=== PATIENT | male | born 1945 | race African-American/Black ===

== ENCOUNTER 2018-02-28 16:36 | Inpatient (IN) | payer MEDICARE ==
--- NOTE | 2018-03-01 16:21 | R.PREADM ---
SCREENING DATE AND TIME 03/01/2018 11:11 (CDT) ANTICIPATED REHAB ADMISSION DATE 03/03/2018 REFERRING FACILITY [facility] REFERRAL DATE AND TIME 03/01/2018 11:12 (CDT) ACUTE ADMIT DATE 02/15/2018 Previous Rehabilitation(s): No. REFERRING PHYSICIAN Kadie Bacon REHAB FACILITY [facility] CLINICAL LIAISON Laurence Bryant PHYSICIAN REVIEWER Dr. Zachary Ferguson M.D. [id number] [id number] NAME BRIANNA CRAWFORD ADDRESS PO [facility] [address] [facility] [address] [facility] [address] DATE OF 1945 AGE 72 SSN# [id number] GENDER male MARITAL STATUS RACE black ADMIT FROM 02 - [facility] PRE-HOSPITAL LIVING SETTING 01 - Home (private home/apt. board/care, assisted living, fpc, transitional living) HOME TYPE AND DETAILS Type of home: single family house # of steps to enter the residence: 0 # of steps within the residence: 0 # of levels in the residence: 1 PRE-HOSPITAL LIVING WITH Family/Relatives FAMILY SUPPORT Yes PHONE PRIMARY FAMILY CONTACT ON ADM.? no IS PRIMARY FAMILY CONTACT AUTH. REP.? no PHONE 1ST CONTACT ON ADM. no IS 1ST CONTACT AUTH. REP.? no PHONE 2ND CONTACT ON ADM.? no PATIENT EMPLOYMENT STATUS Retired (for age) PATIENT EMPLOYER No Employer PAYOR INFORMATION: 1ST PAYOR NAME [facility] 1ST PAYOR PHONE 1ST PAYOR INJURY/ILLNESS DUE TO ACCIDENT? No ANOTHER [employer] RESPONSIBLE? 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 is a 72 yo Right-handed black male. On 02/15/2018 he was admitted to [facility] with diagnosis coronary artery disease involving william meghann coronary artery of [place] heart with gain pectoris with documented spasm. His impairment category is Cardiac 09 - Cardiac Disorders (09). Pre-morbidly, Pt. was independent/mod-I in Self-Care, Sphincter Control, Transfers Control, Communica tion, Social Cognition, and Locomotion; and he had good Sphincter Control. Currently, he has deficits of Transfers Control, Communication, Social Cognition, Endurance, Balance, Safety Awareness, Locomotion, and Self-Care. Pt. is now referred to [facility] for acute in-patient rehabilitation in order to maximize patient's functional independence in activities of daily living, strength, ROM, and mobi lity. Patient has realistic goal of being discharged at assistance level 6-Adelia to reside at Home with Fam trinidad/Relatives. PAST MEDICAL HISTORY colorectal cancer MEDICATION ALLERGIES: No Known Drug Allergies (NKDA) ENVIRONMENTAL ALLERGIES: - Substance Allergies None Known - Other Allergies None Known CODE STATUS: Full code WEIGHT/HEIGHT/BMI: WEIGHT 250 lbs HEIGHT 5' 6" BMI 40.3 DIET: - Diet Type Regular - Diet - Solid Texture Regular - Diet - Liquid Texture Regular - Tube Feed N/A SKIN DIAGRAM: Incision on Chest; extent - small; stage - NS(Not Stageable). Treatment - Per Physician's Orders. REVIEW OF SYSTEMS: - Gen Alert and awake Lying in bed No apparent distress Oriented to: person, time, and place - Vital Signs Vital signs stable, afebrile - CVS RRR VITAL SIGNS Temperature: 98.6 F SBP/DBP: 101/66 Pulse: 98 Resp: 19 Vital signs stable, afebrile CURRENT SPHINCTER CONTROL: Pre-hospital bladder status: unspecified # of bladder accidents in the last 7 days prior to screenin Pre-hospital bowel status: unspecified # of bowel accidents in the last 7 days prior to screenin Last Bowel Movement Date: 03/01/2018 DETAILED CURRENT FUNCTIONAL STATUS: - Bladder accident frequency: Ind - No accidents in the past 7 days - Bowel accident frequency: Ind - No accidents in the past 7 days - Walking score based on distance walked: 3(>=150ft) FUNCTIONAL STATUS: - Self-Care A. Eating Ind Ind B. Grooming Ind Ind C. Bathing Ind Ind D. Dressing - Upper Ind sup E. Dressing - Lower Ind modA F. Toileting Ind modA - Sphincter Control G: Bladder control Ind Ind H: Bowel control Ind Ind - Transfers Control I. Bed/Chair/Wheelchair Ind modA J. Toilet Ind modA K. Tub/Shower Ind modA - Locomotion L. Walk/Wheelchair (B) Ind maxA M. Stairs Ind ADNO - Communication N. Comprehension (B) Ind sup O. Expression (B) Ind sup - Social Cognition P. Social Interaction Ind sup Q. Problem Solving Ind sup R. Memory Ind sup - Endurance Fair - Balance Fair - Safety Awareness Fair CURRENT FUNC. DEFICITS: Transfers Control, Communication, Social Cognition, Endurance, Balance, Safety Awareness, Locomotion, and Self-Care THERAPY NOTES FROM ACUTE CARE: Attached. SPECIAL NEEDS: - Safety Concerns Skin breakdown precautions needed due to skin breakdown risk PATIENT NEEDS ACTIVE AND ONGOING THERAPEUTIC INTERVENTION OF MULTIPLE THERAPY DISCIPLINES, INCLUDING: - Occupational Therapy Evaluate and Treat. - Physical Therapy Evaluate and Treat. PATIENT NEEDS CLOSE MEDICAL SUPERVISION BY A REHABILITATION PHYSICIAN FOR: Bowel and Bladder Management Coordination of Treatment Team Medical and Co-Morbidity Management Wound Care PATIENT REQUIRES 24X7 REHAB NURSING FOR MEDICAL AND FUNCTIONAL MGT. 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/Training Industrial Gas Fitter/Case Management PATIENT REHAB POTENTIAL: Expected level of measurable improvement will be of a practical value to patient's functional capacit y or adaptations to impairments Has a viable Discharge Plan Medically appropriate; condition is sufficiently stable to participate in intensive rehab program Patient is able and expected to receive 3 hours of individualized therapy daily on at least 5 of ever y 7 days Patient's prognosis for significant practical improvement within a reasonable period of time appears Good DISCHARGE PLAN: - Estimated Length of Stay (days) 10. - Consensus on plan Discharge plan has been discussed with primary caregiver. Patient/Family is in agreement with the mickey n. Primary caregiver is in agreement with the plan. - Patient/Family Goals Return home with assistance. - Planned Living Setting Upon Discharge Home, to live with Family/Relatives. RECOMMENDED CARE LEVEL: IRF RECOMMENDATION DETAILS: Recommended Admission to Comprehensive Rehabilitation Program to Increase Functional [place] SCREENER'S COMPLETENESS CONFIRMATION: - Screening Confirmation The patient data collection on this preadmission screening form is finished PHYSICIANS REVIEW AND ADMISSION DETERMINATION Admit - Based on my review of the Pre-Admission Screening results, in my medical judgment and experie nce, I concur with the findings and recommend admission to [facility], as this patient requires an IRF level of care. SIGNATURE PANEL: Clinical Liaison - [electronically] signed by Sita Calzada on 03/01/2018 at 14:44 (CDT) Clinical Liaison - [electronically] signed by Laurence Bryant on 03/01/2018 at 14:54 (CDT) Physician Reviewer - [electronically] signed by Dr. Zachary Ferguson M.D. on 03/01/2018 at 16:21 (CDT )
[2018-03-01] MEDS ORDERED: MELATONIN 3 MG TABLET PO PRN (21:31)
[2018-03-01] MEDS: HEPARIN 5000 UNIT/ML 1 ML VIAL SQ SCH (22:30)
--- NOTE | 2018-03-02 01:18 | FAST ---
SHIFT START DATE/TIME: 03/01/2018 19:00 (CDT) SHIFT END DATE/TIME: 03/02/2018 07:00 (CDT) NAME BRIANNA CRAWFORD DATE OF : 1945 DATE OF ADMISSION: 03/01/2018 20:00 (CDT) PHONE: AGE: 72 N# [id number] GENDER: Male ENCOUNTER PHYSICIAN: Dr. Zachary Ferguson M.D. ADMISSION DIAGNOSIS: - Cardiac 09 - Cardiac Disorders (09) coronary artery disease involving [place] coronary artery of [place] heart with gain pectoris with docu mented spasm. EATING: Activity did not occur on this shift EATING - SCORE: 0-UNK GROOMING: Activity did not occur on this shift GROOMING - SCORE: 0-UNK BATHING: Activity did not occur on this shift BATHING - SCORE: 0-UNK DRESSING - UPPER BODY: Patient is not dressing in public clothing ARTICLES SCORE Total number of steps: 0 DRESSING - UPPER BODY - SCORE: 0-UNK DRESSING - LOWER BODY: Patient is not dressing in public clothing ARTICLES SCORE Total number of steps: 0 DRESSING - LOWER BODY - SCORE: 0-UNK TOILETING: TOILETING - STEP 1: Does the patient require assistance with toileting? Yes. TOILETING - STEP 2: Does the patient require the assistance of a helper? Yes. TOILETING - STEP 3: How much assistance does the patient require from the helper? Only supervision TOILETING - SCORE: 5-SUP BLADDER MANAGEMENT: BLADDER MANAGEMENT - STEP 1: Does the patient control the bladder completely and intentionally without equipment or devices or med ications, and is always continent? No. BLADDER MANAGEMENT - STEP 2: Does the patient require the assistance of a helper? Yes. BLADDER MANAGEMENT - STEP 3: How much assistance does the patient require from the helper? Only set-up of equipment - such as plac ing it within reach of the patient or emptying a device - to maintain either satisfactory voiding pat tern or managing an external device, such as an absorbent pad, ileal device, or catheter BLADDER MANAGEMENT - SCORE: 5-SUP BOWEL MANAGEMENT: Activity did not occur on this shift BOWEL MANAGEMENT - SCORE: 7-IND TRANSFERS: BED, CHAIR, WHEELCHAIR: TRANSFERS: BED, CHAIR, WHEELCHAIR - STEP 1: Does the patient require assistance with bed, chair, or wheelchair transfers? Yes. TRANSFERS: BED, CHAIR, WHEELCHAIR - STEP 2: Does the patient require the assistance of a helper? Yes. TRANSFERS: BED, CHAIR, WHEELCHAIR - STEP 3: How much assistance does the patient require from the helper? Steadying/guiding assistance TRANSFERS: BED, CHAIR, WHEELCHAIR - SCORE: 4-MIN TRANSFERS: TOILET: Activity did not occur on this shift TRANSFERS: TOILET - SCORE: 0-UNK TRANSFERS: SHOWER: Activity did not occur on this shift TRANSFERS: SHOWER - SCORE: 0-UNK TRANSFERS: TUB: Activity did not occur on this shift TRANSFERS: TUB - SCORE: 0-UNK LOCOMOTION: WALK: Activity did not occur on this shift LOCOMOTION: WALK - SCORE: 0-UNK LOCOMOTION: WHEELCHAIR: Activity did not occur on this shift LOCOMOTION: WHEELCHAIR - SCORE: 0-UNK COMPREHENSION: COMPREHENSION - STEP 1: Does the patient require help to understand complex and abstract ideas (such as current events, finan elkin, discharge planning, medical issues, relationships, etc)? No. COMPREHENSION - STEP 2: Does the patient need extra time, require an assistive device (such as glasses, hearing aids, or an a ugmentative communication system), OR does s/he have mild difficulty expressing complex and abstract ideas (including mild dysarthria or mild word-finding problems)? Yes. COMPREHENSION - SCORE: 6-XIOMARA EXPRESSION EXPRESSION - STEP 1: Does the patient require help expressing complex and abstract ideas (such as current events, finances , discharge planning, medical issues, relationships, etc)? No. EXPRESSION - STEP 2: Does the patient need extra time, require an assistive device (such as augmentive communication syste m or a communication board), OR does s/he have mild difficulty expressing complex and abstract ideas (including mild dysarthria or mild word-find problems)? No. EXPRESSION - SCORE: 7-IND SOCIAL INTERACTION: SOCIAL INTERACTION - STEP 1: Does the patient require a helper to interact with others in social and therapeutic situations? No. SOCIAL INTERACTION - STEP 2: Does the patient need extra time in social situations, OR does s/he interact with staff, other patien ts, and family members ONLY in structured environments, OR does s/he require medication for social in teraction? Yes, patient needs extra time SOCIAL INTERACTION - SCORE: 6-XIOMARA PROBLEM SOLVING: PROBLEM SOLVING - STEP 1: Does the patient need help to solve complex problems such as managing a checking account or confronti ng interpersonal problems? No. PROBLEM SOLVING - STEP 2: Does the patient require extra time to make decisions or solve problems, OR does s/he have slight dif ficulty reading, initiating, or self-correcting in unfamiliar situations? Yes, patient needs extra ti me. PROBLEM SOLVING - SCORE: 6-XIOMARA MEMORY: MEMORY - STEP 1: Does the patient need help to remember frequently encountered people, daily routines, and executing r equests? No. MEMORY - STEP 2: Does the patient have slight difficulty recognizing frequently encountered people, daily routines, or executing requests without the need for repetition or using self-initiated or environmental cues to remember? Yes. MEMORY - SCORE: 6-XIOMARA SIGNATURE PANEL: The following modified sections: Eating - Score, Grooming - Score, Dressing - Upper Body - Score, Vince ssing - Lower Body - Score, Toileting - Score, Bladder Management - Score, Bowel Management - Score, Transfers: Bed, Chair, Wheelchair - Score, Transfers: Toilet - Score, Transfers: Shower - Score, Kor[place] sfers: Tub - Score, Locomotion: Walk - Score, Locomotion: Wheelchair - Score, Comprehension - Score, Expression - Score, Social Interaction - Score, Problem Solving - Score, Memory - Score were [electro nically] signed by Ariella Reveles CNA on ThuMar 02 2018 01:17:52 GMT-0500 (Central Daylight Time)
[2018-03-02] MEDS: METOPROLOL TAR 25 MG TAB PO SCH ×2 (05:27→17:03)
[2018-03-02 05:45] LABS: Urine Appearance CLEAR; Urine Bilirubin NEGATIVE (NEG); Urine Blood NEGATIVE (NEG); Urine Color DK YELLOW; Urine Glucose NEGATIVE (NEG); Urine Protein TRACE (NEG); Urine Specific Gravity 1.015 (1.005-1.030)
[2018-03-02 06:21] LABS: Absolute Lymphocytes (CBC) 1.5 K/uL (0.7-4.9); Absolute Monocytes 1.6 K/uL (0.1-1.3); Absolute Neutrophil 8.6 K/uL (1.8-8.0); Basophils % 0.5 % (0-1.3); Eosinophils % 3.5 % (0-4.4); Hematocrit 25.1 % (39.6-49.0); Lymphocytes % 12.5 % (15.3-44.8); MCH 32.1 pg (27.0-35.0); MCV 97.7 fL (80-100); MPV 8.6 fL (7.6-11.3); Monocytes % 13.3 % (3.3-12.3); RBC Red Blood Cell Count 2.57 M/uL (4.33-5.43)
[2018-03-02 06:43] LABS: Albumin 2.5 g/dL (3.4-5.0); BUN Blood Urea Nitrogen 6 mg/dL (7-18); Bicarbonate 39 mmol/L (21-32); Glucose Level 107 mg/dL (74-106); Magnesium 2.2 mg/dL (1.8-2.4); Prealbumin 8.4 mg/dL (20-40); Sodium Level 142 mmol/L (136-145)
[2018-03-02 06:46] LABS: Potassium 2.8 mmol/L (3.5-5.1)
[2018-03-02 07:23] LABS: Urine Bacteria <20 /HPF (NONE SEEN); Urine Culture Reflex Order NOT NEEDED; Urine RBC NONE SEEN /HPF (NONE SEEN)
[2018-03-02] MEDS ORDERED: POTASSIUM CL SA 10 MEQ TAB PO ONE (07:31)
[2018-03-02] MEDS: PANTOPRAZOLE 40MG TABLET PO SCH (07:40)
[2018-03-02] MEDS ORDERED: FUROSEMIDE 40 MG TABLET PO SCH ×2 (08:00→17:00)
[2018-03-02] MEDS: HEPARIN 5000 UNIT/ML 1 ML VIAL SQ SCH (08:30)
[2018-03-02] MEDS: POTASSIUM CL SA 10 MEQ TAB PO SCH ×2 (08:50→20:29)
[2018-03-02] MEDS: HYDROCODONE/APAP 5/325 MG TAB PO PRN (08:52)
--- NOTE | 2018-03-02 08:52 | RAD REPORT ---
EXAM DESCRIPTION: RAD - Chest Single View - 03/02/2018 8:32 am CLINICAL HISTORY: Pneumonia COMPARISON: April 2017 TECHNIQUE: AP portable chest image was obtained 0816 hours . FINDINGS: Inspiratory effort is shallow. Large body habitus accentuates chest findings. Cardiomegaly is present with vascular engorgement. Interstitial markings are prominent. No pneumothorax or large pleural effusion. No gross bony abnormality seen. No acute aortic findings suspected. Right-sided Por t-A-Cath is in place. IMPRESSION: CHF/volume overload pattern.
[2018-03-02] MEDS: GABAPENTIN 300 MG CAP PO SCH ×2 (08:53→20:28)
[2018-03-02] MEDS: FE SULF/FA/VIT B COMP & C TAB PO SCH (08:53)
[2018-03-02] MEDS: FERROUS SULFATE 325 MG TAB PO SCH (08:53)
[2018-03-02] MEDS: ALLOPURINOL 100 MG TAB PO SCH (08:54)
[2018-03-02] MEDS: ASPIRIN 81 MG CHEWABLE TABLET PO SCH (08:54)
[2018-03-02] MEDS: CLOPIDOGREL 75 MG TABLET PO SCH (08:54)
[2018-03-02] MEDS: SPIRONOLACTONE 25 MG TABLET PO SCH (08:54)
--- NOTE | 2018-03-02 14:16 | FAST ---
ENCOUNTER DATE AND TIME: 03/02/2018 08:00 (CDT) NAME BRIANNA CRAWFORD DATE OF : 1945 DATE OF ADMISSION: 03/01/2018 20:00 (CDT) PHONE: AGE: 72 N# [id number] GENDER: Male ENCOUNTER PHYSICIAN: Dr. Zachary Ferguson M.D. ADMISSION DIAGNOSIS: - Cardiac 09 - Cardiac Disorders (09) coronary artery disease involving [place] coronary artery of [place] heart with gain pectoris with docu mented spasm. EATING: Activity did not occur on this shift EATING - SCORE: 0-UNK GROOMING: Activity did not occur on this shift GROOMING - SCORE: 0-UNK BATHING: Activity did not occur on this shift BATHING - SCORE: 0-UNK DRESSING - UPPER BODY: Activity did not occur on this shift Patient is not dressing in public clothing ARTICLES SCORE Total number of steps: 0 DRESSING - UPPER BODY - SCORE: 0-UNK DRESSING - LOWER BODY: Activity did not occur on this shift Patient is not dressing in public clothing ARTICLES SCORE Total number of steps: 0 DRESSING - LOWER BODY - SCORE: 0-UNK TOILETING: Activity did not occur on this shift TOILETING - SCORE: 0-UNK BLADDER MANAGEMENT: Activity did not occur on this shift BLADDER MANAGEMENT - SCORE: 7-IND BOWEL MANAGEMENT: Activity did not occur on this shift BOWEL MANAGEMENT - SCORE: 7-IND TRANSFERS: BED, CHAIR, WHEELCHAIR: TRANSFERS: BED, CHAIR, WHEELCHAIR - STEP 1: Does the patient require assistance with bed, chair, or wheelchair transfers? Yes. TRANSFERS: BED, CHAIR, WHEELCHAIR - STEP 2: Does the patient require the assistance of a helper? Yes. TRANSFERS: BED, CHAIR, WHEELCHAIR - STEP 3: How much assistance does the patient require from the helper? Only supervision TRANSFERS: BED, CHAIR, WHEELCHAIR - SCORE: 5-SUP TRANSFERS: TOILET: Activity did not occur on this shift TRANSFERS: TOILET - SCORE: 0-UNK TRANSFERS: SHOWER: Activity did not occur on this shift TRANSFERS: SHOWER - SCORE: 0-UNK TRANSFERS: TUB: Activity did not occur on this shift TRANSFERS: TUB - SCORE: 0-UNK LOCOMOTION: WALK: LOCOMOTION: WALK - STEP 1: Does the patient need help to walk 150 feet? Yes. LOCOMOTION: WALK - STEP 2: How much assistance does the patient require to walk a minimum of 150 feet? Only incidental help such as contact guarding or steadying LOCOMOTION: WALK - SCORE: 4-MIN LOCOMOTION: WHEELCHAIR: Activity did not occur on this shift LOCOMOTION: WHEELCHAIR - SCORE: 0-UNK LOCOMOTION: STAIRS: Activity did not occur on this shift LOCOMOTION: STAIRS - SCORE: 0-UNK COMPREHENSION: COMPREHENSION - SCORE: 0-UNK EXPRESSION EXPRESSION - SCORE: 0-UNK SOCIAL INTERACTION: SOCIAL INTERACTION - SCORE: 0-UNK PROBLEM SOLVING: PROBLEM SOLVING - SCORE: 0-UNK MEMORY: MEMORY - SCORE: 0-UNK SIGNATURE PANEL: The following modified sections: Transfers: Bed, Chair, Wheelchair - Score, Transfers: Toilet - Score , Locomotion: Walk - Score, Locomotion: Wheelchair - Score, Locomotion: Stairs - Score were [electron baldev] signed by Raghu Mathew PT on ThuMar 02 2018 14:15:55 T-0500 (Central Daylight Time)
--- NOTE | 2018-03-02 15:18 | FAST ---
SHIFT START DATE/TIME: 03/02/2018 07:00 (CDT) SHIFT END DATE/TIME: 03/02/2018 19:00 (CDT) NAME BRIANNA CRAWFORD DATE OF : 1945 DATE OF ADMISSION: 03/01/2018 20:00 (CDT) PHONE: AGE: 72 N# [id number] GENDER: Male ENCOUNTER PHYSICIAN: Dr. Zachary Ferguson M.D. ADMISSION DIAGNOSIS: - Cardiac 09 - Cardiac Disorders (09) coronary artery disease involving [place] coronary artery of [place] heart with gain pectoris with docu mented spasm. EATING: EATING - STEP 1: Does the patient require assistance when eating? Yes. EATING - STEP 2: Does the patient require the assistance of a helper? No, patient only requires an assistive device, O R s/he takes more than reasonable time to eat, OR there is a safety concern, OR s/he requires modifie d food consistency EATING - SCORE: 6-XIOMARA GROOMING: Activity did not occur on this shift GROOMING - SCORE: 0-UNK BATHING: Activity did not occur on this shift BATHING - SCORE: 0-UNK DRESSING - UPPER BODY: Activity did not occur on this shift ARTICLES SCORE Total number of steps: 0 DRESSING - UPPER BODY - SCORE: 0-UNK DRESSING - LOWER BODY: Activity did not occur on this shift ARTICLES SCORE Total number of steps: 0 DRESSING - LOWER BODY - SCORE: 0-UNK TOILETING: TOILETING - STEP 1: Does the patient require assistance with toileting? Yes. TOILETING - STEP 2: Does the patient require the assistance of a helper? Yes. TOILETING - STEP 3: How much assistance does the patient require from the helper? Only supervision TOILETING - SCORE: 5-SUP BLADDER MANAGEMENT: BLADDER MANAGEMENT - STEP 1: Does the patient control the bladder completely and intentionally without equipment or devices or med ications, and is always continent? No. BLADDER MANAGEMENT - STEP 2: Does the patient require the assistance of a helper? No, patient requires and independently uses an a ssistive device, such as a urinal, bedpan, bedside commode, catheter, absorbent pad, or collecting de vice BLADDER MANAGEMENT - SCORE: 6-XIOMARA BLADDER MANAGEMENT - FREQUENCY OF ACCIDENTS: BLADDER MANAGEMENT(FA) - STEP 1: How many accidents has the patient had during the current shift? 0 BOWEL MANAGEMENT: Activity did not occur on this shift BOWEL MANAGEMENT - SCORE: 7-IND BOWEL MANAGEMENT - FREQUENCY OF ACCIDENTS: BOWEL MANAGEMENT(FA) - STEP 1: How many accidents has the patient had during the current shift? 0 TRANSFERS: BED, CHAIR, WHEELCHAIR: TRANSFERS: BED, CHAIR, WHEELCHAIR - STEP 1: Does the patient require assistance with bed, chair, or wheelchair transfers? Yes. TRANSFERS: BED, CHAIR, WHEELCHAIR - STEP 2: Does the patient require the assistance of a helper? Yes. TRANSFERS: BED, CHAIR, WHEELCHAIR - STEP 3: How much assistance does the patient require from the helper? Steadying/guiding assistance TRANSFERS: BED, CHAIR, WHEELCHAIR - SCORE: 4-MIN TRANSFERS: BED, CHAIR, WHEELCHAIR - COMMENTS: Sternal precautions TRANSFERS: TOILET: TRANSFERS: TOILET - STEP 1: Does the patient require assistance with toilet transfers? Yes. TRANSFERS: TOILET - STEP 2: Does the patient require the assistance of a helper? No. Patient only requires an assistive device sal ch as a grab bar or special seat, OR s/he takes more than reasonable time to perform toilet transfers , OR there is a safety concern when s/he performs toilet transfers. TRANSFERS: TOILET - SCORE: 6-XIOMARA TRANSFERS: SHOWER: Activity did not occur on this shift TRANSFERS: SHOWER - SCORE: 0-UNK TRANSFERS: TUB: Activity did not occur on this shift TRANSFERS: TUB - SCORE: 0-UNK LOCOMOTION: WALK: Activity did not occur on this shift LOCOMOTION: WALK - SCORE: 0-UNK LOCOMOTION: WHEELCHAIR: Activity did not occur on this shift LOCOMOTION: WHEELCHAIR - SCORE: 0-UNK COMPREHENSION: COMPREHENSION: TYPE: Both COMPREHENSION - STEP 1: Does the patient require help to understand complex and abstract ideas (such as current events, finan elkin, discharge planning, medical issues, relationships, etc)? No. COMPREHENSION - STEP 2: Does the patient need extra time, require an assistive device (such as glasses, hearing aids, or an a ugmentative communication system), OR does s/he have mild difficulty expressing complex and abstract ideas (including mild dysarthria or mild word-finding problems)? No. COMPREHENSION - SCORE: 7-IND EXPRESSION EXPRESSION: TYPE: Both EXPRESSION - STEP 1: Does the patient require help expressing complex and abstract ideas (such as current events, finances , discharge planning, medical issues, relationships, etc)? No. EXPRESSION - STEP 2: Does the patient need extra time, require an assistive device (such as augmentive communication syste m or a communication board), OR does s/he have mild difficulty expressing complex and abstract ideas (including mild dysarthria or mild word-find problems)? No. EXPRESSION - SCORE: 7-IND SOCIAL INTERACTION: SOCIAL INTERACTION - STEP 1: Does the patient require a helper to interact with others in social and therapeutic situations? No. SOCIAL INTERACTION - STEP 2: Does the patient need extra time in social situations, OR does s/he interact with staff, other patien ts, and family members ONLY in structured environments, OR does s/he require medication for social in teraction? No. SOCIAL INTERACTION - SCORE: 7-IND PROBLEM SOLVING: PROBLEM SOLVING - STEP 1: Does the patient need help to solve complex problems such as managing a checking account or confronti ng interpersonal problems? No. PROBLEM SOLVING - STEP 2: Does the patient require extra time to make decisions or solve problems, OR does s/he have slight dif ficulty reading, initiating, or self-correcting in unfamiliar situations? Yes, patient needs extra ti me. PROBLEM SOLVING - SCORE: 6-XIOMARA MEMORY: MEMORY - STEP 1: Does the patient need help to remember frequently encountered people, daily routines, and executing r equests? No. MEMORY - STEP 2: Does the patient have slight difficulty recognizing frequently encountered people, daily routines, or executing requests without the need for repetition or using self-initiated or environmental cues to remember? Yes. MEMORY - SCORE: 6-XIOMARA SIGNATURE PANEL: The following modified sections: Eating - Score, Grooming - Score, Bathing - Score, Dressing - Upper Body - Score, Dressing - Lower Body - Score, Toileting - Score, Bladder Management - Score, Bowel Man agement - Score, Transfers: Bed, Chair, Wheelchair - Score, Transfers: Bed, Chair, Wheelchair - Comme nts:, Transfers: Toilet - Score, Transfers: Shower - Score, Transfers: Tub - Score, Locomotion: Walk - Score, Locomotion: Wheelchair - Score, Comprehension - Score, Expression - Score, Social Interactio n - Score, Problem Solving - Score, Memory - Score were [electronically] signed by Bin Gibbons on ThuMar 02 2018 15:16:57 T-0500 (Central Daylight Time)
[2018-03-02] MEDS: FUROSEMIDE 40 MG TABLET PO SCH (16:11)
--- NOTE | 2018-03-02 18:07 | R.HP ---
FACILITY: [facility] ENCOUNTER DATE AND TIME: 03/02/2018 18:01 (CDT) MR#: [id number] NAME BRIANNA CRAWFORD ADDRESS: [place] [id number] CITY: [place]IP [address] PHONE: DATE OF : 1945 AGE: 72 SSN# [id number] GENDER: Male DEXTERITY Right-handed MARITAL STATUS RACE Black PRE-HOSPITAL LIVING SETTING 01 - Home (private home/apt. board/care, assisted living, halfway, transitional living) PRE-HOSPITAL LIVING WITH Family/Relatives ENCOUNTER PHYSICIAN: Dr. Zachary Ferguson M.D. REFERRING DOCTOR: Kadie Bacon DATE OF ADMISSION: 03/01/2018 20:00 (CDT) REFERRING FACILITY [facility] HOME TYPE AND DETAILS: Type of home: single family house # of steps to enter the residence: 0 # of steps within the residence: 0 # of levels in the residence: 1 ADMISSION DIAGNOSIS: coronary artery disease involving [place] coronary artery of hoh heart with gain pectoris with docu mented spasm ONSET DATE: 02/15/2018 PRIMARY DIAGNOSIS-RELATED SURGERIES: 2 vessel coronary artery bypass SECONDARY/COMORBID DIAGNOSES (TIERED): - N/A colorectal cancer HISTORY OF PRESENT ILLNESS (HPI): Pt. is a 72 yo Right-handed black male. On 02/15/2018 he was admitted to [facility] with diagnosis coronary artery disease involving [place] coronary artery of hoh heart with gain pectoris with documented spasm. His impairment category is Cardiac 09 - Cardiac Disorders (09). Pre-morbidly, Pt. was independent/mod-I in Self-Care, Sphincter Control, Transfers Control, Communica tion, Social Cognition, and Locomotion; and he had good Sphincter Control. Currently, he has deficits of Transfers Control, Communication, Social Cognition, Endurance, Balance, Safety Awareness, Locomotion, and Self-Care. Pt. is now referred to [facility] for acute in-patient rehabilitation in order to maximize patient's functional independence in activities of daily living, strength, ROM, and mobi lity. Patient has realistic goal of being discharged at assistance level 6-Adelia to reside at Home with Fam trinidad/Relatives. MEDICATION ALLERGIES: No Known Drug Allergies (NKDA) ENVIRONMENTAL ALLERGIES: - Substance Allergies None Known - Other Allergies None Known PAST MEDICAL HISTORY: colorectal cancer FAMILY HISTORY: Family history is not contributory. SOCIAL HISTORY: - Home Living Family/Relatives REVIEW OF SYSTEMS: - Gen No Chills Fatigue No Fever - Eyes No Double Vision No itchiness - ENMT No Difficulty Swallowing - CVS No Chest Discomfort No Chest Pain Fatigue No Weight Gain - Resp No Cough No Shortness of Breath - GI Continent No Abdominal Pain No Constipation No Diarrhea - Continent No Kidney Pain No Painful Urination No Urinary Urgency - MSK No Joint Pain Muscle Cramps Stiffness - Skin No Itching No Rash No Suspicious Lesions - Neuro Coordination Difficulty No Difficulty with Concentration No Memory Loss No Seizures Weakness - Psych No Anxiety No Depression No HIV Exposure No Persistent Infections No Seasonal Allergies - Endo No Cold/Heat Intolerance No Excessive Hunger No Excessive Thirst No Excessive Urination PHYSICAL EXAM - Gen Alert and awake Lying in bed No apparent distress Oriented to: person, time, and place - Skin LLE incisions intact Normacephalic - Eyes No abnormalities - ENMT No abnormalities - Neck No abnormalities - CVS RRR - Chest No abnormalities - Abd Soft - GI Non distended Deferred - No abnormalities - Ext Moderate 3+ edema in the lower extremities. - MSK 4+/5 weakness in both lower extremities. - Neuro 4/5 strength bilaterally lower extremities. - Psych No abnormalities VITAL SIGNS Temperature: 98.6 F SBP/DBP: 126/64 Pulse: 90 Resp: 16 NURSING: - Shower allowing shower ACTIVITIES OOB only with supervision FUNCTIONAL STATUS: - Self-Care A. Eating Ind Ind B. Grooming Ind Ind C. Bathing Ind Ind D. Dressing - Upper Ind sup E. Dressing - Lower Ind modA F. Toileting Ind modA - Sphincter Control G: Bladder control Ind Ind H: Bowel control Ind Ind - Transfers Control I. Bed/Chair/Wheelchair Ind modA J. Toilet Ind modA K. Tub/Shower Ind modA - Locomotion L. Walk/Wheelchair (B) Ind maxA M. Stairs Ind ADNO - Communication N. Comprehension (B) Ind sup O. Expression (B) Ind sup - Social Cognition P. Social Interaction Ind sup Q. Problem Solving Ind sup R. Memory Ind sup - Endurance Fair - Balance Fair - Safety Awareness Fair CURRENT FUNC. DEFICITS: Transfers Control, Communication, Social Cognition, Endurance, Balance, Safety Awareness, Locomotion, and Self-Care ASSESSMENT: Pt. is a 72 yo Right-handed black male.On 02/15/2018 he was admitted to [facility] with diagnosi s coronary artery disease involving hoh coronary artery of hoh heart with gain pectoris with do cumented spasm.His impairment category is Cardiac 09 - Cardiac Disorders (09).Pre-morbidly, Pt. was independent/mod-I in Self-Care, Sphincter Control, Transfers Control, Communication, Social Cognition , and Locomotion; and he had good Sphincter Control.Currently, he has deficits of Transfers Control, Communication, Social Cognition, Endurance, Balance, Safety Awareness, Locomotion, and Self-Care.Pt. is now referred to [facility] for acute in-patient rehabilitation in order to maximize patient's functional independence in activities of daily living, strength, ROM, and mobility .- Rehab Goal Patient has realistic goal of being discharged at assistance level 6-Adelia to reside at Home with Fam trinidad/Relatives. REHAB PLAN: - Physical Therapy Gait dysfunction - to improve, our physical therapists will perform initial evaluation of pt's status upon admission and devise an individualized program for Gait Training, and Wheel Chair mobility Inability to transfer - to improve, our physical therapists will perform initial evaluation of pt's s tatus upon admission and devise an individualized program for Bed mobility Need for home safety evaluation - to improve, our physical therapists will perform initial evaluation of pt's status upon admission and devise an individualized program for Home Evaluation Need in caregiver upon discharge - to improve, our physical therapists will perform initial evaluatio n of pt's status upon admission and devise an individualized program for Caregiver Training New precaution - to improve, our physical therapists will perform initial evaluation of pt's status u clau admission and devise an individualized program for Patient precaution education Edema - to improve, our physical therapists will perform initial evaluation of pt's status upon admi ssion and devise an individualized program for Elevation Training, and Lymphedema Therapy Poor balance - to improve, our physical therapists will perform initial evaluation of pt's status upo n admission and devise an individualized program for Balance Training Poor endurance - to improve, our physical therapists will perform initial evaluation of pt's status u clau admission and devise an individualized program for Endurance Training Weakness - to improve, our physical therapists will perform initial evaluation of pt's status upon ad mission and devise an individualized program for Aquatic Therapy, Neuromuscular Reeducation, and Stre ngthening Achieving independence - to improve, our physical therapists will perform initial evaluation of pt's status upon admission and devise an individualized program for Community Reintegration Activities - Occupational Therapy ADL deficits - to improve, our occupation therapists will perform initial evaluation of pt's status u clau admission and devise an individualized program for Bathing, Bed mobility, Community Reintegration , Cooking, Dressing, Eating, Fine Motor Skills, Grooming, Homemaking, Kitchen Mobility, Laundry, Leslee ent Education, Safety Awareness, Splinting - Positioning, Transfers(Toilet, Tub, Shower), and Wheel C hair Management Cognitive deficits - to improve, our occupation therapists will perform initial evaluation of pt's st atus upon admission and devise an individualized program for Cognition - orientation Need for hearing healthcare practitioner - to improve, our occupation therapists will perform initial evaluation of pt's s tatus upon admission and devise an individualized program for Caregiver Training Weakness - to improve, our occupation therapists will perform initial evaluation of pt's status upon admission and devise an individualized program for Aquatic Therapy, Balance, Endurance, UE ROM, and U E strengthening MEDICAL PLAN: - Diet Type Start Regular - Diet - Liquid Texture Start Regular - Tube Feed Start N/A - Diet - Solid Texture Regular - Shower shower DISCHARGE PLAN: - Estimated Length of Stay (days) 10. - Consensus on plan Discharge plan has been discussed with primary caregiver. Patient/Family is in agreement with the mickey n. Primary caregiver is in agreement with the plan. - Patient/Family Goals Return home with assistance. - Planned Living Setting Upon Discharge Home, to live with Family/Relatives. SIGNATURE PANEL: (CDT)
--- NOTE | 2018-03-02 18:08 | PAPE ---
PATIENT: [facility] MR# [id number] REFERRING DOCTOR Kadie Bacon EVALUATION DATE AND TIME 03/02/2018 18:06 (CDT) NAME BRIANNA CRAWFORD DATE OF 1945 AGE 72 PHONE N# [id number] GENDER male EVALUATING PHYSICIAN Dr. Zachary Ferguson M.D. ADMISSION DIAGNOSIS: coronary artery disease involving [place] coronary artery of [place] heart with gain pectoris with docu mented spasm ONSET DATE 02/15/2018 SECONDARY/COMORBID DIAGNOSES TIERED: - N/A colorectal cancer POST-ADMISSION FUNCTIONAL/MEDICAL STATUS: - Bladder Same accident frequency: Ind - No accidents in the past 7 days - Bowel Same accident frequency: Ind - No accidents in the past 7 days - Walking Same score based on distance walked: 3(>=150ft) STATUS CHANGE EVALUATION: No change in Functional or Medical Status is identified compared with Pre-Admission screening. PATIENT NEEDS CLOSE MEDICAL SUPERVISION BY A REHABILITATION PHYSICIAN FOR: Bowel and Bladder Management Coordination of Treatment Team Medical and Co-Morbidity Management Wound Care PATIENT REQUIRES 24X7 REHAB NURSING FOR MEDICAL AND FUNCTIONAL MGT. 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/Training Behavioral Health Care Manager/Case Management LIST OF IDENTIFIED AND POTENTIAL PROBLEMS: Alteration in leisure activities Bladder, Incontinence Bowel, Incontinence Infection, Actual or Potential Mobility Impaired Pain, Alteration in Comfort Self Care Deficit Skin Integrity, Actual or Potential Urinary Tract Infection (UTI), Actual or Potential PATIENT COULD BE AT RISK FOR COMPLICATIONS FROM ADVERSE MEDICAL CONDITIONS DUE TO HIS/HER COMORBIDITI ES AND THE RIGORS OF THE INTENSIVE REHABILLITATION PROGRAM. METHODS OR INTERVENTIONS TO AVOID COMPLIC ATIONS INCLUDE: - Bleeding Assess lab values and manage abnormalities. Nursing to teach precautions for anti-coagulation therapy . Wound to be assessed every shift. - Infection Clinical staff to assess and manage the signs and symptoms of infection including fever, redness, war mth, etc. - Urinary Tract Infection - Falls Patient will be evaluated for Fall Precautions and will be placed on Fall Precautions as indicated pe r protocol. - Skin Breakdown Nursing will assess skin daily using assessment tool and will place on Skin Breakdown Precautions as indicated per protocol. - Pain Clinical staff may employ non-medication methods such as massage, distraction, decrease stimulus, etc . as needed. Clinical staff will assess patient's pain level every shift per protocol to assess and e nsure pain management effectiveness. Medications will be given and the pain level re-assessed. PRELIMINARY PLAN OF CARE: - Physical Therapy Patient needs Physical Therapy for a daily minimum of 1.5 hours at least 5 out of 7 days, to improve: Mobility, Strengthening, Transfers, Stretching, ROM, Endurance, Ability to manage stairs, Gait, and Balance. - Rehabilitation Nursing Patient requires 24x7 Rehabilitation Nursing for: Pain Issues, Identifying and preventing risk factor s, Monitoring and reporting current medical conditions, Assisting with ambulation and transfer, Cecy ting with all ADL-s, Teaching patients about disease process and medications, Family teaching, Provid ing safe environment, Bowel and Bladder Issues, Skin Integrity, and Medication Management. Patient needs Behavioral Health Care Manager and/or Case Management for: Discharge Planning, Arranging Home Equipmen t or Services, and Family Interventions. - Dietary and Nutrition Services Patient needs Dietary and Nutrition Services for: Adequate Nutrition, Nutritional Supplements, and Nu tritional Education. - Occupational Therapy Patient needs Occupational Therapy for a daily minimum of 1.5 hours at least 5 out of 7 days, to impr ove Activities of Daily Living, including: Eating, Grooming, Bathing, Dressing, Toileting, Toilet Tra nsfers, Community Reintegration, Higher functional activities, Adaptive Equipment, Splinting, Househo ld Tasks, and Other activities as determined. POTENTIAL FUNCTIONAL GOALS FOR PATIENT TO ACHIEVE BY DISCHARGE: - Safety Precaution Patient will remain free from falls or injury at time of discharge. - Bed Mobility Patient will perform bed mobility at 4-Ulysses level of assistance. - Transfers Patient will complete transfers from bed to chair at 4-[place]lysses level of assistance. - Mobility Patient will ambulate 150 ft with 4-Ulysses level of assistance with RW. PATIENT REHAB POTENTIAL Expected level of measurable improvement will be of a practical value to patient's functional capacit y or adaptations to impairments Has a viable Discharge Plan Medically appropriate; condition is sufficiently stable to participate in intensive rehab program Patient is able and expected to receive 3 hours of individualized therapy daily on at least 5 of ever y 7 days Patient's prognosis for significant practical improvement within a reasonable period of time appears Good DISCHARGE PLAN: - Estimated Length of Stay (days) 10. - Consensus on plan Discharge plan has been discussed with primary caregiver. Patient/Family is in agreement with the mickey n. Primary caregiver is in agreement with the plan. - Patient/Family Goals Return home with assistance. - Planned Living Setting Upon Discharge Home, to live with Family/Relatives. CONCLUSION ON REHABILITATION NECESSITY: I have evaluated patient's pre-admission functional status and, comparing it to the patient's post-ad mission functional status now, I conclude that the pre-admission assessment was accurate. Patient's c ondition on admission supports the medical necessity of admission to IR[facility]. It is safe to proceed with patient's therapy program. SIGNATURE PANEL: (CDT)
[2018-03-02] MEDS: APIXABAN 2.5 MG TABLET PO SCH (20:28)
[2018-03-02] MEDS: ATORVASTATIN 80 MG TAB PO SCH (20:28)
[2018-03-02] MEDS: PROMOD 30 ML DOSE PO SCH (20:29)
[2018-03-02] MEDS: DOCUSATE NA/SENNA CONC 1 TAB PO SCH (20:29)
--- NOTE | 2018-03-03 01:47 | FAST ---
SHIFT START DATE/TIME: 03/02/2018 19:00 (CDT) SHIFT END DATE/TIME: 03/03/2018 07:00 (CDT) NAME BRIANNA CRAWFORD DATE OF : 1945 DATE OF ADMISSION: 03/01/2018 20:00 (CDT) PHONE: AGE: 72 N# [id number] GENDER: Male ENCOUNTER PHYSICIAN: Dr. Zachary Ferguson M.D. ADMISSION DIAGNOSIS: - Cardiac 09 - Cardiac Disorders (09) coronary artery disease involving [place] coronary artery of [place] heart with gain pectoris with docu mented spasm. EATING: Activity did not occur on this shift EATING - SCORE: 0-UNK GROOMING: Activity did not occur on this shift GROOMING - SCORE: 0-UNK BATHING: Activity did not occur on this shift BATHING - SCORE: 0-UNK DRESSING - UPPER BODY: Patient is not dressing in public clothing ARTICLES SCORE Total number of steps: 0 DRESSING - UPPER BODY - SCORE: 0-UNK DRESSING - LOWER BODY: Patient is not dressing in public clothing ARTICLES SCORE Total number of steps: 0 DRESSING - LOWER BODY - SCORE: 0-UNK TOILETING: TOILETING - STEP 1: Does the patient require assistance with toileting? Yes. TOILETING - STEP 2: Does the patient require the assistance of a helper? Yes. TOILETING - STEP 3: How much assistance does the patient require from the helper? Only supervision TOILETING - SCORE: 5-SUP BLADDER MANAGEMENT: BLADDER MANAGEMENT - STEP 1: Does the patient control the bladder completely and intentionally without equipment or devices or med ications, and is always continent? Yes. BLADDER MANAGEMENT - SCORE: 7-IND BOWEL MANAGEMENT: Activity did not occur on this shift BOWEL MANAGEMENT - SCORE: 7-IND TRANSFERS: BED, CHAIR, WHEELCHAIR: TRANSFERS: BED, CHAIR, WHEELCHAIR - STEP 1: Does the patient require assistance with bed, chair, or wheelchair transfers? Yes. TRANSFERS: BED, CHAIR, WHEELCHAIR - STEP 2: Does the patient require the assistance of a helper? Yes. TRANSFERS: BED, CHAIR, WHEELCHAIR - STEP 3: How much assistance does the patient require from the helper? Lifting of the legs TRANSFERS: BED, CHAIR, WHEELCHAIR - STEP 4: How many legs does the patient require the helper to lift? both legs TRANSFERS: BED, CHAIR, WHEELCHAIR - SCORE: 3-MOD TRANSFERS: TOILET: Activity did not occur on this shift TRANSFERS: TOILET - SCORE: 0-UNK TRANSFERS: SHOWER: Activity did not occur on this shift TRANSFERS: SHOWER - SCORE: 0-UNK TRANSFERS: TUB: Activity did not occur on this shift TRANSFERS: TUB - SCORE: 0-UNK LOCOMOTION: WALK: Activity did not occur on this shift LOCOMOTION: WALK - SCORE: 0-UNK LOCOMOTION: WHEELCHAIR: Activity did not occur on this shift LOCOMOTION: WHEELCHAIR - SCORE: 0-UNK COMPREHENSION: COMPREHENSION - STEP 1: Does the patient require help to understand complex and abstract ideas (such as current events, finan elkin, discharge planning, medical issues, relationships, etc)? No. COMPREHENSION - STEP 2: Does the patient need extra time, require an assistive device (such as glasses, hearing aids, or an a ugmentative communication system), OR does s/he have mild difficulty expressing complex and abstract ideas (including mild dysarthria or mild word-finding problems)? Yes. COMPREHENSION - SCORE: 6-[place] EXPRESSION EXPRESSION - STEP 1: Does the patient require help expressing complex and abstract ideas (such as current events, finances , discharge planning, medical issues, relationships, etc)? No. EXPRESSION - STEP 2: Does the patient need extra time, require an assistive device (such as augmentive communication syste m or a communication board), OR does s/he have mild difficulty expressing complex and abstract ideas (including mild dysarthria or mild word-find problems)? Yes. EXPRESSION - SCORE: 6-[place] SOCIAL INTERACTION: SOCIAL INTERACTION - STEP 1: Does the patient require a helper to interact with others in social and therapeutic situations? No. SOCIAL INTERACTION - STEP 2: Does the patient need extra time in social situations, OR does s/he interact with staff, other patien ts, and family members ONLY in structured environments, OR does s/he require medication for social in teraction? Yes, patient needs extra time SOCIAL INTERACTION - SCORE: 6-[place] PROBLEM SOLVING: PROBLEM SOLVING - STEP 1: Does the patient need help to solve complex problems such as managing a checking account or confronti ng interpersonal problems? No. PROBLEM SOLVING - STEP 2: Does the patient require extra time to make decisions or solve problems, OR does s/he have slight dif ficulty reading, initiating, or self-correcting in unfamiliar situations? Yes, patient needs extra ti me. PROBLEM SOLVING - SCORE: 6-[place] MEMORY: MEMORY - STEP 1: Does the patient need help to remember frequently encountered people, daily routines, and executing r equests? No. MEMORY - STEP 2: Does the patient have slight difficulty recognizing frequently encountered people, daily routines, or executing requests without the need for repetition or using self-initiated or environmental cues to remember? Yes. MEMORY - SCORE: 6-[place] SIGNATURE PANEL: The following modified sections: Eating - Score, Grooming - Score, Dressing - Upper Body - Score, Vince ssing - Lower Body - Score, Toileting - Score, Bladder Management - Score, Bowel Management - Score, Transfers: Bed, Chair, Wheelchair - Score, Transfers: Toilet - Score, Transfers: Shower - Score, [place] sfers: Tub - Score, Locomotion: Walk - Score, Locomotion: Wheelchair - Score, Comprehension - Score, Expression - Score, Social Interaction - Score, Problem Solving - Score, Memory - Score were [electro nically] signed by Ariella Reveles CNA on ThuMar 03 2018 01:46:34 GMT-0500 (Central Daylight Time)
[2018-03-03] MEDS: METOPROLOL TAR 25 MG TAB PO SCH ×2 (05:01→17:04)
[2018-03-03] MEDS: PANTOPRAZOLE 40MG TABLET PO SCH (06:40)
[2018-03-03] MEDS: HYDROCODONE/APAP 5/325 MG TAB PO PRN (07:59)
[2018-03-03] MEDS: GABAPENTIN 300 MG CAP PO SCH ×2 (07:59→20:02)
[2018-03-03] MEDS ORDERED: FUROSEMIDE 40 MG TABLET PO SCH (08:00)
[2018-03-03] MEDS: POTASSIUM CL SA 10 MEQ TAB PO SCH ×2 (08:00→20:02)
[2018-03-03] MEDS: FERROUS SULFATE 325 MG TAB PO SCH (08:00)
[2018-03-03] MEDS: ASPIRIN 81 MG CHEWABLE TABLET PO SCH (08:01)
[2018-03-03] MEDS: FUROSEMIDE 40 MG TABLET PO SCH ×2 (08:01→17:00)
[2018-03-03] MEDS: ALLOPURINOL 100 MG TAB PO SCH (08:02)
[2018-03-03] MEDS: SPIRONOLACTONE 25 MG TABLET PO SCH (08:03)
[2018-03-03] MEDS: CLOPIDOGREL 75 MG TABLET PO SCH (08:03)
[2018-03-03] MEDS: FE SULF/FA/VIT B COMP & C TAB PO SCH (08:04)
[2018-03-03] MEDS: APIXABAN 2.5 MG TABLET PO SCH ×2 (08:04→20:02)
[2018-03-03] MEDS: PROMOD 30 ML DOSE PO SCH ×2 (08:04→20:01)
[2018-03-03 09:59] LABS: Absolute Lymphocytes (CBC) 1.7 K/uL (0.7-4.9); Absolute Neutrophil 7.3 K/uL (1.8-8.0); Basophils % 0.8 % (0-1.3); Eosinophils % 4.3 % (0-4.4); Hematocrit 27.1 % (39.6-49.0); Lymphocytes % 16.3 % (15.3-44.8); MCH 32.2 pg (27.0-35.0); MCV 98.1 fL (80-100); MPV 8.7 fL (7.6-11.3); Monocytes % 9.7 % (3.3-12.3); RBC Red Blood Cell Count 2.76 M/uL (4.33-5.43)
[2018-03-03 10:33] LABS: ALT/SGPT 26 U/L (12-78); AST/SGOT 41 U/L (15-37); Albumin 2.5 g/dL (3.4-5.0); Alkaline Phosphatase 71 U/L (45-117); BUN Blood Urea Nitrogen 7 mg/dL (7-18); Bilirubin Total 0.6 mg/dL (0.2-1.0); Glucose Level 134 mg/dL (74-106); Protein, Total 7.3 g/dL (6.4-8.2); Sodium Level 139 mmol/L (136-145)
[2018-03-03 10:38] LABS: Bicarbonate 42 mmol/L (21-32)
[2018-03-03 13:40] LABS: Blood Morphology Comment NOTED (NOT SEEN); Platelet Estimate ADEQ; Urine White Blood Cell Casts OK
[2018-03-03 13:41] LABS: Anisocytosis 2+; Poikilocytosis 1+; Polychromasia 1+
--- NOTE | 2018-03-03 13:58 | FAST ---
SHIFT START DATE/TIME: 03/03/2018 07:00 (CDT) SHIFT END DATE/TIME: 03/03/2018 19:00 (CDT) NAME BRIANNA CRAWFORD DATE OF : 1945 DATE OF ADMISSION: 03/01/2018 20:00 (CDT) PHONE: AGE: 72 N# [id number] GENDER: Male ENCOUNTER PHYSICIAN: Dr. Zachary Ferguson M.D. ADMISSION DIAGNOSIS: - Cardiac 09 - Cardiac Disorders (09) coronary artery disease involving [place] coronary artery of [place] heart with gain pectoris with docu mented spasm. EATING: EATING - STEP 1: Does the patient require assistance when eating? Yes. EATING - STEP 2: Does the patient require the assistance of a helper? No, patient only requires an assistive device, O R s/he takes more than reasonable time to eat, OR there is a safety concern, OR s/he requires modifie d food consistency EATING - SCORE: 6-XIOMARA GROOMING: Wash, rinse, and dry face Wash, rinse, and dry hands GROOMING - STEP 1: Does the patient require assistance when grooming? Yes. GROOMING - STEP 2: Does the patient require the assistance of a helper? Yes. GROOMING - STEP 3: How much assistance does the patient require from the helper? Only prior equipment preparation/set up from the helper GROOMING - SCORE: 5-SUP BATHING: Activity did not occur on this shift BATHING - SCORE: 0-UNK DRESSING - UPPER BODY: Patient is not dressing in public clothing ARTICLES SCORE Total number of steps: 0 DRESSING - UPPER BODY - SCORE: 0-UNK DRESSING - LOWER BODY: Patient is not dressing in public clothing ARTICLES SCORE Total number of steps: 0 DRESSING - LOWER BODY - SCORE: 0-UNK TOILETING: TOILETING - STEP 1: Does the patient require assistance with toileting? Yes. TOILETING - STEP 2: Does the patient require the assistance of a helper? Yes. TOILETING - STEP 3: How much assistance does the patient require from the helper? Hands-on assistance from the helper TOILETING - STEP 4: Of the 3 tasks: 1) Adjusting clothing prior to use, 2) Cleansing of perineal area, 3) Adjusting clot jj after use; How many tasks does the patient perform WITHOUT assistance of the helper? Three tasks with steadying assistance from the helper TOILETING - SCORE: 4-MIN BLADDER MANAGEMENT: BLADDER MANAGEMENT - STEP 1: Does the patient control the bladder completely and intentionally without equipment or devices or med ications, and is always continent? No. BLADDER MANAGEMENT - STEP 2: Does the patient require the assistance of a helper? No, patient requires and independently uses an a ssistive device, such as a urinal, bedpan, bedside commode, catheter, absorbent pad, or collecting de vice BLADDER MANAGEMENT - SCORE: 6-XIOMARA BOWEL MANAGEMENT: BOWEL MANAGEMENT - STEP 1: Does the patient control bowels completely and intentionally without equipment devices or medications AND is always continent? No. BOWEL MANAGEMENT - STEP 2: Does the patient require the assistance of a helper? No, patient requires and manages independently a n assistive device such as a bedpan, bedside commode, absorbent pad, incontinent device, or collectin g device BOWEL MANAGEMENT - SCORE: 6-XIOMARA TRANSFERS: BED, CHAIR, WHEELCHAIR: TRANSFERS: BED, CHAIR, WHEELCHAIR - STEP 1: Does the patient require assistance with bed, chair, or wheelchair transfers? Yes. TRANSFERS: BED, CHAIR, WHEELCHAIR - STEP 2: Does the patient require the assistance of a helper? Yes. TRANSFERS: BED, CHAIR, WHEELCHAIR - STEP 3: How much assistance does the patient require from the helper? Steadying/guiding assistance TRANSFERS: BED, CHAIR, WHEELCHAIR - SCORE: 4-MIN TRANSFERS: TOILET: TRANSFERS: TOILET - STEP 1: Does the patient require assistance with toilet transfers? Yes. TRANSFERS: TOILET - STEP 2: Does the patient require the assistance of a helper? Yes. TRANSFERS: TOILET - STEP 3: How much assistance does the patient require from the helper? Patient performs half or more of the tr ansferring tasks TRANSFERS: TOILET - STEP 4: Does the patient need only incidental help such as contact guard or steadying during toilet transfer? Yes. TRANSFERS: TOILET - SCORE: 4-MIN TRANSFERS: SHOWER: Activity did not occur on this shift TRANSFERS: SHOWER - SCORE: 0-UNK TRANSFERS: TUB: Activity did not occur on this shift TRANSFERS: TUB - SCORE: 0-UNK LOCOMOTION: WALK: Activity did not occur on this shift LOCOMOTION: WALK - SCORE: 0-UNK LOCOMOTION: WHEELCHAIR: Activity did not occur on this shift LOCOMOTION: WHEELCHAIR - SCORE: 0-UNK COMPREHENSION: COMPREHENSION - STEP 1: Does the patient require help to understand complex and abstract ideas (such as current events, finan elkin, discharge planning, medical issues, relationships, etc)? No. COMPREHENSION - STEP 2: Does the patient need extra time, require an assistive device (such as glasses, hearing aids, or an a ugmentative communication system), OR does s/he have mild difficulty expressing complex and abstract ideas (including mild dysarthria or mild word-finding problems)? No. COMPREHENSION - SCORE: 7-IND EXPRESSION EXPRESSION - STEP 1: Does the patient require help expressing complex and abstract ideas (such as current events, finances , discharge planning, medical issues, relationships, etc)? No. EXPRESSION - STEP 2: Does the patient need extra time, require an assistive device (such as augmentive communication syste m or a communication board), OR does s/he have mild difficulty expressing complex and abstract ideas (including mild dysarthria or mild word-find problems)? No. EXPRESSION - SCORE: 7-IND SOCIAL INTERACTION: SOCIAL INTERACTION - STEP 1: Does the patient require a helper to interact with others in social and therapeutic situations? No. SOCIAL INTERACTION - STEP 2: Does the patient need extra time in social situations, OR does s/he interact with staff, other patien ts, and family members ONLY in structured environments, OR does s/he require medication for social in teraction? No. SOCIAL INTERACTION - SCORE: 7-IND PROBLEM SOLVING: PROBLEM SOLVING - STEP 1: Does the patient need help to solve complex problems such as managing a checking account or confronti ng interpersonal problems? No. PROBLEM SOLVING - STEP 2: Does the patient require extra time to make decisions or solve problems, OR does s/he have slight dif ficulty reading, initiating, or self-correcting in unfamiliar situations? No. PROBLEM SOLVING - SCORE: 7-IND MEMORY: MEMORY - STEP 1: Does the patient need help to remember frequently encountered people, daily routines, and executing r equests? No. MEMORY - STEP 2: Does the patient have slight difficulty recognizing frequently encountered people, daily routines, or executing requests without the need for repetition or using self-initiated or environmental cues to remember? No. MEMORY - SCORE: 7-IND SIGNATURE PANEL: The following modified sections: Eating - Score, Grooming - Score, Bathing - Score, Dressing - Upper Body - Score, Dressing - Lower Body - Score, Toileting - Score, Bladder Management - Score, Bowel Man agement - Score, Transfers: Bed, Chair, Wheelchair - Score, Transfers: Toilet - Score, Transfers: Cristina wer - Score, Transfers: Tub - Score, Locomotion: Walk - Score, Locomotion: Wheelchair - Score, Expres ld - Score, Social Interaction - Score, Problem Solving - Score, Memory - Score, Comprehension - Sc ore were [electronically] signed by Reece Rodriguez on ThuMar 03 2018 13:57:58 GMT-0500 (Central Daylight Time)
--- NOTE | 2018-03-03 16:34 | FAST ---
ENCOUNTER DATE AND TIME: 03/03/2018 08:00 (CDT) NAME BRIANNA CRAWFORD DATE OF : 1945 DATE OF ADMISSION: 03/01/2018 20:00 (CDT) PHONE: AGE: 72 N# [id number] GENDER: Male ENCOUNTER PHYSICIAN: Dr. Zachary Ferguson M.D. ADMISSION DIAGNOSIS: - Cardiac 09 - Cardiac Disorders (09) coronary artery disease involving [place] coronary artery of [place] heart with gain pectoris with docu mented spasm. EATING: Activity did not occur on this shift EATING - SCORE: 0-UNK GROOMING: Activity did not occur on this shift GROOMING - SCORE: 0-UNK BATHING: Activity did not occur on this shift BATHING - SCORE: 0-UNK DRESSING - UPPER BODY: Activity did not occur on this shift Patient is not dressing in public clothing ARTICLES SCORE Total number of steps: 0 DRESSING - UPPER BODY - SCORE: 0-UNK DRESSING - LOWER BODY: Activity did not occur on this shift Patient is not dressing in public clothing ARTICLES SCORE Total number of steps: 0 DRESSING - LOWER BODY - SCORE: 0-UNK TOILETING: Activity did not occur on this shift TOILETING - SCORE: 0-UNK BLADDER MANAGEMENT: Activity did not occur on this shift BLADDER MANAGEMENT - SCORE: 7-IND BOWEL MANAGEMENT: Activity did not occur on this shift BOWEL MANAGEMENT - SCORE: 7-IND TRANSFERS: BED, CHAIR, WHEELCHAIR: TRANSFERS: BED, CHAIR, WHEELCHAIR - STEP 1: Does the patient require assistance with bed, chair, or wheelchair transfers? Yes. TRANSFERS: BED, CHAIR, WHEELCHAIR - STEP 2: Does the patient require the assistance of a helper? Yes. TRANSFERS: BED, CHAIR, WHEELCHAIR - STEP 3: How much assistance does the patient require from the helper? Only supervision TRANSFERS: BED, CHAIR, WHEELCHAIR - SCORE: 5-SUP TRANSFERS: TOILET: Activity did not occur on this shift TRANSFERS: TOILET - SCORE: 0-UNK TRANSFERS: SHOWER: Activity did not occur on this shift TRANSFERS: SHOWER - SCORE: 0-UNK TRANSFERS: TUB: Activity did not occur on this shift TRANSFERS: TUB - SCORE: 0-UNK LOCOMOTION: WALK: LOCOMOTION: WALK - STEP 1: Does the patient need help to walk 150 feet? Yes. LOCOMOTION: WALK - STEP 2: How much assistance does the patient require to walk a minimum of 150 feet? Patient walks less than 1 50 feet - but more than 50 feet - with the assistance of only one helper LOCOMOTION: WALK - SCORE: 2-MAX LOCOMOTION: WHEELCHAIR: Activity did not occur on this shift LOCOMOTION: WHEELCHAIR - SCORE: 0-UNK LOCOMOTION: STAIRS: Activity did not occur on this shift LOCOMOTION: STAIRS - SCORE: 0-UNK COMPREHENSION: COMPREHENSION - SCORE: 0-UNK EXPRESSION EXPRESSION - SCORE: 0-UNK SOCIAL INTERACTION: SOCIAL INTERACTION - SCORE: 0-UNK PROBLEM SOLVING: PROBLEM SOLVING - SCORE: 0-UNK MEMORY: MEMORY - SCORE: 0-UNK SIGNATURE PANEL: The following modified sections: Transfers: Bed, Chair, Wheelchair - Score, Transfers: Toilet - Score , Locomotion: Walk - Score, Locomotion: Wheelchair - Score, Locomotion: Stairs - Score were [electron baldev] signed by Raghu Mathew PT on ThuMar 03 2018 16:32:46 [facility]-0500 (Central Daylight Time)
--- NOTE | 2018-03-03 18:02 | R.PN ---
ENCOUNTER DATE AND TIME: 03/03/2018 17:56 (CDT) NAME BRIANNA CRAWFORD DATE OF : 1945 DATE OF ADMISSION: 03/01/2018 20:00 (CDT) coronary artery disease involving [place] coronary artery of [place] heart with gain pectoris with docu mented spasmCHIEF COMPLAINT: Cardiac debility, status post CABG. SUBJECTIVE: Pt denied any Shortness of Breath. Pt denied any depression. VITAL SIGNS Temperature: 98.6 F SBP/DBP: 111/76 Pulse: 91 Resp: 16 Ambulated 760' with contact guard assistance using a rolling walker. Used 2L of O2 by nasal cannulae and O2 saturation 92-95% MEDICATION ALLERGIES: No Known Drug Allergies (NKDA) ENVIRONMENTAL ALLERGIES: - Substance Allergies None Known - Other Allergies None Known NURSING: - Shower allowing shower ACTIVITIES OOB only with supervision THERAPIES: - Occupational Therapy Evaluate and Treat. - Physical Therapy Evaluate and Treat. PHYSICAL EXAM - Gen Alert and awake Lying in bed No apparent distress Oriented to: person, time, and place - Skin LLE incisions intact Normacephalic - Eyes No abnormalities - ENMT No abnormalities - Neck No abnormalities - CVS RRR - Chest No abnormalities - Abd Soft - GI Non distended Deferred - No abnormalities - Ext Moderate 3+ edema in the lower extremities. - MSK 4+/5 weakness in both lower extremities. - Neuro 4/5 strength bilaterally lower extremities. - Psych No abnormalities ASSESSMENT: Pt. is a 72 yo Right-handed black male.On 02/15/2018 he was admitted to [facility] with diagnosi s coronary artery disease involving [place] coronary artery of [place] heart with gain pectoris with do cumented spasm.His impairment category is Cardiac 09 - Cardiac Disorders (09).Pre-morbidly, Pt. was independent/mod-I in Self-Care, Sphincter Control, Transfers Control, Communication, Social Cognition , and Locomotion; and he had good Sphincter Control.Currently, he has deficits of Transfers Control, Communication, Social Cognition, Endurance, Balance, Safety Awareness, Locomotion, and Self-Care.Pt. is now referred to [facility] for acute in-patient rehabilitation in order to maximize patient's functional independence in activities of daily living, strength, ROM, and mobility .- Rehab Goal Patient has realistic goal of being discharged at assistance level 6-[place] to reside at Home with Fam trinidad/Relatives. MDM/PLAN: - Physical Therapy Gait dysfunction - to improve, our physical therapists will perform initial evaluation of pt's statu s upon admission and devise an individualized program for Gait Training, and Wheel Chair mobility Inability to transfer - to improve, our physical therapists will perform initial evaluation of pt's status upon admission and devise an individualized program for Bed mobility Need for home safety evaluation - to improve, our physical therapists will perform initial evaluatio n of pt's status upon admission and devise an individualized program for Home Evaluation Need in caregiver upon discharge - to improve, our physical therapists will perform initial evaluati on of pt's status upon admission and devise an individualized program for Caregiver Training New precaution - to improve, our physical therapists will perform initial evaluation of pt's status upon admission and devise an individualized program for Patient precaution education Edema - to improve, our physical therapists will perform initial evaluation of pt's status upon admis ld and devise an individualized program for Elevation Training, and Lymphedema Therapy Poor balance - to improve, our physical therapists will perform initial evaluation of pt's status up on admission and devise an individualized program for Balance Training Poor endurance - to improve, our physical therapists will perform initial evaluation of pt's status upon admission and devise an individualized program for Endurance Training Weakness - to improve, our physical therapists will perform initial evaluation of pt's status upon a dmission and devise an individualized program for Aquatic Therapy, Neuromuscular Reeducation, and Str engthening Achieving independence - to improve, our physical therapists will perform initial evaluation of pt's status upon admission and devise an individualized program for Community Reintegration Activities - Occupational Therapy ADL deficits - to improve, our occupation therapists will perform initial evaluation of pt's status upon admission and devise an individualized program for Bathing, Bed mobility, Community Reintegratio n, Cooking, Dressing, Eating, Fine Motor Skills, Grooming, Homemaking, Kitchen Mobility, Laundry, Pat ient Education, Safety Awareness, Splinting - Positioning, Transfers(Toilet, Tub, Shower), and Wheel Chair Management Cognitive deficits - to improve, our occupation therapists will perform initial evaluation of pt's s tatus upon admission and devise an individualized program for Cognition - orientation Need for manager progressive care - to improve, our occupation therapists will perform initial evaluation of pt's status upon admission and devise an individualized program for Caregiver Training Weakness - to improve, our occupation therapists will perform initial evaluation of pt's status upon admission and devise an individualized program for Aquatic Therapy, Balance, Endurance, UE ROM, and UE strengthening - Diet Type Continue Regular - Diet - Liquid Texture Continue Regular - Tube Feed Continue N/A - Diet - Solid Texture Continue Regular - Shower allowing shower FUNCTIONAL STATUS: UPDATED AT WEEKLY TEAM CONFERENCE - Bladder Same accident frequency: 7-Ind - No accidents in the past 7 days - Bowel Same accident frequency: 7-Ind - No accidents in the past 7 days - Walking Same score based on distance walked: 3(>=150ft) FUNCTIONAL STATUS: - Self-Care A. Eating Ind B. Grooming Ind C. Bathing Ind D. Dressing - Upper sup E. Dressing - Lower modA F. Toileting modA - Sphincter Control G: Bladder control Ind H: Bowel control Ind - Transfers Control I. Bed/Chair/Wheelchair modA J. Toilet modA K. Tub/Shower modA - Locomotion L. Walk/Wheelchair (B) maxA M. Stairs ADNO - Communication N. Comprehension (B) sup O. Expression (B) sup - Social Cognition P. Social Interaction sup Q. Problem Solving sup R. Memory sup - Endurance Fair - Balance Fair - Safety Awareness Fair CURRENT FUNC. DEFICITS: Transfers Control, Communication, Social Cognition, Endurance, Balance, Safety Awareness, Locomotion, and Self-Care SIGNATURE PANEL: (CDT)
[2018-03-03] MEDS: DOCUSATE NA/SENNA CONC 1 TAB PO SCH (20:01)
[2018-03-03] MEDS: ATORVASTATIN 80 MG TAB PO SCH (20:02)
--- NOTE | 2018-03-04 02:31 | FAST ---
SHIFT START DATE/TIME: 03/03/2018 19:00 (CDT) SHIFT END DATE/TIME: 03/04/2018 07:00 (CDT) NAME BRIANNA CRAWFORD DATE OF : 1945 DATE OF ADMISSION: 03/01/2018 20:00 (CDT) PHONE: AGE: 72 N# [id number] GENDER: Male ENCOUNTER PHYSICIAN: Dr. Zachary Ferguson M.D. ADMISSION DIAGNOSIS: - Cardiac 09 - Cardiac Disorders (09) coronary artery disease involving [place] coronary artery of [place] heart with gain pectoris with docu mented spasm. EATING: EATING - STEP 1: Does the patient require assistance when eating? Yes. EATING - STEP 2: Does the patient require the assistance of a helper? No, patient only requires an assistive device, O R s/he takes more than reasonable time to eat, OR there is a safety concern, OR s/he requires modifie d food consistency EATING - SCORE: 6-XI[place] GROOMING: Activity did not occur on this shift GROOMING - SCORE: 0-UNK BATHING: Activity did not occur on this shift BATHING - SCORE: 0-UNK DRESSING - UPPER BODY: Patient is not dressing in public clothing ARTICLES SCORE Total number of steps: 0 DRESSING - UPPER BODY - SCORE: 0-UNK DRESSING - LOWER BODY: Patient is not dressing in public clothing ARTICLES SCORE Total number of steps: 0 DRESSING - LOWER BODY - SCORE: 0-UNK TOILETING: TOILETING - STEP 1: Does the patient require assistance with toileting? Yes. TOILETING - STEP 2: Does the patient require the assistance of a helper? Yes. TOILETING - STEP 3: How much assistance does the patient require from the helper? Only supervision TOILETING - SCORE: 5-SUP BLADDER MANAGEMENT: BLADDER MANAGEMENT - STEP 1: Does the patient control the bladder completely and intentionally without equipment or devices or med ications, and is always continent? No. BLADDER MANAGEMENT - STEP 2: Does the patient require the assistance of a helper? Yes. BLADDER MANAGEMENT - STEP 3: How much assistance does the patient require from the helper? Only set-up of equipment - such as plac ing it within reach of the patient or emptying a device - to maintain either satisfactory voiding pat tern or managing an external device, such as an absorbent pad, ileal device, or catheter BLADDER MANAGEMENT - SCORE: 5-SUP BLADDER MANAGEMENT - FREQUENCY OF ACCIDENTS: BLADDER MANAGEMENT(FA) - STEP 1: How many accidents has the patient had during the current shift? 0 BOWEL MANAGEMENT: Activity did not occur on this shift BOWEL MANAGEMENT - SCORE: 7-IND BOWEL MANAGEMENT - FREQUENCY OF ACCIDENTS: BOWEL MANAGEMENT(FA) - STEP 1: How many accidents has the patient had during the current shift? 0 TRANSFERS: BED, CHAIR, WHEELCHAIR: Activity did not occur on this shift TRANSFERS: BED, CHAIR, WHEELCHAIR - SCORE: 0-UNK TRANSFERS: TOILET: Activity did not occur on this shift TRANSFERS: TOILET - SCORE: 0-UNK TRANSFERS: SHOWER: Activity did not occur on this shift TRANSFERS: SHOWER - SCORE: 0-UNK TRANSFERS: TUB: Activity did not occur on this shift TRANSFERS: TUB - SCORE: 0-UNK LOCOMOTION: WALK: Activity did not occur on this shift LOCOMOTION: WALK - SCORE: 0-UNK LOCOMOTION: WHEELCHAIR: Activity did not occur on this shift LOCOMOTION: WHEELCHAIR - SCORE: 0-UNK COMPREHENSION: COMPREHENSION: TYPE: Both COMPREHENSION - STEP 1: Does the patient require help to understand complex and abstract ideas (such as current events, finan elkin, discharge planning, medical issues, relationships, etc)? No. COMPREHENSION - STEP 2: Does the patient need extra time, require an assistive device (such as glasses, hearing aids, or an a ugmentative communication system), OR does s/he have mild difficulty expressing complex and abstract ideas (including mild dysarthria or mild word-finding problems)? Yes. COMPREHENSION - SCORE: 6-[place] EXPRESSION EXPRESSION: TYPE: Both EXPRESSION - STEP 1: Does the patient require help expressing complex and abstract ideas (such as current events, finances , discharge planning, medical issues, relationships, etc)? No. EXPRESSION - STEP 2: Does the patient need extra time, require an assistive device (such as augmentive communication syste m or a communication board), OR does s/he have mild difficulty expressing complex and abstract ideas (including mild dysarthria or mild word-find problems)? Yes. EXPRESSION - SCORE: 6-[place] SOCIAL INTERACTION: SOCIAL INTERACTION - STEP 1: Does the patient require a helper to interact with others in social and therapeutic situations? No. SOCIAL INTERACTION - STEP 2: Does the patient need extra time in social situations, OR does s/he interact with staff, other patien ts, and family members ONLY in structured environments, OR does s/he require medication for social in teraction? Yes, patient needs extra time SOCIAL INTERACTION - SCORE: 6-XI[place] PROBLEM SOLVING: PROBLEM SOLVING - STEP 1: Does the patient need help to solve complex problems such as managing a checking account or confronti ng interpersonal problems? No. PROBLEM SOLVING - STEP 2: Does the patient require extra time to make decisions or solve problems, OR does s/he have slight dif ficulty reading, initiating, or self-correcting in unfamiliar situations? Yes, patient needs extra ti me. PROBLEM SOLVING - SCORE: 6-[place] MEMORY: MEMORY - STEP 1: Does the patient need help to remember frequently encountered people, daily routines, and executing r equests? No. MEMORY - STEP 2: Does the patient have slight difficulty recognizing frequently encountered people, daily routines, or executing requests without the need for repetition or using self-initiated or environmental cues to remember? Yes. MEMORY - SCORE: 6-[place] SIGNATURE PANEL: The following modified sections: Eating - Score, Grooming - Score, Bathing - Score, Dressing - Upper Body - Score, Dressing - Lower Body - Score, Toileting - Score, Bladder Management - Score, Bowel Man agement - Score, Transfers: Bed, Chair, Wheelchair - Score, Transfers: Toilet - Score, Transfers: Cristina wer - Score, Transfers: Tub - Score, Locomotion: Walk - Score, Locomotion: Wheelchair - Score, Compre hension - Score, Expression - Score, Social Interaction - Score, Problem Solving - Score, Memory - Sc ore were [electronically] signed by Margarita Valiente CBalNMaxine on ThuMar 04 2018 02:30:52 GMT-0500 ( Central Daylight Time)
[2018-03-04] MEDS: METOPROLOL TAR 25 MG TAB PO SCH (05:26)
[2018-03-04] MEDS: PANTOPRAZOLE 40MG TABLET PO SCH (06:09)
[2018-03-04 06:42] LABS: Absolute Lymphocytes (CBC) 1.8 K/uL (0.7-4.9); Absolute Monocytes 1.3 K/uL (0.1-1.3); Basophils % 0.7 % (0-1.3); Hematocrit 26.8 % (39.6-49.0); Lymphocytes % 16.8 % (15.3-44.8); MCH 31.3 pg (27.0-35.0); MCV 97.9 fL (80-100); MPV 8.9 fL (7.6-11.3); Monocytes % 12.3 % (3.3-12.3); RBC Red Blood Cell Count 2.74 M/uL (4.33-5.43)
[2018-03-04 07:12] LABS: Albumin 2.4 g/dL (3.4-5.0); BUN Blood Urea Nitrogen 8 mg/dL (7-18); Glucose Level 109 mg/dL (74-106); Potassium 3.2 mmol/L (3.5-5.1); Prealbumin 9.1 mg/dL (20-40); Sodium Level 142 mmol/L (136-145)
[2018-03-04 07:19] LABS: Bicarbonate 43 mmol/L (21-32)
[2018-03-04] MEDS: SPIRONOLACTONE 25 MG TABLET PO SCH (08:00)
[2018-03-04] MEDS: FUROSEMIDE 40 MG TABLET PO SCH (08:00)
[2018-03-04] MEDS: ASPIRIN 81 MG CHEWABLE TABLET PO SCH (08:07)
[2018-03-04] MEDS: CLOPIDOGREL 75 MG TABLET PO SCH (08:07)
[2018-03-04] MEDS: FERROUS SULFATE 325 MG TAB PO SCH (08:07)
[2018-03-04] MEDS: APIXABAN 2.5 MG TABLET PO SCH ×2 (08:07→19:39)
[2018-03-04] MEDS: HYDROCODONE/APAP 5/325 MG TAB PO PRN (08:07)
[2018-03-04] MEDS: POTASSIUM CL SA 10 MEQ TAB PO SCH ×2 (08:07→19:39)
[2018-03-04] MEDS: GABAPENTIN 300 MG CAP PO SCH ×2 (08:08→19:39)
[2018-03-04] MEDS: FE SULF/FA/VIT B COMP & C TAB PO SCH (08:08)
[2018-03-04] MEDS: PROMOD 30 ML DOSE PO SCH ×2 (08:09→19:39)
[2018-03-04] MEDS: ALLOPURINOL 100 MG TAB PO SCH (08:10)
[2018-03-04 08:26] LABS: Platelet Estimate ADEQ; Urine White Blood Cell Casts OK
[2018-03-04 08:27] LABS: Anisocytosis 2+; Blood Morphology Comment NOTED (NOT SEEN); Polychromasia 2+
--- NOTE | 2018-03-04 14:44 | FAST ---
SHIFT START DATE/TIME: 03/04/2018 07:00 (CDT) SHIFT END DATE/TIME: 03/04/2018 19:00 (CDT) NAME BRIANNA CRAWFORD DATE OF : 1945 DATE OF ADMISSION: 03/01/2018 20:00 (CDT) PHONE: AGE: 72 N# [id number] GENDER: Male ENCOUNTER PHYSICIAN: Dr. Zachary Ferguson M.D. ADMISSION DIAGNOSIS: - Cardiac 09 - Cardiac Disorders (09) coronary artery disease involving [place] coronary artery of [place] heart with gain pectoris with docu mented spasm. EATING: EATING - STEP 1: Does the patient require assistance when eating? Yes. EATING - STEP 2: Does the patient require the assistance of a helper? No, patient only requires an assistive device, O R s/he takes more than reasonable time to eat, OR there is a safety concern, OR s/he requires modifie d food consistency EATING - SCORE: 6-XIOMARA GROOMING: Activity did not occur on this shift GROOMING - SCORE: 0-UNK BATHING: Activity did not occur on this shift BATHING - SCORE: 0-UNK DRESSING - UPPER BODY: Activity did not occur on this shift ARTICLES SCORE Total number of steps: 0 DRESSING - UPPER BODY - SCORE: 0-UNK DRESSING - LOWER BODY: Activity did not occur on this shift ARTICLES SCORE Total number of steps: 0 DRESSING - LOWER BODY - SCORE: 0-UNK TOILETING: TOILETING - STEP 1: Does the patient require assistance with toileting? Yes. TOILETING - STEP 2: Does the patient require the assistance of a helper? Yes. TOILETING - STEP 3: How much assistance does the patient require from the helper? Hands-on assistance from the helper TOILETING - STEP 4: Of the 3 tasks: 1) Adjusting clothing prior to use, 2) Cleansing of perineal area, 3) Adjusting clot jj after use; How many tasks does the patient perform WITHOUT assistance of the helper? Three tasks with steadying assistance from the helper TOILETING - SCORE: 4-MIN BLADDER MANAGEMENT: BLADDER MANAGEMENT - STEP 1: Does the patient control the bladder completely and intentionally without equipment or devices or med ications, and is always continent? No. BLADDER MANAGEMENT - STEP 2: Does the patient require the assistance of a helper? No, patient requires and independently uses an a ssistive device, such as a urinal, bedpan, bedside commode, catheter, absorbent pad, or collecting de vice BLADDER MANAGEMENT - SCORE: 6-XIOMARA BOWEL MANAGEMENT: Activity did not occur on this shift BOWEL MANAGEMENT - SCORE: 7-IND TRANSFERS: BED, CHAIR, WHEELCHAIR: TRANSFERS: BED, CHAIR, WHEELCHAIR - STEP 1: Does the patient require assistance with bed, chair, or wheelchair transfers? Yes. TRANSFERS: BED, CHAIR, WHEELCHAIR - STEP 2: Does the patient require the assistance of a helper? Yes. TRANSFERS: BED, CHAIR, WHEELCHAIR - STEP 3: How much assistance does the patient require from the helper? Steadying/guiding assistance TRANSFERS: BED, CHAIR, WHEELCHAIR - SCORE: 4-MIN TRANSFERS: TOILET: TRANSFERS: TOILET - STEP 1: Does the patient require assistance with toilet transfers? Yes. TRANSFERS: TOILET - STEP 2: Does the patient require the assistance of a helper? Yes. TRANSFERS: TOILET - STEP 3: How much assistance does the patient require from the helper? Patient performs half or more of the tr ansferring tasks TRANSFERS: TOILET - STEP 4: Does the patient need only incidental help such as contact guard or steadying during toilet transfer? Yes. TRANSFERS: TOILET - SCORE: 4-MIN TRANSFERS: SHOWER: Activity did not occur on this shift TRANSFERS: SHOWER - SCORE: 0-UNK TRANSFERS: TUB: Activity did not occur on this shift TRANSFERS: TUB - SCORE: 0-UNK LOCOMOTION: WALK: Activity did not occur on this shift LOCOMOTION: WALK - SCORE: 0-UNK LOCOMOTION: WHEELCHAIR: Activity did not occur on this shift LOCOMOTION: WHEELCHAIR - SCORE: 0-UNK COMPREHENSION: COMPREHENSION - SCORE: 0-UNK EXPRESSION EXPRESSION - SCORE: 0-UNK SOCIAL INTERACTION: SOCIAL INTERACTION - SCORE: 0-UNK PROBLEM SOLVING: PROBLEM SOLVING - SCORE: 0-UNK MEMORY: MEMORY - SCORE: 0-UNK SIGNATURE PANEL: The following modified sections: Eating - Score, Grooming - Score, Bathing - Score, Dressing - Upper Body - Score, Dressing - Lower Body - Score, Toileting - Score, Bladder Management - Score, Bowel Man agement - Score, Transfers: Bed, Chair, Wheelchair - Score, Transfers: Toilet - Score, Transfers: Cristina wer - Score, Transfers: Tub - Score, Locomotion: Walk - Score, Locomotion: Wheelchair - Score, Compre hension - Score, Expression - Score, Social Interaction - Score, Problem Solving - Score, Memory - Sc ore were [electronically] signed by Reece Rodriguez on ThuMar 04 2018 14:42:44 GMT-0500 (Central Daylight Time)
--- NOTE | 2018-03-04 15:18 | FAST ---
ENCOUNTER DATE AND TIME: 03/04/2018 08:00 (CDT) NAME BRIANNA CRAWFORD DATE OF : 1945 DATE OF ADMISSION: 03/01/2018 20:00 (CDT) PHONE: AGE: 72 N# [id number] GENDER: Male ENCOUNTER PHYSICIAN: Dr. Zachary Ferguson M.D. ADMISSION DIAGNOSIS: - Cardiac 09 - Cardiac Disorders (09) coronary artery disease involving [place] coronary artery of [place] heart with gain pectoris with docu mented spasm. EATING: Activity did not occur on this shift EATING - SCORE: 0-UNK GROOMING: Activity did not occur on this shift GROOMING - SCORE: 0-UNK BATHING: Activity did not occur on this shift BATHING - SCORE: 0-UNK DRESSING - UPPER BODY: Activity did not occur on this shift Patient is not dressing in public clothing ARTICLES SCORE Total number of steps: 0 DRESSING - UPPER BODY - SCORE: 0-UNK DRESSING - LOWER BODY: Activity did not occur on this shift Patient is not dressing in public clothing ARTICLES SCORE Total number of steps: 0 DRESSING - LOWER BODY - SCORE: 0-UNK TOILETING: Activity did not occur on this shift TOILETING - SCORE: 0-UNK BLADDER MANAGEMENT: Activity did not occur on this shift BLADDER MANAGEMENT - SCORE: 7-IND BOWEL MANAGEMENT: Activity did not occur on this shift BOWEL MANAGEMENT - SCORE: 7-IND TRANSFERS: BED, CHAIR, WHEELCHAIR: TRANSFERS: BED, CHAIR, WHEELCHAIR - STEP 1: Does the patient require assistance with bed, chair, or wheelchair transfers? Yes. TRANSFERS: BED, CHAIR, WHEELCHAIR - STEP 2: Does the patient require the assistance of a helper? Yes. TRANSFERS: BED, CHAIR, WHEELCHAIR - STEP 3: How much assistance does the patient require from the helper? Only supervision TRANSFERS: BED, CHAIR, WHEELCHAIR - SCORE: 5-SUP TRANSFERS: TOILET: Activity did not occur on this shift TRANSFERS: TOILET - SCORE: 0-UNK TRANSFERS: SHOWER: Activity did not occur on this shift TRANSFERS: SHOWER - SCORE: 0-UNK TRANSFERS: TUB: Activity did not occur on this shift TRANSFERS: TUB - SCORE: 0-UNK LOCOMOTION: WALK: LOCOMOTION: WALK - STEP 1: Does the patient need help to walk 150 feet? Yes. LOCOMOTION: WALK - STEP 2: How much assistance does the patient require to walk a minimum of 150 feet? Only supervision, cuing, or coaxing LOCOMOTION: WALK - SCORE: 5-SUP LOCOMOTION: WHEELCHAIR: Activity did not occur on this shift LOCOMOTION: WHEELCHAIR - SCORE: 0-UNK LOCOMOTION: STAIRS: LOCOMOTION: STAIRS - STEP 1: Does the patient need help to go up and down 12 to 14 stairs? Yes. LOCOMOTION: STAIRS - STEP 2: How much assistance does the patient need from the helper to go a minimum of 12 to 14 stairs? Only in cidental help such as contact guarding or steadying LOCOMOTION: STAIRS - SCORE: 4-MIN COMPREHENSION: COMPREHENSION - SCORE: 0-UNK EXPRESSION EXPRESSION - SCORE: 0-UNK SOCIAL INTERACTION: SOCIAL INTERACTION - SCORE: 0-UNK PROBLEM SOLVING: PROBLEM SOLVING - SCORE: 0-UNK MEMORY: MEMORY - SCORE: 0-UNK SIGNATURE PANEL: The following modified sections: Transfers: Bed, Chair, Wheelchair - Score, Transfers: Toilet - Score , Locomotion: Walk - Score, Locomotion: Wheelchair - Score, Locomotion: Stairs - Score were [katalina de paz] signed by Gene Cisneros PTA on ThuMar 04 2018 15:18:03 GMT-0500 (Central Daylight Time)
--- NOTE | 2018-03-04 19:07 | R.PN ---
ENCOUNTER DATE AND TIME: 03/04/2018 19:03 (CDT) NAME BRIANNA CRAWFORD DATE OF : 1945 DATE OF ADMISSION: 03/01/2018 20:00 (CDT) coronary artery disease involving [place] coronary artery of [place] heart with gain pectoris with docu mented spasmCHIEF COMPLAINT: Cardiac debility, status post CABG. SUBJECTIVE: Pt denied any Shortness of Breath. Pt denied any depression. VITAL SIGNS Temperature: 98.4 F SBP/DBP: 136/87 Pulse: 94 Resp: 16 Ambulated 750' with standby assistance using a rolling walker. Used 2L of O2 by nasal cannulae and O 2 saturation 82-96%. Up and down 12 steps with contact guard assistance. MEDICATION ALLERGIES: No Known Drug Allergies (NKDA) ENVIRONMENTAL ALLERGIES: - Substance Allergies None Known - Other Allergies None Known NURSING: - Shower allowing shower ACTIVITIES OOB only with supervision THERAPIES: - Occupational Therapy Evaluate and Treat. - Physical Therapy Evaluate and Treat. PHYSICAL EXAM - Gen Alert and awake Lying in bed No apparent distress Oriented to: person, time, and place - Skin LLE incisions intact Normacephalic - Eyes No abnormalities - ENMT No abnormalities - Neck No abnormalities - CVS RRR - Chest No abnormalities - Abd Soft - GI Non distended Deferred - No abnormalities - Ext Moderate 3+ edema in the lower extremities. - MSK 4+/5 weakness in both lower extremities. - Neuro 4/5 strength bilaterally lower extremities. - Psych No abnormalities ASSESSMENT: Pt. is a 72 yo Right-handed black male.On 02/15/2018 he was admitted to [facility] with diagnosi s coronary artery disease involving [place] coronary artery of [place] heart with gain pectoris with do cumented spasm.His impairment category is Cardiac 09 - Cardiac Disorders (09).Pre-morbidly, Pt. was independent/mod-I in Self-Care, Sphincter Control, Transfers Control, Communication, Social Cognition , and Locomotion; and he had good Sphincter Control.Currently, he has deficits of Transfers Control, Communication, Social Cognition, Endurance, Balance, Safety Awareness, Locomotion, and Self-Care.Pt. is now referred to [facility] for acute in-patient rehabilitation in order to maximize patient's functional independence in activities of daily living, strength, ROM, and mobility .- Rehab Goal Patient has realistic goal of being discharged at assistance level 6-Adelia to reside at Home with Fam trinidad/Relatives. MDM/PLAN: - Physical Therapy Gait dysfunction - to improve, our physical therapists will perform initial evaluation of pt's statu s upon admission and devise an individualized program for Gait Training, and Wheel Chair mobility Inability to transfer - to improve, our physical therapists will perform initial evaluation of pt's status upon admission and devise an individualized program for Bed mobility Need for home safety evaluation - to improve, our physical therapists will perform initial evaluatio n of pt's status upon admission and devise an individualized program for Home Evaluation Need in caregiver upon discharge - to improve, our physical therapists will perform initial evaluati on of pt's status upon admission and devise an individualized program for Caregiver Training New precaution - to improve, our physical therapists will perform initial evaluation of pt's status upon admission and devise an individualized program for Patient precaution education Edema - to improve, our physical therapists will perform initial evaluation of pt's status upon admi ssion and devise an individualized program for Elevation Training, and Lymphedema Therapy Poor balance - to improve, our physical therapists will perform initial evaluation of pt's status up on admission and devise an individualized program for Balance Training Poor endurance - to improve, our physical therapists will perform initial evaluation of pt's status upon admission and devise an individualized program for Endurance Training Weakness - to improve, our physical therapists will perform initial evaluation of pt's status upon a dmission and devise an individualized program for Aquatic Therapy, Neuromuscular Reeducation, and Str engthening Achieving independence - to improve, our physical therapists will perform initial evaluation of pt's status upon admission and devise an individualized program for Community Reintegration Activities - Occupational Therapy ADL deficits - to improve, our occupation therapists will perform initial evaluation of pt's status upon admission and devise an individualized program for Bathing, Bed mobility, Community Reintegratio n, Cooking, Dressing, Eating, Fine Motor Skills, Grooming, Homemaking, Kitchen Mobility, Laundry, Pat ient Education, Safety Awareness, Splinting - Positioning, Transfers(Toilet, Tub, Shower), and Wheel Chair Management Cognitive deficits - to improve, our occupation therapists will perform initial evaluation of pt's s tatus upon admission and devise an individualized program for Cognition - orientation Need for care assistant - to improve, our occupation therapists will perform initial evaluation of pt's status upon admission and devise an individualized program for Caregiver Training Weakness - to improve, our occupation therapists will perform initial evaluation of pt's status upon admission and devise an individualized program for Aquatic Therapy, Balance, Endurance, UE ROM, and UE strengthening - Diet Type Continue Regular - Diet - Liquid Texture Continue Regular - Tube Feed Continue N/A - Diet - Solid Texture Continue Regular - Shower allowing shower FUNCTIONAL STATUS: UPDATED AT WEEKLY TEAM CONFERENCE - Bladder Same accident frequency: 7-Ind - No accidents in the past 7 days - Bowel Same accident frequency: 7-Ind - No accidents in the past 7 days - Walking Same score based on distance walked: 3(>=150ft) FUNCTIONAL STATUS: - Self-Care A. Eating Ind B. Grooming Ind C. Bathing Ind D. Dressing - Upper sup E. Dressing - Lower modA F. Toileting modA - Sphincter Control G: Bladder control Ind H: Bowel control Ind - Transfers Control I. Bed/Chair/Wheelchair modA J. Toilet modA K. Tub/Shower modA - Locomotion L. Walk/Wheelchair (B) maxA M. Stairs ADNO - Communication N. Comprehension (B) sup O. Expression (B) sup - Social Cognition P. Social Interaction sup Q. Problem Solving sup R. Memory sup - Endurance Fair - Balance Fair - Safety Awareness Fair [facility] DEFICITS: Transfers Control, Communication, Social Cognition, Endurance, Balance, Safety Awareness, Locomotion, and Self-Care SIGNATURE PANEL: (CDT)
[2018-03-04] MEDS: CRANBERRY FRUIT EXTRACT 200 MG CAP PO SCH (19:39)
[2018-03-04] MEDS: DOCUSATE NA/SENNA CONC 1 TAB PO SCH (20:03)
[2018-03-04] MEDS: ATORVASTATIN 80 MG TAB PO SCH (20:14)
--- NOTE | 2018-03-05 02:39 | FAST ---
SHIFT START DATE/TIME: 03/04/2018 19:00 (CDT) SHIFT END DATE/TIME: 03/05/2018 07:00 (CDT) NAME BRIANNA CRAWFORD DATE OF : 1945 DATE OF ADMISSION: 03/01/2018 20:00 (CDT) PHONE: AGE: 72 N# [id number] GENDER: Male ENCOUNTER PHYSICIAN: Dr. Zachary Ferguson M.D. ADMISSION DIAGNOSIS: - Cardiac 09 - Cardiac Disorders (09) coronary artery disease involving [place] coronary artery of [place] heart with gain pectoris with docu mented spasm. EATING: EATING - STEP 1: Does the patient require assistance when eating? Yes. EATING - STEP 2: Does the patient require the assistance of a helper? Yes. EATING - STEP 3: Does the patient perform half or more of the eating tasks? Yes. EATING - STEP 4: Does the patient need only supervision, cuing, coaxing OR help to apply an orthosis OR help to cut fo od, open containers, pour liquids, or butter bread? Yes. EATING - SCORE: 5-SUP GROOMING: Activity did not occur on this shift GROOMING - SCORE: 0-UNK BATHING: Activity did not occur on this shift BATHING - SCORE: 0-UNK DRESSING - UPPER BODY: Patient is not dressing in public clothing ARTICLES SCORE Total number of steps: 0 DRESSING - UPPER BODY - SCORE: 0-UNK DRESSING - LOWER BODY: Patient is not dressing in public clothing ARTICLES SCORE Total number of steps: 0 DRESSING - LOWER BODY - SCORE: 0-UNK TOILETING: TOILETING - STEP 1: Does the patient require assistance with toileting? Yes. TOILETING - STEP 2: Does the patient require the assistance of a helper? Yes. TOILETING - STEP 3: How much assistance does the patient require from the helper? Only supervision TOILETING - SCORE: 5-SUP BLADDER MANAGEMENT: BLADDER MANAGEMENT - STEP 1: Does the patient control the bladder completely and intentionally without equipment or devices or med ications, and is always continent? No. BLADDER MANAGEMENT - STEP 2: Does the patient require the assistance of a helper? Yes. BLADDER MANAGEMENT - STEP 3: How much assistance does the patient require from the helper? Only set-up of equipment - such as plac ing it within reach of the patient or emptying a device - to maintain either satisfactory voiding pat tern or managing an external device, such as an absorbent pad, ileal device, or catheter BLADDER MANAGEMENT - SCORE: 5-SUP BLADDER MANAGEMENT - FREQUENCY OF ACCIDENTS: BLADDER MANAGEMENT(FA) - STEP 1: How many accidents has the patient had during the current shift? 0 BOWEL MANAGEMENT: Activity did not occur on this shift BOWEL MANAGEMENT - SCORE: 7-IND TRANSFERS: BED, CHAIR, WHEELCHAIR: TRANSFERS: BED, CHAIR, WHEELCHAIR - STEP 1: Does the patient require assistance with bed, chair, or wheelchair transfers? Yes. TRANSFERS: BED, CHAIR, WHEELCHAIR - STEP 2: Does the patient require the assistance of a helper? Yes. TRANSFERS: BED, CHAIR, WHEELCHAIR - STEP 3: How much assistance does the patient require from the helper? Steadying/guiding assistance TRANSFERS: BED, CHAIR, WHEELCHAIR - SCORE: 4-MIN TRANSFERS: TOILET: Activity did not occur on this shift TRANSFERS: TOILET - SCORE: 0-UNK TRANSFERS: SHOWER: Activity did not occur on this shift TRANSFERS: SHOWER - SCORE: 0-UNK TRANSFERS: TUB: Activity did not occur on this shift TRANSFERS: TUB - SCORE: 0-UNK LOCOMOTION: WALK: Activity did not occur on this shift LOCOMOTION: WALK - SCORE: 0-UNK LOCOMOTION: WHEELCHAIR: Activity did not occur on this shift LOCOMOTION: WHEELCHAIR - SCORE: 0-UNK COMPREHENSION: COMPREHENSION: TYPE: Both COMPREHENSION - STEP 1: Does the patient require help to understand complex and abstract ideas (such as current events, finan elkin, discharge planning, medical issues, relationships, etc)? No. COMPREHENSION - STEP 2: Does the patient need extra time, require an assistive device (such as glasses, hearing aids, or an a ugmentative communication system), OR does s/he have mild difficulty expressing complex and abstract ideas (including mild dysarthria or mild word-finding problems)? Yes. COMPREHENSION - SCORE: 6-XIOMARA EXPRESSION EXPRESSION: TYPE: Both EXPRESSION - STEP 1: Does the patient require help expressing complex and abstract ideas (such as current events, finances , discharge planning, medical issues, relationships, etc)? No. EXPRESSION - STEP 2: Does the patient need extra time, require an assistive device (such as augmentive communication syste m or a communication board), OR does s/he have mild difficulty expressing complex and abstract ideas (including mild dysarthria or mild word-find problems)? Yes. EXPRESSION - SCORE: 6-XIOMARA SOCIAL INTERACTION: SOCIAL INTERACTION - STEP 1: Does the patient require a helper to interact with others in social and therapeutic situations? No. SOCIAL INTERACTION - STEP 2: Does the patient need extra time in social situations, OR does s/he interact with staff, other patien ts, and family members ONLY in structured environments, OR does s/he require medication for social in teraction? Yes, patient needs extra time SOCIAL INTERACTION - SCORE: 6-XIOMARA PROBLEM SOLVING: PROBLEM SOLVING - STEP 1: Does the patient need help to solve complex problems such as managing a checking account or confronti ng interpersonal problems? Yes. PROBLEM SOLVING - STEP 2: Does the patient solve basic routine problems half or more of the time? Yes. PROBLEM SOLVING - STEP 3: How often does the patient need help to solve basic routine problems? Less than 10% of the time PROBLEM SOLVING - SCORE: 5-SUP MEMORY: MEMORY - STEP 1: Does the patient need help to remember frequently encountered people, daily routines, and executing r equests? Yes. MEMORY - STEP 2: How often does the patient need help to remember frequently encountered people, daily routines, and e xecuting requests? Less than 10% of the time MEMORY - SCORE: 5-SUP SIGNATURE PANEL: The following modified sections: Eating - Score, Grooming - Score, Bathing - Score, Dressing - Upper Body - Score, Dressing - Lower Body - Score, Toileting - Score, Bladder Management - Score, Bowel Man agement - Score, Transfers: Bed, Chair, Wheelchair - Score, Transfers: Toilet - Score, Transfers: Cristina wer - Score, Transfers: Tub - Score, Locomotion: Walk - Score, Locomotion: Wheelchair - Score, Compre hension - Score, Expression - Score, Social Interaction - Score, Problem Solving - Score, Memory - Sc ore were [electronically] signed by Herbert SmallsNMaxine on ThuMar 05 2018 02:38:54 T-0500 ( Central Daylight Time)
[2018-03-05] MEDS: PROMOD 30 ML DOSE PO SCH ×2 (08:00→20:05)
[2018-03-05] MEDS: FERROUS SULFATE 325 MG TAB PO SCH (09:06)
[2018-03-05] MEDS: HYDROCODONE/APAP 5/325 MG TAB PO PRN (09:06)
[2018-03-05] MEDS: CRANBERRY FRUIT EXTRACT 200 MG CAP PO SCH ×2 (09:06→20:04)
[2018-03-05] MEDS: FE SULF/FA/VIT B COMP & C TAB PO SCH (09:06)
[2018-03-05] MEDS: APIXABAN 2.5 MG TABLET PO SCH ×2 (09:06→20:04)
[2018-03-05] MEDS: ASPIRIN 81 MG CHEWABLE TABLET PO SCH (09:06)
[2018-03-05] MEDS: SPIRONOLACTONE 25 MG TABLET PO SCH (09:07)
[2018-03-05] MEDS: ALLOPURINOL 100 MG TAB PO SCH (09:07)
[2018-03-05] MEDS: POTASSIUM CL SA 10 MEQ TAB PO SCH (09:07)
[2018-03-05] MEDS: CLOPIDOGREL 75 MG TABLET PO SCH (09:07)
[2018-03-05] MEDS: GABAPENTIN 300 MG CAP PO SCH ×2 (09:08→20:04)
[2018-03-05] MEDS: PANTOPRAZOLE 40MG TABLET PO SCH (09:10)
--- NOTE | 2018-03-05 09:34 | RAD REPORT ---
EXAM DESCRIPTION: RAD - Barium Swallow Modified - 03/05/2018 8:40 am CLINICAL HISTORY: Cough and choking FINDINGS: LARYNGEAL PENETRATION WITH SERIAL SIPS WHEN TAKING PILL AND STRAW SIP, CLEARED BOTH ASPIRATION WITH COUGH WITH THIN WHEN ADMINISTERED BY BAR ASSISTANT PHARYNGEAL: RESIDUE VALLECULA 17 fluoroscopic spot series were obtained
--- NOTE | 2018-03-05 09:53 | P.RH.PN ---
Estimated Length of Stay: 10 Expected Discharge Date: 03/11/18 Discharge Disposition Plan: Home Family Support: Yes [facility] Goal: Mobility, Transfers, Self Care Vital Signs: Last Vital Signs Temp 97.0 F 03/05/18 06:48 Pulse 99 H 03/05/18 09:07 Resp 18 03/05/18 06:48 BP 116/72 03/05/18 09:07 Pulse Ox 98 03/05/18 06:48 Laboratory: Laboratory Last Values WBC 10.8 K/uL (4.3-10.9) 03/04/18 06:00 RBC 2.74 M/uL (4.33-5.43) L 03/04/18 06:00 Hgb 8.6 g/dL (13.6-17.9) L 03/04/18 06:00 Hct 26.8 % (39.6-49.0) L 03/04/18 06:00 MCV 97.9 fL (80-100) 03/04/18 06:00 MCH 31.3 pg (27.0-35.0) 03/04/18 06:00 MCHC 32.0 g/dL (32.0-36.0) 03/04/18 06:00 RDW 17.4 % (12.1-15.2) H 03/04/18 06:00 Plt Count 312 K/uL (152-406) 03/04/18 06:00 MPV 8.9 fL (7.6-11.3) 03/04/18 06:00 Neutrophils % 65.2 % (41.7-73.7) 03/04/18 06:00 Lymphocytes % 16.8 % (15.3-44.8) 03/04/18 06:00 Monocytes % 12.3 % (3.3-12.3) 03/04/18 06:00 Eosinophils % 5.0 % (0-4.4) H 03/04/18 06:00 Basophils % 0.7 % (0-1.3) 03/04/18 06:00 Absolute Neutrophils 7.0 K/uL (1.8-8.0) 03/04/18 06:00 Segmented Neutrophils 66 % (40-80) 03/04/18 06:00 Band Neutrophils 1 % (0-1) 03/04/18 06:00 Absolute Lymphocytes 1.8 K/uL (0.7-4.9) 03/04/18 06:00 Lymphocytes 19 % (15-42) 03/04/18 06:00 Monocytes 13 % (0-10) H 03/04/18 06:00 Absolute Monocytes 1.3 K/uL (0.1-1.3) 03/04/18 06:00 Eosinophils 1 % (0-3) 03/04/18 06:00 Absolute Eosinophils 0.5 K/uL (0-0.5) 03/04/18 06:00 Absolute Basophils 0.1 K/uL (0-0.5) 03/04/18 06:00 Nucleated RBCs 1 /100WBC 03/04/18 06:00 Polychromasia 2+ 03/04/18 06:00 Poikilocytosis 1+ 03/03/18 09:25 Anisocytosis 2+ 03/04/18 06:00 Morphology Comment Noted (NOT SEEN) 03/04/18 06:00 Sodium 142 mmol/L (136-145) 03/04/18 06:00 Potassium 3.2 mmol/L (3.5-5.1) L 03/04/18 06:00 Chloride 97 mmol/L (98-107) L 03/04/18 06:00 Carbon Dioxide 43 mmol/L (21-32) H* 03/04/18 06:00 BUN 8 mg/dL (7-18) 03/04/18 06:00 Creatinine 0.70 mg/dL (0.55-1.3) 03/04/18 06:00 Estimated GFR > 90 mL/min (=/>90) 03/04/18 06:00 Glucose 109 mg/dL (74-106) H 03/04/18 06:00 Lactic Acid 2.1 mmol/L (0.4-2.0) H 03/03/18 12:20 Calcium 8.3 mg/dL (8.5-10.1) L 03/04/18 06:00 Magnesium 2.2 mg/dL (1.8-2.4) 03/02/18 05:56 Total Bilirubin 0.6 mg/dL (0.2-1.0) 03/03/18 09:25 AST 41 U/L (15-37) H 03/03/18 09:25 ALT 26 U/L (12-78) 03/03/18 09:25 Alkaline Phosphatase 71 U/L (45-117) 03/03/18 09:25 Serum Total Protein 7.3 g/dL (6.4-8.2) 03/03/18 09:25 Albumin 2.4 g/dL (3.4-5.0) L 03/04/18 06:00 Globulin 4.8 g/dL (2.3-3.5) H 03/03/18 09:25 Albumin/Globulin Ratio 0.5 (1.1-1.8) L 03/03/18 09:25 Prealbumin 9.1 mg/dL (20-40) L 03/04/18 06:00 Procalcitonin < 0.05 ng/mL (<0.50) 03/03/18 12:20 Urine Color Dk yellow 03/01/18 21:00 Urine Appearance Clear 03/01/18 21:00 Urine pH 7.0 (5.0-7.0) 03/01/18 21:00 Ur Specific [place] 1.015 (1.005-1.030) 03/01/18 21:00 Urine Ketones Negative (NEG) 03/01/18 21:00 Urine Blood Negative (NEG) 03/01/18 21:00 Urine Nitrite Negative (NEG) 03/01/18 21:00 Urine Bilirubin Negative (NEG) 03/01/18 21:00 Urine Urobilinogen 2.0 mg/dL (0.2-1.0) H 03/01/18 21:00 Ur Leukocyte Esterase Negative (NEG) 03/01/18 21:00 Urine RBC None seen /HPF (NONE SEEN) 03/01/18 21:00 Urine WBC <5 /HPF (<5) 03/01/18 21:00 Ur Squamous Epith Cells <5 /HPF (NONE SEEN) 03/01/18 21:00 Urine Bacteria <20 /HPF (NONE SEEN) 03/01/18 21:00 Urine Culture Reflexed Not needed 03/01/18 21:00 Urine Glucose Negative (NEG) 03/01/18 21:00 Urine Total Protein Trace (NEG) 03/01/18 21:00 Weight: 274 lb 3.2 oz Wound Present: No Closed Surgical Incision Present: Yes Negative Pressure Wound Therapy Present: No Physician Update: His blood work is stable, Hct is 26.8. His CO2 is mildly elevated to 43. His O2 mildly low but increases well with ventilation. He is on promod with heart healthy diet. He did the swallow study. Results are pending. He is using SCDs and JACKIE hose. Medical Issues: Swelling of Left Knee - SCD at night & jackie hose in the morning Pain Issues: Tylenol 650mg Q6H PRN. [place] 5/325mg Q4H PRN Functional Improvement: Patient is progressing as expected and shows good attitude and work ethic toward therapy. Patient is improving w/ gait tx. and endurance, along w/ breathing techniques to improve SaO2 consistency. Functional Improvement Occupational Therapy: GOOD PERFORMANCE DURING OT SESSION ; VERY MOTIVATED AND PARTICIPATORY WITH ALL ACTIVITIES THAT ADDRESS THE LTG SET IN POC. Summary: Patient's care plan and detention goals have been reviewed and revised as necessary. Please see the Rehabilitation Signature page for all necessary signatures.
--- NOTE | 2018-03-05 13:51 | FAST ---
SHIFT START DATE/TIME: 03/05/2018 07:00 (CDT) SHIFT END DATE/TIME: 03/05/2018 19:00 (CDT) NAME BRIANNA CRAWFORD DATE OF : 1945 DATE OF ADMISSION: 03/01/2018 20:00 (CDT) PHONE: AGE: 72 N# [id number] GENDER: Male ENCOUNTER PHYSICIAN: Dr. Zachary Ferguson M.D. 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 EATING: EATING - STEP 1: Does the patient require assistance when eating? No. EATING - SCORE: 7-IND GROOMING: Wash, rinse, and dry face GROOMING - STEP 1: Does the patient require assistance when grooming? Yes. GROOMING - STEP 2: Does the patient require the assistance of a helper? Yes. GROOMING - STEP 3: How much assistance does the patient require from the helper? Only prior equipment preparation/set up from the helper GROOMING - SCORE: 5-SUP BATHING: Activity did not occur on this shift BATHING - SCORE: 0-UNK DRESSING - UPPER BODY: Activity did not occur on this shift ARTICLES SCORE Total number of steps: 0 DRESSING - UPPER BODY - SCORE: 0-UNK DRESSING - LOWER BODY: Elastic waist pants (three steps) Underwear (three steps) ARTICLES SCORE Total number of steps: 6 DRESSING - LOWER BODY - STEP 1: Does the patient require help when dressing below the waist? Yes. DRESSING - LOWER BODY - STEP 2: Does the patient require the assistance of a helper? Yes. DRESSING - LOWER BODY - STEP 3: Does the helper touch the patient while dressing? Yes. DRESSING - LOWER BODY - STEP 4: How many of the total steps does the patient complete on his/her own? 3 DRESSING - LOWER BODY - SCORE: 3-MOD TOILETING: Activity did not occur on this shift TOILETING - SCORE: 0-UNK BLADDER MANAGEMENT: BLADDER MANAGEMENT - STEP 1: Does the patient control the bladder completely and intentionally without equipment or devices or med ications, and is always continent? Yes. BLADDER MANAGEMENT - SCORE: 7-IND BLADDER MANAGEMENT - FREQUENCY OF ACCIDENTS: BLADDER MANAGEMENT(FA) - STEP 1: How many accidents has the patient had during the current shift? 0 BOWEL MANAGEMENT: BOWEL MANAGEMENT - STEP 1: Does the patient control bowels completely and intentionally without equipment devices or medications AND is always continent? Yes. BOWEL MANAGEMENT - SCORE: 7-IND BOWEL MANAGEMENT - FREQUENCY OF ACCIDENTS: BOWEL MANAGEMENT(FA) - STEP 1: How many accidents has the patient had during the current shift? 0 TRANSFERS: BED, CHAIR, WHEELCHAIR: TRANSFERS: BED, CHAIR, WHEELCHAIR - STEP 1: Does the patient require assistance with bed, chair, or wheelchair transfers? Yes. TRANSFERS: BED, CHAIR, WHEELCHAIR - STEP 2: Does the patient require the assistance of a helper? Yes. TRANSFERS: BED, CHAIR, WHEELCHAIR - STEP 3: How much assistance does the patient require from the helper? Steadying/guiding assistance TRANSFERS: BED, CHAIR, WHEELCHAIR - SCORE: 4-MIN TRANSFERS: TOILET: TRANSFERS: TOILET - STEP 1: Does the patient require assistance with toilet transfers? Yes. TRANSFERS: TOILET - STEP 2: Does the patient require the assistance of a helper? Yes. TRANSFERS: TOILET - STEP 3: How much assistance does the patient require from the helper? Patient performs half or more of the tr ansferring tasks TRANSFERS: TOILET - STEP 4: Does the patient need only incidental help such as contact guard or steadying during toilet transfer? Yes. TRANSFERS: TOILET - SCORE: 4-MIN TRANSFERS: SHOWER: Activity did not occur on this shift TRANSFERS: SHOWER - SCORE: 0-UNK TRANSFERS: TUB: Activity did not occur on this shift TRANSFERS: TUB - SCORE: 0-UNK LOCOMOTION: WALK: Activity did not occur on this shift LOCOMOTION: WALK - SCORE: 0-UNK LOCOMOTION: WHEELCHAIR: Activity did not occur on this shift LOCOMOTION: WHEELCHAIR - SCORE: 0-UNK COMPREHENSION: COMPREHENSION - SCORE: 0-UNK EXPRESSION EXPRESSION - SCORE: 0-UNK SOCIAL INTERACTION: SOCIAL INTERACTION - SCORE: 0-UNK PROBLEM SOLVING: PROBLEM SOLVING - SCORE: 0-UNK MEMORY: MEMORY - SCORE: 0-UNK SIGNATURE PANEL: The following modified sections: Eating - Score, Grooming - Score, Bathing - Score, Dressing - Upper Body - Score, Dressing - Lower Body - Score, Toileting - Score, Bladder Management - Score, Bowel Man agement - Score, Transfers: Bed, Chair, Wheelchair - Score, Transfers: Toilet - Score, Transfers: Cristina wer - Score, Transfers: Tub - Score, Locomotion: Walk - Score, Locomotion: Wheelchair - Score, Compre hension - Score, Expression - Score, Social Interaction - Score, Problem Solving - Score, Memory - Sc ore were [electronically] signed by Joya Martin CNA on ThuMar 05 2018 13:50:20 GMT-0500 (Cent[place] Daylight Time)
--- NOTE | 2018-03-05 14:26 | FAST ---
ENCOUNTER DATE AND TIME: 03/05/2018 08:00 (CDT) NAME BRIANNA CRAWFORD DATE OF : 1945 DATE OF ADMISSION: 03/01/2018 20:00 (CDT) PHONE: AGE: 72 N# [id number] GENDER: Male ENCOUNTER PHYSICIAN: Dr. Zachary Ferguson M.D. ADMISSION DIAGNOSIS: - Cardiac 09 - Cardiac Disorders (09) coronary artery disease involving [place] coronary artery of [place] heart with gain pectoris with docu mented spasm. EATING: Activity did not occur on this shift EATING - SCORE: 0-UNK GROOMING: Activity did not occur on this shift GROOMING - SCORE: 0-UNK BATHING: Activity did not occur on this shift BATHING - SCORE: 0-UNK DRESSING - UPPER BODY: Activity did not occur on this shift Patient is not dressing in public clothing ARTICLES SCORE Total number of steps: 0 DRESSING - UPPER BODY - SCORE: 0-UNK DRESSING - LOWER BODY: Activity did not occur on this shift Patient is not dressing in public clothing ARTICLES SCORE Total number of steps: 0 DRESSING - LOWER BODY - SCORE: 0-UNK TOILETING: Activity did not occur on this shift TOILETING - SCORE: 0-UNK BLADDER MANAGEMENT: Activity did not occur on this shift BLADDER MANAGEMENT - SCORE: 7-IND BOWEL MANAGEMENT: Activity did not occur on this shift BOWEL MANAGEMENT - SCORE: 7-IND TRANSFERS: BED, CHAIR, WHEELCHAIR: TRANSFERS: BED, CHAIR, WHEELCHAIR - STEP 1: Does the patient require assistance with bed, chair, or wheelchair transfers? Yes. TRANSFERS: BED, CHAIR, WHEELCHAIR - STEP 2: Does the patient require the assistance of a helper? No. Patient only requires an assistive device fo r bed, chair, wheelchair transfers such as a sliding board, grab bar, or brace, OR s/he takes more th an reasonable time, OR there is a safety concern when s/he performs the transfers TRANSFERS: BED, CHAIR, WHEELCHAIR - SCORE: 6-XIOMARA TRANSFERS: TOILET: Activity did not occur on this shift TRANSFERS: TOILET - SCORE: 0-UNK TRANSFERS: SHOWER: Activity did not occur on this shift TRANSFERS: SHOWER - SCORE: 0-UNK TRANSFERS: TUB: Activity did not occur on this shift TRANSFERS: TUB - SCORE: 0-UNK LOCOMOTION: WALK: LOCOMOTION: WALK - STEP 1: Does the patient need help to walk 150 feet? Yes. LOCOMOTION: WALK - STEP 2: How much assistance does the patient require to walk a minimum of 150 feet? Only supervision, cuing, or coaxing LOCOMOTION: WALK - SCORE: 5-SUP LOCOMOTION: WHEELCHAIR: Activity did not occur on this shift LOCOMOTION: WHEELCHAIR - SCORE: 0-UNK LOCOMOTION: STAIRS: LOCOMOTION: STAIRS - STEP 1: Does the patient need help to go up and down 12 to 14 stairs? Yes. LOCOMOTION: STAIRS - STEP 2: How much assistance does the patient need from the helper to go a minimum of 12 to 14 stairs? Only in cidental help such as contact guarding or steadying LOCOMOTION: STAIRS - SCORE: 4-MIN COMPREHENSION: COMPREHENSION - SCORE: 0-UNK EXPRESSION EXPRESSION - SCORE: 0-UNK SOCIAL INTERACTION: SOCIAL INTERACTION - SCORE: 0-UNK PROBLEM SOLVING: PROBLEM SOLVING - SCORE: 0-UNK MEMORY: MEMORY - SCORE: 0-UNK SIGNATURE PANEL: The following modified sections: Transfers: Bed, Chair, Wheelchair - Score, Transfers: Toilet - Score , Locomotion: Walk - Score, Locomotion: Wheelchair - Score, Locomotion: Stairs - Score were [electron ically] signed by Gene Cisneros PTA on ThuMar 05 2018 14:25:33 GMT-0500 (Central Daylight Time)
--- NOTE | 2018-03-05 14:30 | FAST ---
ENCOUNTER DATE AND TIME: 03/05/2018 08:00 (CDT) NAME BRIANNA CRAWFORD DATE OF : 1945 DATE OF ADMISSION: 03/01/2018 20:00 (CDT) PHONE: AGE: 72 N# [id number] GENDER: Male ENCOUNTER PHYSICIAN: Dr. Zachary Ferguson M.D. ADMISSION DIAGNOSIS: - Cardiac 09 - Cardiac Disorders (09) coronary artery disease involving [place] coronary artery of [place] heart with gain pectoris with docu mented spasm. EATING: Activity did not occur on this shift EATING - SCORE: 0-UNK GROOMING: Activity did not occur on this shift GROOMING - SCORE: 0-UNK BATHING: Activity did not occur on this shift BATHING - SCORE: 0-UNK DRESSING - UPPER BODY: Activity did not occur on this shift ARTICLES SCORE Total number of steps: 0 DRESSING - UPPER BODY - SCORE: 0-UNK DRESSING - LOWER BODY: Sock - Left foot (one step) Sock - Right foot (one step) ARTICLES SCORE Total number of steps: 2 DRESSING - LOWER BODY - STEP 1: Does the patient require help when dressing below the waist? Yes. DRESSING - LOWER BODY - STEP 2: Does the patient require the assistance of a helper? Yes. DRESSING - LOWER BODY - STEP 3: Does the helper touch the patient while dressing? No. DRESSING - LOWER BODY - SCORE: 5-SUP TOILETING: Activity did not occur on this shift TOILETING - SCORE: 0-UNK BLADDER MANAGEMENT: Activity did not occur on this shift BLADDER MANAGEMENT - SCORE: 7-IND BOWEL MANAGEMENT: Activity did not occur on this shift BOWEL MANAGEMENT - SCORE: 7-IND TRANSFERS: BED, CHAIR, WHEELCHAIR: Activity did not occur on this shift TRANSFERS: BED, CHAIR, WHEELCHAIR - SCORE: 0-UNK TRANSFERS: TOILET: Activity did not occur on this shift TRANSFERS: TOILET - SCORE: 0-UNK TRANSFERS: SHOWER: Activity did not occur on this shift TRANSFERS: SHOWER - SCORE: 0-UNK TRANSFERS: TUB: Activity did not occur on this shift TRANSFERS: TUB - SCORE: 0-UNK LOCOMOTION: WALK: Activity did not occur on this shift LOCOMOTION: WALK - SCORE: 0-UNK LOCOMOTION: WHEELCHAIR: Activity did not occur on this shift LOCOMOTION: WHEELCHAIR - SCORE: 0-UNK LOCOMOTION: STAIRS: Activity did not occur on this shift LOCOMOTION: STAIRS - SCORE: 0-UNK COMPREHENSION: COMPREHENSION - SCORE: 0-UNK EXPRESSION EXPRESSION - SCORE: 0-UNK SOCIAL INTERACTION: SOCIAL INTERACTION - SCORE: 0-UNK PROBLEM SOLVING: PROBLEM SOLVING - SCORE: 0-UNK MEMORY: MEMORY - SCORE: 0-UNK SIGNATURE PANEL: The following modified sections: Eating - Score, Grooming - Score, Bathing - Score, Dressing - Upper Body - Score, Dressing - Lower Body - Score, Toileting - Score, Transfers: Bed, Chair, Wheelchair - S core, Transfers: Toilet - Score, Transfers: Shower - Score, Transfers: Tub - Score, Comprehension - S core, Expression - Score, Social Interaction - Score, Problem Solving - Score, Memory - Score were [e lectronically] signed by CHRISTOFER Potter on ThuMar 05 2018 14:28:59 T-0500 (Formerly [facility], later [facility])
[2018-03-05] MEDS: METOPROLOL TAR 25 MG TAB PO SCH (17:20)
[2018-03-05] MEDS: ATORVASTATIN 80 MG TAB PO SCH (20:04)
[2018-03-05] MEDS: DOCUSATE NA/SENNA CONC 1 TAB PO SCH (20:05)
--- NOTE | 2018-03-06 01:41 | FAST ---
SHIFT START DATE/TIME: 03/05/2018 19:00 (CDT) SHIFT END DATE/TIME: 03/06/2018 07:00 (CDT) NAME BRIANNA CRAWFORD DATE OF : 1945 DATE OF ADMISSION: 03/01/2018 20:00 (CDT) PHONE: AGE: 72 N# [id number] GENDER: Male ENCOUNTER PHYSICIAN: Dr. Zachary Ferguson M.D. ADMISSION DIAGNOSIS: - Cardiac 09 - Cardiac Disorders (09) coronary artery disease involving [place] coronary artery of [place] heart with gain pectoris with docu mented spasm. EATING: Activity did not occur on this shift EATING - SCORE: 0-UNK GROOMING: Activity did not occur on this shift GROOMING - SCORE: 0-UNK BATHING: Activity did not occur on this shift BATHING - SCORE: 0-UNK DRESSING - UPPER BODY: Patient is not dressing in public clothing ARTICLES SCORE Total number of steps: 0 DRESSING - UPPER BODY - SCORE: 0-UNK DRESSING - LOWER BODY: Patient is not dressing in public clothing ARTICLES SCORE Total number of steps: 0 DRESSING - LOWER BODY - SCORE: 0-UNK TOILETING: TOILETING - STEP 1: Does the patient require assistance with toileting? Yes. TOILETING - STEP 2: Does the patient require the assistance of a helper? Yes. TOILETING - STEP 3: How much assistance does the patient require from the helper? Only supervision TOILETING - SCORE: 5-SUP BLADDER MANAGEMENT: BLADDER MANAGEMENT - STEP 1: Does the patient control the bladder completely and intentionally without equipment or devices or med ications, and is always continent? No. BLADDER MANAGEMENT - STEP 2: Does the patient require the assistance of a helper? Yes. BLADDER MANAGEMENT - STEP 3: How much assistance does the patient require from the helper? Only supervision, stand-by, cuing, or c oaxing BLADDER MANAGEMENT - SCORE: 5-SUP BOWEL MANAGEMENT: Activity did not occur on this shift BOWEL MANAGEMENT - SCORE: 7-IND TRANSFERS: BED, CHAIR, WHEELCHAIR: TRANSFERS: BED, CHAIR, WHEELCHAIR - STEP 1: Does the patient require assistance with bed, chair, or wheelchair transfers? Yes. TRANSFERS: BED, CHAIR, WHEELCHAIR - STEP 2: Does the patient require the assistance of a helper? Yes. TRANSFERS: BED, CHAIR, WHEELCHAIR - STEP 3: How much assistance does the patient require from the helper? Lifting of the legs TRANSFERS: BED, CHAIR, WHEELCHAIR - STEP 4: How many legs does the patient require the helper to lift? both legs TRANSFERS: BED, CHAIR, WHEELCHAIR - SCORE: 3-MOD TRANSFERS: TOILET: TRANSFERS: TOILET - STEP 1: Does the patient require assistance with toilet transfers? Yes. TRANSFERS: TOILET - STEP 2: Does the patient require the assistance of a helper? Yes. TRANSFERS: TOILET - STEP 3: How much assistance does the patient require from the helper? Only supervision, cuing, coaxing, OR he lp to set out transfer equipment or to lock brakes and/or lift foot rests TRANSFERS: TOILET - SCORE: 5-SUP TRANSFERS: SHOWER: Activity did not occur on this shift TRANSFERS: SHOWER - SCORE: 0-UNK TRANSFERS: TUB: Activity did not occur on this shift TRANSFERS: TUB - SCORE: 0-UNK LOCOMOTION: WALK: Activity did not occur on this shift LOCOMOTION: WALK - SCORE: 0-UNK LOCOMOTION: WHEELCHAIR: Activity did not occur on this shift LOCOMOTION: WHEELCHAIR - SCORE: 0-UNK COMPREHENSION: COMPREHENSION - STEP 1: Does the patient require help to understand complex and abstract ideas (such as current events, finan elkin, discharge planning, medical issues, relationships, etc)? No. COMPREHENSION - STEP 2: Does the patient need extra time, require an assistive device (such as glasses, hearing aids, or an a ugmentative communication system), OR does s/he have mild difficulty expressing complex and abstract ideas (including mild dysarthria or mild word-finding problems)? Yes. COMPREHENSION - SCORE: 6-[place] EXPRESSION EXPRESSION - STEP 1: Does the patient require help expressing complex and abstract ideas (such as current events, finances , discharge planning, medical issues, relationships, etc)? No. EXPRESSION - STEP 2: Does the patient need extra time, require an assistive device (such as augmentive communication syste m or a communication board), OR does s/he have mild difficulty expressing complex and abstract ideas (including mild dysarthria or mild word-find problems)? No. EXPRESSION - SCORE: 7-IND SOCIAL INTERACTION: SOCIAL INTERACTION - STEP 1: Does the patient require a helper to interact with others in social and therapeutic situations? No. SOCIAL INTERACTION - STEP 2: Does the patient need extra time in social situations, OR does s/he interact with staff, other patien ts, and family members ONLY in structured environments, OR does s/he require medication for social in teraction? Yes, patient needs extra time SOCIAL INTERACTION - SCORE: 6-XIOMARA PROBLEM SOLVING: PROBLEM SOLVING - STEP 1: Does the patient need help to solve complex problems such as managing a checking account or confronti ng interpersonal problems? No. PROBLEM SOLVING - STEP 2: Does the patient require extra time to make decisions or solve problems, OR does s/he have slight dif ficulty reading, initiating, or self-correcting in unfamiliar situations? Yes, patient needs extra ti me. PROBLEM SOLVING - SCORE: 6-XIOMARA MEMORY: MEMORY - STEP 1: Does the patient need help to remember frequently encountered people, daily routines, and executing r equests? No. MEMORY - STEP 2: Does the patient have slight difficulty recognizing frequently encountered people, daily routines, or executing requests without the need for repetition or using self-initiated or environmental cues to remember? Yes. MEMORY - SCORE: 6-XIOMARA SIGNATURE PANEL: The following modified sections: Eating - Score, Grooming - Score, Dressing - Upper Body - Score, Vince ssing - Lower Body - Score, Toileting - Score, Bladder Management - Score, Bowel Management - Score, Transfers: Bed, Chair, Wheelchair - Score, Transfers: Toilet - Score, Transfers: Shower - Score, [place] sfers: Tub - Score, Locomotion: Walk - Score, Locomotion: Wheelchair - Score, Comprehension - Score, Expression - Score, Social Interaction - Score, Problem Solving - Score, Memory - Score were [electro nically] signed by Arilela Reveles CNA on ThuMar 06 2018 01:40:21 GMT-0500 (Central Daylight Time)
[2018-03-06] MEDS: METOPROLOL TAR 25 MG TAB PO SCH ×2 (05:10→17:21)
[2018-03-06] MEDS: CRANBERRY FRUIT EXTRACT 200 MG CAP PO SCH ×2 (08:17→20:47)
[2018-03-06] MEDS: POTASSIUM 25 MEQ EFFERV TAB PO SCH (08:18)
[2018-03-06] MEDS: PANTOPRAZOLE 40MG TABLET PO SCH (08:19)
[2018-03-06] MEDS: FE SULF/FA/VIT B COMP & C TAB PO SCH (08:20)
[2018-03-06] MEDS: CLOPIDOGREL 75 MG TABLET PO SCH (08:20)
[2018-03-06] MEDS: FERROUS SULFATE 325 MG TAB PO SCH (08:20)
[2018-03-06] MEDS: ASPIRIN 81 MG CHEWABLE TABLET PO SCH (08:21)
[2018-03-06] MEDS: SPIRONOLACTONE 25 MG TABLET PO SCH (08:21)
[2018-03-06] MEDS: APIXABAN 2.5 MG TABLET PO SCH ×2 (08:22→20:47)
[2018-03-06] MEDS: PROMOD 30 ML DOSE PO SCH ×2 (08:22→20:47)
[2018-03-06] MEDS: ALLOPURINOL 100 MG TAB PO SCH (08:22)
[2018-03-06] MEDS: GABAPENTIN 300 MG CAP PO SCH ×2 (08:22→20:47)
--- NOTE | 2018-03-06 11:42 | FAST ---
ENCOUNTER DATE AND TIME: 03/06/2018 08:00 (CDT) NAME BRIANNA CRAWFORD DATE OF : 1945 DATE OF ADMISSION: 03/01/2018 20:00 (CDT) PHONE: AGE: 72 N# [id number] GENDER: Male ENCOUNTER PHYSICIAN: Dr. Zachary Ferguson M.D. ADMISSION DIAGNOSIS: - Cardiac 09 - Cardiac Disorders (09) coronary artery disease involving [place] coronary artery of [place] heart with gain pectoris with docu mented spasm. EATING: Activity did not occur on this shift EATING - SCORE: 0-UNK GROOMING: Activity did not occur on this shift GROOMING - SCORE: 0-UNK BATHING: Activity did not occur on this shift BATHING - SCORE: 0-UNK DRESSING - UPPER BODY: Activity did not occur on this shift Patient is not dressing in public clothing ARTICLES SCORE Total number of steps: 0 DRESSING - UPPER BODY - SCORE: 0-UNK DRESSING - LOWER BODY: Activity did not occur on this shift Patient is not dressing in public clothing ARTICLES SCORE Total number of steps: 0 DRESSING - LOWER BODY - SCORE: 0-UNK TOILETING: Activity did not occur on this shift TOILETING - SCORE: 0-UNK BLADDER MANAGEMENT: Activity did not occur on this shift BLADDER MANAGEMENT - SCORE: 7-IND BOWEL MANAGEMENT: Activity did not occur on this shift BOWEL MANAGEMENT - SCORE: 7-IND TRANSFERS: BED, CHAIR, WHEELCHAIR: TRANSFERS: BED, CHAIR, WHEELCHAIR - STEP 1: Does the patient require assistance with bed, chair, or wheelchair transfers? Yes. TRANSFERS: BED, CHAIR, WHEELCHAIR - STEP 2: Does the patient require the assistance of a helper? Yes. TRANSFERS: BED, CHAIR, WHEELCHAIR - STEP 3: How much assistance does the patient require from the helper? Steadying/guiding assistance TRANSFERS: BED, CHAIR, WHEELCHAIR - SCORE: 4-MIN TRANSFERS: TOILET: Activity did not occur on this shift TRANSFERS: TOILET - SCORE: 0-UNK TRANSFERS: SHOWER: Activity did not occur on this shift TRANSFERS: SHOWER - SCORE: 0-UNK TRANSFERS: TUB: Activity did not occur on this shift TRANSFERS: TUB - SCORE: 0-UNK LOCOMOTION: WALK: LOCOMOTION: WALK - STEP 1: Does the patient need help to walk 150 feet? Yes. LOCOMOTION: WALK - STEP 2: How much assistance does the patient require to walk a minimum of 150 feet? Only supervision, cuing, or coaxing LOCOMOTION: WALK - SCORE: 5-SUP LOCOMOTION: WHEELCHAIR: LOCOMOTION: WHEELCHAIR - STEP 1: Does the patient need help to go 150 feet in a wheelchair? Yes. LOCOMOTION: WHEELCHAIR - STEP 2: How much assistance does the patient need from the helper? Only supervision, cuing, or coaxing LOCOMOTION: WHEELCHAIR - SCORE: 5-SUP LOCOMOTION: STAIRS: Activity did not occur on this shift LOCOMOTION: STAIRS - SCORE: 0-UNK COMPREHENSION: COMPREHENSION - SCORE: 0-UNK EXPRESSION EXPRESSION - SCORE: 0-UNK SOCIAL INTERACTION: SOCIAL INTERACTION - SCORE: 0-UNK PROBLEM SOLVING: PROBLEM SOLVING - SCORE: 0-UNK MEMORY: MEMORY - SCORE: 0-UNK SIGNATURE PANEL: The following modified sections: Transfers: Bed, Chair, Wheelchair - Score, Transfers: Toilet - Score , Locomotion: Walk - Score, Locomotion: Wheelchair - Score, Locomotion: Stairs - Score were [electron baldev] signed by Selina Cisneros PTA on Sat Mar 06 2018 11:41:42 GMT-0500 (Central Daylight Time)
[2018-03-06] MEDS: FUROSEMIDE 20 MG TABLET PO SCH ×2 (12:15→17:21)
--- NOTE | 2018-03-06 12:23 | FAST ---
ENCOUNTER DATE AND TIME: 03/06/2018 08:00 (CDT) NAME BRIANNA CRAWFORD DATE OF : 1945 DATE OF ADMISSION: 03/01/2018 20:00 (CDT) PHONE: AGE: 72 N# [id number] GENDER: Male ENCOUNTER PHYSICIAN: Dr. Zachary Ferguson M.D. ADMISSION DIAGNOSIS: - Cardiac 09 - Cardiac Disorders (09) coronary artery disease involving [place] coronary artery of [place] heart with gain pectoris with docu mented spasm. EATING: Activity did not occur on this shift EATING - SCORE: 0-UNK GROOMING: Activity did not occur on this shift GROOMING - SCORE: 0-UNK BATHING: Abdomen Buttocks Chest Left arm Left lower leg and foot Left upper leg Perineal area Right arm Right lower leg and foot Right upper leg BATHING - STEP 1: Does the patient require assistance when bathing? Yes. BATHING - STEP 2: Does the patient require the assistance of a helper? Yes. BATHING - STEP 3: How much assistance does the patient require from the helper? Only prior preparation such as putting bathing equipment within reach, turning on water, checking water temperature BATHING - SCORE: 5-SUP DRESSING - UPPER BODY: T-shirt/pullover shirt (four steps) ARTICLES SCORE Total number of steps: 4 DRESSING - UPPER BODY - STEP 1: Does the patient require help when dressing above the waist? Yes. DRESSING - UPPER BODY - STEP 2: Does the patient require the assistance of a helper? Yes. DRESSING - UPPER BODY - STEP 3: Does the helper touch the patient while dressing? No. DRESSING - UPPER BODY - SCORE: 5-SUP DRESSING - LOWER BODY: Elastic waist pants (three steps) Sock - Left foot (one step) Sock - Right foot (one step) Underwear (three steps) ARTICLES SCORE Total number of steps: 8 DRESSING - LOWER BODY - STEP 1: Does the patient require help when dressing below the waist? Yes. DRESSING - LOWER BODY - STEP 2: Does the patient require the assistance of a helper? Yes. DRESSING - LOWER BODY - STEP 3: Does the helper touch the patient while dressing? Yes. DRESSING - LOWER BODY - STEP 4: How many of the total steps does the patient complete on his/her own? 2 DRESSING - LOWER BODY - STEP 5: Does patient require total assistance for dressing below the waist such as the helper holding clothin g and performing basically all the activities? Yes. DRESSING - LOWER BODY - SCORE: 1-DEP TOILETING: Activity did not occur on this shift TOILETING - SCORE: 0-UNK BLADDER MANAGEMENT: Activity did not occur on this shift BLADDER MANAGEMENT - SCORE: 7-IND BOWEL MANAGEMENT: Activity did not occur on this shift BOWEL MANAGEMENT - SCORE: 7-IND TRANSFERS: BED, CHAIR, WHEELCHAIR: TRANSFERS: BED, CHAIR, WHEELCHAIR - STEP 1: Does the patient require assistance with bed, chair, or wheelchair transfers? Yes. TRANSFERS: BED, CHAIR, WHEELCHAIR - STEP 2: Does the patient require the assistance of a helper? Yes. TRANSFERS: BED, CHAIR, WHEELCHAIR - STEP 3: How much assistance does the patient require from the helper? Only supervision TRANSFERS: BED, CHAIR, WHEELCHAIR - SCORE: 5-SUP TRANSFERS: TOILET: Activity did not occur on this shift TRANSFERS: TOILET - SCORE: 0-UNK TRANSFERS: SHOWER: TRANSFERS: SHOWER - STEP 1: Does the patient require assistance with shower transfers? Yes. TRANSFERS: SHOWER - STEP 2: Does the patient require the assistance of a helper? Yes. TRANSFERS: SHOWER - STEP 3: How much assistance does the patient require from the helper? Only supervision, cuing, coaxing, or he lp to set out transfer equipment or to lock brakes and/or lift foot rests TRANSFERS: SHOWER - SCORE: 5-SUP TRANSFERS: TUB: Activity did not occur on this shift TRANSFERS: TUB - SCORE: 0-UNK LOCOMOTION: WALK: Activity did not occur on this shift LOCOMOTION: WALK - SCORE: 0-UNK LOCOMOTION: WHEELCHAIR: Activity did not occur on this shift LOCOMOTION: WHEELCHAIR - SCORE: 0-UNK LOCOMOTION: STAIRS: Activity did not occur on this shift LOCOMOTION: STAIRS - SCORE: 0-UNK COMPREHENSION: COMPREHENSION: TYPE: Both COMPREHENSION - STEP 1: Does the patient require help to understand complex and abstract ideas (such as current events, finan elkin, discharge planning, medical issues, relationships, etc)? No. COMPREHENSION - STEP 2: Does the patient need extra time, require an assistive device (such as glasses, hearing aids, or an a ugmentative communication system), OR does s/he have mild difficulty expressing complex and abstract ideas (including mild dysarthria or mild word-finding problems)? No. COMPREHENSION - SCORE: 7-IND EXPRESSION EXPRESSION: TYPE: Both EXPRESSION - STEP 1: Does the patient require help expressing complex and abstract ideas (such as current events, finances , discharge planning, medical issues, relationships, etc)? No. EXPRESSION - STEP 2: Does the patient need extra time, require an assistive device (such as augmentive communication syste m or a communication board), OR does s/he have mild difficulty expressing complex and abstract ideas (including mild dysarthria or mild word-find problems)? No. EXPRESSION - SCORE: 7-IND SOCIAL INTERACTION: SOCIAL INTERACTION - STEP 1: Does the patient require a helper to interact with others in social and therapeutic situations? No. SOCIAL INTERACTION - STEP 2: Does the patient need extra time in social situations, OR does s/he interact with staff, other patien ts, and family members ONLY in structured environments, OR does s/he require medication for social in teraction? No. SOCIAL INTERACTION - SCORE: 7-IND PROBLEM SOLVING: PROBLEM SOLVING - STEP 1: Does the patient need help to solve complex problems such as managing a checking account or confronti ng interpersonal problems? No. PROBLEM SOLVING - STEP 2: Does the patient require extra time to make decisions or solve problems, OR does s/he have slight dif ficulty reading, initiating, or self-correcting in unfamiliar situations? No. PROBLEM SOLVING - SCORE: 7-IND MEMORY: MEMORY - STEP 1: Does the patient need help to remember frequently encountered people, daily routines, and executing r equests? No. MEMORY - STEP 2: Does the patient have slight difficulty recognizing frequently encountered people, daily routines, or executing requests without the need for repetition or using self-initiated or environmental cues to remember? No. MEMORY - SCORE: 7-IND SIGNATURE PANEL: The following modified sections: Eating - Score, Grooming - Score, Bathing - Score, Dressing - Upper Body - Score, Dressing - Lower Body - Score, Toileting - Score, Transfers: Bed, Chair, Wheelchair - S core, Transfers: Toilet - Score, Transfers: Shower - Score, Transfers: Tub - Score, Comprehension - S core, Expression - Score, Social Interaction - Score, Problem Solving - Score, Memory - Score were [e lectronically] signed by CHRISTOFER Crawley on ThuMar 06 2018 12:22:33 T-0500 (Central Daylight T nas[place])
--- NOTE | 2018-03-06 14:17 | FAST ---
SHIFT START DATE/TIME: 03/06/2018 07:00 (CDT) SHIFT END DATE/TIME: 03/06/2018 19:00 (CDT) NAME BRIANNA CRAWFORD DATE OF : 1945 DATE OF ADMISSION: 03/01/2018 20:00 (CDT) PHONE: AGE: 72 N# [id number] GENDER: Male ENCOUNTER PHYSICIAN: Dr. Zachary Ferguson M.D. ADMISSION DIAGNOSIS: - Cardiac 09 - Cardiac Disorders (09) coronary artery disease involving [place] coronary artery of [place] heart with gain pectoris with docu mented spasm. EATING: EATING - STEP 1: Does the patient require assistance when eating? Yes. EATING - STEP 2: Does the patient require the assistance of a helper? No, patient only requires an assistive device, O R s/he takes more than reasonable time to eat, OR there is a safety concern, OR s/he requires modifie d food consistency EATING - SCORE: 6-[place] GROOMING: Wash, rinse, and dry face Wash, rinse, and dry hands GROOMING - STEP 1: Does the patient require assistance when grooming? Yes. GROOMING - STEP 2: Does the patient require the assistance of a helper? Yes. GROOMING - STEP 3: How much assistance does the patient require from the helper? Only prior equipment preparation/set up from the helper GROOMING - SCORE: 5-SUP BATHING: Activity did not occur on this shift BATHING - SCORE: 0-UNK DRESSING - UPPER BODY: Activity did not occur on this shift ARTICLES SCORE Total number of steps: 0 DRESSING - UPPER BODY - SCORE: 0-UNK DRESSING - LOWER BODY: Activity did not occur on this shift ARTICLES SCORE Total number of steps: 0 DRESSING - LOWER BODY - SCORE: 0-UNK TOILETING: TOILETING - STEP 1: Does the patient require assistance with toileting? Yes. TOILETING - STEP 2: Does the patient require the assistance of a helper? Yes. TOILETING - STEP 3: How much assistance does the patient require from the helper? Hands-on assistance from the helper TOILETING - STEP 4: Of the 3 tasks: 1) Adjusting clothing prior to use, 2) Cleansing of perineal area, 3) Adjusting clot jj after use; How many tasks does the patient perform WITHOUT assistance of the helper? Three tasks with steadying assistance from the helper TOILETING - SCORE: 4-MIN BLADDER MANAGEMENT: BLADDER MANAGEMENT - STEP 1: Does the patient control the bladder completely and intentionally without equipment or devices or med ications, and is always continent? No. BLADDER MANAGEMENT - STEP 2: Does the patient require the assistance of a helper? Yes. BLADDER MANAGEMENT - STEP 3: How much assistance does the patient require from the helper? Only supervision, stand-by, cuing, or c oaxing BLADDER MANAGEMENT - SCORE: 5-SUP BLADDER MANAGEMENT - FREQUENCY OF ACCIDENTS: BLADDER MANAGEMENT(FA) - STEP 1: How many accidents has the patient had during the current shift? 0 BOWEL MANAGEMENT: Activity did not occur on this shift BOWEL MANAGEMENT - SCORE: 7-IND BOWEL MANAGEMENT - FREQUENCY OF ACCIDENTS: BOWEL MANAGEMENT(FA) - STEP 1: How many accidents has the patient had during the current shift? 0 TRANSFERS: BED, CHAIR, WHEELCHAIR: TRANSFERS: BED, CHAIR, WHEELCHAIR - STEP 1: Does the patient require assistance with bed, chair, or wheelchair transfers? Yes. TRANSFERS: BED, CHAIR, WHEELCHAIR - STEP 2: Does the patient require the assistance of a helper? Yes. TRANSFERS: BED, CHAIR, WHEELCHAIR - STEP 3: How much assistance does the patient require from the helper? Only supervision TRANSFERS: BED, CHAIR, WHEELCHAIR - SCORE: 5-SUP TRANSFERS: TOILET: TRANSFERS: TOILET - STEP 1: Does the patient require assistance with toilet transfers? Yes. TRANSFERS: TOILET - STEP 2: Does the patient require the assistance of a helper? Yes. TRANSFERS: TOILET - STEP 3: How much assistance does the patient require from the helper? Patient performs half or more of the tr ansferring tasks TRANSFERS: TOILET - STEP 4: Does the patient need only incidental help such as contact guard or steadying during toilet transfer? Yes. TRANSFERS: TOILET - SCORE: 4-MIN TRANSFERS: SHOWER: Activity did not occur on this shift TRANSFERS: SHOWER - SCORE: 0-UNK TRANSFERS: TUB: Activity did not occur on this shift TRANSFERS: TUB - SCORE: 0-UNK LOCOMOTION: WALK: Activity did not occur on this shift LOCOMOTION: WALK - SCORE: 0-UNK LOCOMOTION: WHEELCHAIR: Activity did not occur on this shift LOCOMOTION: WHEELCHAIR - SCORE: 0-UNK COMPREHENSION: COMPREHENSION: TYPE: Both COMPREHENSION - STEP 1: Does the patient require help to understand complex and abstract ideas (such as current events, finan elkin, discharge planning, medical issues, relationships, etc)? No. COMPREHENSION - STEP 2: Does the patient need extra time, require an assistive device (such as glasses, hearing aids, or an a ugmentative communication system), OR does s/he have mild difficulty expressing complex and abstract ideas (including mild dysarthria or mild word-finding problems)? Yes. COMPREHENSION - SCORE: 6-[place] EXPRESSION EXPRESSION: TYPE: Both EXPRESSION - STEP 1: Does the patient require help expressing complex and abstract ideas (such as current events, finances , discharge planning, medical issues, relationships, etc)? No. EXPRESSION - STEP 2: Does the patient need extra time, require an assistive device (such as augmentive communication syste m or a communication board), OR does s/he have mild difficulty expressing complex and abstract ideas (including mild dysarthria or mild word-find problems)? Yes. EXPRESSION - SCORE: 6-[place] SOCIAL INTERACTION: SOCIAL INTERACTION - STEP 1: Does the patient require a helper to interact with others in social and therapeutic situations? No. SOCIAL INTERACTION - STEP 2: Does the patient need extra time in social situations, OR does s/he interact with staff, other patien ts, and family members ONLY in structured environments, OR does s/he require medication for social in teraction? Yes, patient needs extra time SOCIAL INTERACTION - SCORE: 6-[place] PROBLEM SOLVING: PROBLEM SOLVING - STEP 1: Does the patient need help to solve complex problems such as managing a checking account or confronti ng interpersonal problems? No. PROBLEM SOLVING - STEP 2: Does the patient require extra time to make decisions or solve problems, OR does s/he have slight dif ficulty reading, initiating, or self-correcting in unfamiliar situations? Yes, patient needs extra ti me. PROBLEM SOLVING - SCORE: 6-XI[place] MEMORY: MEMORY - STEP 1: Does the patient need help to remember frequently encountered people, daily routines, and executing r equests? No. MEMORY - STEP 2: Does the patient have slight difficulty recognizing frequently encountered people, daily routines, or executing requests without the need for repetition or using self-initiated or environmental cues to remember? Yes. MEMORY - SCORE: 6-[place] SIGNATURE PANEL: The following modified sections: Eating - Score, Grooming - Score, Bathing - Score, Dressing - Upper Body - Score, Dressing - Lower Body - Score, Toileting - Score, Bladder Management - Score, Bowel Man agement - Score, Transfers: Bed, Chair, Wheelchair - Score, Transfers: Toilet - Score, Transfers: Cristina wer - Score, Transfers: Tub - Score, Locomotion: Walk - Score, Locomotion: Wheelchair - Score, Compre hension - Score, Expression - Score, Social Interaction - Score, Problem Solving - Score, Memory - Sc ore were [electronically] signed by Dari Alvarez C.N.Jamar on Sat Mar 06 2018 14:16:36 GMT-0500 (Centra [place] Daylight Time)
[2018-03-06] MEDS ORDERED: FUROSEMIDE 40 MG TABLET PO SCH (17:00)
[2018-03-06] MEDS: ATORVASTATIN 80 MG TAB PO SCH (20:47)
[2018-03-06] MEDS: DOCUSATE NA/SENNA CONC 1 TAB PO SCH (20:47)
--- NOTE | 2018-03-07 01:28 | FAST ---
SHIFT START DATE/TIME: 03/06/2018 19:00 (CDT) SHIFT END DATE/TIME: 03/07/2018 07:00 (CDT) NAME BRIANNA CRAWFORD DATE OF : 1945 DATE OF ADMISSION: 03/01/2018 20:00 (CDT) PHONE: AGE: 72 N# [id number] GENDER: Male ENCOUNTER PHYSICIAN: Dr. Zachary Ferguson M.D. ADMISSION DIAGNOSIS: - Cardiac 09 - Cardiac Disorders (09) coronary artery disease involving [place] coronary artery of [place] heart with gain pectoris with docu mented spasm. EATING: Activity did not occur on this shift EATING - SCORE: 0-UNK GROOMING: Activity did not occur on this shift GROOMING - SCORE: 0-UNK BATHING: Activity did not occur on this shift BATHING - SCORE: 0-UNK DRESSING - UPPER BODY: Patient is not dressing in public clothing ARTICLES SCORE Total number of steps: 0 DRESSING - UPPER BODY - SCORE: 0-UNK DRESSING - LOWER BODY: Patient is not dressing in public clothing ARTICLES SCORE Total number of steps: 0 DRESSING - LOWER BODY - SCORE: 0-UNK TOILETING: TOILETING - STEP 1: Does the patient require assistance with toileting? Yes. TOILETING - STEP 2: Does the patient require the assistance of a helper? Yes. TOILETING - STEP 3: How much assistance does the patient require from the helper? Only supervision TOILETING - SCORE: 5-SUP BLADDER MANAGEMENT: BLADDER MANAGEMENT - STEP 1: Does the patient control the bladder completely and intentionally without equipment or devices or med ications, and is always continent? No. BLADDER MANAGEMENT - STEP 2: Does the patient require the assistance of a helper? Yes. BLADDER MANAGEMENT - STEP 3: How much assistance does the patient require from the helper? Only set-up of equipment - such as plac ing it within reach of the patient or emptying a device - to maintain either satisfactory voiding pat tern or managing an external device, such as an absorbent pad, ileal device, or catheter BLADDER MANAGEMENT - SCORE: 5-SUP BOWEL MANAGEMENT: Activity did not occur on this shift BOWEL MANAGEMENT - SCORE: 7-IND TRANSFERS: BED, CHAIR, WHEELCHAIR: TRANSFERS: BED, CHAIR, WHEELCHAIR - STEP 1: Does the patient require assistance with bed, chair, or wheelchair transfers? Yes. TRANSFERS: BED, CHAIR, WHEELCHAIR - STEP 2: Does the patient require the assistance of a helper? Yes. TRANSFERS: BED, CHAIR, WHEELCHAIR - STEP 3: How much assistance does the patient require from the helper? Lifting of the legs TRANSFERS: BED, CHAIR, WHEELCHAIR - STEP 4: How many legs does the patient require the helper to lift? both legs TRANSFERS: BED, CHAIR, WHEELCHAIR - SCORE: 3-MOD TRANSFERS: TOILET: Activity did not occur on this shift TRANSFERS: TOILET - SCORE: 0-UNK TRANSFERS: SHOWER: Activity did not occur on this shift TRANSFERS: SHOWER - SCORE: 0-UNK TRANSFERS: TUB: Activity did not occur on this shift TRANSFERS: TUB - SCORE: 0-UNK LOCOMOTION: WALK: Activity did not occur on this shift LOCOMOTION: WALK - SCORE: 0-UNK LOCOMOTION: WHEELCHAIR: Activity did not occur on this shift LOCOMOTION: WHEELCHAIR - SCORE: 0-UNK COMPREHENSION: COMPREHENSION - STEP 1: Does the patient require help to understand complex and abstract ideas (such as current events, finan elkin, discharge planning, medical issues, relationships, etc)? No. COMPREHENSION - STEP 2: Does the patient need extra time, require an assistive device (such as glasses, hearing aids, or an a ugmentative communication system), OR does s/he have mild difficulty expressing complex and abstract ideas (including mild dysarthria or mild word-finding problems)? Yes. COMPREHENSION - SCORE: 6-[place] EXPRESSION EXPRESSION - STEP 1: Does the patient require help expressing complex and abstract ideas (such as current events, finances , discharge planning, medical issues, relationships, etc)? No. EXPRESSION - STEP 2: Does the patient need extra time, require an assistive device (such as augmentive communication syste m or a communication board), OR does s/he have mild difficulty expressing complex and abstract ideas (including mild dysarthria or mild word-find problems)? Yes. EXPRESSION - SCORE: 6-[place] SOCIAL INTERACTION: SOCIAL INTERACTION - STEP 1: Does the patient require a helper to interact with others in social and therapeutic situations? No. SOCIAL INTERACTION - STEP 2: Does the patient need extra time in social situations, OR does s/he interact with staff, other patien ts, and family members ONLY in structured environments, OR does s/he require medication for social in teraction? Yes, patient needs extra time SOCIAL INTERACTION - SCORE: 6-XIOM[place] PROBLEM SOLVING: PROBLEM SOLVING - STEP 1: Does the patient need help to solve complex problems such as managing a checking account or confronti ng interpersonal problems? No. PROBLEM SOLVING - STEP 2: Does the patient require extra time to make decisions or solve problems, OR does s/he have slight dif ficulty reading, initiating, or self-correcting in unfamiliar situations? Yes, patient needs extra ti me. PROBLEM SOLVING - SCORE: 6-XIOM[place] MEMORY: MEMORY - STEP 1: Does the patient need help to remember frequently encountered people, daily routines, and executing r equests? No. MEMORY - STEP 2: Does the patient have slight difficulty recognizing frequently encountered people, daily routines, or executing requests without the need for repetition or using self-initiated or environmental cues to remember? Yes. MEMORY - SCORE: 6-XIOM[place] SIGNATURE PANEL: The following modified sections: Eating - Score, Grooming - Score, Dressing - Upper Body - Score, Vince ssing - Lower Body - Score, Toileting - Score, Bladder Management - Score, Bowel Management - Score, Transfers: Bed, Chair, Wheelchair - Score, Transfers: Toilet - Score, Transfers: Shower - Score, [place] sfers: Tub - Score, Locomotion: Walk - Score, Locomotion: Wheelchair - Score, Comprehension - Score, Expression - Score, Social Interaction - Score, Problem Solving - Score, Memory - Score were [electro nically] signed by Ariella Reveles CNA on ThuMar 07 2018 01:27:28 GMT-0500 (Central Daylight Time)
[2018-03-07] MEDS: METOPROLOL TAR 25 MG TAB PO SCH ×2 (05:26→16:52)
[2018-03-07 06:03] LABS: Absolute Lymphocytes (CBC) 1.7 K/uL (0.7-4.9); Absolute Monocytes 1.1 K/uL (0.1-1.3); Absolute Neutrophil 7.4 K/uL (1.8-8.0); Basophils % 0.6 % (0-1.3); Eosinophils % 5.7 % (0-4.4); Hematocrit 27.5 % (39.6-49.0); Lymphocytes % 15.8 % (15.3-44.8); MCH 31.9 pg (27.0-35.0); MPV 8.8 fL (7.6-11.3); Monocytes % 10.1 % (3.3-12.3); RBC Red Blood Cell Count 2.84 M/uL (4.33-5.43)
[2018-03-07 06:19] LABS: BUN Blood Urea Nitrogen 9 mg/dL (7-18); Glucose Level 102 mg/dL (74-106); Potassium 3.5 mmol/L (3.5-5.1); Sodium Level 143 mmol/L (136-145)
[2018-03-07 06:20] LABS: Bicarbonate 41 mmol/L (21-32)
[2018-03-07] MEDS: PANTOPRAZOLE 40MG TABLET PO SCH (07:30)
[2018-03-07] MEDS: FUROSEMIDE 20 MG TABLET PO SCH ×2 (08:18→16:52)
[2018-03-07] MEDS: ASPIRIN 81 MG CHEWABLE TABLET PO SCH (08:18)
[2018-03-07] MEDS: POTASSIUM 25 MEQ EFFERV TAB PO SCH (08:18)
[2018-03-07] MEDS: APIXABAN 2.5 MG TABLET PO SCH ×2 (08:19→20:34)
[2018-03-07] MEDS: GABAPENTIN 300 MG CAP PO SCH ×2 (08:19→20:34)
[2018-03-07] MEDS: CLOPIDOGREL 75 MG TABLET PO SCH (08:19)
[2018-03-07] MEDS: SPIRONOLACTONE 25 MG TABLET PO SCH (08:19)
[2018-03-07] MEDS: PROMOD 30 ML DOSE PO SCH ×2 (08:20→20:34)
[2018-03-07] MEDS: ALLOPURINOL 100 MG TAB PO SCH (08:20)
[2018-03-07] MEDS: FE SULF/FA/VIT B COMP & C TAB PO SCH (08:20)
[2018-03-07] MEDS: CRANBERRY FRUIT EXTRACT 200 MG CAP PO SCH ×2 (08:20→20:34)
[2018-03-07] MEDS: FERROUS SULFATE 325 MG TAB PO SCH (08:20)
--- NOTE | 2018-03-07 10:45 | FAST ---
SHIFT START DATE/TIME: 03/07/2018 07:00 (CDT) SHIFT END DATE/TIME: 03/07/2018 19:00 (CDT) NAME BRIANNA CRAWFORD DATE OF : 1945 DATE OF ADMISSION: 03/01/2018 20:00 (CDT) PHONE: AGE: 72 N# [id number] GENDER: Male ENCOUNTER PHYSICIAN: Dr. Zachary Ferguson M.D. ADMISSION DIAGNOSIS: - Cardiac 09 - Cardiac Disorders (09) coronary artery disease involving [place] coronary artery of [place] heart with gain pectoris with docu mented spasm. EATING: EATING - STEP 1: Does the patient require assistance when eating? Yes. EATING - STEP 2: Does the patient require the assistance of a helper? No, patient only requires an assistive device, O R s/he takes more than reasonable time to eat, OR there is a safety concern, OR s/he requires modifie d food consistency EATING - SCORE: 6-XIOMARA GROOMING: Wash, rinse, and dry face Wash, rinse, and dry hands GROOMING - STEP 1: Does the patient require assistance when grooming? Yes. GROOMING - STEP 2: Does the patient require the assistance of a helper? Yes. GROOMING - STEP 3: How much assistance does the patient require from the helper? Only prior equipment preparation/set up from the helper GROOMING - SCORE: 5-SUP BATHING: Activity did not occur on this shift BATHING - SCORE: 0-UNK DRESSING - UPPER BODY: ARTICLES SCORE Total number of steps: 0 DRESSING - UPPER BODY - STEP 1: Does the patient require help when dressing above the waist? Yes. DRESSING - UPPER BODY - STEP 2: Does the patient require the assistance of a helper? No. Patient only requires an assistive device, s uch as a button hook, velcro, or farm equipment engine mechanic. OR s/he takes more than reasonable time as s/he dresses the upper body. OR there is a concern for safety when s/he dresses the upper body DRESSING - UPPER BODY - SCORE: 6-XIOMARA DRESSING - LOWER BODY: Elastic waist pants (three steps) Underwear (three steps) ARTICLES SCORE Total number of steps: 6 DRESSING - LOWER BODY - STEP 1: Does the patient require help when dressing below the waist? Yes. DRESSING - LOWER BODY - STEP 2: Does the patient require the assistance of a helper? Yes. DRESSING - LOWER BODY - STEP 3: Does the helper touch the patient while dressing? Yes. DRESSING - LOWER BODY - STEP 4: How many of the total steps does the patient complete on his/her own? 5 DRESSING - LOWER BODY - SCORE: 4-MIN TOILETING: TOILETING - STEP 1: Does the patient require assistance with toileting? Yes. TOILETING - STEP 2: Does the patient require the assistance of a helper? Yes. TOILETING - STEP 3: How much assistance does the patient require from the helper? Only supervision TOILETING - SCORE: 5-SUP BLADDER MANAGEMENT: BLADDER MANAGEMENT - STEP 1: Does the patient control the bladder completely and intentionally without equipment or devices or med ications, and is always continent? Yes. BLADDER MANAGEMENT - SCORE: 7-IND BLADDER MANAGEMENT - FREQUENCY OF ACCIDENTS: BLADDER MANAGEMENT(FA) - STEP 1: How many accidents has the patient had during the current shift? 0 BOWEL MANAGEMENT: BOWEL MANAGEMENT - STEP 1: Does the patient control bowels completely and intentionally without equipment devices or medications AND is always continent? No. BOWEL MANAGEMENT - STEP 2: Does the patient require the assistance of a helper? No, patient requires medication for control such as stool softeners, suppositories, laxatives, enemas, or OTC medications BOWEL MANAGEMENT - SCORE: 6-XIOMARA BOWEL MANAGEMENT - FREQUENCY OF ACCIDENTS: BOWEL MANAGEMENT(FA) - STEP 1: How many accidents has the patient had during the current shift? 0 TRANSFERS: BED, CHAIR, WHEELCHAIR: TRANSFERS: BED, CHAIR, WHEELCHAIR - STEP 1: Does the patient require assistance with bed, chair, or wheelchair transfers? Yes. TRANSFERS: BED, CHAIR, WHEELCHAIR - STEP 2: Does the patient require the assistance of a helper? Yes. TRANSFERS: BED, CHAIR, WHEELCHAIR - STEP 3: How much assistance does the patient require from the helper? Only supervision TRANSFERS: BED, CHAIR, WHEELCHAIR - SCORE: 5-SUP TRANSFERS: TOILET: TRANSFERS: TOILET - STEP 1: Does the patient require assistance with toilet transfers? Yes. TRANSFERS: TOILET - STEP 2: Does the patient require the assistance of a helper? Yes. TRANSFERS: TOILET - STEP 3: How much assistance does the patient require from the helper? Only supervision, cuing, coaxing, OR he lp to set out transfer equipment or to lock brakes and/or lift foot rests TRANSFERS: TOILET - SCORE: 5-SUP TRANSFERS: SHOWER: Activity did not occur on this shift TRANSFERS: SHOWER - SCORE: 0-UNK TRANSFERS: TUB: Activity did not occur on this shift TRANSFERS: TUB - SCORE: 0-UNK LOCOMOTION: WALK: Activity did not occur on this shift LOCOMOTION: WALK - SCORE: 0-UNK LOCOMOTION: WHEELCHAIR: LOCOMOTION: WHEELCHAIR - STEP 1: Does the patient need help to go 150 feet in a wheelchair? Yes. LOCOMOTION: WHEELCHAIR - STEP 2: How much assistance does the patient need from the helper? Only supervision, cuing, or coaxing LOCOMOTION: WHEELCHAIR - SCORE: 5-SUP COMPREHENSION: COMPREHENSION: TYPE: Both COMPREHENSION - STEP 1: Does the patient require help to understand complex and abstract ideas (such as current events, finan elkin, discharge planning, medical issues, relationships, etc)? No. COMPREHENSION - STEP 2: Does the patient need extra time, require an assistive device (such as glasses, hearing aids, or an a ugmentative communication system), OR does s/he have mild difficulty expressing complex and abstract ideas (including mild dysarthria or mild word-finding problems)? Yes. COMPREHENSION - SCORE: 6-XIOMARA EXPRESSION EXPRESSION: TYPE: Both EXPRESSION - STEP 1: Does the patient require help expressing complex and abstract ideas (such as current events, finances , discharge planning, medical issues, relationships, etc)? No. EXPRESSION - STEP 2: Does the patient need extra time, require an assistive device (such as augmentive communication syste m or a communication board), OR does s/he have mild difficulty expressing complex and abstract ideas (including mild dysarthria or mild word-find problems)? Yes. EXPRESSION - SCORE: 6-XIOMARA SOCIAL INTERACTION: SOCIAL INTERACTION - STEP 1: Does the patient require a helper to interact with others in social and therapeutic situations? No. SOCIAL INTERACTION - STEP 2: Does the patient need extra time in social situations, OR does s/he interact with staff, other patien ts, and family members ONLY in structured environments, OR does s/he require medication for social in teraction? Yes, patient needs extra time SOCIAL INTERACTION - SCORE: 6-XIOMARA PROBLEM SOLVING: PROBLEM SOLVING - STEP 1: Does the patient need help to solve complex problems such as managing a checking account or confronti ng interpersonal problems? No. PROBLEM SOLVING - STEP 2: Does the patient require extra time to make decisions or solve problems, OR does s/he have slight dif ficulty reading, initiating, or self-correcting in unfamiliar situations? Yes, patient needs extra ti me. PROBLEM SOLVING - SCORE: 6-XIOMARA MEMORY: MEMORY - STEP 1: Does the patient need help to remember frequently encountered people, daily routines, and executing r equests? No. MEMORY - STEP 2: Does the patient have slight difficulty recognizing frequently encountered people, daily routines, or executing requests without the need for repetition or using self-initiated or environmental cues to remember? Yes. MEMORY - SCORE: 6-XIOMARA SIGNATURE PANEL: The following modified sections: Eating - Score, Grooming - Score, Bathing - Score, Dressing - Upper Body - Score, Dressing - Lower Body - Score, Toileting - Score, Bladder Management - Score, Bowel Man agement - Score, Transfers: Bed, Chair, Wheelchair - Score, Transfers: Toilet - Score, Transfers: Cristina wer - Score, Transfers: Tub - Score, Locomotion: Walk - Score, Locomotion: Wheelchair - Score, Compre hension - Score, Expression - Score, Social Interaction - Score, Problem Solving - Score, Memory - Sc ore were [electronically] signed by Dari Alvarez C.N.A. on ThuMar 07 2018 10:44:08 T-0500 (Centra [facility] Daylight Time)
[2018-03-07 11:52] LABS: Arterial Blood Carboxyhemoglob 3.1 % (0-1.5); Blood Gas Oxyhemoglobin 93.6 % (94-97); Blood O2 Saturation 96.9 % (92-98.5)
[2018-03-07] MEDS: HYDROCODONE/APAP 5/325 MG TAB PO PRN (17:41)
[2018-03-07] MEDS: DOCUSATE NA/SENNA CONC 1 TAB PO SCH (20:36)
[2018-03-07] MEDS: ATORVASTATIN 80 MG TAB PO SCH (20:36)
--- NOTE | 2018-03-08 01:52 | FAST ---
SHIFT START DATE/TIME: 03/07/2018 19:00 (CDT) SHIFT END DATE/TIME: 03/08/2018 07:00 (CDT) NAME BRIANNA CRAWFORD DATE OF : 1945 DATE OF ADMISSION: 03/01/2018 20:00 (CDT) PHONE: AGE: 72 N# [id number] GENDER: Male ENCOUNTER PHYSICIAN: Dr. Zachary Ferguson M.D. ADMISSION DIAGNOSIS: - Cardiac 09 - Cardiac Disorders (09) coronary artery disease involving [place] coronary artery of [place] heart with gain pectoris with docu mented spasm. EATING: Activity did not occur on this shift EATING - SCORE: 0-UNK GROOMING: Activity did not occur on this shift GROOMING - SCORE: 0-UNK BATHING: Activity did not occur on this shift BATHING - SCORE: 0-UNK DRESSING - UPPER BODY: Patient is not dressing in public clothing ARTICLES SCORE Total number of steps: 0 DRESSING - UPPER BODY - SCORE: 0-UNK DRESSING - LOWER BODY: Patient is not dressing in public clothing ARTICLES SCORE Total number of steps: 0 DRESSING - LOWER BODY - SCORE: 0-UNK TOILETING: TOILETING - STEP 1: Does the patient require assistance with toileting? Yes. TOILETING - STEP 2: Does the patient require the assistance of a helper? Yes. TOILETING - STEP 3: How much assistance does the patient require from the helper? Only supervision TOILETING - SCORE: 5-SUP BLADDER MANAGEMENT: BLADDER MANAGEMENT - STEP 1: Does the patient control the bladder completely and intentionally without equipment or devices or med ications, and is always continent? No. BLADDER MANAGEMENT - STEP 2: Does the patient require the assistance of a helper? Yes. BLADDER MANAGEMENT - STEP 3: How much assistance does the patient require from the helper? Only set-up of equipment - such as plac ing it within reach of the patient or emptying a device - to maintain either satisfactory voiding pat tern or managing an external device, such as an absorbent pad, ileal device, or catheter BLADDER MANAGEMENT - SCORE: 5-SUP BOWEL MANAGEMENT: Activity did not occur on this shift BOWEL MANAGEMENT - SCORE: 7-IND TRANSFERS: BED, CHAIR, WHEELCHAIR: Activity did not occur on this shift TRANSFERS: BED, CHAIR, WHEELCHAIR - SCORE: 0-UNK TRANSFERS: TOILET: Activity did not occur on this shift TRANSFERS: TOILET - SCORE: 0-UNK TRANSFERS: SHOWER: Activity did not occur on this shift TRANSFERS: SHOWER - SCORE: 0-UNK TRANSFERS: TUB: Activity did not occur on this shift TRANSFERS: TUB - SCORE: 0-UNK LOCOMOTION: WALK: Activity did not occur on this shift LOCOMOTION: WALK - SCORE: 0-UNK LOCOMOTION: WHEELCHAIR: Activity did not occur on this shift LOCOMOTION: WHEELCHAIR - SCORE: 0-UNK COMPREHENSION: COMPREHENSION - STEP 1: Does the patient require help to understand complex and abstract ideas (such as current events, finan elkin, discharge planning, medical issues, relationships, etc)? No. COMPREHENSION - STEP 2: Does the patient need extra time, require an assistive device (such as glasses, hearing aids, or an a ugmentative communication system), OR does s/he have mild difficulty expressing complex and abstract ideas (including mild dysarthria or mild word-finding problems)? Yes. COMPREHENSION - SCORE: 6-XIOM[place] EXPRESSION EXPRESSION - STEP 1: Does the patient require help expressing complex and abstract ideas (such as current events, finances , discharge planning, medical issues, relationships, etc)? No. EXPRESSION - STEP 2: Does the patient need extra time, require an assistive device (such as augmentive communication syste m or a communication board), OR does s/he have mild difficulty expressing complex and abstract ideas (including mild dysarthria or mild word-find problems)? Yes. EXPRESSION - SCORE: 6-XIOMARA SOCIAL INTERACTION: SOCIAL INTERACTION - STEP 1: Does the patient require a helper to interact with others in social and therapeutic situations? No. SOCIAL INTERACTION - STEP 2: Does the patient need extra time in social situations, OR does s/he interact with staff, other patien ts, and family members ONLY in structured environments, OR does s/he require medication for social in teraction? Yes, patient needs extra time SOCIAL INTERACTION - SCORE: 6-XIOMARA PROBLEM SOLVING: PROBLEM SOLVING - STEP 1: Does the patient need help to solve complex problems such as managing a checking account or confronti ng interpersonal problems? No. PROBLEM SOLVING - STEP 2: Does the patient require extra time to make decisions or solve problems, OR does s/he have slight dif ficulty reading, initiating, or self-correcting in unfamiliar situations? Yes, patient needs extra ti me. PROBLEM SOLVING - SCORE: 6-XIOMARA MEMORY: MEMORY - STEP 1: Does the patient need help to remember frequently encountered people, daily routines, and executing r equests? No. MEMORY - STEP 2: Does the patient have slight difficulty recognizing frequently encountered people, daily routines, or executing requests without the need for repetition or using self-initiated or environmental cues to remember? Yes. MEMORY - SCORE: 6-XIOMARA SIGNATURE PANEL: The following modified sections: Eating - Score, Grooming - Score, Dressing - Upper Body - Score, Vince ssing - Lower Body - Score, Toileting - Score, Bladder Management - Score, Bowel Management - Score, Transfers: Bed, Chair, Wheelchair - Score, Transfers: Toilet - Score, Transfers: Shower - Score, [place] sfers: Tub - Score, Locomotion: Walk - Score, Locomotion: Wheelchair - Score, Comprehension - Score, Expression - Score, Social Interaction - Score, Memory - Score, Problem Solving - Score were [electro nically] signed by Ariella Reveles CNA on ThuMar 08 2018 01:50:44 GMT-0500 (Central Daylight Time)
[2018-03-08] MEDS: METOPROLOL TAR 25 MG TAB PO SCH ×2 (05:19→17:10)
[2018-03-08] MEDS: PANTOPRAZOLE 40MG TABLET PO SCH (07:11)
[2018-03-08] MEDS: PROMOD 30 ML DOSE PO SCH ×2 (08:00→20:01)
[2018-03-08] MEDS: POTASSIUM 25 MEQ EFFERV TAB PO SCH (08:45)
[2018-03-08] MEDS: ALLOPURINOL 100 MG TAB PO SCH (08:47)
[2018-03-08] MEDS: SPIRONOLACTONE 25 MG TABLET PO SCH (08:47)
[2018-03-08] MEDS: GABAPENTIN 300 MG CAP PO SCH ×2 (08:47→20:01)
[2018-03-08] MEDS: CRANBERRY FRUIT EXTRACT 200 MG CAP PO SCH ×2 (08:47→20:01)
[2018-03-08] MEDS: FE SULF/FA/VIT B COMP & C TAB PO SCH (08:47)
[2018-03-08] MEDS: CLOPIDOGREL 75 MG TABLET PO SCH (08:47)
[2018-03-08] MEDS: FUROSEMIDE 20 MG TABLET PO SCH ×2 (08:47→17:10)
[2018-03-08] MEDS: HYDROCODONE/APAP 5/325 MG TAB PO PRN (08:48)
[2018-03-08] MEDS: FERROUS SULFATE 325 MG TAB PO SCH (08:48)
[2018-03-08] MEDS: APIXABAN 2.5 MG TABLET PO SCH ×2 (08:48→20:01)
[2018-03-08] MEDS: ASPIRIN 81 MG CHEWABLE TABLET PO SCH (08:49)
--- NOTE | 2018-03-08 09:39 | FAST ---
ENCOUNTER DATE AND TIME: 03/08/2018 08:00 (CDT) NAME BRIANNA CRAWFORD DATE OF : 1945 DATE OF ADMISSION: 03/01/2018 20:00 (CDT) PHONE: AGE: 72 N# [id number] GENDER: Male ENCOUNTER PHYSICIAN: Dr. Zachary Ferguson M.D. ADMISSION DIAGNOSIS: - Cardiac 09 - Cardiac Disorders () coronary artery disease involving [place] coronary artery of [place] heart with gain pectoris with docu mented spasm. EATING: EATING - STEP 1: Does the patient require assistance when eating? No. EATING - SCORE: 7-IND GROOMING: Oral care Wash, rinse, and dry face Wash, rinse, and dry hands GROOMING - STEP 1: Does the patient require assistance when grooming? No. GROOMING - SCORE: 7-IND BATHING: Abdomen Buttocks Chest Left arm Left lower leg and foot Left upper leg Perineal area Right arm Right lower leg and foot Right upper leg BATHING - STEP 1: Does the patient require assistance when bathing? Yes. BATHING - STEP 2: Does the patient require the assistance of a helper? Yes. BATHING - STEP 3: How much assistance does the patient require from the helper? Only supervision, cuing, coaxing, instr uctions, encouragement BATHING - SCORE: 5-SUP DRESSING - UPPER BODY: T-shirt/pullover shirt (four steps) ARTICLES SCORE Total number of steps: 4 DRESSING - UPPER BODY - STEP 1: Does the patient require help when dressing above the waist? Yes. DRESSING - UPPER BODY - STEP 2: Does the patient require the assistance of a helper? Yes. DRESSING - UPPER BODY - STEP 3: Does the helper touch the patient while dressing? No. DRESSING - UPPER BODY - SCORE: 5-SUP DRESSING - LOWER BODY: Elastic waist pants (three steps) Sock - Left foot (one step) Sock - Right foot (one step) Underwear (three steps) ARTICLES SCORE Total number of steps: 8 DRESSING - LOWER BODY - STEP 1: Does the patient require help when dressing below the waist? Yes. DRESSING - LOWER BODY - STEP 2: Does the patient require the assistance of a helper? Yes. DRESSING - LOWER BODY - STEP 3: Does the helper touch the patient while dressing? Yes. DRESSING - LOWER BODY - STEP 4: How many of the total steps does the patient complete on his/her own? 6 DRESSING - LOWER BODY - SCORE: 4-MIN TOILETING: TOILETING - STEP 1: Does the patient require assistance with toileting? Yes. TOILETING - STEP 2: Does the patient require the assistance of a helper? No. TOILETING - SCORE: 6-XIOMARA BLADDER MANAGEMENT: Activity did not occur on this shift BLADDER MANAGEMENT - SCORE: 7-IND BOWEL MANAGEMENT: Activity did not occur on this shift BOWEL MANAGEMENT - SCORE: 7-IND TRANSFERS: BED, CHAIR, WHEELCHAIR: Activity did not occur on this shift TRANSFERS: BED, CHAIR, WHEELCHAIR - SCORE: 0-UNK TRANSFERS: TOILET: TRANSFERS: TOILET - STEP 1: Does the patient require assistance with toilet transfers? Yes. TRANSFERS: TOILET - STEP 2: Does the patient require the assistance of a helper? No. Patient only requires an assistive device sal ch as a grab bar or special seat, OR s/he takes more than reasonable time to perform toilet transfers , OR there is a safety concern when s/he performs toilet transfers. TRANSFERS: TOILET - SCORE: 6-XIOMARA TRANSFERS: SHOWER: Activity did not occur on this shift TRANSFERS: SHOWER - SCORE: 0-UNK TRANSFERS: TUB: TRANSFERS: TUB - STEP 1: Does the patient require assistance with tub transfers? Yes. TRANSFERS: TUB - STEP 2: Does the patient require the assistance of a helper? No. Only requires the assistance of an assistive device, OR takes more than reasonable time, OR there is a concern for safety when s/he performs tub transfers TRANSFERS: TUB - SCORE: 6-XIOMARA LOCOMOTION: WALK: Activity did not occur on this shift LOCOMOTION: WALK - SCORE: 0-UNK LOCOMOTION: WHEELCHAIR: Activity did not occur on this shift LOCOMOTION: WHEELCHAIR - SCORE: 0-UNK LOCOMOTION: STAIRS: Activity did not occur on this shift LOCOMOTION: STAIRS - SCORE: 0-UNK COMPREHENSION: COMPREHENSION: TYPE: Both COMPREHENSION - STEP 1: Does the patient require help to understand complex and abstract ideas (such as current events, finan elkin, discharge planning, medical issues, relationships, etc)? No. COMPREHENSION - STEP 2: Does the patient need extra time, require an assistive device (such as glasses, hearing aids, or an a ugmentative communication system), OR does s/he have mild difficulty expressing complex and abstract ideas (including mild dysarthria or mild word-finding problems)? Yes. COMPREHENSION - SCORE: 6-[place]OM[place] EXPRESSION EXPRESSION: TYPE: Both EXPRESSION - STEP 1: Does the patient require help expressing complex and abstract ideas (such as current events, finances , discharge planning, medical issues, relationships, etc)? No. EXPRESSION - STEP 2: Does the patient need extra time, require an assistive device (such as augmentive communication syste m or a communication board), OR does s/he have mild difficulty expressing complex and abstract ideas (including mild dysarthria or mild word-find problems)? No. EXPRESSION - SCORE: 7-IND SOCIAL INTERACTION: SOCIAL INTERACTION - STEP 1: Does the patient require a helper to interact with others in social and therapeutic situations? No. SOCIAL INTERACTION - STEP 2: Does the patient need extra time in social situations, OR does s/he interact with staff, other patien ts, and family members ONLY in structured environments, OR does s/he require medication for social in teraction? No. SOCIAL INTERACTION - SCORE: 7-IND PROBLEM SOLVING: PROBLEM SOLVING - STEP 1: Does the patient need help to solve complex problems such as managing a checking account or confronti ng interpersonal problems? No. PROBLEM SOLVING - STEP 2: Does the patient require extra time to make decisions or solve problems, OR does s/he have slight dif ficulty reading, initiating, or self-correcting in unfamiliar situations? Yes, patient needs extra ti me. PROBLEM SOLVING - SCORE: 6-XIOMARA MEMORY: MEMORY - STEP 1: Does the patient need help to remember frequently encountered people, daily routines, and executing r equests? No. MEMORY - STEP 2: Does the patient have slight difficulty recognizing frequently encountered people, daily routines, or executing requests without the need for repetition or using self-initiated or environmental cues to remember? Yes. MEMORY - SCORE: 6-XIOMARA SIGNATURE PANEL: The following modified sections: Eating - Score, Grooming - Score, Bathing - Score, Dressing - Upper Body - Score, Dressing - Lower Body - Score, Toileting - Score, Transfers: Bed, Chair, Wheelchair - S core, Transfers: Toilet - Score, Transfers: Shower - Score, Transfers: Tub - Score, Comprehension - S core, Expression - Score, Social Interaction - Score, Problem Solving - Score, Memory - Score were [e lectronically] signed by Melissa Capps OT on ThuMar 08 2018 09:39:01 T-0500 (Central Daylight T nas[place])
--- NOTE | 2018-03-08 09:49 | FAST ---
ENCOUNTER DATE AND TIME: 03/04/2018 08:00 (CDT) NAME BRIANNA CRAWFORD DATE OF : 1945 DATE OF ADMISSION: 03/01/2018 20:00 (CDT) PHONE: AGE: 72 N# [id number] GENDER: Male ENCOUNTER PHYSICIAN: Dr. Zachary Ferguson M.D. ADMISSION DIAGNOSIS: - Cardiac 09 - Cardiac Disorders () coronary artery disease involving [place] coronary artery of [place] heart with gain pectoris with docu mented spasm. EATING: EATING - STEP 1: Does the patient require assistance when eating? No. EATING - SCORE: 7-IND GROOMING: Oral care Wash, rinse, and dry face Wash, rinse, and dry hands GROOMING - STEP 1: Does the patient require assistance when grooming? No. GROOMING - SCORE: 7-IND BATHING: Abdomen Buttocks Chest Left arm Left lower leg and foot Left upper leg Perineal area Right arm Right lower leg and foot Right upper leg BATHING - STEP 1: Does the patient require assistance when bathing? Yes. BATHING - STEP 2: Does the patient require the assistance of a helper? Yes. BATHING - STEP 3: How much assistance does the patient require from the helper? Only supervision, cuing, coaxing, instr uctions, encouragement BATHING - SCORE: 5-SUP DRESSING - UPPER BODY: T-shirt/pullover shirt (four steps) ARTICLES SCORE Total number of steps: 4 DRESSING - UPPER BODY - STEP 1: Does the patient require help when dressing above the waist? Yes. DRESSING - UPPER BODY - STEP 2: Does the patient require the assistance of a helper? Yes. DRESSING - UPPER BODY - STEP 3: Does the helper touch the patient while dressing? No. DRESSING - UPPER BODY - SCORE: 5-SUP DRESSING - LOWER BODY: Elastic waist pants (three steps) Sock - Left foot (one step) Sock - Right foot (one step) Underwear (three steps) ARTICLES SCORE Total number of steps: 8 DRESSING - LOWER BODY - STEP 1: Does the patient require help when dressing below the waist? Yes. DRESSING - LOWER BODY - STEP 2: Does the patient require the assistance of a helper? Yes. DRESSING - LOWER BODY - STEP 3: Does the helper touch the patient while dressing? No. DRESSING - LOWER BODY - SCORE: 5-SUP TOILETING: Activity did not occur on this shift TOILETING - SCORE: 0-UNK BLADDER MANAGEMENT: Activity did not occur on this shift BLADDER MANAGEMENT - SCORE: 7-IND BOWEL MANAGEMENT: Activity did not occur on this shift BOWEL MANAGEMENT - SCORE: 7-IND TRANSFERS: BED, CHAIR, WHEELCHAIR: Activity did not occur on this shift TRANSFERS: BED, CHAIR, WHEELCHAIR - SCORE: 0-UNK TRANSFERS: TOILET: Activity did not occur on this shift TRANSFERS: TOILET - SCORE: 0-UNK TRANSFERS: SHOWER: Activity did not occur on this shift TRANSFERS: SHOWER - SCORE: 0-UNK TRANSFERS: TUB: TRANSFERS: TUB - STEP 1: Does the patient require assistance with tub transfers? Yes. TRANSFERS: TUB - STEP 2: Does the patient require the assistance of a helper? Yes. TRANSFERS: TUB - STEP 3: How much assistance does the patient require from the helper? Only supervision, cuing, coaxing, or he lp to set out transfer equipment or to lock brakes and/or lift foot rests TRANSFERS: TUB - SCORE: 5-SUP LOCOMOTION: WALK: Activity did not occur on this shift LOCOMOTION: WALK - SCORE: 0-UNK LOCOMOTION: WHEELCHAIR: Activity did not occur on this shift LOCOMOTION: WHEELCHAIR - SCORE: 0-UNK LOCOMOTION: STAIRS: Activity did not occur on this shift LOCOMOTION: STAIRS - SCORE: 0-UNK COMPREHENSION: COMPREHENSION: TYPE: Both COMPREHENSION - STEP 1: Does the patient require help to understand complex and abstract ideas (such as current events, finan elkin, discharge planning, medical issues, relationships, etc)? No. COMPREHENSION - STEP 2: Does the patient need extra time, require an assistive device (such as glasses, hearing aids, or an a ugmentative communication system), OR does s/he have mild difficulty expressing complex and abstract ideas (including mild dysarthria or mild word-finding problems)? Yes. COMPREHENSION - SCORE: 6-XIOMARA EXPRESSION EXPRESSION: TYPE: Both EXPRESSION - STEP 1: Does the patient require help expressing complex and abstract ideas (such as current events, finances , discharge planning, medical issues, relationships, etc)? No. EXPRESSION - STEP 2: Does the patient need extra time, require an assistive device (such as augmentive communication syste m or a communication board), OR does s/he have mild difficulty expressing complex and abstract ideas (including mild dysarthria or mild word-find problems)? No. EXPRESSION - SCORE: 7-IND SOCIAL INTERACTION: SOCIAL INTERACTION - STEP 1: Does the patient require a helper to interact with others in social and therapeutic situations? No. SOCIAL INTERACTION - STEP 2: Does the patient need extra time in social situations, OR does s/he interact with staff, other patien ts, and family members ONLY in structured environments, OR does s/he require medication for social in teraction? No. SOCIAL INTERACTION - SCORE: 7-IND PROBLEM SOLVING: PROBLEM SOLVING - STEP 1: Does the patient need help to solve complex problems such as managing a checking account or confronti ng interpersonal problems? No. PROBLEM SOLVING - STEP 2: Does the patient require extra time to make decisions or solve problems, OR does s/he have slight dif ficulty reading, initiating, or self-correcting in unfamiliar situations? Yes, patient needs extra ti me. PROBLEM SOLVING - SCORE: 6-XIOMARA MEMORY: MEMORY - STEP 1: Does the patient need help to remember frequently encountered people, daily routines, and executing r equests? No. MEMORY - STEP 2: Does the patient have slight difficulty recognizing frequently encountered people, daily routines, or executing requests without the need for repetition or using self-initiated or environmental cues to remember? Yes. MEMORY - SCORE: 6-XIOMARA SIGNATURE PANEL: The following modified sections: Eating - Score, Grooming - Score, Bathing - Score, Dressing - Upper Body - Score, Dressing - Lower Body - Score, Toileting - Score, Transfers: Bed, Chair, Wheelchair - S core, Transfers: Toilet - Score, Transfers: Shower - Score, Transfers: Tub - Score, Comprehension - S core, Expression - Score, Social Interaction - Score, Problem Solving - Score, Memory - Score were [e lectronically] signed by Melissa Capps OT on ThuMar 08 2018 09:49:36 GMT-0500 ([facility] [place] [place])
--- NOTE | 2018-03-08 13:43 | FAST ---
SHIFT START DATE/TIME: 03/08/2018 07:00 (CDT) SHIFT END DATE/TIME: 03/08/2018 19:00 (CDT) NAME BRIANNA CRAWFORD DATE OF : 1945 DATE OF ADMISSION: 03/01/2018 20:00 (CDT) PHONE: AGE: 72 N# [id number] GENDER: Male ENCOUNTER PHYSICIAN: Dr. Zachary Ferguson M.D. ADMISSION DIAGNOSIS: - Cardiac 09 - Cardiac Disorders (09) coronary artery disease involving [place] coronary artery of [place] heart with gain pectoris with docu mented spasm. EATING: EATING - STEP 1: Does the patient require assistance when eating? Yes. EATING - STEP 2: Does the patient require the assistance of a helper? Yes. EATING - STEP 3: Does the patient perform half or more of the eating tasks? Yes. EATING - STEP 4: Does the patient need only supervision, cuing, coaxing OR help to apply an orthosis OR help to cut fo od, open containers, pour liquids, or butter bread? Yes. EATING - SCORE: 5-SUP GROOMING: Comb/brush hair Oral care Wash, rinse, and dry face Wash, rinse, and dry hands GROOMING - STEP 1: Does the patient require assistance when grooming? Yes. GROOMING - STEP 2: Does the patient require the assistance of a helper? Yes. GROOMING - STEP 3: How much assistance does the patient require from the helper? Only prior equipment preparation/set up from the helper GROOMING - SCORE: 5-SUP BATHING: Activity did not occur on this shift BATHING - SCORE: 0-UNK DRESSING - UPPER BODY: Activity did not occur on this shift ARTICLES SCORE Total number of steps: 0 DRESSING - UPPER BODY - SCORE: 0-UNK DRESSING - LOWER BODY: Activity did not occur on this shift ARTICLES SCORE Total number of steps: 0 DRESSING - LOWER BODY - SCORE: 0-UNK TOILETING: TOILETING - STEP 1: Does the patient require assistance with toileting? Yes. TOILETING - STEP 2: Does the patient require the assistance of a helper? Yes. TOILETING - STEP 3: How much assistance does the patient require from the helper? Hands-on assistance from the helper TOILETING - STEP 4: Of the 3 tasks: 1) Adjusting clothing prior to use, 2) Cleansing of perineal area, 3) Adjusting clot jj after use; How many tasks does the patient perform WITHOUT assistance of the helper? One task TOILETING - SCORE: 2-MAX BLADDER MANAGEMENT: Hellier cares for shaw catheter including emptying drainage bag. BLADDER MANAGEMENT - SCORE: 1-DEP BOWEL MANAGEMENT: BOWEL MANAGEMENT - STEP 1: Does the patient control bowels completely and intentionally without equipment devices or medications AND is always continent? No. BOWEL MANAGEMENT - STEP 2: Does the patient require the assistance of a helper? No, patient requires and manages independently a n assistive device such as a bedpan, bedside commode, absorbent pad, incontinent device, or collectin g device BOWEL MANAGEMENT - SCORE: 6-XIOMARA TRANSFERS: BED, CHAIR, WHEELCHAIR: TRANSFERS: BED, CHAIR, WHEELCHAIR - STEP 1: Does the patient require assistance with bed, chair, or wheelchair transfers? Yes. TRANSFERS: BED, CHAIR, WHEELCHAIR - STEP 2: Does the patient require the assistance of a helper? Yes. TRANSFERS: BED, CHAIR, WHEELCHAIR - STEP 3: How much assistance does the patient require from the helper? Lifting of the patient TRANSFERS: BED, CHAIR, WHEELCHAIR - STEP 4: Does the helper lift the patient ONLY up? ONLY down? Up AND Down? ONLY up. TRANSFERS: BED, CHAIR, WHEELCHAIR - SCORE: 3-MOD TRANSFERS: TOILET: TRANSFERS: TOILET - STEP 1: Does the patient require assistance with toilet transfers? Yes. TRANSFERS: TOILET - STEP 2: Does the patient require the assistance of a helper? Yes. TRANSFERS: TOILET - STEP 3: How much assistance does the patient require from the helper? Patient performs half or more of the tr ansferring tasks TRANSFERS: TOILET - STEP 4: Does the patient need only incidental help such as contact guard or steadying during toilet transfer? No. Patient needs more than incidental help TRANSFERS: TOILET - SCORE: 3-MOD TRANSFERS: SHOWER: Activity did not occur on this shift TRANSFERS: SHOWER - SCORE: 0-UNK TRANSFERS: TUB: Activity did not occur on this shift TRANSFERS: TUB - SCORE: 0-UNK LOCOMOTION: WALK: Activity did not occur on this shift LOCOMOTION: WALK - SCORE: 0-UNK LOCOMOTION: WHEELCHAIR: Activity did not occur on this shift LOCOMOTION: WHEELCHAIR - SCORE: 0-UNK COMPREHENSION: COMPREHENSION - SCORE: 0-UNK EXPRESSION EXPRESSION - SCORE: 0-UNK SOCIAL INTERACTION: SOCIAL INTERACTION - SCORE: 0-UNK PROBLEM SOLVING: PROBLEM SOLVING - SCORE: 0-UNK MEMORY: MEMORY - SCORE: 0-UNK SIGNATURE PANEL: The following modified sections: Eating - Score, Grooming - Score, Bathing - Score, Dressing - Upper Body - Score, Dressing - Lower Body - Score, Toileting - Score, Bladder Management - Score, Bowel Man agement - Score, Transfers: Bed, Chair, Wheelchair - Score, Transfers: Toilet - Score, Transfers: Cristina wer - Score, Transfers: Tub - Score, Locomotion: Walk - Score, Locomotion: Wheelchair - Score, Compre hension - Score, Expression - Score, Social Interaction - Score, Problem Solving - Score, Memory - Sc ore were [electronically] signed by Reece Rodriguez on ThuMar 08 2018 13:42:00 GMT-0500 (Central Daylight Time)
[2018-03-08] MEDS: DOCUSATE NA/SENNA CONC 1 TAB PO SCH (20:01)
[2018-03-08] MEDS: ATORVASTATIN 80 MG TAB PO SCH (20:01)
--- NOTE | 2018-03-09 03:43 | FAST ---
SHIFT START DATE/TIME: 03/08/2018 19:00 (CDT) SHIFT END DATE/TIME: 03/09/2018 07:00 (CDT) NAME BRIANNA CRAWFORD DATE OF : 1945 DATE OF ADMISSION: 03/01/2018 20:00 (CDT) PHONE: AGE: 72 N# [id number] GENDER: Male ENCOUNTER PHYSICIAN: Dr. Zachary Ferguson M.D. ADMISSION DIAGNOSIS: - Cardiac 09 - Cardiac Disorders (09) coronary artery disease involving [place] coronary artery of [place] heart with gain pectoris with docu mented spasm. EATING: EATING - STEP 1: Does the patient require assistance when eating? Yes. EATING - STEP 2: Does the patient require the assistance of a helper? Yes. EATING - STEP 3: Does the patient perform half or more of the eating tasks? Yes. EATING - STEP 4: Does the patient need only supervision, cuing, coaxing OR help to apply an orthosis OR help to cut fo od, open containers, pour liquids, or butter bread? Yes. EATING - SCORE: 5-SUP GROOMING: Activity did not occur on this shift GROOMING - SCORE: 0-UNK BATHING: Activity did not occur on this shift BATHING - SCORE: 0-UNK DRESSING - UPPER BODY: Patient is not dressing in public clothing ARTICLES SCORE Total number of steps: 0 DRESSING - UPPER BODY - SCORE: 0-UNK DRESSING - LOWER BODY: Patient is not dressing in public clothing ARTICLES SCORE Total number of steps: 0 DRESSING - LOWER BODY - SCORE: 0-UNK TOILETING: TOILETING - STEP 1: Does the patient require assistance with toileting? Yes. TOILETING - STEP 2: Does the patient require the assistance of a helper? Yes. TOILETING - STEP 3: How much assistance does the patient require from the helper? Only supervision TOILETING - SCORE: 5-SUP BLADDER MANAGEMENT: BLADDER MANAGEMENT - STEP 1: Does the patient control the bladder completely and intentionally without equipment or devices or med ications, and is always continent? No. BLADDER MANAGEMENT - STEP 2: Does the patient require the assistance of a helper? Yes. BLADDER MANAGEMENT - STEP 3: How much assistance does the patient require from the helper? Only set-up of equipment - such as plac ing it within reach of the patient or emptying a device - to maintain either satisfactory voiding pat tern or managing an external device, such as an absorbent pad, ileal device, or catheter BLADDER MANAGEMENT - SCORE: 5-SUP BLADDER MANAGEMENT - FREQUENCY OF ACCIDENTS: BLADDER MANAGEMENT(FA) - STEP 1: How many accidents has the patient had during the current shift? 0 BOWEL MANAGEMENT: Activity did not occur on this shift BOWEL MANAGEMENT - SCORE: 7-IND TRANSFERS: BED, CHAIR, WHEELCHAIR: TRANSFERS: BED, CHAIR, WHEELCHAIR - STEP 1: Does the patient require assistance with bed, chair, or wheelchair transfers? Yes. TRANSFERS: BED, CHAIR, WHEELCHAIR - STEP 2: Does the patient require the assistance of a helper? Yes. TRANSFERS: BED, CHAIR, WHEELCHAIR - STEP 3: How much assistance does the patient require from the helper? Steadying/guiding assistance TRANSFERS: BED, CHAIR, WHEELCHAIR - SCORE: 4-MIN TRANSFERS: TOILET: Activity did not occur on this shift TRANSFERS: TOILET - SCORE: 0-UNK TRANSFERS: SHOWER: Activity did not occur on this shift TRANSFERS: SHOWER - SCORE: 0-UNK TRANSFERS: TUB: Activity did not occur on this shift TRANSFERS: TUB - SCORE: 0-UNK LOCOMOTION: WALK: Activity did not occur on this shift LOCOMOTION: WALK - SCORE: 0-UNK LOCOMOTION: WHEELCHAIR: Activity did not occur on this shift LOCOMOTION: WHEELCHAIR - SCORE: 0-UNK COMPREHENSION: COMPREHENSION: TYPE: Both COMPREHENSION - STEP 1: Does the patient require help to understand complex and abstract ideas (such as current events, finan elkin, discharge planning, medical issues, relationships, etc)? No. COMPREHENSION - STEP 2: Does the patient need extra time, require an assistive device (such as glasses, hearing aids, or an a ugmentative communication system), OR does s/he have mild difficulty expressing complex and abstract ideas (including mild dysarthria or mild word-finding problems)? Yes. COMPREHENSION - SCORE: 6-[place] EXPRESSION EXPRESSION: TYPE: Both EXPRESSION - STEP 1: Does the patient require help expressing complex and abstract ideas (such as current events, finances , discharge planning, medical issues, relationships, etc)? No. EXPRESSION - STEP 2: Does the patient need extra time, require an assistive device (such as augmentive communication syste m or a communication board), OR does s/he have mild difficulty expressing complex and abstract ideas (including mild dysarthria or mild word-find problems)? Yes. EXPRESSION - SCORE: 6-XIOMARA SOCIAL INTERACTION: SOCIAL INTERACTION - STEP 1: Does the patient require a helper to interact with others in social and therapeutic situations? No. SOCIAL INTERACTION - STEP 2: Does the patient need extra time in social situations, OR does s/he interact with staff, other patien ts, and family members ONLY in structured environments, OR does s/he require medication for social in teraction? Yes, patient needs extra time SOCIAL INTERACTION - SCORE: 6-XIOMARA PROBLEM SOLVING: PROBLEM SOLVING - STEP 1: Does the patient need help to solve complex problems such as managing a checking account or confronti ng interpersonal problems? No. PROBLEM SOLVING - STEP 2: Does the patient require extra time to make decisions or solve problems, OR does s/he have slight dif ficulty reading, initiating, or self-correcting in unfamiliar situations? Yes, patient needs extra ti me. PROBLEM SOLVING - SCORE: 6-[place] MEMORY: MEMORY - STEP 1: Does the patient need help to remember frequently encountered people, daily routines, and executing r equests? No. MEMORY - STEP 2: Does the patient have slight difficulty recognizing frequently encountered people, daily routines, or executing requests without the need for repetition or using self-initiated or environmental cues to remember? Yes. MEMORY - SCORE: 6-XIOMARA SIGNATURE PANEL: The following modified sections: Eating - Score, Grooming - Score, Bathing - Score, Dressing - Upper Body - Score, Dressing - Lower Body - Score, Toileting - Score, Bladder Management - Score, Bowel Man agement - Score, Transfers: Bed, Chair, Wheelchair - Score, Transfers: Toilet - Score, Transfers: Cristina wer - Score, Transfers: Tub - Score, Locomotion: Walk - Score, Locomotion: Wheelchair - Score, Compre hension - Score, Expression - Score, Social Interaction - Score, Problem Solving - Score, Memory - Sc ore were [electronically] signed by Margarita Valiente C.N.A. on ThuMar 09 2018 03:42:28 GMT-0500 ( Central Daylight Time)
[2018-03-09] MEDS: METOPROLOL TAR 25 MG TAB PO SCH ×2 (05:03→17:52)
[2018-03-09 06:10] LABS: BUN Blood Urea Nitrogen 12 mg/dL (7-18); Glucose Level 115 mg/dL (74-106); Sodium Level 140 mmol/L (136-145)
[2018-03-09 06:16] LABS: Bicarbonate 43 mmol/L (21-32)
[2018-03-09] MEDS: SPIRONOLACTONE 25 MG TABLET PO SCH (07:49)
[2018-03-09] MEDS: CLOPIDOGREL 75 MG TABLET PO SCH (07:50)
[2018-03-09] MEDS: FE SULF/FA/VIT B COMP & C TAB PO SCH (07:50)
[2018-03-09] MEDS: FERROUS SULFATE 325 MG TAB PO SCH (07:51)
[2018-03-09] MEDS: APIXABAN 2.5 MG TABLET PO SCH ×2 (07:51→20:17)
[2018-03-09] MEDS: ALLOPURINOL 100 MG TAB PO SCH (07:51)
[2018-03-09] MEDS: GABAPENTIN 300 MG CAP PO SCH ×2 (07:51→20:17)
[2018-03-09] MEDS: CRANBERRY FRUIT EXTRACT 200 MG CAP PO SCH ×2 (07:51→20:17)
[2018-03-09] MEDS: ASPIRIN 81 MG CHEWABLE TABLET PO SCH (07:51)
[2018-03-09] MEDS: FUROSEMIDE 20 MG TABLET PO SCH ×2 (07:51→16:26)
[2018-03-09] MEDS: PANTOPRAZOLE 40MG TABLET PO SCH (07:52)
[2018-03-09] MEDS: POTASSIUM 25 MEQ EFFERV TAB PO SCH (07:52)
[2018-03-09] MEDS: PROMOD 30 ML DOSE PO SCH ×2 (08:00→20:17)
--- NOTE | 2018-03-09 09:51 | FAST ---
SHIFT START DATE/TIME: 03/09/2018 07:00 (CDT) SHIFT END DATE/TIME: 03/09/2018 19:00 (CDT) NAME BRIANNA CRAWFORD DATE OF : 1945 DATE OF ADMISSION: 03/01/2018 20:00 (CDT) PHONE: AGE: 72 N# [id number] GENDER: Male ENCOUNTER PHYSICIAN: Dr. Zachary Ferguson M.D. ADMISSION DIAGNOSIS: - Cardiac 09 - Cardiac Disorders (09) coronary artery disease involving [place] coronary artery of [place] heart with gain pectoris with docu mented spasm. EATING: EATING - STEP 1: Does the patient require assistance when eating? Yes. EATING - STEP 2: Does the patient require the assistance of a helper? Yes. EATING - STEP 3: Does the patient perform half or more of the eating tasks? Yes. EATING - STEP 4: Does the patient need only supervision, cuing, coaxing OR help to apply an orthosis OR help to cut fo od, open containers, pour liquids, or butter bread? Yes. EATING - SCORE: 5-SUP GROOMING: Activity did not occur on this shift GROOMING - SCORE: 0-UNK BATHING: Activity did not occur on this shift BATHING - SCORE: 0-UNK DRESSING - UPPER BODY: T-shirt/pullover shirt (four steps) ARTICLES SCORE Total number of steps: 4 DRESSING - UPPER BODY - STEP 1: Does the patient require help when dressing above the waist? Yes. DRESSING - UPPER BODY - STEP 2: Does the patient require the assistance of a helper? Yes. DRESSING - UPPER BODY - STEP 3: Does the helper touch the patient while dressing? No. DRESSING - UPPER BODY - SCORE: 5-SUP DRESSING - LOWER BODY: Elastic waist pants (three steps) Underwear (three steps) ARTICLES SCORE Total number of steps: 6 DRESSING - LOWER BODY - STEP 1: Does the patient require help when dressing below the waist? Yes. DRESSING - LOWER BODY - STEP 2: Does the patient require the assistance of a helper? Yes. DRESSING - LOWER BODY - STEP 3: Does the helper touch the patient while dressing? Yes. DRESSING - LOWER BODY - STEP 4: How many of the total steps does the patient complete on his/her own? 4 DRESSING - LOWER BODY - SCORE: 3-MOD TOILETING: TOILETING - STEP 1: Does the patient require assistance with toileting? Yes. TOILETING - STEP 2: Does the patient require the assistance of a helper? Yes. TOILETING - STEP 3: How much assistance does the patient require from the helper? Hands-on assistance from the helper TOILETING - STEP 4: Of the 3 tasks: 1) Adjusting clothing prior to use, 2) Cleansing of perineal area, 3) Adjusting clot jj after use; How many tasks does the patient perform WITHOUT assistance of the helper? Two tasks TOILETING - SCORE: 3-MOD BLADDER MANAGEMENT: BLADDER MANAGEMENT - STEP 1: Does the patient control the bladder completely and intentionally without equipment or devices or med ications, and is always continent? No. BLADDER MANAGEMENT - STEP 2: Does the patient require the assistance of a helper? No, patient requires and independently uses an a ssistive device, such as a urinal, bedpan, bedside commode, catheter, absorbent pad, or collecting de vice BLADDER MANAGEMENT - SCORE: 6-XIOMARA BOWEL MANAGEMENT: Activity did not occur on this shift BOWEL MANAGEMENT - SCORE: 7-IND TRANSFERS: BED, CHAIR, WHEELCHAIR: TRANSFERS: BED, CHAIR, WHEELCHAIR - STEP 1: Does the patient require assistance with bed, chair, or wheelchair transfers? Yes. TRANSFERS: BED, CHAIR, WHEELCHAIR - STEP 2: Does the patient require the assistance of a helper? Yes. TRANSFERS: BED, CHAIR, WHEELCHAIR - STEP 3: How much assistance does the patient require from the helper? Steadying/guiding assistance TRANSFERS: BED, CHAIR, WHEELCHAIR - SCORE: 4-MIN TRANSFERS: TOILET: TRANSFERS: TOILET - STEP 1: Does the patient require assistance with toilet transfers? Yes. TRANSFERS: TOILET - STEP 2: Does the patient require the assistance of a helper? Yes. TRANSFERS: TOILET - STEP 3: How much assistance does the patient require from the helper? Patient performs half or more of the tr ansferring tasks TRANSFERS: TOILET - STEP 4: Does the patient need only incidental help such as contact guard or steadying during toilet transfer? Yes. TRANSFERS: TOILET - SCORE: 4-MIN TRANSFERS: SHOWER: Activity did not occur on this shift TRANSFERS: SHOWER - SCORE: 0-UNK TRANSFERS: TUB: Activity did not occur on this shift TRANSFERS: TUB - SCORE: 0-UNK LOCOMOTION: WALK: Activity did not occur on this shift LOCOMOTION: WALK - SCORE: 0-UNK LOCOMOTION: WHEELCHAIR: Activity did not occur on this shift LOCOMOTION: WHEELCHAIR - SCORE: 0-UNK COMPREHENSION: COMPREHENSION - SCORE: 0-UNK EXPRESSION EXPRESSION - SCORE: 0-UNK SOCIAL INTERACTION: SOCIAL INTERACTION - SCORE: 0-UNK PROBLEM SOLVING: PROBLEM SOLVING - SCORE: 0-UNK MEMORY: MEMORY - SCORE: 0-UNK SIGNATURE PANEL: The following modified sections: Eating - Score, Grooming - Score, Bathing - Score, Dressing - Upper Body - Score, Dressing - Lower Body - Score, Toileting - Score, Bladder Management - Score, Bowel Man agement - Score, Transfers: Bed, Chair, Wheelchair - Score, Transfers: Toilet - Score, Transfers: Cristina wer - Score, Transfers: Tub - Score, Locomotion: Walk - Score, Locomotion: Wheelchair - Score, Compre hension - Score, Expression - Score, Social Interaction - Score, Problem Solving - Score, Memory - Sc ore were [electronically] signed by Reece Rodriguez on ThuMar 09 2018 09:50:06 GMT-0500 (Central Daylight Time)
[2018-03-09] MEDS: ATORVASTATIN 80 MG TAB PO SCH (20:17)
[2018-03-09] MEDS: DOCUSATE NA/SENNA CONC 1 TAB PO SCH (20:17)
[2018-03-09] MEDS: ACETAMINOPHEN 325 MG TABLET PO PRN (21:01)
[2018-03-09] MEDS ORDERED: MAGNES/ALUMIN/SIMET 30ML UCUP PO PRN (21:36)
[2018-03-09] MEDS ORDERED: CALCIUM CARBONATE CHEW 500MG TAB PO PRN (21:36)
--- NOTE | 2018-03-10 03:33 | FAST ---
SHIFT START DATE/TIME: 03/09/2018 19:00 (CDT) SHIFT END DATE/TIME: 03/10/2018 07:00 (CDT) NAME BRIANNA CRAWFORD DATE OF : 1945 DATE OF ADMISSION: 03/01/2018 20:00 (CDT) PHONE: AGE: 72 N# [id number] GENDER: Male ENCOUNTER PHYSICIAN: Dr. Zachary Ferguson M.D. ADMISSION DIAGNOSIS: - Cardiac 09 - Cardiac Disorders (09) coronary artery disease involving [place] coronary artery of [place] heart with gain pectoris with docu mented spasm. EATING: EATING - STEP 1: Does the patient require assistance when eating? Yes. EATING - STEP 2: Does the patient require the assistance of a helper? Yes. EATING - STEP 3: Does the patient perform half or more of the eating tasks? Yes. EATING - STEP 4: Does the patient need only supervision, cuing, coaxing OR help to apply an orthosis OR help to cut fo od, open containers, pour liquids, or butter bread? Yes. EATING - SCORE: 5-SUP GROOMING: Activity did not occur on this shift GROOMING - SCORE: 0-UNK BATHING: Activity did not occur on this shift BATHING - SCORE: 0-UNK DRESSING - UPPER BODY: Patient is not dressing in public clothing ARTICLES SCORE Total number of steps: 0 DRESSING - UPPER BODY - SCORE: 0-UNK DRESSING - LOWER BODY: Patient is not dressing in public clothing ARTICLES SCORE Total number of steps: 0 DRESSING - LOWER BODY - SCORE: 0-UNK TOILETING: TOILETING - STEP 1: Does the patient require assistance with toileting? Yes. TOILETING - STEP 2: Does the patient require the assistance of a helper? Yes. TOILETING - STEP 3: How much assistance does the patient require from the helper? Only supervision TOILETING - SCORE: 5-SUP BLADDER MANAGEMENT: BLADDER MANAGEMENT - STEP 1: Does the patient control the bladder completely and intentionally without equipment or devices or med ications, and is always continent? No. BLADDER MANAGEMENT - STEP 2: Does the patient require the assistance of a helper? Yes. BLADDER MANAGEMENT - STEP 3: How much assistance does the patient require from the helper? Only set-up of equipment - such as plac ing it within reach of the patient or emptying a device - to maintain either satisfactory voiding pat tern or managing an external device, such as an absorbent pad, ileal device, or catheter BLADDER MANAGEMENT - SCORE: 5-SUP BLADDER MANAGEMENT - FREQUENCY OF ACCIDENTS: BLADDER MANAGEMENT(FA) - STEP 1: How many accidents has the patient had during the current shift? 0 BOWEL MANAGEMENT: Activity did not occur on this shift BOWEL MANAGEMENT - SCORE: 7-IND TRANSFERS: BED, CHAIR, WHEELCHAIR: Activity did not occur on this shift TRANSFERS: BED, CHAIR, WHEELCHAIR - SCORE: 0-UNK TRANSFERS: TOILET: Activity did not occur on this shift TRANSFERS: TOILET - SCORE: 0-UNK TRANSFERS: SHOWER: Activity did not occur on this shift TRANSFERS: SHOWER - SCORE: 0-UNK TRANSFERS: TUB: Activity did not occur on this shift TRANSFERS: TUB - SCORE: 0-UNK LOCOMOTION: WALK: Activity did not occur on this shift LOCOMOTION: WALK - SCORE: 0-UNK LOCOMOTION: WHEELCHAIR: Activity did not occur on this shift LOCOMOTION: WHEELCHAIR - SCORE: 0-UNK COMPREHENSION: COMPREHENSION: TYPE: Both COMPREHENSION - STEP 1: Does the patient require help to understand complex and abstract ideas (such as current events, finan elkin, discharge planning, medical issues, relationships, etc)? No. COMPREHENSION - STEP 2: Does the patient need extra time, require an assistive device (such as glasses, hearing aids, or an a ugmentative communication system), OR does s/he have mild difficulty expressing complex and abstract ideas (including mild dysarthria or mild word-finding problems)? Yes. COMPREHENSION - SCORE: 6-XIOM[place] EXPRESSION EXPRESSION: TYPE: Both EXPRESSION - STEP 1: Does the patient require help expressing complex and abstract ideas (such as current events, finances , discharge planning, medical issues, relationships, etc)? No. EXPRESSION - STEP 2: Does the patient need extra time, require an assistive device (such as augmentive communication syste m or a communication board), OR does s/he have mild difficulty expressing complex and abstract ideas (including mild dysarthria or mild word-find problems)? Yes. EXPRESSION - SCORE: 6-XIOMARA SOCIAL INTERACTION: SOCIAL INTERACTION - STEP 1: Does the patient require a helper to interact with others in social and therapeutic situations? No. SOCIAL INTERACTION - STEP 2: Does the patient need extra time in social situations, OR does s/he interact with staff, other patien ts, and family members ONLY in structured environments, OR does s/he require medication for social in teraction? Yes, patient needs extra time SOCIAL INTERACTION - SCORE: 6-XI[place]ARA PROBLEM SOLVING: PROBLEM SOLVING - STEP 1: Does the patient need help to solve complex problems such as managing a checking account or confronti ng interpersonal problems? No. PROBLEM SOLVING - STEP 2: Does the patient require extra time to make decisions or solve problems, OR does s/he have slight dif ficulty reading, initiating, or self-correcting in unfamiliar situations? Yes, patient needs extra ti me. PROBLEM SOLVING - SCORE: 6-XIOMARA MEMORY: MEMORY - STEP 1: Does the patient need help to remember frequently encountered people, daily routines, and executing r equests? No. MEMORY - STEP 2: Does the patient have slight difficulty recognizing frequently encountered people, daily routines, or executing requests without the need for repetition or using self-initiated or environmental cues to remember? Yes. MEMORY - SCORE: 6-XIOMARA SIGNATURE PANEL: The following modified sections: Eating - Score, Grooming - Score, Bathing - Score, Dressing - Upper Body - Score, Dressing - Lower Body - Score, Toileting - Score, Bladder Management - Score, Bowel Man agement - Score, Transfers: Bed, Chair, Wheelchair - Score, Transfers: Toilet - Score, Transfers: Cristina wer - Score, Transfers: Tub - Score, Locomotion: Walk - Score, Locomotion: Wheelchair - Score, Compre hension - Score, Expression - Score, Social Interaction - Score, Problem Solving - Score, Memory - Sc ore were [electronically] signed by Herbert SmallsNMaxine on ThuMar 10 2018 03:32:13 T-0500 ( Central Daylight Time)
[2018-03-10] MEDS: METOPROLOL TAR 25 MG TAB PO SCH ×2 (05:20→16:20)
[2018-03-10] MEDS: PANTOPRAZOLE 40MG TABLET PO SCH (07:18)
[2018-03-10] MEDS: CRANBERRY FRUIT EXTRACT 200 MG CAP PO SCH ×2 (08:00→20:25)
[2018-03-10] MEDS: MUPIROCIN 2% OINT 22GM TUBE TOP SCH (08:00)
[2018-03-10] MEDS: PROMOD 30 ML DOSE PO SCH ×2 (08:00→20:25)
[2018-03-10] MEDS: HYDROCODONE/APAP 5/325 MG TAB PO PRN (08:11)
[2018-03-10] MEDS: POTASSIUM 25 MEQ EFFERV TAB PO SCH (08:12)
[2018-03-10] MEDS: FERROUS SULFATE 325 MG TAB PO SCH (08:13)
[2018-03-10] MEDS: ASPIRIN 81 MG CHEWABLE TABLET PO SCH (08:13)
[2018-03-10] MEDS: FUROSEMIDE 20 MG TABLET PO SCH ×2 (08:13→16:21)
[2018-03-10] MEDS: APIXABAN 2.5 MG TABLET PO SCH ×2 (08:13→20:25)
[2018-03-10] MEDS: SPIRONOLACTONE 25 MG TABLET PO SCH (08:13)
[2018-03-10] MEDS: FE SULF/FA/VIT B COMP & C TAB PO SCH (08:13)
[2018-03-10] MEDS: CLOPIDOGREL 75 MG TABLET PO SCH (08:14)
[2018-03-10] MEDS: GABAPENTIN 300 MG CAP PO SCH ×2 (08:14→20:25)
[2018-03-10] MEDS: ALLOPURINOL 100 MG TAB PO SCH (08:14)
--- NOTE | 2018-03-10 14:48 | FAST ---
ENCOUNTER DATE AND TIME: 03/08/2018 08:00 (CDT) NAME BRIANNA CRAWFORD DATE OF : 1945 DATE OF ADMISSION: 03/01/2018 20:00 (CDT) PHONE: AGE: 72 N# [id number] GENDER: Male ENCOUNTER PHYSICIAN: Dr. Zachary Ferguson M.D. ADMISSION DIAGNOSIS: - Cardiac 09 - Cardiac Disorders (09) coronary artery disease involving [place] coronary artery of [place] heart with gain pectoris with docu mented spasm. EATING: Activity did not occur on this shift EATING - SCORE: 0-UNK GROOMING: Activity did not occur on this shift GROOMING - SCORE: 0-UNK BATHING: Activity did not occur on this shift BATHING - SCORE: 0-UNK DRESSING - UPPER BODY: Activity did not occur on this shift Patient is not dressing in public clothing ARTICLES SCORE Total number of steps: 0 DRESSING - UPPER BODY - SCORE: 0-UNK DRESSING - LOWER BODY: Activity did not occur on this shift Patient is not dressing in public clothing ARTICLES SCORE Total number of steps: 0 DRESSING - LOWER BODY - SCORE: 0-UNK TOILETING: Activity did not occur on this shift TOILETING - SCORE: 0-UNK BLADDER MANAGEMENT: Activity did not occur on this shift BLADDER MANAGEMENT - SCORE: 7-IND BOWEL MANAGEMENT: Activity did not occur on this shift BOWEL MANAGEMENT - SCORE: 7-IND TRANSFERS: BED, CHAIR, WHEELCHAIR: TRANSFERS: BED, CHAIR, WHEELCHAIR - STEP 1: Does the patient require assistance with bed, chair, or wheelchair transfers? Yes. TRANSFERS: BED, CHAIR, WHEELCHAIR - STEP 2: Does the patient require the assistance of a helper? No. Patient only requires an assistive device fo r bed, chair, wheelchair transfers such as a sliding board, grab bar, or brace, OR s/he takes more th an reasonable time, OR there is a safety concern when s/he performs the transfers TRANSFERS: BED, CHAIR, WHEELCHAIR - SCORE: 6-[place] TRANSFERS: TOILET: Activity did not occur on this shift TRANSFERS: TOILET - SCORE: 0-UNK TRANSFERS: SHOWER: Activity did not occur on this shift TRANSFERS: SHOWER - SCORE: 0-UNK TRANSFERS: TUB: Activity did not occur on this shift TRANSFERS: TUB - SCORE: 0-UNK LOCOMOTION: WALK: LOCOMOTION: WALK - STEP 1: Does the patient need help to walk 150 feet? No. LOCOMOTION: WALK - STEP 2: Does the patient need an assistive device (such as an orthosis, prosthesis, crutches, or walker) to g o 150 feet, OR does s/he take more than reasonable time, OR is there a concern for safety? Yes, the p atient needs an assistive device LOCOMOTION: WALK - SCORE: 6-XIOMARA LOCOMOTION: WHEELCHAIR: Activity did not occur on this shift LOCOMOTION: WHEELCHAIR - SCORE: 0-UNK LOCOMOTION: STAIRS: LOCOMOTION: STAIRS - STEP 1: Does the patient need help to go up and down 12 to 14 stairs? Yes. LOCOMOTION: STAIRS - STEP 2: How much assistance does the patient need from the helper to go a minimum of 12 to 14 stairs? Only sal pervision, cuing, or coaxing LOCOMOTION: STAIRS - SCORE: 5-SUP COMPREHENSION: COMPREHENSION - SCORE: 0-UNK EXPRESSION EXPRESSION - SCORE: 0-UNK SOCIAL INTERACTION: SOCIAL INTERACTION - SCORE: 0-UNK PROBLEM SOLVING: PROBLEM SOLVING - SCORE: 0-UNK MEMORY: MEMORY - SCORE: 0-UNK SIGNATURE PANEL: The following modified sections: Transfers: Bed, Chair, Wheelchair - Score, Transfers: Toilet - Score , Locomotion: Walk - Score, Locomotion: Wheelchair - Score, Locomotion: Stairs - Score were [[email or web address] de [email or web address]] signed by Gene Cisneros PTA on ThuMar 10 2018 14:47:09 GMT-0500 (Central Daylight Time)
--- NOTE | 2018-03-10 14:50 | FAST ---
ENCOUNTER DATE AND TIME: 03/09/2018 08:00 (CDT) NAME BRIANNA CRAWFORD DATE OF : 1945 DATE OF ADMISSION: 03/01/2018 20:00 (CDT) PHONE: AGE: 72 N# [id number] GENDER: Male ENCOUNTER PHYSICIAN: Dr. Zachary Ferguson M.D. ADMISSION DIAGNOSIS: - Cardiac 09 - Cardiac Disorders (09) coronary artery disease involving [place] coronary artery of [place] heart with gain pectoris with docu mented spasm. EATING: Activity did not occur on this shift EATING - SCORE: 0-UNK GROOMING: Activity did not occur on this shift GROOMING - SCORE: 0-UNK BATHING: Activity did not occur on this shift BATHING - SCORE: 0-UNK DRESSING - UPPER BODY: Activity did not occur on this shift Patient is not dressing in public clothing ARTICLES SCORE Total number of steps: 0 DRESSING - UPPER BODY - SCORE: 0-UNK DRESSING - LOWER BODY: Activity did not occur on this shift Patient is not dressing in public clothing ARTICLES SCORE Total number of steps: 0 DRESSING - LOWER BODY - SCORE: 0-UNK TOILETING: Activity did not occur on this shift TOILETING - SCORE: 0-UNK BLADDER MANAGEMENT: Activity did not occur on this shift BLADDER MANAGEMENT - SCORE: 7-IND BOWEL MANAGEMENT: Activity did not occur on this shift BOWEL MANAGEMENT - SCORE: 7-IND TRANSFERS: BED, CHAIR, WHEELCHAIR: Activity did not occur on this shift TRANSFERS: BED, CHAIR, WHEELCHAIR - SCORE: 0-UNK TRANSFERS: TOILET: Activity did not occur on this shift TRANSFERS: TOILET - SCORE: 0-UNK TRANSFERS: SHOWER: Activity did not occur on this shift TRANSFERS: SHOWER - SCORE: 0-UNK TRANSFERS: TUB: Activity did not occur on this shift TRANSFERS: TUB - SCORE: 0-UNK LOCOMOTION: WALK: Activity did not occur on this shift LOCOMOTION: WALK - SCORE: 0-UNK LOCOMOTION: WHEELCHAIR: LOCOMOTION: WHEELCHAIR - STEP 1: Does the patient need help to go 150 feet in a wheelchair? Yes. LOCOMOTION: WHEELCHAIR - STEP 2: How much assistance does the patient need from the helper? Only supervision, cuing, or coaxing LOCOMOTION: WHEELCHAIR - SCORE: 5-SUP LOCOMOTION: STAIRS: Activity did not occur on this shift LOCOMOTION: STAIRS - SCORE: 0-UNK COMPREHENSION: COMPREHENSION - SCORE: 0-UNK EXPRESSION EXPRESSION - SCORE: 0-UNK SOCIAL INTERACTION: SOCIAL INTERACTION - SCORE: 0-UNK PROBLEM SOLVING: PROBLEM SOLVING - SCORE: 0-UNK MEMORY: MEMORY - SCORE: 0-UNK SIGNATURE PANEL: The following modified sections: Transfers: Bed, Chair, Wheelchair - Score, Transfers: Toilet - Score , Locomotion: Walk - Score, Locomotion: Wheelchair - Score, Locomotion: Stairs - Score were [electron [email or web address]] signed by Gene Cisneros PTA on ThuMar 10 2018 14:49:00 GMT-0500 (Central Daylight Time)
--- NOTE | 2018-03-10 14:51 | FAST ---
SHIFT START DATE/TIME: 03/10/2018 07:00 (CDT) SHIFT END DATE/TIME: 03/10/2018 19:00 (CDT) NAME BRIANNA CRAWFORD DATE OF : 1945 DATE OF ADMISSION: 03/01/2018 20:00 (CDT) PHONE: AGE: 72 N# [id number] GENDER: Male ENCOUNTER PHYSICIAN: Dr. Zachary Ferguson M.D. ADMISSION DIAGNOSIS: - Cardiac 09 - Cardiac Disorders (09) coronary artery disease involving [place] coronary artery of [place] heart with gain pectoris with docu mented spasm. EATING: EATING - STEP 1: Does the patient require assistance when eating? Yes. EATING - STEP 2: Does the patient require the assistance of a helper? Yes. EATING - STEP 3: Does the patient perform half or more of the eating tasks? Yes. EATING - STEP 4: Does the patient need only supervision, cuing, coaxing OR help to apply an orthosis OR help to cut fo od, open containers, pour liquids, or butter bread? Yes. EATING - SCORE: 5-SUP GROOMING: Wash, rinse, and dry face Wash, rinse, and dry hands GROOMING - STEP 1: Does the patient require assistance when grooming? Yes. GROOMING - STEP 2: Does the patient require the assistance of a helper? Yes. GROOMING - STEP 3: How much assistance does the patient require from the helper? Only prior equipment preparation/set up from the helper GROOMING - SCORE: 5-SUP BATHING: Activity did not occur on this shift BATHING - SCORE: 0-UNK DRESSING - UPPER BODY: T-shirt/pullover shirt (four steps) ARTICLES SCORE Total number of steps: 4 DRESSING - UPPER BODY - STEP 1: Does the patient require help when dressing above the waist? Yes. DRESSING - UPPER BODY - STEP 2: Does the patient require the assistance of a helper? Yes. DRESSING - UPPER BODY - STEP 3: Does the helper touch the patient while dressing? No. DRESSING - UPPER BODY - SCORE: 5-SUP DRESSING - LOWER BODY: Elastic waist pants (three steps) Underwear (three steps) ARTICLES SCORE Total number of steps: 6 DRESSING - LOWER BODY - STEP 1: Does the patient require help when dressing below the waist? Yes. DRESSING - LOWER BODY - STEP 2: Does the patient require the assistance of a helper? Yes. DRESSING - LOWER BODY - STEP 3: Does the helper touch the patient while dressing? Yes. DRESSING - LOWER BODY - STEP 4: How many of the total steps does the patient complete on his/her own? 4 DRESSING - LOWER BODY - SCORE: 3-MOD TOILETING: TOILETING - STEP 1: Does the patient require assistance with toileting? Yes. TOILETING - STEP 2: Does the patient require the assistance of a helper? Yes. TOILETING - STEP 3: How much assistance does the patient require from the helper? Only supervision TOILETING - SCORE: 5-SUP BLADDER MANAGEMENT: BLADDER MANAGEMENT - STEP 1: Does the patient control the bladder completely and intentionally without equipment or devices or med ications, and is always continent? No. BLADDER MANAGEMENT - STEP 2: Does the patient require the assistance of a helper? Yes. BLADDER MANAGEMENT - STEP 3: How much assistance does the patient require from the helper? Only set-up of equipment - such as plac ing it within reach of the patient or emptying a device - to maintain either satisfactory voiding pat tern or managing an external device, such as an absorbent pad, ileal device, or catheter BLADDER MANAGEMENT - SCORE: 5-SUP BLADDER MANAGEMENT - FREQUENCY OF ACCIDENTS: BLADDER MANAGEMENT(FA) - STEP 1: How many accidents has the patient had during the current shift? 0 BOWEL MANAGEMENT: Activity did not occur on this shift BOWEL MANAGEMENT - SCORE: 7-IND BOWEL MANAGEMENT - FREQUENCY OF ACCIDENTS: BOWEL MANAGEMENT(FA) - STEP 1: How many accidents has the patient had during the current shift? 0 TRANSFERS: BED, CHAIR, WHEELCHAIR: TRANSFERS: BED, CHAIR, WHEELCHAIR - STEP 1: Does the patient require assistance with bed, chair, or wheelchair transfers? Yes. TRANSFERS: BED, CHAIR, WHEELCHAIR - STEP 2: Does the patient require the assistance of a helper? Yes. TRANSFERS: BED, CHAIR, WHEELCHAIR - STEP 3: How much assistance does the patient require from the helper? Only supervision TRANSFERS: BED, CHAIR, WHEELCHAIR - SCORE: 5-SUP TRANSFERS: TOILET: TRANSFERS: TOILET - STEP 1: Does the patient require assistance with toilet transfers? Yes. TRANSFERS: TOILET - STEP 2: Does the patient require the assistance of a helper? Yes. TRANSFERS: TOILET - STEP 3: How much assistance does the patient require from the helper? Patient performs half or more of the tr ansferring tasks TRANSFERS: TOILET - STEP 4: Does the patient need only incidental help such as contact guard or steadying during toilet transfer? Yes. TRANSFERS: TOILET - SCORE: 4-MIN TRANSFERS: SHOWER: Activity did not occur on this shift TRANSFERS: SHOWER - SCORE: 0-UNK TRANSFERS: TUB: Activity did not occur on this shift TRANSFERS: TUB - SCORE: 0-UNK LOCOMOTION: WALK: Activity did not occur on this shift LOCOMOTION: WALK - SCORE: 0-UNK LOCOMOTION: WHEELCHAIR: LOCOMOTION: WHEELCHAIR - STEP 1: Does the patient need help to go 150 feet in a wheelchair? Yes. LOCOMOTION: WHEELCHAIR - STEP 2: How much assistance does the patient need from the helper? More than incidental help LOCOMOTION: WHEELCHAIR - SCORE: 3-MOD LOCOMOTION: WHEELCHAIR - COMMENTS: Sternal precautions COMPREHENSION: COMPREHENSION: TYPE: Both COMPREHENSION - STEP 1: Does the patient require help to understand complex and abstract ideas (such as current events, finan elkin, discharge planning, medical issues, relationships, etc)? No. COMPREHENSION - STEP 2: Does the patient need extra time, require an assistive device (such as glasses, hearing aids, or an a ugmentative communication system), OR does s/he have mild difficulty expressing complex and abstract ideas (including mild dysarthria or mild word-finding problems)? Yes. COMPREHENSION - SCORE: 6-[place] EXPRESSION EXPRESSION: TYPE: Both EXPRESSION - STEP 1: Does the patient require help expressing complex and abstract ideas (such as current events, finances , discharge planning, medical issues, relationships, etc)? No. EXPRESSION - STEP 2: Does the patient need extra time, require an assistive device (such as augmentive communication syste m or a communication board), OR does s/he have mild difficulty expressing complex and abstract ideas (including mild dysarthria or mild word-find problems)? Yes. EXPRESSION - SCORE: 6-XI[place] SOCIAL INTERACTION: SOCIAL INTERACTION - STEP 1: Does the patient require a helper to interact with others in social and therapeutic situations? No. SOCIAL INTERACTION - STEP 2: Does the patient need extra time in social situations, OR does s/he interact with staff, other patien ts, and family members ONLY in structured environments, OR does s/he require medication for social in teraction? Yes, patient needs extra time SOCIAL INTERACTION - SCORE: 6-XIOMARA PROBLEM SOLVING: PROBLEM SOLVING - STEP 1: Does the patient need help to solve complex problems such as managing a checking account or confronti ng interpersonal problems? No. PROBLEM SOLVING - STEP 2: Does the patient require extra time to make decisions or solve problems, OR does s/he have slight dif ficulty reading, initiating, or self-correcting in unfamiliar situations? Yes, patient needs extra ti me. PROBLEM SOLVING - SCORE: 6-XI[place] MEMORY: MEMORY - STEP 1: Does the patient need help to remember frequently encountered people, daily routines, and executing r equests? No. MEMORY - STEP 2: Does the patient have slight difficulty recognizing frequently encountered people, daily routines, or executing requests without the need for repetition or using self-initiated or environmental cues to remember? Yes. MEMORY - SCORE: 6-[place] SIGNATURE PANEL: The following modified sections: Eating - Score, Grooming - Score, Bathing - Score, Dressing - Upper Body - Score, Dressing - Lower Body - Score, Toileting - Score, Bladder Management - Score, Bowel Man agement - Score, Transfers: Bed, Chair, Wheelchair - Score, Transfers: Toilet - Score, Transfers: Cristina wer - Score, Transfers: Tub - Score, Locomotion: Walk - Score, Locomotion: Wheelchair - Score, Locomo tion: Wheelchair - Comments:, Comprehension - Score, Expression - Score, Social Interaction - Score, Problem Solving - Score, Memory - Score were [electronically] signed by Dari Alvarez C.N.A. on Thu 14:50:08 T-0500 (Central Daylight Time)
--- NOTE | 2018-03-10 15:22 | FAST ---
ENCOUNTER DATE AND TIME: 03/10/2018 08:00 (CDT) NAME BRIANNA CRAWFORD DATE OF : 1945 DATE OF ADMISSION: 03/01/2018 20:00 (CDT) PHONE: AGE: 72 N# [id number] GENDER: Male ENCOUNTER PHYSICIAN: Dr. Zachary Ferguson M.D. ADMISSION DIAGNOSIS: - Cardiac 09 - Cardiac Disorders (09) coronary artery disease involving [place] coronary artery of [place] heart with gain pectoris with docu mented spasm. EATING: EATING - STEP 1: Does the patient require assistance when eating? No. EATING - SCORE: 7-IND GROOMING: Comb/brush hair Oral care Wash, rinse, and dry face Wash, rinse, and dry hands GROOMING - STEP 1: Does the patient require assistance when grooming? No. GROOMING - SCORE: 7-IND BATHING: Abdomen Buttocks Chest Left arm Left lower leg and foot Left upper leg Perineal area Right arm Right lower leg and foot Right upper leg BATHING - STEP 1: Does the patient require assistance when bathing? Yes. BATHING - STEP 2: Does the patient require the assistance of a helper? Yes. BATHING - STEP 3: How much assistance does the patient require from the helper? Only supervision, cuing, coaxing, instr uctions, encouragement BATHING - SCORE: 5-SUP DRESSING - UPPER BODY: T-shirt/pullover shirt (four steps) ARTICLES SCORE Total number of steps: 4 DRESSING - UPPER BODY - STEP 1: Does the patient require help when dressing above the waist? No. DRESSING - UPPER BODY - SCORE: 7-IND DRESSING - LOWER BODY: Elastic waist pants (three steps) Sock - Left foot (one step) Sock - Right foot (one step) Underwear (three steps) ARTICLES SCORE Total number of steps: 8 DRESSING - LOWER BODY - STEP 1: Does the patient require help when dressing below the waist? Yes. DRESSING - LOWER BODY - STEP 2: Does the patient require the assistance of a helper? Yes. DRESSING - LOWER BODY - STEP 3: Does the helper touch the patient while dressing? Yes. DRESSING - LOWER BODY - STEP 4: How many of the total steps does the patient complete on his/her own? 6 DRESSING - LOWER BODY - SCORE: 4-MIN TOILETING: TOILETING - STEP 1: Does the patient require assistance with toileting? Yes. TOILETING - STEP 2: Does the patient require the assistance of a helper? No. TOILETING - SCORE: 6-[place] BLADDER MANAGEMENT: Activity did not occur on this shift BLADDER MANAGEMENT - SCORE: 7-IND BOWEL MANAGEMENT: Activity did not occur on this shift BOWEL MANAGEMENT - SCORE: 7-IND TRANSFERS: BED, CHAIR, WHEELCHAIR: Activity did not occur on this shift TRANSFERS: BED, CHAIR, WHEELCHAIR - SCORE: 0-UNK TRANSFERS: TOILET: TRANSFERS: TOILET - STEP 1: Does the patient require assistance with toilet transfers? Yes. TRANSFERS: TOILET - STEP 2: Does the patient require the assistance of a helper? No. Patient only requires an assistive device sal ch as a grab bar or special seat, OR s/he takes more than reasonable time to perform toilet transfers , OR there is a safety concern when s/he performs toilet transfers. TRANSFERS: TOILET - SCORE: 6-XIOMARA TRANSFERS: SHOWER: Activity did not occur on this shift TRANSFERS: SHOWER - SCORE: 0-UNK TRANSFERS: TUB: TRANSFERS: TUB - STEP 1: Does the patient require assistance with tub transfers? Yes. TRANSFERS: TUB - STEP 2: Does the patient require the assistance of a helper? No. Only requires the assistance of an assistive device, OR takes more than reasonable time, OR there is a concern for safety when s/he performs tub transfers TRANSFERS: TUB - SCORE: 6-XIOMARA LOCOMOTION: WALK: Activity did not occur on this shift LOCOMOTION: WALK - SCORE: 0-UNK LOCOMOTION: WHEELCHAIR: Activity did not occur on this shift LOCOMOTION: WHEELCHAIR - SCORE: 0-UNK LOCOMOTION: STAIRS: Activity did not occur on this shift LOCOMOTION: STAIRS - SCORE: 0-UNK COMPREHENSION: COMPREHENSION: TYPE: Both COMPREHENSION - STEP 1: Does the patient require help to understand complex and abstract ideas (such as current events, finan elkin, discharge planning, medical issues, relationships, etc)? No. COMPREHENSION - STEP 2: Does the patient need extra time, require an assistive device (such as glasses, hearing aids, or an a ugmentative communication system), OR does s/he have mild difficulty expressing complex and abstract ideas (including mild dysarthria or mild word-finding problems)? No. COMPREHENSION - SCORE: 7-IND EXPRESSION EXPRESSION: TYPE: Both EXPRESSION - STEP 1: Does the patient require help expressing complex and abstract ideas (such as current events, finances , discharge planning, medical issues, relationships, etc)? No. EXPRESSION - STEP 2: Does the patient need extra time, require an assistive device (such as augmentive communication syste m or a communication board), OR does s/he have mild difficulty expressing complex and abstract ideas (including mild dysarthria or mild word-find problems)? No. EXPRESSION - SCORE: 7-IND SOCIAL INTERACTION: SOCIAL INTERACTION - STEP 1: Does the patient require a helper to interact with others in social and therapeutic situations? No. SOCIAL INTERACTION - STEP 2: Does the patient need extra time in social situations, OR does s/he interact with staff, other patien ts, and family members ONLY in structured environments, OR does s/he require medication for social in teraction? No. SOCIAL INTERACTION - SCORE: 7-IND PROBLEM SOLVING: PROBLEM SOLVING - STEP 1: Does the patient need help to solve complex problems such as managing a checking account or confronti ng interpersonal problems? No. PROBLEM SOLVING - STEP 2: Does the patient require extra time to make decisions or solve problems, OR does s/he have slight dif ficulty reading, initiating, or self-correcting in unfamiliar situations? No. PROBLEM SOLVING - SCORE: 7-IND MEMORY: MEMORY - STEP 1: Does the patient need help to remember frequently encountered people, daily routines, and executing r equests? No. MEMORY - STEP 2: Does the patient have slight difficulty recognizing frequently encountered people, daily routines, or executing requests without the need for repetition or using self-initiated or environmental cues to remember? No. MEMORY - SCORE: 7-IND SIGNATURE PANEL: The following modified sections: Eating - Score, Grooming - Score, Bathing - Score, Dressing - Upper Body - Score, Dressing - Lower Body - Score, Toileting - Score, Transfers: Bed, Chair, Wheelchair - S core, Transfers: Toilet - Score, Transfers: Shower - Score, Transfers: Tub - Score, Comprehension - S core, Expression - Score, Social Interaction - Score, Problem Solving - Score, Memory - Score were [e lectronically] signed by Melissa Capps OT on ThuMar 10 2018 15:21:24 GMT-0500 ([place] Day[place] T [place])
--- NOTE | 2018-03-10 18:44 | RAD REPORT ---
EXAM DESCRIPTION: VAS - Extremity Venous Uni Ltd - 03/10/2018 6:38 pm CLINICAL HISTORY: LEG PAIN Leg swelling and edema. COMPARISON: EXT VENOUS UNI LTD dated 02/22/2013 FINDINGS: Left lower extremity venous system was interrogated with Doppler technique. Normal flow, c ompressibility and augmentation was noted. There is no DVT present. IMPRESSION: No evidence of left lower extremity deep venous thrombosis.
--- NOTE | 2018-03-10 19:22 | R.PN ---
ENCOUNTER DATE AND TIME: 03/10/2018 19:19 (CDT) NAME BRIANNA CRAWFORD DATE OF : 1945 DATE OF ADMISSION: 03/01/2018 20:00 (CDT) coronary artery disease involving [place] coronary artery of [place] heart with gain pectoris with docu mented spasmCHIEF COMPLAINT: Cardiac debility, status post CABG. SUBJECTIVE: Pt denied any Shortness of Breath. Pt denied any depression. VITAL SIGNS Temperature: 98.4 F SBP/DBP: 125/74 Pulse: 73 Resp: 16 Ambulated 420' with modified independence using a rolling walker. Used 2L of O2 by nasal cannulae an d O2 saturation 93-96%. Up and down 12 steps with contact guard assistance. MEDICATION ALLERGIES: No Known Drug Allergies (NKDA) ENVIRONMENTAL ALLERGIES: - Substance Allergies None Known - Other Allergies None Known NURSING: - Shower allowing shower ACTIVITIES OOB only with supervision THERAPIES: - Occupational Therapy Evaluate and Treat. - Physical Therapy Evaluate and Treat. PHYSICAL EXAM - Gen Alert and awake Lying in bed No apparent distress Oriented to: person, time, and place - Skin LLE incisions intact Normacephalic - Eyes No abnormalities - ENMT No abnormalities - Neck No abnormalities - CVS RRR - Chest No abnormalities - Abd Soft - GI Non distended Deferred - No abnormalities - Ext Moderate 3+ edema in the lower extremities. - MSK 4+/5 weakness in both lower extremities. - Neuro 4/5 strength bilaterally lower extremities. - Psych No abnormalities ASSESSMENT: Pt. is a 72 yo Right-handed black male.On 02/15/2018 he was admitted to [facility] with diagnosi s coronary artery disease involving [place] coronary artery of [place] heart with gain pectoris with do cumented spasm.His impairment category is Cardiac 09 - Cardiac Disorders (09).Pre-morbidly, Pt. was independent/mod-I in Self-Care, Sphincter Control, Transfers Control, Communication, Social Cognition , and Locomotion; and he had good Sphincter Control.Currently, he has deficits of Transfers Control, Communication, Social Cognition, Endurance, Balance, Safety Awareness, Locomotion, and Self-Care.Pt. is now referred to [facility] for acute in-patient rehabilitation in order to maximize patient's functional independence in activities of daily living, strength, ROM, and mobility .- Rehab Goal Patient has realistic goal of being discharged at assistance level 6-Adelia to reside at Home with Fam trinidad/Relatives. MDM/PLAN: - Physical Therapy Gait dysfunction - to improve, our physical therapists will perform initial evaluation of pt's statu s upon admission and devise an individualized program for Gait Training, and Wheel Chair mobility Inability to transfer - to improve, our physical therapists will perform initial evaluation of pt's status upon admission and devise an individualized program for Bed mobility Need for home safety evaluation - to improve, our physical therapists will perform initial evaluatio n of pt's status upon admission and devise an individualized program for Home Evaluation Need in caregiver upon discharge - to improve, our physical therapists will perform initial evaluati on of pt's status upon admission and devise an individualized program for Caregiver Training New precaution - to improve, our physical therapists will perform initial evaluation of pt's status upon admission and devise an individualized program for Patient precaution education Edema - to improve, our physical therapists will perform initial evaluation of pt's status upon admi ssion and devise an individualized program for Elevation Training, and Lymphedema Therapy Poor balance - to improve, our physical therapists will perform initial evaluation of pt's status up on admission and devise an individualized program for Balance Training Poor endurance - to improve, our physical therapists will perform initial evaluation of pt's status upon admission and devise an individualized program for Endurance Training Weakness - to improve, our physical therapists will perform initial evaluation of pt's status upon a dmission and devise an individualized program for Aquatic Therapy, Neuromuscular Reeducation, and Str engthening Achieving independence - to improve, our physical therapists will perform initial evaluation of pt's status upon admission and devise an individualized program for Community Reintegration Activities - Occupational Therapy ADL deficits - to improve, our occupation therapists will perform initial evaluation of pt's status upon admission and devise an individualized program for Bathing, Bed mobility, Community Reintegratio n, Cooking, Dressing, Eating, Fine Motor Skills, Grooming, Homemaking, Kitchen Mobility, Laundry, Pat ient Education, Safety Awareness, Splinting - Positioning, Transfers(Toilet, Tub, Shower), and Wheel Chair Management Cognitive deficits - to improve, our occupation therapists will perform initial evaluation of pt's s tatus upon admission and devise an individualized program for Cognition - orientation Need for administrator health care facility - to improve, our occupation therapists will perform initial evaluation of pt's status upon admission and devise an individualized program for Caregiver Training Weakness - to improve, our occupation therapists will perform initial evaluation of pt's status upon admission and devise an individualized program for Aquatic Therapy, Balance, Endurance, UE ROM, and UE strengthening - Diet Type Continue Regular - Diet - Liquid Texture Continue Regular - Tube Feed Continue N/A - Diet - Solid Texture Continue Regular - Shower allowing shower FUNCTIONAL STATUS: UPDATED AT WEEKLY TEAM CONFERENCE - Bladder Same accident frequency: 7-Ind - No accidents in the past 7 days - Bowel Same accident frequency: 7-Ind - No accidents in the past 7 days - Walking Same score based on distance walked: 3(>=150ft) FUNCTIONAL STATUS: - Self-Care A. Eating Ind B. Grooming Ind C. Bathing Ind D. Dressing - Upper sup E. Dressing - Lower modA F. Toileting modA - Sphincter Control G: Bladder control Ind H: Bowel control Ind - Transfers Control I. Bed/Chair/Wheelchair modA J. Toilet modA K. Tub/Shower modA - Locomotion L. Walk/Wheelchair (B) maxA M. Stairs ADNO - Communication N. Comprehension (B) sup O. Expression (B) sup - Social Cognition P. Social Interaction sup Q. Problem Solving sup R. Memory sup - Endurance Fair - Balance Fair - Safety Awareness Fair [facility]. DEFICITS: Transfers Control, Communication, Social Cognition, Endurance, Balance, Safety Awareness, Locomotion, and Self-Care SIGNATURE PANEL: (CDT)
[2018-03-10] MEDS: DOCUSATE NA/SENNA CONC 1 TAB PO SCH (20:24)
[2018-03-10] MEDS: ATORVASTATIN 80 MG TAB PO SCH (20:25)
[2018-03-11] MEDS: METOPROLOL TAR 25 MG TAB PO SCH ×2 (05:14→16:57)
[2018-03-11 06:07] LABS: Absolute Lymphocytes (CBC) 1.5 K/uL (0.7-4.9); Absolute Monocytes 0.9 K/uL (0.1-1.3); Absolute Neutrophil 5.5 K/uL (1.8-8.0); Basophils % 0.7 % (0-1.3); Eosinophils % 9.2 % (0-4.4); Hematocrit 29.8 % (39.6-49.0); Lymphocytes % 16.8 % (15.3-44.8); MCH 30.6 pg (27.0-35.0); MCV 96.2 fL (80-100); MPV 9.5 fL (7.6-11.3); Monocytes % 10.4 % (3.3-12.3); RBC Red Blood Cell Count 3.09 M/uL (4.33-5.43)
[2018-03-11 06:42] LABS: Albumin 2.6 g/dL (3.4-5.0); BUN Blood Urea Nitrogen 11 mg/dL (7-18); Glucose Level 101 mg/dL (74-106); Magnesium 2.3 mg/dL (1.8-2.4); Potassium 4.5 mmol/L (3.5-5.1); Prealbumin 15.4 mg/dL (20-40); Sodium Level 142 mmol/L (136-145)
[2018-03-11 06:49] LABS: Bicarbonate 41 mmol/L (21-32)
[2018-03-11] MEDS: APIXABAN 2.5 MG TABLET PO SCH ×2 (08:24→20:23)
[2018-03-11] MEDS: FERROUS SULFATE 325 MG TAB PO SCH (08:24)
[2018-03-11] MEDS: HYDROCODONE/APAP 5/325 MG TAB PO PRN (08:24)
[2018-03-11] MEDS: FUROSEMIDE 20 MG TABLET PO SCH ×2 (08:24→16:55)
[2018-03-11] MEDS: ASPIRIN 81 MG CHEWABLE TABLET PO SCH (08:24)
[2018-03-11] MEDS: CLOPIDOGREL 75 MG TABLET PO SCH (08:24)
[2018-03-11] MEDS: FE SULF/FA/VIT B COMP & C TAB PO SCH (08:24)
[2018-03-11] MEDS: SPIRONOLACTONE 25 MG TABLET PO SCH (08:25)
[2018-03-11] MEDS: CRANBERRY FRUIT EXTRACT 200 MG CAP PO SCH ×2 (08:25→20:22)
[2018-03-11] MEDS: GABAPENTIN 300 MG CAP PO SCH ×2 (08:26→20:23)
[2018-03-11] MEDS: ALLOPURINOL 100 MG TAB PO SCH (08:26)
[2018-03-11] MEDS: PROMOD 30 ML DOSE PO SCH ×2 (08:26→20:23)
[2018-03-11] MEDS: POTASSIUM 25 MEQ EFFERV TAB PO SCH (08:27)
[2018-03-11] MEDS: MUPIROCIN 2% OINT 22GM TUBE TOP SCH (08:30)
--- NOTE | 2018-03-11 08:35 | FAST ---
SHIFT START DATE/TIME: 03/10/2018 19:00 (CDT) SHIFT END DATE/TIME: 03/11/2018 07:00 (CDT) NAME BRIANNA CRAWFORD DATE OF : 1945 DATE OF ADMISSION: 03/01/2018 20:00 (CDT) PHONE: AGE: 72 N# [id number] GENDER: Male ENCOUNTER PHYSICIAN: Dr. Zachary Ferguson M.D. ADMISSION DIAGNOSIS: - Cardiac 09 - Cardiac Disorders (09) coronary artery disease involving [place] coronary artery of [place] heart with gain pectoris with docu mented spasm. EATING: EATING - STEP 1: Does the patient require assistance when eating? Yes. EATING - STEP 2: Does the patient require the assistance of a helper? Yes. EATING - STEP 3: Does the patient perform half or more of the eating tasks? Yes. EATING - STEP 4: Does the patient need only supervision, cuing, coaxing OR help to apply an orthosis OR help to cut fo od, open containers, pour liquids, or butter bread? Yes. EATING - SCORE: 5-SUP GROOMING: Activity did not occur on this shift GROOMING - SCORE: 0-UNK BATHING: Activity did not occur on this shift BATHING - SCORE: 0-UNK DRESSING - UPPER BODY: Patient is not dressing in public clothing ARTICLES SCORE Total number of steps: 0 DRESSING - UPPER BODY - SCORE: 0-UNK DRESSING - LOWER BODY: Patient is not dressing in public clothing ARTICLES SCORE Total number of steps: 0 DRESSING - LOWER BODY - SCORE: 0-UNK TOILETING: TOILETING - STEP 1: Does the patient require assistance with toileting? Yes. TOILETING - STEP 2: Does the patient require the assistance of a helper? Yes. TOILETING - STEP 3: How much assistance does the patient require from the helper? Hands-on assistance from the helper TOILETING - STEP 4: Of the 3 tasks: 1) Adjusting clothing prior to use, 2) Cleansing of perineal area, 3) Adjusting clot jj after use; How many tasks does the patient perform WITHOUT assistance of the helper? Three tasks with steadying assistance from the helper TOILETING - SCORE: 4-MIN BLADDER MANAGEMENT: BLADDER MANAGEMENT - STEP 1: Does the patient control the bladder completely and intentionally without equipment or devices or med ications, and is always continent? No. BLADDER MANAGEMENT - STEP 2: Does the patient require the assistance of a helper? Yes. BLADDER MANAGEMENT - STEP 3: How much assistance does the patient require from the helper? Only set-up of equipment - such as plac ing it within reach of the patient or emptying a device - to maintain either satisfactory voiding pat tern or managing an external device, such as an absorbent pad, ileal device, or catheter BLADDER MANAGEMENT - SCORE: 5-SUP BLADDER MANAGEMENT - FREQUENCY OF ACCIDENTS: BLADDER MANAGEMENT(FA) - STEP 1: How many accidents has the patient had during the current shift? 0 BOWEL MANAGEMENT: Activity did not occur on this shift BOWEL MANAGEMENT - SCORE: 7-IND TRANSFERS: BED, CHAIR, WHEELCHAIR: Activity did not occur on this shift TRANSFERS: BED, CHAIR, WHEELCHAIR - SCORE: 0-UNK TRANSFERS: TOILET: Activity did not occur on this shift TRANSFERS: TOILET - SCORE: 0-UNK TRANSFERS: SHOWER: Activity did not occur on this shift TRANSFERS: SHOWER - SCORE: 0-UNK TRANSFERS: TUB: Activity did not occur on this shift TRANSFERS: TUB - SCORE: 0-UNK LOCOMOTION: WALK: Activity did not occur on this shift LOCOMOTION: WALK - SCORE: 0-UNK LOCOMOTION: WHEELCHAIR: Activity did not occur on this shift LOCOMOTION: WHEELCHAIR - SCORE: 0-UNK COMPREHENSION: COMPREHENSION: TYPE: Both COMPREHENSION - STEP 1: Does the patient require help to understand complex and abstract ideas (such as current events, finan elkin, discharge planning, medical issues, relationships, etc)? No. COMPREHENSION - STEP 2: Does the patient need extra time, require an assistive device (such as glasses, hearing aids, or an a ugmentative communication system), OR does s/he have mild difficulty expressing complex and abstract ideas (including mild dysarthria or mild word-finding problems)? Yes. COMPREHENSION - SCORE: 6-[place] EXPRESSION EXPRESSION: TYPE: Both EXPRESSION - STEP 1: Does the patient require help expressing complex and abstract ideas (such as current events, finances , discharge planning, medical issues, relationships, etc)? No. EXPRESSION - STEP 2: Does the patient need extra time, require an assistive device (such as augmentive communication syste m or a communication board), OR does s/he have mild difficulty expressing complex and abstract ideas (including mild dysarthria or mild word-find problems)? Yes. EXPRESSION - SCORE: 6-XIOMARA SOCIAL INTERACTION: SOCIAL INTERACTION - STEP 1: Does the patient require a helper to interact with others in social and therapeutic situations? No. SOCIAL INTERACTION - STEP 2: Does the patient need extra time in social situations, OR does s/he interact with staff, other patien ts, and family members ONLY in structured environments, OR does s/he require medication for social in teraction? Yes, patient needs extra time SOCIAL INTERACTION - SCORE: 6-XIOMARA PROBLEM SOLVING: PROBLEM SOLVING - STEP 1: Does the patient need help to solve complex problems such as managing a checking account or confronti ng interpersonal problems? No. PROBLEM SOLVING - STEP 2: Does the patient require extra time to make decisions or solve problems, OR does s/he have slight dif ficulty reading, initiating, or self-correcting in unfamiliar situations? Yes, patient needs extra ti me. PROBLEM SOLVING - SCORE: 6-XIOMARA MEMORY: MEMORY - STEP 1: Does the patient need help to remember frequently encountered people, daily routines, and executing r equests? No. MEMORY - STEP 2: Does the patient have slight difficulty recognizing frequently encountered people, daily routines, or executing requests without the need for repetition or using self-initiated or environmental cues to remember? Yes. MEMORY - SCORE: 6-XIOMARA SIGNATURE PANEL: The following modified sections: Eating - Score, Grooming - Score, Bathing - Score, Dressing - Upper Body - Score, Dressing - Lower Body - Score, Toileting - Score, Bladder Management - Score, Bowel Man agement - Score, Transfers: Bed, Chair, Wheelchair - Score, Transfers: Toilet - Score, Transfers: Cristina wer - Score, Transfers: Tub - Score, Locomotion: Walk - Score, Locomotion: Wheelchair - Score, Compre hension - Score, Expression - Score, Social Interaction - Score, Problem Solving - Score, Memory - Sc ore were [electronically] signed by Herbert SmallsNMaxine on ThuMar 11 2018 03:50:42 GMT-0500 ( Central Daylight Time)
[2018-03-11] MEDS: PANTOPRAZOLE 40MG TABLET PO SCH (08:54)
--- NOTE | 2018-03-11 13:32 | FAST ---
SHIFT START DATE/TIME: 03/11/2018 07:00 (CDT) SHIFT END DATE/TIME: 03/11/2018 19:00 (CDT) NAME BRIANNA CRAWFORD DATE OF : 1945 DATE OF ADMISSION: 03/01/2018 20:00 (CDT) PHONE: AGE: 72 N# [id number] GENDER: Male ENCOUNTER PHYSICIAN: Dr. Zachary Ferguson M.D. ADMISSION DIAGNOSIS: - Cardiac 09 - Cardiac Disorders () coronary artery disease involving [place] coronary artery of [place] heart with gain pectoris with docu mented spasm. EATING: EATING - STEP 1: Does the patient require assistance when eating? Yes. EATING - STEP 2: Does the patient require the assistance of a helper? No, patient only requires an assistive device, O R s/he takes more than reasonable time to eat, OR there is a safety concern, OR s/he requires modifie d food consistency EATING - SCORE: 6-XIOMARA GROOMING: GROOMING - STEP 1: Does the patient require assistance when grooming? Yes. GROOMING - STEP 2: Does the patient require the assistance of a helper? Yes. GROOMING - STEP 3: How much assistance does the patient require from the helper? Only prior equipment preparation/set up from the helper GROOMING - SCORE: 5-SUP BATHING: Activity did not occur on this shift BATHING - SCORE: 0-UNK DRESSING - UPPER BODY: T-shirt/pullover shirt (four steps) ARTICLES SCORE Total number of steps: 4 DRESSING - UPPER BODY - STEP 1: Does the patient require help when dressing above the waist? Yes. DRESSING - UPPER BODY - STEP 2: Does the patient require the assistance of a helper? Yes. DRESSING - UPPER BODY - STEP 3: Does the helper touch the patient while dressing? No. DRESSING - UPPER BODY - SCORE: 5-SUP DRESSING - LOWER BODY: Elastic waist pants (three steps) Slip-on shoe - Left foot (one step) Slip-on shoe - Right foot (one step) Underwear (three steps) ARTICLES SCORE Total number of steps: 8 DRESSING - LOWER BODY - STEP 1: Does the patient require help when dressing below the waist? Yes. DRESSING - LOWER BODY - STEP 2: Does the patient require the assistance of a helper? Yes. DRESSING - LOWER BODY - STEP 3: Does the helper touch the patient while dressing? Yes. DRESSING - LOWER BODY - STEP 4: How many of the total steps does the patient complete on his/her own? 4 DRESSING - LOWER BODY - SCORE: 3-MOD TOILETING: TOILETING - STEP 1: Does the patient require assistance with toileting? Yes. TOILETING - STEP 2: Does the patient require the assistance of a helper? Yes. TOILETING - STEP 3: How much assistance does the patient require from the helper? Hands-on assistance from the helper TOILETING - STEP 4: Of the 3 tasks: 1) Adjusting clothing prior to use, 2) Cleansing of perineal area, 3) Adjusting clot jj after use; How many tasks does the patient perform WITHOUT assistance of the helper? Three tasks with steadying assistance from the helper TOILETING - SCORE: 4-MIN BLADDER MANAGEMENT: BLADDER MANAGEMENT - STEP 1: Does the patient control the bladder completely and intentionally without equipment or devices or med ications, and is always continent? No. BLADDER MANAGEMENT - STEP 2: Does the patient require the assistance of a helper? Yes. BLADDER MANAGEMENT - STEP 3: How much assistance does the patient require from the helper? Only set-up of equipment - such as plac ing it within reach of the patient or emptying a device - to maintain either satisfactory voiding pat tern or managing an external device, such as an absorbent pad, ileal device, or catheter BLADDER MANAGEMENT - SCORE: 5-SUP BLADDER MANAGEMENT - FREQUENCY OF ACCIDENTS: BLADDER MANAGEMENT(FA) - STEP 1: How many accidents has the patient had during the current shift? 0 BOWEL MANAGEMENT: Activity did not occur on this shift BOWEL MANAGEMENT - SCORE: 7-IND BOWEL MANAGEMENT - FREQUENCY OF ACCIDENTS: BOWEL MANAGEMENT(FA) - STEP 1: How many accidents has the patient had during the current shift? 0 TRANSFERS: BED, CHAIR, WHEELCHAIR: TRANSFERS: BED, CHAIR, WHEELCHAIR - STEP 1: Does the patient require assistance with bed, chair, or wheelchair transfers? Yes. TRANSFERS: BED, CHAIR, WHEELCHAIR - STEP 2: Does the patient require the assistance of a helper? Yes. TRANSFERS: BED, CHAIR, WHEELCHAIR - STEP 3: How much assistance does the patient require from the helper? Only supervision TRANSFERS: BED, CHAIR, WHEELCHAIR - SCORE: 5-SUP TRANSFERS: TOILET: TRANSFERS: TOILET - STEP 1: Does the patient require assistance with toilet transfers? Yes. TRANSFERS: TOILET - STEP 2: Does the patient require the assistance of a helper? Yes. TRANSFERS: TOILET - STEP 3: How much assistance does the patient require from the helper? Only supervision, cuing, coaxing, OR he lp to set out transfer equipment or to lock brakes and/or lift foot rests TRANSFERS: TOILET - SCORE: 5-SUP TRANSFERS: SHOWER: Activity did not occur on this shift TRANSFERS: SHOWER - SCORE: 0-UNK TRANSFERS: TUB: Activity did not occur on this shift TRANSFERS: TUB - SCORE: 0-UNK LOCOMOTION: WALK: Activity did not occur on this shift LOCOMOTION: WALK - SCORE: 0-UNK LOCOMOTION: WHEELCHAIR: Activity did not occur on this shift LOCOMOTION: WHEELCHAIR - SCORE: 0-UNK LOCOMOTION: WHEELCHAIR - COMMENTS: Sternal precautions-pt does not roll w/c with his hands COMPREHENSION: COMPREHENSION: TYPE: Both COMPREHENSION - STEP 1: Does the patient require help to understand complex and abstract ideas (such as current events, finan elkin, discharge planning, medical issues, relationships, etc)? No. COMPREHENSION - STEP 2: Does the patient need extra time, require an assistive device (such as glasses, hearing aids, or an a ugmentative communication system), OR does s/he have mild difficulty expressing complex and abstract ideas (including mild dysarthria or mild word-finding problems)? Yes. COMPREHENSION - SCORE: 6-XIOMARA EXPRESSION EXPRESSION: TYPE: Both EXPRESSION - STEP 1: Does the patient require help expressing complex and abstract ideas (such as current events, finances , discharge planning, medical issues, relationships, etc)? No. EXPRESSION - STEP 2: Does the patient need extra time, require an assistive device (such as augmentive communication syste m or a communication board), OR does s/he have mild difficulty expressing complex and abstract ideas (including mild dysarthria or mild word-find problems)? Yes. EXPRESSION - SCORE: 6-XIOMARA SOCIAL INTERACTION: SOCIAL INTERACTION - STEP 1: Does the patient require a helper to interact with others in social and therapeutic situations? No. SOCIAL INTERACTION - STEP 2: Does the patient need extra time in social situations, OR does s/he interact with staff, other patien ts, and family members ONLY in structured environments, OR does s/he require medication for social in teraction? Yes, patient needs extra time SOCIAL INTERACTION - SCORE: 6-XIOMARA PROBLEM SOLVING: PROBLEM SOLVING - STEP 1: Does the patient need help to solve complex problems such as managing a checking account or confronti ng interpersonal problems? No. PROBLEM SOLVING - STEP 2: Does the patient require extra time to make decisions or solve problems, OR does s/he have slight dif ficulty reading, initiating, or self-correcting in unfamiliar situations? Yes, patient needs extra ti me. PROBLEM SOLVING - SCORE: 6-XIOMARA MEMORY: MEMORY - STEP 1: Does the patient need help to remember frequently encountered people, daily routines, and executing r equests? No. MEMORY - STEP 2: Does the patient have slight difficulty recognizing frequently encountered people, daily routines, or executing requests without the need for repetition or using self-initiated or environmental cues to remember? Yes. MEMORY - SCORE: 6-XIOMARA SIGNATURE PANEL: The following modified sections: Eating - Score, Grooming - Score, Bathing - Score, Dressing - Upper Body - Score, Dressing - Lower Body - Score, Toileting - Score, Bladder Management - Score, Bowel Man agement - Score, Transfers: Bed, Chair, Wheelchair - Score, Transfers: Toilet - Score, Transfers: Cristina wer - Score, Transfers: Tub - Score, Locomotion: Walk - Score, Locomotion: Wheelchair - Score, Locomo tion: Wheelchair - Comments:, Comprehension - Score, Expression - Score, Social Interaction - Score, Problem Solving - Score, Memory - Score were [electronically] signed by Dari Alvarez C.N.A. on Thu 13:31:28 T-0500 (Central Daylight Time)
--- NOTE | 2018-03-11 15:33 | FAST ---
ENCOUNTER DATE AND TIME: 03/11/2018 08:00 (CDT) NAME BRIANNA CRAWFORD DATE OF : 1945 DATE OF ADMISSION: 03/01/2018 20:00 (CDT) PHONE: AGE: 72 N# [id number] GENDER: Male ENCOUNTER PHYSICIAN: Dr. Zachary Ferguson M.D. ADMISSION DIAGNOSIS: - Cardiac 09 - Cardiac Disorders () coronary artery disease involving [place] coronary artery of [place] heart with gain pectoris with docu mented spasm. EATING: Activity did not occur on this shift EATING - SCORE: 0-UNK GROOMING: Activity did not occur on this shift GROOMING - SCORE: 0-UNK BATHING: Activity did not occur on this shift BATHING - SCORE: 0-UNK DRESSING - UPPER BODY: Activity did not occur on this shift ARTICLES SCORE Total number of steps: 0 DRESSING - UPPER BODY - SCORE: 0-UNK DRESSING - LOWER BODY: Activity did not occur on this shift ARTICLES SCORE Total number of steps: 0 DRESSING - LOWER BODY - SCORE: 0-UNK TOILETING: TOILETING - STEP 1: Does the patient require assistance with toileting? Yes. TOILETING - STEP 2: Does the patient require the assistance of a helper? No. TOILETING - SCORE: 6-XIOMARA BLADDER MANAGEMENT: Activity did not occur on this shift BLADDER MANAGEMENT - SCORE: 7-IND BOWEL MANAGEMENT: Activity did not occur on this shift BOWEL MANAGEMENT - SCORE: 7-IND TRANSFERS: BED, CHAIR, WHEELCHAIR: Activity did not occur on this shift TRANSFERS: BED, CHAIR, WHEELCHAIR - SCORE: 0-UNK TRANSFERS: TOILET: TRANSFERS: TOILET - STEP 1: Does the patient require assistance with toilet transfers? Yes. TRANSFERS: TOILET - STEP 2: Does the patient require the assistance of a helper? No. Patient only requires an assistive device sal ch as a grab bar or special seat, OR s/he takes more than reasonable time to perform toilet transfers , OR there is a safety concern when s/he performs toilet transfers. TRANSFERS: TOILET - SCORE: 6-XIOMARA TRANSFERS: SHOWER: Activity did not occur on this shift TRANSFERS: SHOWER - SCORE: 0-UNK TRANSFERS: TUB: Activity did not occur on this shift TRANSFERS: TUB - SCORE: 0-UNK LOCOMOTION: WALK: Activity did not occur on this shift LOCOMOTION: WALK - SCORE: 0-UNK LOCOMOTION: WHEELCHAIR: Activity did not occur on this shift LOCOMOTION: WHEELCHAIR - SCORE: 0-UNK LOCOMOTION: STAIRS: Activity did not occur on this shift LOCOMOTION: STAIRS - SCORE: 0-UNK COMPREHENSION: COMPREHENSION - SCORE: 0-UNK EXPRESSION EXPRESSION - SCORE: 0-UNK SOCIAL INTERACTION: SOCIAL INTERACTION - SCORE: 0-UNK PROBLEM SOLVING: PROBLEM SOLVING - SCORE: 0-UNK MEMORY: MEMORY - SCORE: 0-UNK SIGNATURE PANEL: The following modified sections: Eating - Score, Grooming - Score, Bathing - Score, Dressing - Upper Body - Score, Dressing - Lower Body - Score, Toileting - Score, Transfers: Bed, Chair, Wheelchair - S core, Transfers: Toilet - Score, Transfers: Shower - Score, Transfers: Tub - Score, Comprehension - S core, Expression - Score, Social Interaction - Score, Problem Solving - Score, Memory - Score were [e lectronically] signed by CHRISTOFER Potter on ThuMar 11 2018 15:33:15 T-0500 ([facility] Time)
--- NOTE | 2018-03-11 16:49 | P.PN ---
Date of Service: 03/11/18 Mr. Ramos has no new complaints. He is doing well with physical and occupational therapy. However, he exhibits oxygen desaturation to 87% with physical exertion. His oxygen saturation levels improve to normal ranges when he is supplemented with 2 L of oxygen via nasal cannula during activity. At rest , his oxygen saturation ranges from 92-97% without oxygen supplementation. Mr. Ramos would benefit from supplemental oxygen at home to improve his oxygen saturation while active.
--- NOTE | 2018-03-11 18:44 | R.PN ---
ENCOUNTER DATE AND TIME: 03/11/2018 18:42 (CDT) NAME BRIANNA CRAWFORD DATE OF : 1945 DATE OF ADMISSION: 03/01/2018 20:00 (CDT) coronary artery disease involving [place] coronary artery of [place] heart with gain pectoris with docu mented spasmCHIEF COMPLAINT: Cardiac debility, status post CABG. SUBJECTIVE: Pt denied any Shortness of Breath. Pt denied any depression. VITAL SIGNS Temperature: 98.4 F SBP/DBP: 119/68 Pulse: 69 Resp: 16 Ambulated 420' with modified independence using a rolling walker. Used 2L of O2 by nasal cannulae an d O2 saturation 93-96%. Up and down 12 steps with contact guard assistance. MEDICATION ALLERGIES: No Known Drug Allergies (NKDA) ENVIRONMENTAL ALLERGIES: - Substance Allergies None Known - Other Allergies None Known NURSING: - Shower allowing shower ACTIVITIES OOB only with supervision THERAPIES: - Occupational Therapy Evaluate and Treat. - Physical Therapy Evaluate and Treat. PHYSICAL EXAM - Gen Alert and awake Lying in bed No apparent distress Oriented to: person, time, and place - Skin LLE incisions intact Normacephalic - Eyes No abnormalities - ENMT No abnormalities - Neck No abnormalities - CVS RRR - Chest No abnormalities - Abd Soft - GI Non distended Deferred - No abnormalities - Ext Moderate 3+ edema in the lower extremities. - MSK 4+/5 weakness in both lower extremities. - Neuro 4/5 strength bilaterally lower extremities. - Psych No abnormalities ASSESSMENT: Pt. is a 72 yo Right-handed black male.On 02/15/2018 he was admitted to [facility] with diagnosi s coronary artery disease involving [place] coronary artery of [place] heart with gain pectoris with do cumented spasm.His impairment category is Cardiac 09 - Cardiac Disorders (09).Pre-morbidly, Pt. was independent/mod-I in Self-Care, Sphincter Control, Transfers Control, Communication, Social Cognition , and Locomotion; and he had good Sphincter Control.Currently, he has deficits of Transfers Control, Communication, Social Cognition, Endurance, Balance, Safety Awareness, Locomotion, and Self-Care.Pt. is now referred to [facility] for acute in-patient rehabilitation in order to maximize patient's functional independence in activities of daily living, strength, ROM, and mobility .- Rehab Goal Patient has realistic goal of being discharged at assistance level 6-Adelia to reside at Home with Fam trinidad/Relatives. MDM/PLAN: - Physical Therapy Gait dysfunction - to improve, our physical therapists will perform initial evaluation of pt's statu s upon admission and devise an individualized program for Gait Training, and Wheel Chair mobility Inability to transfer - to improve, our physical therapists will perform initial evaluation of pt's status upon admission and devise an individualized program for Bed mobility Need for home safety evaluation - to improve, our physical therapists will perform initial evaluatio n of pt's status upon admission and devise an individualized program for Home Evaluation Need in caregiver upon discharge - to improve, our physical therapists will perform initial evaluati on of pt's status upon admission and devise an individualized program for Caregiver Training New precaution - to improve, our physical therapists will perform initial evaluation of pt's status upon admission and devise an individualized program for Patient precaution education Edema - to improve, our physical therapists will perform initial evaluation of pt's status upon admi ssion and devise an individualized program for Elevation Training, and Lymphedema Therapy Poor balance - to improve, our physical therapists will perform initial evaluation of pt's status up on admission and devise an individualized program for Balance Training Poor endurance - to improve, our physical therapists will perform initial evaluation of pt's status upon admission and devise an individualized program for Endurance Training Weakness - to improve, our physical therapists will perform initial evaluation of pt's status upon a dmission and devise an individualized program for Aquatic Therapy, Neuromuscular Reeducation, and Str engthening Achieving independence - to improve, our physical therapists will perform initial evaluation of pt's status upon admission and devise an individualized program for Community Reintegration Activities - Occupational Therapy ADL deficits - to improve, our occupation therapists will perform initial evaluation of pt's status upon admission and devise an individualized program for Bathing, Bed mobility, Community Reintegratio n, Cooking, Dressing, Eating, Fine Motor Skills, Grooming, Homemaking, Kitchen Mobility, Laundry, Pat ient Education, Safety Awareness, Splinting - Positioning, Transfers(Toilet, Tub, Shower), and Wheel Chair Management Cognitive deficits - to improve, our occupation therapists will perform initial evaluation of pt's s tatus upon admission and devise an individualized program for Cognition - orientation Need for long term care pharmacist - to improve, our occupation therapists will perform initial evaluation of pt's status upon admission and devise an individualized program for Caregiver Training Weakness - to improve, our occupation therapists will perform initial evaluation of pt's status upon admission and devise an individualized program for Aquatic Therapy, Balance, Endurance, UE ROM, and UE strengthening - Diet Type Continue Regular - Diet - Liquid Texture Continue Regular - Tube Feed Continue N/A - Diet - Solid Texture Continue Regular - Shower allowing shower FUNCTIONAL STATUS: UPDATED AT WEEKLY TEAM CONFERENCE - Bladder Same accident frequency: 7-Ind - No accidents in the past 7 days - Bowel Same accident frequency: 7-Ind - No accidents in the past 7 days - Walking Same score based on distance walked: 3(>=150ft) FUNCTIONAL STATUS: - Self-Care A. Eating Ind B. Grooming Ind C. Bathing Ind D. Dressing - Upper sup E. Dressing - Lower modA F. Toileting modA - Sphincter Control G: Bladder control Ind H: Bowel control Ind - Transfers Control I. Bed/Chair/Wheelchair modA J. Toilet modA K. Tub/Shower modA - Locomotion L. Walk/Wheelchair (B) maxA M. Stairs ADNO - Communication N. Comprehension (B) sup O. Expression (B) sup - Social Cognition P. Social Interaction sup Q. Problem Solving sup R. Memory sup - Endurance Fair - Balance Fair - Safety Awareness Fair [facility] Transfers Control, Communication, Social Cognition, Endurance, Balance, Safety Awareness, Locomotion, and Self-Care SIGNATURE PANEL: (CDT)
[2018-03-11] MEDS: ATORVASTATIN 80 MG TAB PO SCH (20:22)
[2018-03-11] MEDS: DOCUSATE NA/SENNA CONC 1 TAB PO SCH (20:23)
[2018-03-11 21:13] VITALS: O2SAT 98
--- NOTE | 2018-03-12 01:49 | FAST ---
SHIFT START DATE/TIME: 03/11/2018 19:00 (CDT) SHIFT END DATE/TIME: 03/12/2018 07:00 (CDT) NAME BRIANNA CRAWFORD DATE OF : 1945 DATE OF ADMISSION: 03/01/2018 20:00 (CDT) PHONE: AGE: 72 N# [id number] GENDER: Male ENCOUNTER PHYSICIAN: Dr. Zachary Ferguson M.D. ADMISSION DIAGNOSIS: - Cardiac 09 - Cardiac Disorders (09) coronary artery disease involving [place] coronary artery of [place] heart with gain pectoris with docu mented spasm. EATING: Activity did not occur on this shift EATING - SCORE: 0-UNK GROOMING: Activity did not occur on this shift GROOMING - SCORE: 0-UNK BATHING: Activity did not occur on this shift BATHING - SCORE: 0-UNK DRESSING - UPPER BODY: Patient is not dressing in public clothing ARTICLES SCORE Total number of steps: 0 DRESSING - UPPER BODY - SCORE: 0-UNK DRESSING - LOWER BODY: Patient is not dressing in public clothing ARTICLES SCORE Total number of steps: 0 DRESSING - LOWER BODY - SCORE: 0-UNK TOILETING: TOILETING - STEP 1: Does the patient require assistance with toileting? Yes. TOILETING - STEP 2: Does the patient require the assistance of a helper? Yes. TOILETING - STEP 3: How much assistance does the patient require from the helper? Only supervision TOILETING - SCORE: 5-SUP BLADDER MANAGEMENT: BLADDER MANAGEMENT - STEP 1: Does the patient control the bladder completely and intentionally without equipment or devices or med ications, and is always continent? Yes. BLADDER MANAGEMENT - SCORE: 7-IND BOWEL MANAGEMENT: Activity did not occur on this shift BOWEL MANAGEMENT - SCORE: 7-IND TRANSFERS: BED, CHAIR, WHEELCHAIR: Activity did not occur on this shift TRANSFERS: BED, CHAIR, WHEELCHAIR - SCORE: 0-UNK TRANSFERS: TOILET: Activity did not occur on this shift TRANSFERS: TOILET - SCORE: 0-UNK TRANSFERS: SHOWER: Activity did not occur on this shift TRANSFERS: SHOWER - SCORE: 0-UNK TRANSFERS: TUB: Activity did not occur on this shift TRANSFERS: TUB - SCORE: 0-UNK LOCOMOTION: WALK: Activity did not occur on this shift LOCOMOTION: WALK - SCORE: 0-UNK LOCOMOTION: WHEELCHAIR: Activity did not occur on this shift LOCOMOTION: WHEELCHAIR - SCORE: 0-UNK COMPREHENSION: COMPREHENSION - STEP 1: Does the patient require help to understand complex and abstract ideas (such as current events, finan elkin, discharge planning, medical issues, relationships, etc)? No. COMPREHENSION - STEP 2: Does the patient need extra time, require an assistive device (such as glasses, hearing aids, or an a ugmentative communication system), OR does s/he have mild difficulty expressing complex and abstract ideas (including mild dysarthria or mild word-finding problems)? Yes. COMPREHENSION - SCORE: 6-XIOMARA EXPRESSION EXPRESSION - STEP 1: Does the patient require help expressing complex and abstract ideas (such as current events, finances , discharge planning, medical issues, relationships, etc)? No. EXPRESSION - STEP 2: Does the patient need extra time, require an assistive device (such as augmentive communication syste m or a communication board), OR does s/he have mild difficulty expressing complex and abstract ideas (including mild dysarthria or mild word-find problems)? No. EXPRESSION - SCORE: 7-IND SOCIAL INTERACTION: SOCIAL INTERACTION - STEP 1: Does the patient require a helper to interact with others in social and therapeutic situations? No. SOCIAL INTERACTION - STEP 2: Does the patient need extra time in social situations, OR does s/he interact with staff, other patien ts, and family members ONLY in structured environments, OR does s/he require medication for social in teraction? Yes, patient needs extra time SOCIAL INTERACTION - SCORE: 6-XIOMARA PROBLEM SOLVING: PROBLEM SOLVING - STEP 1: Does the patient need help to solve complex problems such as managing a checking account or confronti ng interpersonal problems? No. PROBLEM SOLVING - STEP 2: Does the patient require extra time to make decisions or solve problems, OR does s/he have slight dif ficulty reading, initiating, or self-correcting in unfamiliar situations? Yes, patient needs extra ti me. PROBLEM SOLVING - SCORE: 6-XIOMARA MEMORY: MEMORY - STEP 1: Does the patient need help to remember frequently encountered people, daily routines, and executing r equests? No. MEMORY - STEP 2: Does the patient have slight difficulty recognizing frequently encountered people, daily routines, or executing requests without the need for repetition or using self-initiated or environmental cues to remember? Yes. MEMORY - SCORE: 6-XIOMARA SIGNATURE PANEL: The following modified sections: Eating - Score, Grooming - Score, Dressing - Upper Body - Score, Vince ssing - Lower Body - Score, Toileting - Score, Bladder Management - Score, Bowel Management - Score, Transfers: Bed, Chair, Wheelchair - Score, Transfers: Toilet - Score, Transfers: Shower - Score, Koroma sfers: Tub - Score, Locomotion: Walk - Score, Locomotion: Wheelchair - Score, Comprehension - Score, Expression - Score, Social Interaction - Score, Problem Solving - Score, Memory - Score were [electro nically] signed by Ariella Reveles CNA on ThuMar 12 2018 01:48:23 GMT-0500 (Central Daylight Time)
[2018-03-12] MEDS: METOPROLOL TAR 25 MG TAB PO SCH (05:18)
[2018-03-12 05:39] VITALS: BMI 41.8
[2018-03-12] MEDS: PANTOPRAZOLE 40MG TABLET PO SCH (06:27)
[2018-03-12] MEDS: MUPIROCIN 2% OINT 22GM TUBE TOP SCH (07:26)
[2018-03-12] MEDS: FUROSEMIDE 20 MG TABLET PO SCH (08:00)
[2018-03-12] MEDS: POTASSIUM 25 MEQ EFFERV TAB PO SCH (08:35)
[2018-03-12] MEDS: ACETAMINOPHEN 325 MG TABLET PO PRN (08:36)
[2018-03-12] MEDS: GABAPENTIN 300 MG CAP PO SCH (08:37)
[2018-03-12] MEDS: APIXABAN 2.5 MG TABLET PO SCH (08:37)
[2018-03-12] MEDS: ASPIRIN 81 MG CHEWABLE TABLET PO SCH (08:37)
[2018-03-12] MEDS: FERROUS SULFATE 325 MG TAB PO SCH (08:37)
[2018-03-12] MEDS: FE SULF/FA/VIT B COMP & C TAB PO SCH (08:37)
[2018-03-12] MEDS: ALLOPURINOL 100 MG TAB PO SCH (08:37)
[2018-03-12] MEDS: CLOPIDOGREL 75 MG TABLET PO SCH (08:37)
[2018-03-12] MEDS: CRANBERRY FRUIT EXTRACT 200 MG CAP PO SCH (08:38)
[2018-03-12] MEDS: SPIRONOLACTONE 25 MG TABLET PO SCH (08:38)
[2018-03-12 08:39] VITALS: BP 91/69
[2018-03-12] MEDS: PROMOD 30 ML DOSE PO SCH (08:39)
[2018-03-12 09:39] VITALS: TEMP 96.9
--- NOTE | 2018-03-12 09:45 | P.RH.PN ---
Estimated Length of Stay: 11 Expected Discharge Date: 03/12/18 Discharge Disposition Plan: Home Family Support: Yes Penitentiary Goal: Mobility, Transfers, Self Care Vital Signs: Last Vital Signs Temp 96.9 F 03/12/18 07:30 Pulse 66 03/12/18 08:38 Resp 18 03/12/18 07:30 BP 91/69 03/12/18 08:38 Pulse Ox 99 03/12/18 07:30 Laboratory: Laboratory Last Values WBC 8.8 K/uL (4.3-10.9) D 03/11/18 05:26 RBC 3.09 M/uL (4.33-5.43) L 03/11/18 05:26 Hgb 9.5 g/dL (13.6-17.9) L 03/11/18 05:26 Hct 29.8 % (39.6-49.0) L 03/11/18 05:26 MCV 96.2 fL (80-100) 03/11/18 05:26 MCH 30.6 pg (27.0-35.0) 03/11/18 05:26 MCHC 31.8 g/dL (32.0-36.0) L 03/11/18 05:26 RDW 17.9 % (12.1-15.2) H 03/11/18 05:26 Plt Count 252 K/uL (152-406) 03/11/18 05:26 MPV 9.5 fL (7.6-11.3) 03/11/18 05:26 Neutrophils % 62.9 % (41.7-73.7) 03/11/18 05:26 Lymphocytes % 16.8 % (15.3-44.8) 03/11/18 05:26 Monocytes % 10.4 % (3.3-12.3) 03/11/18 05:26 Eosinophils % 9.2 % (0-4.4) H 03/11/18 05:26 Basophils % 0.7 % (0-1.3) 03/11/18 05:26 Absolute Neutrophils 5.5 K/uL (1.8-8.0) 03/11/18 05:26 Segmented Neutrophils 66 % (40-80) 03/04/18 06:00 Band Neutrophils 1 % (0-1) 03/04/18 06:00 Absolute Lymphocytes 1.5 K/uL (0.7-4.9) 03/11/18 05:26 Lymphocytes 19 % (15-42) 03/04/18 06:00 Monocytes 13 % (0-10) H 03/04/18 06:00 Absolute Monocytes 0.9 K/uL (0.1-1.3) 03/11/18 05:26 Eosinophils 1 % (0-3) 03/04/18 06:00 Absolute Eosinophils 0.8 K/uL (0-0.5) H 03/11/18 05:26 Absolute Basophils 0.1 K/uL (0-0.5) 03/11/18 05:26 Nucleated RBCs 1 /100WBC 03/04/18 06:00 Polychromasia 2+ 03/04/18 06:00 Poikilocytosis 1+ 03/03/18 09:25 Anisocytosis 2+ 03/04/18 06:00 Morphology Comment Noted (NOT SEEN) 03/04/18 06:00 pH 7.45 (7.35-7.45) 03/07/18 11:10 pCO2 59.9 mmHG (35-45) H 03/07/18 11:10 pO2 84.9 mmHG (75-100) 03/07/18 11:10 HCO3 41.1 mmol/L (22-28) H 03/07/18 11:10 Base Excess 15.9 mmol/L 03/07/18 11:10 Oxyhemoglobin 93.6 % (94-97) L 03/07/18 11:10 ABG O2 Sat (Measured) 96.9 % (92-98.5) 03/07/18 11:10 ABG Carboxyhemoglobin 3.1 % (0-1.5) H 03/07/18 11:10 ABG Methemoglobin 0.3 % (0-1.5) 03/07/18 11:10 Other Total Hgb 8.8 g/dl (12-18) L 03/07/18 11:10 Inspired O2 28.0 % 03/07/18 11:10 Sodium 142 mmol/L (136-145) 03/11/18 05:26 Potassium 4.5 mmol/L (3.5-5.1) 03/11/18 05:26 Chloride 101 mmol/L (98-107) 03/11/18 05:26 Carbon Dioxide 41 mmol/L (21-32) H* 03/11/18 05:26 BUN 11 mg/dL (7-18) 03/11/18 05:26 Creatinine 0.70 mg/dL (0.55-1.3) 03/11/18 05:26 Estimated GFR > 90 mL/min (=/>90) 03/11/18 05:26 Glucose 101 mg/dL (74-106) 03/11/18 05:26 Lactic Acid 2.1 mmol/L (0.4-2.0) H 03/03/18 12:20 Calcium 8.7 mg/dL (8.5-10.1) 03/11/18 05:26 Magnesium 2.3 mg/dL (1.8-2.4) 03/11/18 05:26 Total Bilirubin 0.6 mg/dL (0.2-1.0) 03/03/18 09:25 AST 41 U/L (15-37) H 03/03/18 09:25 ALT 26 U/L (12-78) 03/03/18 09:25 Alkaline Phosphatase 71 U/L (45-117) 03/03/18 09:25 Serum Total Protein 7.3 g/dL (6.4-8.2) 03/03/18 09:25 Albumin 2.6 g/dL (3.4-5.0) L 03/11/18 05:26 Globulin 4.8 g/dL (2.3-3.5) H 03/03/18 09:25 Albumin/Globulin Ratio 0.5 (1.1-1.8) L 03/03/18 09:25 Prealbumin 15.4 mg/dL (20-40) L 03/11/18 05:26 Procalcitonin < 0.05 ng/mL (<0.50) 03/03/18 12:20 Urine Color Dk yellow 03/01/18 21:00 Urine Appearance Clear 03/01/18 21:00 Urine pH 7.0 (5.0-7.0) 03/01/18 21:00 Ur Specific Stacy 1.015 (1.005-1.030) 03/01/18 21:00 Urine Ketones Negative (NEG) 03/01/18 21:00 Urine Blood Negative (NEG) 03/01/18 21:00 Urine Nitrite Negative (NEG) 03/01/18 21:00 Urine Bilirubin Negative (NEG) 03/01/18 21:00 Urine Urobilinogen 2.0 mg/dL (0.2-1.0) H 03/01/18 21:00 Ur Leukocyte Esterase Negative (NEG) 03/01/18 21:00 Urine RBC None seen /HPF (NONE SEEN) 03/01/18 21:00 Urine WBC <5 /HPF (<5) 03/01/18 21:00 Ur Squamous Epith Cells <5 /HPF (NONE SEEN) 03/01/18 21:00 Urine Bacteria <20 /HPF (NONE SEEN) 03/01/18 21:00 Urine Culture Reflexed Not needed 03/01/18 21:00 Urine Glucose Negative (NEG) 03/01/18 21:00 Urine Total Protein Trace (NEG) 03/01/18 21:00 Weight: 271 lb 4 oz Wound Present: No Closed Surgical Incision Present: Yes Negative Pressure Wound Therapy Present: No Physician Update: He is doing well with physical and occupational but had mild decrease in O2 sat on 2L of 87%. He will go home with O2. He is modified independent with speech therapy. He will be discharged with outpatient cardiac rehab and followup with Dr. Sarbjit Fisher. Medical Issues: Pain on Left Knee - venous doppler US negative for DVT Pain Issues: Tylenol 650mg Q6H PRN. [place] 5/325mg Q4H PRN Functional Improvement: pt is demonstrating good progress toward functional goals. pt able to safely ambulate with Fabiana as well as perform all functional transfers. pt requires further training with car transfers. Functional Improvement Occupational Therapy: pt can benifit with further therapy to address pt's endurance and activity tolerance due to pt's sternal precautions. cont to educate and train the pt on safety awareness and energy conservation techniques for adl and for functional tasks. Cont with educating and training the pt on using A/E as needed for LB dressing tasks. Cont with the POC and the goals by the supervising OTR. Speech Therapy Update: MBSS was complete on 03/05/18 and showed oropharyngeal dysphagia resulting in deep, uncleared penetrations with thin liquid (SILENT). Patient is currently on a regular diet with nectar thick liquids for reduced risk of aspiration. Swallow precautions are as follows: seating @ 90 degrees, small bites/sips, slow rate for intake, swallow twice, alternate liquids and solids , and crush meds. Patient has not been appropriate for advancement to thin liquids with a chin tuck as he is unable to execute maneuver effectively and consistently. Receptive language SKills are at MIN A level and verbal Expression is at MOD A level. Patient is using speech strategies and has improved speech intelligibility from approx 25% to 65% with MOD Cues in short words and phrases. Cognitive/linguistic skills (Memory, Problem solving) are improved from MOD A to MIN A. Summary: Patient's care plan and nursing home goals have been reviewed and revised as necessary. Please see the Rehabilitation Signature page for all necessary signatures.
--- NOTE | 2018-03-12 13:49 | FAST ---
SHIFT START DATE/TIME: 03/12/2018 07:00 (CDT) SHIFT END DATE/TIME: 03/12/2018 19:00 (CDT) NAME BRIANNA CRAWFORD DATE OF : 1945 DATE OF ADMISSION: 03/01/2018 20:00 (CDT) PHONE: AGE: 72 N# [id number] GENDER: Male ENCOUNTER PHYSICIAN: Dr. Zachary Ferguson M.D. ADMISSION DIAGNOSIS: - Cardiac 09 - Cardiac Disorders (09) coronary artery disease involving [place] coronary artery of [place] heart with gain pectoris with docu mented spasm. EATING: EATING - STEP 1: Does the patient require assistance when eating? No. EATING - SCORE: 7-IND GROOMING: Wash, rinse, and dry face GROOMING - STEP 1: Does the patient require assistance when grooming? Yes. GROOMING - STEP 2: Does the patient require the assistance of a helper? Yes. GROOMING - STEP 3: How much assistance does the patient require from the helper? Only prior equipment preparation/set up from the helper GROOMING - SCORE: 5-SUP BATHING: Activity did not occur on this shift BATHING - SCORE: 0-UNK DRESSING - UPPER BODY: ARTICLES SCORE Total number of steps: 0 DRESSING - UPPER BODY - STEP 1: Does the patient require help when dressing above the waist? Yes. DRESSING - UPPER BODY - STEP 2: Does the patient require the assistance of a helper? Yes. DRESSING - UPPER BODY - STEP 3: Does the helper touch the patient while dressing? No. DRESSING - UPPER BODY - SCORE: 5-SUP DRESSING - LOWER BODY: Activity did not occur on this shift ARTICLES SCORE Total number of steps: 0 DRESSING - LOWER BODY - SCORE: 0-UNK TOILETING: TOILETING - STEP 1: Does the patient require assistance with toileting? No. TOILETING - SCORE: 7-IND BLADDER MANAGEMENT: BLADDER MANAGEMENT - STEP 1: Does the patient control the bladder completely and intentionally without equipment or devices or med ications, and is always continent? No. BLADDER MANAGEMENT - STEP 2: Does the patient require the assistance of a helper? No, patient requires and independently uses an a ssistive device, such as a urinal, bedpan, bedside commode, catheter, absorbent pad, or collecting de vice BLADDER MANAGEMENT - SCORE: 6-XI[place] BLADDER MANAGEMENT - FREQUENCY OF ACCIDENTS: BLADDER MANAGEMENT(FA) - STEP 1: How many accidents has the patient had during the current shift? 1 BOWEL MANAGEMENT: BOWEL MANAGEMENT - STEP 1: Does the patient control bowels completely and intentionally without equipment devices or medications AND is always continent? Yes. BOWEL MANAGEMENT - SCORE: 7-IND BOWEL MANAGEMENT - FREQUENCY OF ACCIDENTS: BOWEL MANAGEMENT(FA) - STEP 1: How many accidents has the patient had during the current shift? 0 TRANSFERS: BED, CHAIR, WHEELCHAIR: TRANSFERS: BED, CHAIR, WHEELCHAIR - STEP 1: Does the patient require assistance with bed, chair, or wheelchair transfers? Yes. TRANSFERS: BED, CHAIR, WHEELCHAIR - STEP 2: Does the patient require the assistance of a helper? No. Patient only requires an assistive device fo r bed, chair, wheelchair transfers such as a sliding board, grab bar, or brace, OR s/he takes more th an reasonable time, OR there is a safety concern when s/he performs the transfers TRANSFERS: BED, CHAIR, WHEELCHAIR - SCORE: 6-XIOMARA TRANSFERS: TOILET: TRANSFERS: TOILET - STEP 1: Does the patient require assistance with toilet transfers? Yes. TRANSFERS: TOILET - STEP 2: Does the patient require the assistance of a helper? No. Patient only requires an assistive device sal ch as a grab bar or special seat, OR s/he takes more than reasonable time to perform toilet transfers , OR there is a safety concern when s/he performs toilet transfers. TRANSFERS: TOILET - SCORE: 6-XIOMARA TRANSFERS: SHOWER: Activity did not occur on this shift TRANSFERS: SHOWER - SCORE: 0-UNK TRANSFERS: TUB: Activity did not occur on this shift TRANSFERS: TUB - SCORE: 0-UNK LOCOMOTION: WALK: Activity did not occur on this shift LOCOMOTION: WALK - SCORE: 0-UNK LOCOMOTION: WHEELCHAIR: Activity did not occur on this shift LOCOMOTION: WHEELCHAIR - SCORE: 0-UNK COMPREHENSION: COMPREHENSION - SCORE: 0-UNK EXPRESSION EXPRESSION - SCORE: 0-UNK SOCIAL INTERACTION: SOCIAL INTERACTION - SCORE: 0-UNK PROBLEM SOLVING: PROBLEM SOLVING - SCORE: 0-UNK MEMORY: MEMORY - SCORE: 0-UNK SIGNATURE PANEL: The following modified sections: Eating - Score, Grooming - Score, Bathing - Score, Dressing - Upper Body - Score, Dressing - Lower Body - Score, Toileting - Score, Bladder Management - Score, Bowel Man agement - Score, Transfers: Bed, Chair, Wheelchair - Score, Transfers: Toilet - Score, Transfers: Cristina wer - Score, Transfers: Tub - Score, Locomotion: Walk - Score, Locomotion: Wheelchair - Score, Compre hension - Score, Expression - Score, Social Interaction - Score, Problem Solving - Score, Memory - Sc ore were [electronically] signed by Joya Martin CNA on ThuMar 12 2018 13:47:44 T-0500 (Centra l Daylight Time)
--- NOTE | 2018-03-12 14:42 | FAST ---
ENCOUNTER DATE AND TIME: 03/12/2018 08:00 (CDT) NAME BRIANNA CRAWFORD DATE OF : 1945 DATE OF ADMISSION: 03/01/2018 20:00 (CDT) PHONE: AGE: 72 N# [id number] GENDER: Male ENCOUNTER PHYSICIAN: Dr. Zachary Ferguson M.D. ADMISSION DIAGNOSIS: - Cardiac 09 - Cardiac Disorders (09) coronary artery disease involving [place] coronary artery of [place] heart with gain pectoris with docu mented spasm. EATING: Activity did not occur on this shift EATING - SCORE: 0-UNK GROOMING: Wash, rinse, and dry face Wash, rinse, and dry hands GROOMING - STEP 1: Does the patient require assistance when grooming? No. GROOMING - SCORE: 7-IND BATHING: Abdomen Buttocks Chest Left arm Left lower leg and foot Left upper leg Perineal area Right arm Right lower leg and foot Right upper leg BATHING - STEP 1: Does the patient require assistance when bathing? Yes. BATHING - STEP 2: Does the patient require the assistance of a helper? No. The patient only requires an assistive devic e such as a bath neeta, OR the patient takes more than reasonable time to bathe, OR there is a concern for safety such as regulating water temperature as the patient bathes. BATHING - SCORE: 6-XIOMARA DRESSING - UPPER BODY: T-shirt/pullover shirt (four steps) ARTICLES SCORE Total number of steps: 4 DRESSING - UPPER BODY - STEP 1: Does the patient require help when dressing above the waist? No. DRESSING - UPPER BODY - SCORE: 7-IND DRESSING - LOWER BODY: Elastic waist pants (three steps) Sock - Left foot (one step) Sock - Right foot (one step) Underwear (three steps) ARTICLES SCORE Total number of steps: 8 DRESSING - LOWER BODY - STEP 1: Does the patient require help when dressing below the waist? Yes. DRESSING - LOWER BODY - STEP 2: Does the patient require the assistance of a helper? Yes. DRESSING - LOWER BODY - STEP 3: Does the helper touch the patient while dressing? No. DRESSING - LOWER BODY - SCORE: 5-SUP DRESSING - LOWER BODY - COMMENTS: Pt required set-up with donning the left jackie hose. TOILETING: TOILETING - STEP 1: Does the patient require assistance with toileting? Yes. TOILETING - STEP 2: Does the patient require the assistance of a helper? No. TOILETING - SCORE: 6-[place] BLADDER MANAGEMENT: Activity did not occur on this shift BLADDER MANAGEMENT - SCORE: 7-IND BOWEL MANAGEMENT: Activity did not occur on this shift BOWEL MANAGEMENT - SCORE: 7-IND TRANSFERS: BED, CHAIR, WHEELCHAIR: Activity did not occur on this shift TRANSFERS: BED, CHAIR, WHEELCHAIR - SCORE: 0-UNK TRANSFERS: TOILET: TRANSFERS: TOILET - STEP 1: Does the patient require assistance with toilet transfers? Yes. TRANSFERS: TOILET - STEP 2: Does the patient require the assistance of a helper? No. Patient only requires an assistive device sal ch as a grab bar or special seat, OR s/he takes more than reasonable time to perform toilet transfers , OR there is a safety concern when s/he performs toilet transfers. TRANSFERS: TOILET - SCORE: 6-XIOMARA TRANSFERS: SHOWER: Activity did not occur on this shift TRANSFERS: SHOWER - SCORE: 0-UNK TRANSFERS: TUB: TRANSFERS: TUB - STEP 1: Does the patient require assistance with tub transfers? Yes. TRANSFERS: TUB - STEP 2: Does the patient require the assistance of a helper? No. Only requires the assistance of an assistive device, OR takes more than reasonable time, OR there is a concern for safety when s/he performs tub transfers TRANSFERS: TUB - SCORE: 6-XIOMARA LOCOMOTION: WALK: Activity did not occur on this shift LOCOMOTION: WALK - SCORE: 0-UNK LOCOMOTION: WHEELCHAIR: Activity did not occur on this shift LOCOMOTION: WHEELCHAIR - SCORE: 0-UNK LOCOMOTION: STAIRS: Activity did not occur on this shift LOCOMOTION: STAIRS - SCORE: 0-UNK COMPREHENSION: COMPREHENSION - STEP 1: Does the patient require help to understand complex and abstract ideas (such as current events, finan elkin, discharge planning, medical issues, relationships, etc)? No. COMPREHENSION - STEP 2: Does the patient need extra time, require an assistive device (such as glasses, hearing aids, or an a ugmentative communication system), OR does s/he have mild difficulty expressing complex and abstract ideas (including mild dysarthria or mild word-finding problems)? No. COMPREHENSION - SCORE: 7-IND EXPRESSION EXPRESSION: TYPE: Non-Vocal EXPRESSION - STEP 1: Does the patient require help expressing complex and abstract ideas (such as current events, finances , discharge planning, medical issues, relationships, etc)? No. EXPRESSION - STEP 2: Does the patient need extra time, require an assistive device (such as augmentive communication syste m or a communication board), OR does s/he have mild difficulty expressing complex and abstract ideas (including mild dysarthria or mild word-find problems)? No. EXPRESSION - SCORE: 7-IND SOCIAL INTERACTION: SOCIAL INTERACTION - STEP 1: Does the patient require a helper to interact with others in social and therapeutic situations? No. SOCIAL INTERACTION - STEP 2: Does the patient need extra time in social situations, OR does s/he interact with staff, other patien ts, and family members ONLY in structured environments, OR does s/he require medication for social in teraction? No. SOCIAL INTERACTION - SCORE: 7-IND PROBLEM SOLVING: PROBLEM SOLVING - STEP 1: Does the patient need help to solve complex problems such as managing a checking account or confronti ng interpersonal problems? No. PROBLEM SOLVING - STEP 2: Does the patient require extra time to make decisions or solve problems, OR does s/he have slight dif ficulty reading, initiating, or self-correcting in unfamiliar situations? No. PROBLEM SOLVING - SCORE: 7-IND MEMORY: MEMORY - STEP 1: Does the patient need help to remember frequently encountered people, daily routines, and executing r equests? No. MEMORY - STEP 2: Does the patient have slight difficulty recognizing frequently encountered people, daily routines, or executing requests without the need for repetition or using self-initiated or environmental cues to remember? No. MEMORY - SCORE: 7-IND SIGNATURE PANEL: The following modified sections: Eating - Score, Grooming - Score, Bathing - Score, Dressing - Upper Body - Score, Dressing - Lower Body - Score, Toileting - Score, Dressing - Lower Body - Comments:, Tr ansfers: Bed, Chair, Wheelchair - Score, Transfers: Toilet - Score, Transfers: Shower - Score, Transf ers: Tub - Score, Comprehension - Score, Expression - Score, Social Interaction - Score, Problem Solv ing - Score, Memory - Score were [electronically] signed by CHRISTOFER Potter on Thu 10 201 8 14:41:11 GMT-0500 (Central Daylight Time)
--- NOTE | 2018-03-12 14:47 | FAST ---
ENCOUNTER DATE AND TIME: 03/12/2018 08:00 (CDT) NAME BRIANNA CRAWFORD DATE OF : 1945 DATE OF ADMISSION: 03/01/2018 20:00 (CDT) PHONE: AGE: 72 N# [id number] GENDER: Male ENCOUNTER PHYSICIAN: Dr. Zachary Ferguson M.D. ADMISSION DIAGNOSIS: - Cardiac 09 - Cardiac Disorders (09) coronary artery disease involving [place] coronary artery of [place] heart with gain pectoris with docu mented spasm. EATING: Activity did not occur on this shift EATING - SCORE: 0-UNK GROOMING: Activity did not occur on this shift GROOMING - SCORE: 0-UNK BATHING: Activity did not occur on this shift BATHING - SCORE: 0-UNK DRESSING - UPPER BODY: Activity did not occur on this shift Patient is not dressing in public clothing ARTICLES SCORE Total number of steps: 0 DRESSING - UPPER BODY - SCORE: 0-UNK DRESSING - LOWER BODY: Activity did not occur on this shift Patient is not dressing in public clothing ARTICLES SCORE Total number of steps: 0 DRESSING - LOWER BODY - SCORE: 0-UNK TOILETING: Activity did not occur on this shift TOILETING - SCORE: 0-UNK BLADDER MANAGEMENT: Activity did not occur on this shift BLADDER MANAGEMENT - SCORE: 7-IND BOWEL MANAGEMENT: Activity did not occur on this shift BOWEL MANAGEMENT - SCORE: 7-IND TRANSFERS: BED, CHAIR, WHEELCHAIR: TRANSFERS: BED, CHAIR, WHEELCHAIR - STEP 1: Does the patient require assistance with bed, chair, or wheelchair transfers? Yes. TRANSFERS: BED, CHAIR, WHEELCHAIR - STEP 2: Does the patient require the assistance of a helper? No. Patient only requires an assistive device fo r bed, chair, wheelchair transfers such as a sliding board, grab bar, or brace, OR s/he takes more th an reasonable time, OR there is a safety concern when s/he performs the transfers TRANSFERS: BED, CHAIR, WHEELCHAIR - SCORE: 6-XIOMARA TRANSFERS: TOILET: Activity did not occur on this shift TRANSFERS: TOILET - SCORE: 0-UNK TRANSFERS: SHOWER: Activity did not occur on this shift TRANSFERS: SHOWER - SCORE: 0-UNK TRANSFERS: TUB: Activity did not occur on this shift TRANSFERS: TUB - SCORE: 0-UNK LOCOMOTION: WALK: LOCOMOTION: WALK - STEP 1: Does the patient need help to walk 150 feet? No. LOCOMOTION: WALK - STEP 2: Does the patient need an assistive device (such as an orthosis, prosthesis, crutches, or walker) to g o 150 feet, OR does s/he take more than reasonable time, OR is there a concern for safety? Yes, the p atient needs an assistive device LOCOMOTION: WALK - SCORE: 6-XIOMARA LOCOMOTION: WHEELCHAIR: Activity did not occur on this shift LOCOMOTION: WHEELCHAIR - SCORE: 0-UNK LOCOMOTION: STAIRS: LOCOMOTION: STAIRS - STEP 1: Does the patient need help to go up and down 12 to 14 stairs? No. LOCOMOTION: STAIRS - STEP 2: Does the patient require an assistive device - such as handrails or cane - to go up and down one flig ht of stairs, OR does s/he take more than reasonable time, OR is there a concern for safety? Yes, the patient requires an assistive device LOCOMOTION: STAIRS - SCORE: 6-[place] COMPREHENSION: COMPREHENSION - SCORE: 0-UNK EXPRESSION EXPRESSION - SCORE: 0-UNK SOCIAL INTERACTION: SOCIAL INTERACTION - SCORE: 0-UNK PROBLEM SOLVING: PROBLEM SOLVING - SCORE: 0-UNK MEMORY: MEMORY - SCORE: 0-UNK SIGNATURE PANEL: The following modified sections: Transfers: Bed, Chair, Wheelchair - Score, Transfers: Toilet - Score , Locomotion: Walk - Score, Locomotion: Wheelchair - Score, Locomotion: Stairs - Score were [electron baldev] signed by Raghu Mathew PT on ThuMar 12 2018 14:46:15 T-0500 (Central Daylight Time)
--- NOTE | 2018-03-15 14:41 | FAST ---
ENCOUNTER DATE AND TIME: 03/10/2018 08:00 (CDT) NAME BRIANNA CRAWFORD DATE OF : 1945 DATE OF ADMISSION: 03/01/2018 20:00 (CDT) PHONE: AGE: 72 N# [id number] GENDER: Male ENCOUNTER PHYSICIAN: Dr. Zachary Ferguson M.D. ADMISSION DIAGNOSIS: - Cardiac 09 - Cardiac Disorders (09) coronary artery disease involving [place] coronary artery of [place] with gain pectoris with docu mented spasm. EATING: Activity did not occur on this shift EATING - SCORE: 0-UNK GROOMING: Activity did not occur on this shift GROOMING - SCORE: 0-UNK BATHING: Activity did not occur on this shift BATHING - SCORE: 0-UNK DRESSING - UPPER BODY: Activity did not occur on this shift Patient is not dressing in public clothing ARTICLES SCORE Total number of steps: 0 DRESSING - UPPER BODY - SCORE: 0-UNK DRESSING - LOWER BODY: Activity did not occur on this shift Patient is not dressing in public clothing ARTICLES SCORE Total number of steps: 0 DRESSING - LOWER BODY - SCORE: 0-UNK TOILETING: Activity did not occur on this shift TOILETING - SCORE: 0-UNK BLADDER MANAGEMENT: Activity did not occur on this shift BLADDER MANAGEMENT - SCORE: 7-IND BOWEL MANAGEMENT: Activity did not occur on this shift BOWEL MANAGEMENT - SCORE: 7-IND TRANSFERS: BED, CHAIR, WHEELCHAIR: TRANSFERS: BED, CHAIR, WHEELCHAIR - STEP 1: Does the patient require assistance with bed, chair, or wheelchair transfers? Yes. TRANSFERS: BED, CHAIR, WHEELCHAIR - STEP 2: Does the patient require the assistance of a helper? No. Patient only requires an assistive device fo r bed, chair, wheelchair transfers such as a sliding board, grab bar, or brace, OR s/he takes more th an reasonable time, OR there is a safety concern when s/he performs the transfers TRANSFERS: BED, CHAIR, WHEELCHAIR - SCORE: 6-[place] TRANSFERS: TOILET: Activity did not occur on this shift TRANSFERS: TOILET - SCORE: 0-UNK TRANSFERS: SHOWER: Activity did not occur on this shift TRANSFERS: SHOWER - SCORE: 0-UNK TRANSFERS: TUB: Activity did not occur on this shift TRANSFERS: TUB - SCORE: 0-UNK LOCOMOTION: WALK: LOCOMOTION: WALK - STEP 1: Does the patient need help to walk 150 feet? No. LOCOMOTION: WALK - STEP 2: Does the patient need an assistive device (such as an orthosis, prosthesis, crutches, or walker) to g o 150 feet, OR does s/he take more than reasonable time, OR is there a concern for safety? Yes, the p atient needs an assistive device LOCOMOTION: WALK - SCORE: 6-XI[place]ARA LOCOMOTION: WHEELCHAIR: Activity did not occur on this shift LOCOMOTION: WHEELCHAIR - SCORE: 0-UNK LOCOMOTION: STAIRS: Activity did not occur on this shift LOCOMOTION: STAIRS - SCORE: 0-UNK COMPREHENSION: COMPREHENSION - SCORE: 0-UNK EXPRESSION EXPRESSION - SCORE: 0-UNK SOCIAL INTERACTION: SOCIAL INTERACTION - SCORE: 0-UNK PROBLEM SOLVING: PROBLEM SOLVING - SCORE: 0-UNK MEMORY: MEMORY - SCORE: 0-UNK SIGNATURE PANEL: The following modified sections: Transfers: Bed, Chair, Wheelchair - Score, Transfers: Toilet - Score , Locomotion: Walk - Score, Locomotion: Wheelchair - Score, Locomotion: Stairs - Score were [electron baldev] signed by Gene Cisneros PTA on ThuMar 15 2018 14:40:14 GMT-0500 (Central Daylight Time)
--- NOTE | 2018-03-15 14:42 | FAST ---
ENCOUNTER DATE AND TIME: 03/11/2018 08:00 (CDT) NAME BRIANNA CRAWFORD DATE OF : 1945 DATE OF ADMISSION: 03/01/2018 20:00 (CDT) PHONE: AGE: 72 N# [id number] GENDER: Male ENCOUNTER PHYSICIAN: Dr. Zachary Ferguson M.D. ADMISSION DIAGNOSIS: - Cardiac 09 - Cardiac Disorders (09) coronary artery disease involving [place] coronary artery of [place] heart with gain pectoris with docu mented spasm. EATING: Activity did not occur on this shift EATING - SCORE: 0-UNK GROOMING: Activity did not occur on this shift GROOMING - SCORE: 0-UNK BATHING: Activity did not occur on this shift BATHING - SCORE: 0-UNK DRESSING - UPPER BODY: Activity did not occur on this shift Patient is not dressing in public clothing ARTICLES SCORE Total number of steps: 0 DRESSING - UPPER BODY - SCORE: 0-UNK DRESSING - LOWER BODY: Activity did not occur on this shift Patient is not dressing in public clothing ARTICLES SCORE Total number of steps: 0 DRESSING - LOWER BODY - SCORE: 0-UNK TOILETING: Activity did not occur on this shift TOILETING - SCORE: 0-UNK BLADDER MANAGEMENT: Activity did not occur on this shift BLADDER MANAGEMENT - SCORE: 7-IND BOWEL MANAGEMENT: Activity did not occur on this shift BOWEL MANAGEMENT - SCORE: 7-IND TRANSFERS: BED, CHAIR, WHEELCHAIR: Activity did not occur on this shift TRANSFERS: BED, CHAIR, WHEELCHAIR - SCORE: 0-UNK TRANSFERS: TOILET: Activity did not occur on this shift TRANSFERS: TOILET - SCORE: 0-UNK TRANSFERS: SHOWER: Activity did not occur on this shift TRANSFERS: SHOWER - SCORE: 0-UNK TRANSFERS: TUB: Activity did not occur on this shift TRANSFERS: TUB - SCORE: 0-UNK LOCOMOTION: WALK: Activity did not occur on this shift LOCOMOTION: WALK - SCORE: 0-UNK LOCOMOTION: WHEELCHAIR: Activity did not occur on this shift LOCOMOTION: WHEELCHAIR - SCORE: 0-UNK LOCOMOTION: STAIRS: Activity did not occur on this shift LOCOMOTION: STAIRS - SCORE: 0-UNK COMPREHENSION: COMPREHENSION - SCORE: 0-UNK EXPRESSION EXPRESSION - SCORE: 0-UNK SOCIAL INTERACTION: SOCIAL INTERACTION - SCORE: 0-UNK PROBLEM SOLVING: PROBLEM SOLVING - SCORE: 0-UNK MEMORY: MEMORY - SCORE: 0-UNK SIGNATURE PANEL: The following modified sections: Transfers: Bed, Chair, Wheelchair - Score, Transfers: Toilet - Score , Locomotion: Walk - Score, Locomotion: Wheelchair - Score, Locomotion: Stairs - Score were [electron ically] signed by Gene Cisneros PTA on ThuMar 15 2018 14:41:36 GMT-0500 (Central Daylight Time)
--- NOTE | 2018-04-13 19:06 | R.DS ---
FACILITY [facility] MR# [id number] NAME BRIANNA CRAWFORD ADDRESS [address] [facility] [place] [address] PHONE DATE OF 1945 AGE 72 SSN# [id number] GENDER Male DEXTERITY Right-handed MARITAL STATUS RACE Black ENCOUNTER PHYSICIAN Dr. Zachary Ferguson M.D. REFERRING DOCTOR Kadie Bacon REFERRING FACILITY [facility] DISCHARGE DIAGNOSIS: - Cardiac 09 - Cardiac Disorders (09) coronary artery disease involving [place] coronary artery of [place] heart with gain pectoris with docu mented spasm. DISCHARGE COMORBIDITIES: - N/A colorectal cancer DATE OF ADMISSION 03/01/2018 20:00 (CDT) MEDICATION ALLERGIES: No Known Drug Allergies (NKDA) ENVIRONMENTAL ALLERGIES: - Substance Allergies None Known - Other Allergies None Known NURSING: - Shower allowing shower ACTIVITIES OOB only with supervision THERAPIES: - Occupational Therapy Evaluate and Treat - Physical Therapy Evaluate and Treat HISTORY OF PRESENT ILLNESS: Pt. is a 72 yo Right-handed black male.On 02/15/2018 he was admitted to [facility] with diagnosi s coronary artery disease involving [place] coronary artery of [place] heart with gain pectoris with do cumented spasm.His impairment category is Cardiac 09 - Cardiac Disorders ().Pre-morbidly, Pt. was independent/mod-I in Self-Care and Sphincter Control; and he had good Sphincter Control.Currently, he has deficits of Transfers Control, Communication, Social Cognition, Endurance, Balance, Safety Aware ness, Locomotion, and Self-Care.Pt. is now referred to [facility] for acute in -patient rehabilitation in order to maximize patient's functional independence in activities of daily living, strength, ROM, and mobility.- Rehab Goal Patient has realistic goal of being discharged at assistance level 6-Adelia to reside at Home with Fam [place]/Relatives. HOSPITAL COURSE: DIET TYPE: On 03/01/2018 Pt was upgraded to Regular Diet Type. DIET - LIQUID TEXTURE: On 03/01/2018 Pt was upgraded to Regular Diet - Liquid Texture. DIET - SOLID TEXTURE: On 03/01/2018 Pt was upgraded to Regular Diet - Solid Texture. TUBE FEED: On 03/01/2018 Pt was changed to N/A Tube Feed. DISCHARGE PHYSICAL EXAM - Gen Alert and awake Lying in bed No apparent distress Oriented to: person, time, and place - Skin LLE incisions intact Normacephalic - Eyes No abnormalities - ENMT No abnormalities - Neck No abnormalities - CVS RRR - Chest No abnormalities - Abd Soft - GI Non distended Deferred - No abnormalities - Ext Moderate 3+ edema in the lower extremities. - MSK 4+/5 weakness in both lower extremities. - Neuro 4/5 strength bilaterally lower extremities. - Psych No abnormalities FUNCTIONAL STATUS: - Self-Care A. Eating 7-Ind 7-Ind B. Grooming 7-Ind 7-Ind C. Bathing 7-Ind 7-Ind D. Dressing - Upper 5-sup 7-Ind E. Dressing - Lower 3-modA 7-Ind F. Toileting 3-modA 7-Ind - Sphincter Control G: Bladder control 7-Ind 7-Ind H: Bowel control 7-Ind 7-Ind - Transfers Control I. Bed/Chair/Wheelchair 3-modA 7-Ind J. Toilet 3-modA 7-Ind K. Tub/Shower 3-modA 7-Ind - Locomotion L. Walk/Wheelchair (B) 2-maxA 7-Ind M. Stairs 0-ADNO 7-Ind - Communication N. Comprehension (B) 5-sup 6-Adelia O. Expression (B) 5-sup 6-Adelia - Social Cognition P. Social Interaction 5-sup 6-Adelia Q. Problem Solving 5-sup 6-Adelia R. Memory 5-sup 6-Adelia - Endurance Fair - Balance Fair - Safety Awareness Fair DISCHARGE INSTRUCTIONS: - N/A Eliquis 2.5 mg twice daily. DISCHARGE PLAN, FOLLOW UP CARE PROVISIONS: - Estimated Length of Stay (days) 10. - Consensus on plan Discharge plan has been discussed with primary caregiver. Patient/Family is in agreement with the mickey n. Primary caregiver is in agreement with the plan. - Patient/Family Goals Return home with assistance. - Planned Living Setting Upon Discharge Home, to live with Family/Relatives. SIGNATURE PANEL: (CDT)
== END 2018-03-12 14:05 | disposition home or self-care (01) | DRG 303 ==
LOC: 5TH 03-01 20:13
PROVIDERS: ADMIT Psychiatry & Neurology Neurology with Special Qualifications in Child Neurology; ATTEND Psychiatry & Neurology Neurology with Special Qualifications in Child Neurology
DX: I25.10 Atherosclerotic heart disease of native coronary artery without angina pectoris (principal)
CPT/HCPCS: 36415; 71045; 74230; 80048; 80053; 81001; 82040; 82805; 83605; 83735; 84132; 84134; 84145; 85025; 87040; 87077; 87086; 87088; 87186; 93971; 94660; 97542; J1644

== ENCOUNTER 2018-05-24 12:01 | Emergency (ER) | payer MEDICARE ==
[2018-05-24 13:02] LABS: Absolute Lymphocytes (CBC) 1.7 K/uL (0.7-4.9); Absolute Monocytes 0.8 K/uL (0.1-1.3); Absolute Neutrophil 3.9 K/uL (1.8-8.0); Eosinophils % 3.2 % (0-4.4); Hematocrit 41.1 % (39.6-49.0); Lymphocytes % 25.4 % (15.3-44.8); MCH 26.7 pg (27.0-35.0); MCV 84.4 fL (80-100); Monocytes % 12.1 % (3.3-12.3); RBC Red Blood Cell Count 4.87 M/uL (4.33-5.43)
[2018-05-24 13:13] LABS: BUN Blood Urea Nitrogen 8 mg/dL (7-18); Bicarbonate 29 mmol/L (21-32); Glucose Level 82 mg/dL (74-106); Potassium 3.6 mmol/L (3.5-5.1); Sodium Level 142 mmol/L (136-145)
--- NOTE | 2018-05-24 13:24 | EDPHYS ---
Physician Documentation [facility] Name: Rudy Ramos Sr Age: 73 yrs Sex: Male : 1945 Arrival Date: 05/24/2018 Time: 12:05 Bed 25 Private MD: ED Physician Slava Mcdonnell HPI: 05/24 13:21 This 73 yrs old Black Male presents to ER via Wheelchair with complaints of High Blood gs Pressure. 13:21 Onset: The symptoms/episode began/occurred this morning. Associated signs and symptoms: gs Pertinent negatives: chest pain, dizziness, dyspnea, headache, visual changes. Severity of symptoms: At its worst the blood pressure was severe, in the emergency department the blood pressure is improved, markedly. The patient has experienced similar episodes in the past, a few times. recent change in bp meds. Historical: - Allergies: 12:09 No Known Allergies; aa5 - PMHx: 12:09 Myocardial infarction; Hypertension; Colon Cancer; aa5 - PSHx: 12:09 Triple Bypass; Colon (Cancer); aa5 - Immunization history:: Pneumococcal vaccine is not up to date, Flu vaccine is not up to date. - Social history:: Smoking status: Patient/guardian denies using tobacco. - Ebola Screening: : No symptoms or risks identified at this time. ROS: 13:21 All other systems are negative. gs Exam: 13:21 Head/Face: Normocephalic, atraumatic. Eyes: Pupils equal round and reactive to light, gs extra-ocular motions intact. Lids and lashes normal. Conjunctiva and sclera are non-icteric and not injected. Cornea within normal limits. Periorbital areas with no swelling, redness, or edema. ENT: Nares patent. No nasal discharge, no septal abnormalities noted. Tympanic membranes are normal and external auditory canals are clear. Oropharynx with no redness, swelling, or masses, exudates, or evidence of obstruction, uvula midline. Mucous membranes moist. Neck: Trachea midline, no thyromegaly or masses palpated, and no cervical lymphadenopathy. Supple, full range of motion without nuchal rigidity, or vertebral point tenderness. No Meningismus. Chest/axilla: Normal chest wall appearance and motion. Nontender with no deformity. No lesions are appreciated. Cardiovascular: Regular rate and rhythm with a normal S1 and S2. No gallops, murmurs, or rubs. Normal PMI, no JVD. No pulse deficits. Respiratory: Lungs have equal breath sounds bilaterally, clear to auscultation and percussion. No rales, rhonchi or wheezes noted. No increased work of breathing, no retractions or nasal flaring. Abdomen/GI: Soft, non-tender, with normal bowel sounds. No distension or tympany. No guarding or rebound. No evidence of tenderness throughout. Back: No spinal tenderness. No costovertebral tenderness. Full range of motion. Skin: Warm, dry with normal turgor. Normal color with no rashes, no lesions, and no evidence of cellulitis. MS/ Extremity: Pulses equal, no cyanosis. Neurovascular intact. Full, normal range of motion. Neuro: Awake and alert, GCS 15, oriented to person, place, time, and situation. Cranial nerves II-XII grossly intact. Motor strength 5/5 in all extremities. Sensory grossly intact. Cerebellar exam normal. Normal gait. 13:21 Constitutional: The patient appears alert, awake. 13:21 ECG was reviewed by the Attending Physician. Vital Signs: 12:07 BP 143 / 101; Pulse 65; Resp 18 S; Temp 98.5(TE); Pulse Ox 100% on R/A; Weight 124.74 aa5 kg (R); Height 5 ft. 6 in. (167.64 cm) (R); Pain 0/10; 13:05 BP 141 / 86; Pulse 53; Resp 16; Pulse Ox 96% on R/A; Pain 0/10; ss 12:07 Body Mass Index 44.39 (124.74 kg, 167.64 cm) aa5 MDM: 12:36 Patient medically screened. 13:21 Differential diagnosis: hypertensive crisis, Malignant HTN. Data reviewed: vital signs, nurses notes. Counseling: I had a detailed discussion with the patient and/or guardian regarding: the historical points, exam findings, and any diagnostic results supporting the discharge/admit diagnosis, the need for outpatient follow up. Response to treatment: the patient's symptoms have markedly improved after treatment, and as a result, I will discharge patient. 05/24 12:36 Order name: CBC with Diff; Complete Time: 13:19 05/24 12:36 Order name: Basic Metabolic Panel; Complete Time: 13:19 05/24 12:36 Order name: EKG; Complete Time: 12:37 05/24 12:36 Order name: EKG - Nurse/Tech; Complete Time: 12:41 gs EC:21 Rate is 58 beats/min. Rhythm is regular. SD interval is prolonged. QRS interval is gs normal. QT interval is normal. Q waves are Old. Clinical impression: NSR w/ Non-specific ST/T Changes. Interpreted by me. Administered Medications: No medications were administered Disposition: 05/24/18 13:24 Discharged to Home. Impression: Essential (primary) hypertension. - Condition is Stable. - Discharge Instructions: Hypertension. - Medication Reconciliation Form, Thank You Letter, Antibiotic Education, Prescription Opioid Use form. - Follow up: Private Physician; When: 2 - 3 days; Reason: Re-evaluation by your physician. Signatures: Dispatcher [employer] EDMS Jessica Gutierrez RN RN aa5 Carmen Yadav RN RN ss Slava Mcdonnell MD MD Corrections: (The following items were deleted from the chart) 13:35 13:24 05/24/2018 13:24 Discharged to Home. Impression: Essential (primary) ss hypertension. Condition is Stable. Forms are Medication Reconciliation Form, Thank You Letter, Antibiotic Education, Prescription Opioid Use. Follow up: Private Physician; When: 2 - 3 days; Reason: Re-evaluation by your physician. gs
--- NOTE | 2018-05-24 13:24 | ER ---
Nurse's Notes [facility] Name: Rudy Ramos Sr Age: 73 yrs Sex: Male : 1945 Arrival Date: 05/24/2018 Time: 12:05 Bed 25 Private MD: Diagnosis: Essential (primary) hypertension Presentation: 05/24 12:06 Presenting complaint: Patient states: "my blood pressure was like 170/106 today and aa5 they just changed my high blood pressure medicine to Losartan about 3 days ago". Pt denies any symptoms. Transition of care: patient was not received from another setting of care. Onset of symptoms was May 24, 2018. Risk Assessment: Do you want to hurt yourself or someone else? Patient reports no desire to harm self or others. Initial Sepsis Screen: Does the patient meet any 2 criteria? No. Patient's initial sepsis screen is negative. Does the patient have a suspected source of infection? No. Patient's initial sepsis screen is negative. Care prior to arrival: None. 12:06 Method Of Arrival: Wheelchair aa5 12:06 Acuity: TY 3 aa5 Historical: - Allergies: 12:09 No Known Allergies; aa5 - PMHx: 12:09 Myocardial infarction; Hypertension; Colon Cancer; aa5 - PSHx: 12:09 Triple Bypass; Colon (Cancer); aa5 - Immunization history:: Pneumococcal vaccine is not up to date, Flu vaccine is not up to date. - Social history:: Smoking status: Patient/guardian denies using tobacco. - Ebola Screening: : No symptoms or risks identified at this time. Screenin:25 Abuse screen: Denies threats or abuse. Denies injuries from another. Nutritional ss screening: No deficits noted. Tuberculosis screening: Never had TB. Fall Risk None identified. Assessment: 12:25 General: Appears in no apparent distress. comfortable, Behavior is calm, cooperative, ss Denies fever, feeling ill, fatigue, chills. Pain: Denies pain. Neuro: Level of Consciousness is awake, alert, obeys commands, Oriented to person, place, time, situation, Speech is normal, Facial symmetry appears normal, Pupils are PERRLA. Cardiovascular: Denies chest pain, lightheadedness, shortness of breath, Heart tones S1 S2 present Capillary refill < 3 seconds is brisk in bilateral fingers Patient's skin is warm and dry. Respiratory: Airway is patent Respiratory effort is even, unlabored, Respiratory pattern is regular, symmetrical. GI: No signs and/or symptoms were reported involving the gastrointestinal system. : No deficits noted. No signs and/or symptoms were reported regarding the genitourinary system. EENT: Nares are clear Oral mucosa is moist. Throat is clear. Derm: Skin is intact, is healthy with good turgor, Skin is dry, Skin is pink, warm \\T\\ dry. normal. Musculoskeletal: Circulation, motion, and sensation intact. Range of motion: intact in all extremities, Swelling absent. 13:35 Reassessment: Patient appears in no apparent distress at this time. Patient and/or ss family updated on plan of care and expected duration. Pain level reassessed. Patient is alert, oriented x 3, equal unlabored respirations, skin warm/dry/pink. Patient denies pain at this time. Vital Signs: 12:07 BP 143 / 101; Pulse 65; Resp 18 S; Temp 98.5(TE); Pulse Ox 100% on R/A; Weight 124.74 aa5 kg (R); Height 5 ft. 6 in. (167.64 cm) (R); Pain 0/10; 13:05 BP 141 / 86; Pulse 53; Resp 16; Pulse Ox 96% on R/A; Pain 0/10; ss 12:07 Body Mass Index 44.39 (124.74 kg, 167.64 cm) aa5 ED Course: 12:05 Patient arrived in ED. aa5 12:06 Arm band placed on. aa5 12:07 Triage completed. aa5 12:20 Carmen Yadav, ROSE is Primary Nurse. ss 12:25 Patient has correct armband on for positive identification. Bed in low position. Call ss light in reach. Adult w/ patient. 12:25 EKG done, by central supply tech. reviewed by Nimesh Reynolds MD. at1 12:29 Slava Mcdonnell MD is Attending Physician. 13:34 No provider procedures requiring assistance completed. IV discontinued, intact, ss bleeding controlled, No redness/swelling at site. Pressure dressing applied. Administered Medications: No medications were administered Outcome: 13:24 Discharge ordered by MD. gs 13:34 Discharged to home via wheelchair, with family. ss 13:34 Condition: good 13:34 Discharge instructions given to patient, family, Instructed on discharge instructions, follow up and referral plans. medication usage, Demonstrated understanding of instructions, follow-up care, medications. 13:35 Patient left the ED. Signatures: Jessica Gutierrez RN RN aa5 Carmen Yadav RN RN ss Margarita Sheth, executive assistant to general counsel EKG Tat1 Slava Mcdonnell MD MD Corrections: (The following items were deleted from the chart) 12:13 12:06 Presenting complaint: Patient states: "my blood pressure was like 170/106 today aa5 and they just changed my high blood pressure medicine to Losartan about 3 days ago" aa5
[2018-05-24 13:39] VITALS: TEMP 98.5
[2018-05-24 13:41] VITALS: BP 141/86; O2SAT 96
--- NOTE | 2018-05-24 16:20 | EKG ---
Test Date: 2018-05-24 Test Time: 12:17:34 Silverware Supervisor: CHRIS MEASUREMENT RESULTS: Intervals: Rate: 58 VA: 200 QRSD: 76 QT: 420 QTc: 412 [place]: P: 42 VA: 200 QRS: 72 T: 125 INTERPRETIVE STATEMENTS: Sinus bradycardia Cannot rule out Inferior infarct, age undetermined Abnormal ECG Compared to ECG 04/18/2014 11:05:46 Myocardial infarct finding now present Sinus rhythm no longer present Atrial premature complex(es) no longer present Electronically Signed On 05-24-18 16:19:53 CDT by Sarbjit Fisher
== END 2018-05-24 13:35 | disposition home or self-care (01) ==
LOC: ER 12:01
DX: I10 Essential (primary) hypertension (principal); I25.2 Old myocardial infarction; Z85.038 Personal history of other malignant neoplasm of large intestine
CPT/HCPCS: 36415; 80048; 85025; 93005; 99283

== ENCOUNTER 2018-05-27 13:36 | Emergency (ER) | payer MEDICARE ==
--- NOTE | 2018-05-27 15:08 | ER ---
Nurse's Notes [facility] Name: Rudy Ramos Sr Age: 73 yrs Sex: Male : 1945 Arrival Date: 05/27/2018 Time: 13:37 Bed 5 Private MD: Parrish Turcios H Diagnosis: Gingival bleeding due to local trauma and anticoagulation Presentation: 05/27 13:39 Presenting complaint: Patient states: "My gums have been bleeding, I don't have teeth aj1 in that area and I bit down on a sandwich and it started bleeding." Reports that his gums have been bleeding since 0830 this morning. Patient states that he takes Plavix. Transition of care: patient was not received from another setting of care. Onset of symptoms was May 27, 2018 at 08:30. Risk Assessment: Do you want to hurt yourself or someone else? Patient reports no desire to harm self or others. Initial Sepsis Screen: Does the patient meet any 2 criteria? No. Patient's initial sepsis screen is negative. Does the patient have a suspected source of infection? No. Patient's initial sepsis screen is negative. Care prior to arrival: None. 13:39 Method Of Arrival: Ambulatory aj1 13:39 Acuity: TY 3 aj1 Triage Assessment: 13:44 General: Appears in no apparent distress. comfortable, Behavior is calm, cooperative, aj1 appropriate for age. Pain: Denies pain. Neuro: Level of Consciousness is awake, alert, obeys commands. Cardiovascular: Patient's skin is warm and dry. Respiratory: Airway is patent Respiratory effort is even, unlabored, Respiratory pattern is regular, symmetrical. Historical: - Allergies: 13:44 No Known Allergies; aj1 - Home Meds: 13:44 losartan oral oral [Active]; Metoprolol Tartrate Oral [Active]; Lisinopril Oral aj1 [Active]; Lasix Oral [Active]; clopidogrel oral oral [Active]; Aspirin Oral [Active]; - PMHx: 13:44 colon cancer; Hypertension; Myocardial infarction; aj1 - PSHx: 13:44 triple bypass; aj1 - Immunization history:: Flu vaccine is not up to date. - Social history:: Smoking status: Patient/guardian denies using tobacco. - Ebola Screening: : Patient denies travel to an Ebola-affected area in the 21 days before illness onset. - Family history:: not pertinent. - Hospitalizations: : No recent hospitalization is reported. Screenin:48 Abuse screen: Denies threats or abuse. Denies injuries from another. Nutritional sv screening: No deficits noted. Tuberculosis screening: No symptoms or risk factors identified. Fall Risk None identified. Assessment: 13:56 General: Appears in no apparent distress. comfortable, well groomed, well developed, sv Behavior is calm, cooperative, appropriate for age. Pain: Denies pain. Neuro: Level of Consciousness is awake, alert, obeys commands, Oriented to person, place, time, situation, Moves all extremities. Full function. Respiratory: Respiratory effort is even, unlabored, Respiratory pattern is regular, symmetrical. EENT: Oral mucosa is moist. Poor dentition noted. blood clot noted to the left lower jaw where pt stated that it was bleeding from.. Derm: Skin is pink, warm \\T\\ dry. 15:27 Reassessment: Patient appears in no apparent distress at this time. No changes from sv previously documented assessment. Patient and/or family updated on plan of care and expected duration. Pain level reassessed. Patient is alert, oriented x 3, equal unlabored respirations, skin warm/dry/pink. Vital Signs: 13:44 BP 143 / 83; Pulse 55; Resp 18; Temp 97.5(TE); Pulse Ox 97% on R/A; Weight 124.74 kg aj1 (R); Height 5 ft. 6 in. (167.64 cm) (R); Pain 0/10; 13:44 Body Mass Index 44.39 (124.74 kg, 167.64 cm) aj1 ED Course: 13:37 Patient arrived in ED. as 13:38 Parrish Turcios DO is Private Physician. as 13:42 Triage completed. aj1 13:44 Arm band placed on Patient placed in an exam room. aj1 13:48 Xena Garcias, ROSE is Primary Nurse. sv 13:48 Patient has correct armband on for positive identification. Bed in low position. Door sv closed. Head of bed elevated. 13:50 Braeden Pena MD is Attending Physician. rn 15:07 Parrish Turcios DO is Referral Physician. rn 15:27 No provider procedures requiring assistance completed. Patient did not have IV access sv during this emergency room visit. Administered Medications: No medications were administered Outcome: 15:08 Discharge ordered by . rn 15:27 Discharged to home via wheelchair, with family. sv 15:27 Condition: stable 15:27 Discharge instructions given to patient, Instructed on discharge instructions, follow up and referral plans. Demonstrated understanding of instructions, follow-up care. 15:27 Patient left the ED. sv Signatures: Elisabeth Ford RN RN aj1 Xena Garcias RN RN sv Camelia Peck Roman, MD MD rn
--- NOTE | 2018-05-27 15:09 | EDPHYS ---
Physician Documentation [facility] Name: Rudy Ramos Sr Age: 73 yrs Sex: Male : 1945 Arrival Date: 05/27/2018 Time: 13:37 Bed 5 Private MD: Parrish Turcios H ED Physician Braeden Pena HPI: 05/27 13:56 This 73 yrs old Black Male presents to ER via Ambulatory with complaints of Bleeding rn Gums. 13:56 The patient presents with bleeding. The problem is located in the gums. Onset: The rn symptoms/episode began/occurred this morning. Duration: The symptoms are continuous. Severity of symptoms: At their worst the symptoms were mild, in the emergency department the symptoms have improved. The patient has not experienced similar symptoms in the past. REports on plavix for heart, bit down on something, left lower front area is missing a tooth, thinks bit down and hurt his gum, was bleeding all day so far, now seems to have stopped, no bleeding anywhere else. . Historical: - Allergies: 13:44 No Known Allergies; aj1 - Home Meds: 13:44 losartan oral oral [Active]; Metoprolol Tartrate Oral [Active]; Lisinopril Oral aj1 [Active]; Lasix Oral [Active]; clopidogrel oral oral [Active]; Aspirin Oral [Active]; - PMHx: 13:44 colon cancer; Hypertension; Myocardial infarction; aj1 - PSHx: 13:44 triple bypass; aj1 - Immunization history:: Flu vaccine is not up to date. - Social history:: Smoking status: Patient/guardian denies using tobacco. - Ebola Screening: : Patient denies travel to an Ebola-affected area in the 21 days before illness onset. - Family history:: not pertinent. - Hospitalizations: : No recent hospitalization is reported. ROS: 13:56 Constitutional: Negative for fever, chills, and weight loss, Eyes: Negative for injury, rn pain, redness, and discharge, ENT: + gingival bleeding Cardiovascular: Negative for chest pain, palpitations, and edema, Respiratory: Negative for shortness of breath, cough, wheezing, and pleuritic chest pain, Abdomen/GI: Negative for abdominal pain, nausea, vomiting, diarrhea, and constipation, MS/Extremity: Negative for injury and deformity, Neuro: Negative for headache, weakness, numbness, tingling, and seizure. Exam: 13:58 Constitutional: This is a well developed, well nourished patient who is awake, alert, rn and in no acute distress. ENT: NO broken teeth, + single area between lower frontal teeth lateral to canine on left side with clot on gingival surface, no active bleeding. Vital Signs: 13:44 BP 143 / 83; Pulse 55; Resp 18; Temp 97.5(TE); Pulse Ox 97% on R/A; Weight 124.74 kg aj1 (R); Height 5 ft. 6 in. (167.64 cm) (R); Pain 0/10; 13:44 Body Mass Index 44.39 (124.74 kg, 167.64 cm) aj1 MDM: 13:50 Patient medically screened. rn 15:06 Differential diagnosis: gingival trauma on plavix. Data reviewed: vital signs, nurses rn notes, and as a result, I will discharge patient. Counseling: I had a detailed discussion with the patient and/or guardian regarding: the historical points, exam findings, and any diagnostic results supporting the discharge/admit diagnosis, the need for outpatient follow up, to return to the emergency department if symptoms worsen or persist or if there are any questions or concerns that arise at home. Response to treatment: the patient's symptoms have resolved after treatment, the patient's condition has returned to base line, the patient is now symptom free, and as a result, I will discharge patient. Special discussion: I discussed with the patient/guardian in detail that at this point there is no indication for admission to the hospital. It is understood, however, that if the symptoms persist or worsen the patient needs to return immediately for re-evaluation. ED course: No longer bleeding, no need for emergent treatment at this point, observed for 1.5 hours, no bleeding, gave patient instructions to manage at home if returns, and return precautions given and understood.. Administered Medications: No medications were administered Disposition: 05/27/18 15:08 Discharged to Home. Impression: Gingival bleeding due to local trauma and anticoagulation. - Condition is Stable. - Discharge Instructions: Bleeding Precautions When on Anticoagulant Therapy. - Medication Reconciliation Form, Thank You Letter, Antibiotic Education, Prescription Opioid Use form. - Follow up: Turcios, Naima-Arben, DO; When: As needed; Reason: Recheck today's complaints, Re-evaluation by your physician. - Problem is new. - Symptoms have improved. Signatures: Elisabeth Ford RN RN aj1 Xena Garcias RN RN sv Braeden Pena MD MD news department intern: (The following items were deleted from the chart) 15:27 15:08 05/27/2018 15:08 Discharged to Home. Impression: Gingival bleeding due to local sv trauma and anticoagulation. Condition is Stable. Forms are Medication Reconciliation Form, Thank You Letter, Antibiotic Education, Prescription Opioid Use. Follow up: Parrish Turcios; When: As needed; Reason: Recheck today's complaints, Re-evaluation by your physician. Problem is new. Symptoms have improved. rn
[2018-05-27 15:33] VITALS: BP 143/83; TEMP 97.5; O2SAT 97
== END 2018-05-27 15:27 | disposition home or self-care (01) ==
LOC: ER 13:36
DX: K06.8 Other specified disorders of gingiva and edentulous alveolar ridge (principal); I10 Essential (primary) hypertension; I25.2 Old myocardial infarction; Z79.01 Long term (current) use of anticoagulants; Z79.82 Long term (current) use of aspirin; Z85.038 Personal history of other malignant neoplasm of large intestine
CPT/HCPCS: 99282

== ENCOUNTER 2018-08-08 14:52 | Emergency (ER) | payer MEDICARE ==
[2018-08-08 16:39] LABS: Absolute Lymphocytes (CBC) 1.8 K/uL (0.7-4.9); Absolute Monocytes 0.9 K/uL (0.1-1.3); Basophils % 1.4 % (0-1.3); Eosinophils % 2.3 % (0-4.4); Hematocrit 43.2 % (39.6-49.0); MPV 9.1 fL (7.6-11.3); Monocytes % 12.7 % (3.3-12.3); RBC Red Blood Cell Count 5.31 M/uL (4.33-5.43)
[2018-08-08 16:52] LABS: BUN Blood Urea Nitrogen 11 mg/dL (7-18); Bicarbonate 29 mmol/L (21-32); Glucose Level 87 mg/dL (74-106); Potassium 3.5 mmol/L (3.5-5.1); Sodium Level 141 mmol/L (136-145)
--- NOTE | 2018-08-08 17:00 | ER ---
Nurse's Notes [facility] Name: Rudy Ramos Sr Age: 73 yrs Sex: Male : 1945 Arrival Date: 08/08/2018 Time: 14:56 Bed 6 Private MD: Parrish Turcios H Diagnosis: Peripheral Neuropathy Presentation: 08/08 15:05 Presenting complaint: Patient states: mild numbness in bottom of feet, fingers getting iw numb, low back aching, intermittent for a few weeks, last night he couldn't sleep so he decided to come to ER. Transition of care: patient was not received from another setting of care. Onset of symptoms was July 2018. Risk Assessment: Do you want to hurt yourself or someone else? Patient reports no desire to harm self or others. Initial Sepsis Screen: Does the patient meet any 2 criteria? No. Patient's initial sepsis screen is negative. Does the patient have a suspected source of infection? No. Patient's initial sepsis screen is negative. Care prior to arrival: None. 15:05 Method Of Arrival: Ambulatory iw 15:05 Acuity: TY 2 aj Historical: - Allergies: 15:09 No Known Allergies; iw - Home Meds: 15:09 calcium carbonate 500 mg calcium (1,250 mg) Oral chew daily [Active]; aspirin 81 mg iw Oral TbEC 1 tab once daily [Active]; losartan 100 mg oral tab 1 tab once daily [Active]; clopidogrel 75 mg oral tab 1 tab once daily [Active]; furosemide 20 mg Oral tab 1 tab 2 times per day [Active]; atorvastatin 80 mg oral tab 1 tab once daily [Active]; gabapentin 100 mg oral cap 3 caps 3 times per day [Active]; lisinopril 40 mg Oral tab twice a day [Active]; metoprolol tartrate 25 mg Oral tab 1 tab 2 times per day [Active]; - PMHx: 15:09 colon cancer; Hypertension; Myocardial infarction; iw 15:11 Gout; iw - PSHx: 15:09 triple bypass; iw - Immunization history:: Adult Immunizations not up to date. - Social history:: Smoking status: Patient/guardian denies using tobacco. - Ebola Screening: : Patient negative for fever greater than or equal to 101.5 degrees Fahrenheit, and additional compatible Ebola Virus Disease symptoms Patient denies exposure to infectious person Patient denies travel to an Ebola-affected area in the 21 days before illness onset No symptoms or risks identified at this time. Screenin:44 Abuse screen: Denies threats or abuse. Denies injuries from another. Nutritional aj screening: No deficits noted. Tuberculosis screening: No symptoms or risk factors identified. Fall Risk None identified. Assessment: 15:44 General: Appears in no apparent distress. comfortable, Behavior is calm, cooperative, aj appropriate for age. Pain: Denies pain. Neuro: Level of Consciousness is awake, alert, obeys commands, Oriented to person, place, time, situation, Appropriate for age Linux Admin are equal bilaterally Moves all extremities. Full function Gait is steady, Speech is normal, Facial symmetry appears normal, paresthesias in right hand, left hand, right foot and left foot. Respiratory: Airway is patent Respiratory effort is even, unlabored, Respiratory pattern is regular, symmetrical. Derm: Skin is intact, is healthy with good turgor, Skin is pink, warm \T\ dry. normal. Vital Signs: 15:09 BP 142 / 96; Pulse 72; Resp 18 S; Temp 98.4; Pulse Ox 97% on R/A; Weight 121.56 kg; iw Height 5 ft. 7 in. (170.18 cm); Pain 0/10; 16:46 BP 129 / 82; Pulse 58; Resp 23; Pulse Ox 98% on R/A; aj 15:09 Body Mass Index 41.97 (121.56 kg, 170.18 cm) iw ED Course: 14:56 Patient arrived in ED. sb2 14:57 Parrish Tucrios DO is Private Physician. sb2 15:07 Triage completed. iw 15:09 Fredrick Lopez NP is PHCP. pm1 15:09 Nimesh Reynolds MD is Attending Physician. pm1 15:09 Arm band placed on. iw 15:10 Margarita Treviño, ROSE is Primary Nurse. aj 15:44 Patient has correct armband on for positive identification. Placed in gown. Bed in low aj position. Call light in reach. Side rails up X 1. Adult w/ patient. traffic monitor specialist on. Pulse ox on. NIBP on. 15:44 Inserted saline lock: 20 gauge in right antecubital area, using aseptic technique. aj Blood collected. 15:45 EKG done, by ED staff, reviewed by Fredrick Lopez NP. jb1 17:20 No provider procedures requiring assistance completed. IV discontinued, intact, aj bleeding controlled, No redness/swelling at site. Pressure dressing applied. Administered Medications: No medications were administered Outcome: 17:00 Discharge ordered by MD. pm1 17:20 Discharged to home ambulatory, with significant other. aj 17:20 Condition: good 17:20 Discharge instructions given to patient, Instructed on discharge instructions, follow up and referral plans. Demonstrated understanding of instructions, follow-up care. 17:22 Patient left the ED. aj Signatures: Mika Young jb1 Margarita Treviño, RN RN Sindy Marinelli RN RN iw Fredrick Lopez NP OPERATIONAL REVIEW SERGEANT pm1 [place]2 Corrections: (The following items were deleted from the chart) 15:13 15:05 Acuity: TY 3 iw 15:22 15:09 BP 157 / 114; Pulse 72bpm; Resp 18bpm; Spontaneous; Pulse Ox 97% RA; Temp 98.4F; iw 121.56 kg; Height 5 ft. 7 in.; BMI: 41.9; Pain 0/10; iw
--- NOTE | 2018-08-08 17:01 | EDPHYS ---
Physician Documentation [facility] Name: Rudy Ramos Sr Age: 73 yrs Sex: Male : 1945 Arrival Date: 08/08/2018 Time: 14:56 Bed 6 Private MD: Parrish Turcios H ED Physician Nimesh Reynolds HPI: 08/08 16:00 This 73 yrs old Black Male presents to ER via Ambulatory with complaints of TINGLING IN pm1 FINGERS AND TOES. 16:00 The patient's problem is reported as paresthesias, bilateral hands and feet. Onset: The pm1 symptoms/episode began/occurred 3 week(s) ago. Duration: The episodes are intermittent. Context: Possible contributing factors include: None. The symptoms are alleviated by nothing. The symptoms are aggravated by nothing. Associated signs and symptoms: Pertinent negatives: dizziness, headache, lightheadedness, palpitations, weakness. Severity of symptoms: in the emergency department the symptoms have resolved and did so earlier today. Patient's baseline: Neuro: alert and fully oriented, Motor: no deficits, Ambulation: walks with assist only, uses cane, Speech: normal. The patient has not experienced similar symptoms in the past. The patient has been recently seen by a physician: with different complaint(s), recently prescribed gabapentin for nerve pain . Historical: - Allergies: 15:09 No Known Allergies; iw - Home Meds: 15:09 calcium carbonate 500 mg calcium (1,250 mg) Oral chew daily [Active]; aspirin 81 mg iw Oral TbEC 1 tab once daily [Active]; losartan 100 mg oral tab 1 tab once daily [Active]; clopidogrel 75 mg oral tab 1 tab once daily [Active]; furosemide 20 mg Oral tab 1 tab 2 times per day [Active]; atorvastatin 80 mg oral tab 1 tab once daily [Active]; gabapentin 100 mg oral cap 3 caps 3 times per day [Active]; lisinopril 40 mg Oral tab twice a day [Active]; metoprolol tartrate 25 mg Oral tab 1 tab 2 times per day [Active]; - PMHx: 15:09 colon cancer; Hypertension; Myocardial infarction; iw 15:11 Gout; iw - PSHx: 15:09 triple bypass; iw - Immunization history:: Adult Immunizations not up to date. - Social history:: Smoking status: Patient/guardian denies using tobacco. - Ebola Screening: : Patient negative for fever greater than or equal to 101.5 degrees Fahrenheit, and additional compatible Ebola Virus Disease symptoms Patient denies exposure to infectious person Patient denies travel to an Ebola-affected area in the 21 days before illness onset No symptoms or risks identified at this time. ROS: 16:00 Constitutional: Negative for fever, chills, and weight loss, Eyes: Negative for injury, pm1 pain, redness, and discharge, ENT: Negative for injury, pain, and discharge, Neck: Negative for injury, pain, and swelling, Cardiovascular: Negative for chest pain, palpitations, and edema, Respiratory: Negative for shortness of breath, cough, wheezing, and pleuritic chest pain, Abdomen/GI: Negative for abdominal pain, nausea, vomiting, diarrhea, and constipation, Back: Negative for injury and pain, : Negative for injury, bleeding, discharge, and swelling, MS/Extremity: Negative for injury and deformity, Skin: Negative for injury, rash, and discoloration. 16:00 Neuro: Positive for tingling, of the left foot and right foot and left hand and right hand. Exam: 16:00 Constitutional: This is a well developed, well nourished patient who is awake, alert, pm1 and in no acute distress. Head/Face: Normocephalic, atraumatic. Eyes: Pupils equal round and reactive to light, extra-ocular motions intact. Lids and lashes normal. Conjunctiva and sclera are non-icteric and not injected. Cornea within normal limits. Periorbital areas with no swelling, redness, or edema. ENT: Nares patent. No nasal discharge, no septal abnormalities noted. Tympanic membranes are normal and external auditory canals are clear. Oropharynx with no redness, swelling, or masses, exudates, or evidence of obstruction, uvula midline. Mucous membranes moist. Neck: Trachea midline, no thyromegaly or masses palpated, and no cervical lymphadenopathy. Supple, full range of motion without nuchal rigidity, or vertebral point tenderness. No Meningismus. Chest/axilla: Normal chest wall appearance and motion. Nontender with no deformity. No lesions are appreciated. Cardiovascular: Regular rate and rhythm with a normal S1 and S2. No gallops, murmurs, or rubs. Normal PMI, no JVD. No pulse deficits. Respiratory: Lungs have equal breath sounds bilaterally, clear to auscultation and percussion. No rales, rhonchi or wheezes noted. No increased work of breathing, no retractions or nasal flaring. Abdomen/GI: Soft, non-tender, with normal bowel sounds. No distension or tympany. No guarding or rebound. No evidence of tenderness throughout. Back: No spinal tenderness. No costovertebral tenderness. Full range of motion. Skin: Warm, dry with normal turgor. Normal color with no rashes, no lesions, and no evidence of cellulitis. MS/ Extremity: Pulses equal, no cyanosis. Neurovascular intact. Full, normal range of motion. 16:00 Neuro: Orientation: is normal, Mentation: is normal, Cranial nerves: CN II- XII are normal as tested, Motor: is normal, moves all fours, Sensation: is normal, no obvious gross deficits, Gait: is steady, at a normal pace, without difficulty. Vital Signs: 15:09 BP 142 / 96; Pulse 72; Resp 18 S; Temp 98.4; Pulse Ox 97% on R/A; Weight 121.56 kg; iw Height 5 ft. 7 in. (170.18 cm); Pain 0/10; 16:46 BP 129 / 82; Pulse 58; Resp 23; Pulse Ox 98% on R/A; aj 15:09 Body Mass Index 41.97 (121.56 kg, 170.18 cm) iw MDM: 15:15 Patient medically screened. [facility] 16:54 Data reviewed: vital signs. Data interpreted: Pulse oximetry: on room air is 98 %. pm1 Interpretation: normal. Counseling: I had a detailed discussion with the patient and/or guardian regarding: the historical points, exam findings, and any diagnostic results supporting the discharge/admit diagnosis, lab results, the need for outpatient follow up, to return to the emergency department if symptoms worsen or persist or if there are any questions or concerns that arise at home. 08/08 15:31 Order name: CBC with Diff; Complete Time: 16:43 pm1 08/08 15:31 Order name: BMP; Complete Time: 16:53 pm1 08/08 15:31 Order name: Urine Dipstick-Ancillary (obtain specimen); Complete Time: 17:04 pm1 08/08 17:11 Order name: Urine Dipstick--Ancillary (enter results) ag Administered Medications: No medications were administered Disposition: 08/09 07:16 Co-signature as Attending Physician, Nimesh Reynolds MD I agree with the assessment and ander plan of care. Disposition: 08/08/18 17:00 Discharged to Home. Impression: Peripheral Neuropathy. - Condition is Stable. - Discharge Instructions: Peripheral Neuropathy. - Medication Reconciliation Form, Thank You Letter form. - Follow up: Emergency Department; When: As needed; Reason: Worsening of condition. Follow up: Private Physician; When: 2 - 3 days; Reason: Recheck today's complaints, Continuance of care, Re-evaluation by your physician. - Problem is new. - Symptoms have improved. Signatures: Dispatcher [employer] EDMargarita Douglas RN RN aj Anderson, Corey, MD MD cha Williams, Irene, RN RN iw Marinas, Patrick, NEWS PHOTOGRAPHER NEWS PHOTOGRAPHER pm1 Corrections: (The following items were deleted from the chart) 08/08 17:22 17:00 08/08/2018 17:00 Discharged to Home. Impression: Peripheral Neuropathy. Condition aj is Stable. Forms are Medication Reconciliation Form, Thank You Letter, Antibiotic Education, Prescription Opioid Use. Follow up: Emergency Department; When: As needed; Reason: Worsening of condition. Follow up: Private Physician; When: 2 - 3 days; Reason: Recheck today's complaints, Continuance of care, Re-evaluation by your physician. Problem is new. Symptoms have improved. pm1
[2018-08-08 17:29] LABS: Urine Blood NEGATIVE (NEG); Urine Glucose NEGATIVE (NEG); Urine Protein TRACE (NEG)
[2018-08-08 17:39] VITALS: TEMP 98.4
[2018-08-08 17:41] VITALS: BP 129/82; O2SAT 98
--- NOTE | 2018-08-09 09:09 | EKG ---
Test Date: 2018-08-08 Test Time: 15:34:00 Senior Software Qa Engineer: CARLOS ENRIQUE MEASUREMENT RESULTS: Intervals: Rate: 65 DC: 188 QRSD: 82 QT: 420 QTc: 436 [place]: P: 66 DC: 188 QRS: 32 T: 90 INTERPRETIVE STATEMENTS: Normal sinus rhythm Inferior infarct, age undetermined Abnormal ECG Compared to ECG 05/24/2018 12:17:34 Sinus bradycardia no longer present Myocardial infarct finding still present Electronically Signed On 08-09-18 09:09:13 CHORE TENDER by Sarbjit Fisher
== END 2018-08-08 17:22 | disposition home or self-care (01) ==
LOC: ER 14:52
DX: G62.9 Polyneuropathy, unspecified (principal); R94.31 Abnormal electrocardiogram [ECG] [EKG]; I10 Essential (primary) hypertension; I25.2 Old myocardial infarction; Z79.82 Long term (current) use of aspirin; Z79.899 Other long term (current) drug therapy; Z85.038 Personal history of other malignant neoplasm of large intestine; Z95.1 Presence of aortocoronary bypass graft
CPT/HCPCS: 36415; 80048; 81003; 85025; 93005; 99284

== ENCOUNTER 2018-09-14 12:19 | Emergency (ER) | payer MEDICARE ==
--- NOTE | 2018-09-14 13:51 | RAD REPORT ---
EXAM DESCRIPTION: RAD - Chest Pa And Lat (2 Views) - 09/14/2018 1:46 pm CLINICAL HISTORY: CONGESTION Chest pain. COMPARISON: Chest Single View dated 03/02/2018; Chest Pa And Lat (2 Views) dated 04/21/2017; CHEST PA AND LAT 2 VIEW dated 08/23/2012; CHEST PA AND LAT 2 VIEW dated 07/12/2012 FINDINGS: The lungs are clear. The heart is mildly enlarged in size with sternotomy wires present. N o displaced fractures. Right-sided port catheter has tip in the SVC. A small hiatal hernia is present .
[2018-09-14 15:51] LABS: Absolute Lymphocytes (CBC) 1.8 K/uL (0.7-4.9); Absolute Neutrophil 5.6 K/uL (1.8-8.0); Basophils % 0.9 % (0-1.3); Eosinophils % 2.5 % (0-4.4); Hematocrit 47.3 % (39.6-49.0); Lymphocytes % 20.7 % (15.3-44.8); MPV 9.1 fL (7.6-11.3); RBC Red Blood Cell Count 5.63 M/uL (4.33-5.43)
[2018-09-14 15:52] LABS: Protime INR 1.11
[2018-09-14 16:21] LABS: BUN Blood Urea Nitrogen 9 mg/dL (7-18); Bicarbonate 32 mmol/L (21-32); Glucose Level 80 mg/dL (74-106); Magnesium 2.2 mg/dL (1.8-2.4); Potassium 4.5 mmol/L (3.5-5.1); Sodium Level 142 mmol/L (136-145); Troponin (Emerg Dept Use Only) < 0.02 ng/mL (0.0-0.045)
--- NOTE | 2018-09-14 16:38 | ER ---
Nurse's Notes [facility] Name: Rudy Ramso Sr Age: 73 yrs Sex: Male : 1945 Arrival Date: 09/14/2018 Time: 12:24 Bed 19 Private MD: Parrish Turcios H Diagnosis: Acute bronchitis Presentation: 09/14 12:37 Presenting complaint: Cough, runny nose, SOB, and chest congestion x 2 days. Denies hb fever/chills/N/V/D. Transition of care: patient was not received from another setting of care. Onset of symptoms was September 12, 2018. Risk Assessment: Do you want to hurt yourself or someone else? Patient reports no desire to harm self or others. Care prior to arrival: None. 12:37 Method Of Arrival: Ambulatory hb 12:37 Acuity: TY 3 hb 13:00 Initial Sepsis Screen: Does the patient meet any 2 criteria? No. Patient's initial ph sepsis screen is negative. Does the patient have a suspected source of infection? No. Patient's initial sepsis screen is negative. Historical: - Allergies: 12:40 No Known Allergies; hb - PMHx: 19:33 colon cancer; Gout; Hypertension; Myocardial infarction; gs - PSHx: 19:33 CABG; gs - Immunization history:: Adult Immunizations up to date. - Social history:: Smoking status: Patient/guardian denies using tobacco. - Ebola Screening: : No symptoms or risks identified at this time. Screenin:26 Abuse screen: Denies threats or abuse. Denies injuries from another. Nutritional ph screening: No deficits noted. Tuberculosis screening: No symptoms or risk factors identified. Fall Risk None identified. Assessment: 13:15 General: Appears in no apparent distress. comfortable, obese, well groomed, Behavior is ph calm, cooperative, appropriate for age, Denies fever. Pain: Denies pain. 13:15 Neuro: Level of Consciousness is awake, alert, obeys commands, Oriented to person, ph place, time, situation, Denies weakness headache. Cardiovascular: Reports shortness of breath, Denies chest pain, nausea, vomiting, Capillary refill < 3 seconds in bilateral fingers Patient's skin is warm and dry. Respiratory: Reports shortness of breath at rest cough that is non-productive, Airway is patent Respiratory effort is even, unlabored, Respiratory pattern is regular, symmetrical, Breath sounds are clear bilaterally. GI: Patient currently denies abdominal pain, diarrhea, nausea, vomiting. EENT: Reports nasal congestion nasal discharge. Derm: Skin is intact, is healthy with good turgor, Skin is pink, warm \\T\\ dry. Musculoskeletal: Circulation, motion, and sensation intact. Range of motion: intact in all extremities. 14:30 Reassessment: Patient appears in no apparent distress at this time. Patient and/or ph family updated on plan of care and expected duration. Pain level reassessed. Patient is alert, oriented x 3, equal unlabored respirations, skin warm/dry/pink. Pt resting quietly, denies pain at this time, awaiting lab results. 15:30 Reassessment: Patient appears in no apparent distress at this time. Patient and/or ph family updated on plan of care and expected duration. Pain level reassessed. Patient is alert, oriented x 3, equal unlabored respirations, skin warm/dry/pink. Pt resting quietly, notified that recollect is needed for bloodwork, awaiting results of repeat labs. 16:24 Reassessment: Patient appears in no apparent distress at this time. Patient and/or ph family updated on plan of care and expected duration. Pain level reassessed. Patient is alert, oriented x 3, equal unlabored respirations, skin warm/dry/pink. Pt resting quietly,awaiting lab results. Vital Signs: 12:39 BP 155 / 103; Pulse 89; Resp 24; Temp 98.1(O); Pulse Ox 95% on R/A; Pain 3/10; hb 14:00 BP 160 / 98; Pulse 81; Resp 18; Pulse Ox 98% on R/A; ph 15:00 BP 157 / 103; Pulse 16; Resp 22; Pulse Ox 98% on R/A; ph 16:24 BP 158 / 108; Pulse 77; Resp 22; Pulse Ox 100% on R/A; ph ED Course: 12:24 Patient arrived in ED. mr 12:25 Parrish Turcios DO is Private Physician. mr 12:39 Triage completed. hb 12:39 Arm band placed on. EKG completed in triage. Results shown to MD. EKG completed in hb triage. Results shown to MD. 13:05 Slava Mcdonnell MD is Attending Physician. 13:13 Shanti Alva, RN is Primary Nurse. ph 13:47 XRAY Chest Pa And Lat (2 Views) In Process Unspecified. EDMS 13:47 X-ray completed. Patient tolerated procedure well. Patient moved back from radiology. jb2 13:57 EKG done, by chemical treatment plant technician. reviewed by Slava Mcdonnell MD. sm3 15:00 Inserted saline lock: 22 gauge in right hand, using aseptic technique. ph 16:14 Patient has correct armband on for positive identification. Bed in low position. Call ph light in reach. Side rails up X 1. Pulse ox on. NIBP on. Warm blanket given. 16:40 No provider procedures requiring assistance completed. ph 17:00 IV discontinued, intact, bleeding controlled, No redness/swelling at site. Pressure ph dressing applied. Administered Medications: 17:03 Not Given (Patient Refused; states, " i WILL TAKE SOME WHEN i GET HOME"): Lasix 40 mg ph IVP once Outcome: 16:38 Discharge ordered by . 17:07 Patient left the ED. ph 17:07 Discharged to home via wheelchair, with significant other. ph 17:07 Condition: good 17:07 Discharge instructions given to patient, Instructed on discharge instructions, follow up and referral plans. medication usage, Demonstrated understanding of instructions, follow-up care, medications, Prescriptions given X 1. Signatures: Dispatcher [employer] [facility] Roslyn Koch Jesse jb2 Shanti Alva RN RN Faith Hoffman RN RN Slava Mcdonnell MD MD StephensAvelina [facility]
--- NOTE | 2018-09-14 16:39 | EDPHYS ---
Physician Documentation [facility] Name: Rudy Ramos Sr Age: 73 yrs Sex: Male : 1945 Arrival Date: 09/14/2018 Time: 12:24 Bed 19 Private MD: Parrish Turcios H ED Physician Slava Mcdonnell HPI: 09/14 19:30 This 73 yrs old Black Male presents to ER via Ambulatory with complaints of Cough, gs Congestion. 19:30 The patient or guardian reports cough. Onset: The symptoms/episode began/occurred 2 gs day(s) ago, and became persistent. Severity of symptoms: At their worst the symptoms were moderate, in the emergency department the symptoms are unchanged. Modifying factors: The symptoms are alleviated by nothing, the symptoms are aggravated by nothing. Associated signs and symptoms: Pertinent positives: fever, Pertinent negatives: chest pain, sore throat. The patient has experienced similar episodes in the past, a few times. Historical: - Allergies: 12:40 No Known Allergies; hb - PMHx: 19:33 colon cancer; Gout; Hypertension; Myocardial infarction; gs - PSHx: 19:33 CABG; gs - Immunization history:: Adult Immunizations up to date. - Social history:: Smoking status: Patient/guardian denies using tobacco. - Ebola Screening: : No symptoms or risks identified at this time. ROS: 19:30 All other systems are negative. gs Exam: 19:30 Head/Face: Normocephalic, atraumatic. Eyes: Pupils equal round and reactive to light, gs extra-ocular motions intact. Lids and lashes normal. Conjunctiva and sclera are non-icteric and not injected. Cornea within normal limits. Periorbital areas with no swelling, redness, or edema. ENT: Nares patent. No nasal discharge, no septal abnormalities noted. Tympanic membranes are normal and external auditory canals are clear. Oropharynx with no redness, swelling, or masses, exudates, or evidence of obstruction, uvula midline. Mucous membranes moist. Neck: Trachea midline, no thyromegaly or masses palpated, and no cervical lymphadenopathy. Supple, full range of motion without nuchal rigidity, or vertebral point tenderness. No Meningismus. Chest/axilla: Normal chest wall appearance and motion. Nontender with no deformity. No lesions are appreciated. 19:30 Abdomen/GI: Soft, non-tender, with normal bowel sounds. No distension or tympany. No guarding or rebound. No evidence of tenderness throughout. Back: No spinal tenderness. No costovertebral tenderness. Full range of motion. Skin: Warm, dry with normal turgor. Normal color with no rashes, no lesions, and no evidence of cellulitis. MS/ Extremity: Pulses equal, no cyanosis. Neurovascular intact. Full, normal range of motion. Neuro: Awake and alert, GCS 15, oriented to person, place, time, and situation. Cranial nerves II-XII grossly intact. Motor strength 5/5 in all extremities. Sensory grossly intact. Cerebellar exam normal. Normal gait. 19:30 Constitutional: The patient appears alert, awake. 19:30 Cardiovascular: Rate: normal, Rhythm: regular, Pulses: no pulse deficits are appreciated, Edema: 2+ edema to level of left ankle and right ankle. 19:30 ECG was reviewed by the Attending Physician. 19:30 Respiratory: the patient does not display signs of respiratory distress, Respirations: tachypnea, that is mild, Breath sounds: rhonchi, that are mild, are located in both bases. Vital Signs: 12:39 BP 155 / 103; Pulse 89; Resp 24; Temp 98.1(O); Pulse Ox 95% on R/A; Pain 3/10; hb 14:00 BP 160 / 98; Pulse 81; Resp 18; Pulse Ox 98% on R/A; ph 15:00 BP 157 / 103; Pulse 16; Resp 22; Pulse Ox 98% on R/A; ph 16:24 BP 158 / 108; Pulse 77; Resp 22; Pulse Ox 100% on R/A; ph MDM: 13:22 Patient medically screened. 19:30 Differential Diagnosis: Bronchitis Influenza Pneumonia Other chf,cad. Data reviewed: vital signs, nurses notes, lab test result(s), radiologic studies. Counseling: I had a detailed discussion with the patient and/or guardian regarding: the historical points, exam findings, and any diagnostic results supporting the discharge/admit diagnosis, lab results. Response to treatment: the patient's symptoms have markedly improved after treatment, the patient's condition has returned to base line, and as a result, I will discharge patient. 09/14 13:23 Order name: Basic Metabolic Panel; Complete Time: 16:35 gs 02 13:23 Order name: CBC with Diff; Complete Time: 16:35 09/14 13:23 Order name: Magnesium; Complete Time: 16:35 09/14 13:23 Order name: PT-INR; Complete Time: 16:35 02 13:23 Order name: Troponin (emerg Dept Use Only); Complete Time: 16:35 09/14 13:23 Order name: Flu; Complete Time: 15:42 09/14 13:23 Order name: EKG; Complete Time: 13:24 gs 02 13:23 Order name: Cardiac monitoring; Complete Time: 15:08 09/14 13:23 Order name: EKG - Nurse/Tech; Complete Time: 15:08 09/14 13:23 Order name: IV Saline Lock; Complete Time: 15:09 09/14 13:23 Order name: Labs collected and sent; Complete Time: 15:09 09/14 13:23 Order name: O2 Per Protocol; Complete Time: 15:15 09/14 13:23 Order name: XRAY Chest Pa And Lat (2 Views); Complete Time: 14:02 09/14 13:23 Order name: O2 Sat Monitoring; Complete Time: 15:15 gs EC:30 Rate is 77 beats/min. Rhythm is regular. [place] interval is normal. QRS interval is normal. gs T waves are Flattened. No ST changes noted. Clinical impression: Abnormal EKG without significant change. Interpreted by me. Administered Medications: 17:03 Not Given (Patient Refused; states, " i WILL TAKE SOME WHEN i GET HOME"): Lasix 40 mg ph IVP once Disposition: 09/14/18 16:38 Discharged to Home. Impression: Acute bronchitis. - Condition is Stable. - Discharge Instructions: Acute Bronchitis, Adult. - Prescriptions for Albuterol Sulfate 90 mcg/actuation - inhale 1-2 puff by INHALATION route every 4-6 hours; 1 Inhaler. - Medication Reconciliation Form, Thank You Letter, Antibiotic Education, Prescription Opioid Use form. - Follow up: Private Physician; When: 2 - 3 days; Reason: Re-evaluation by your physician. Signatures: Dispatcher [employer] Shanti Galo RN RN Faith Hoffman RN RN Slava Mcdonnell MD MD gs Corrections: (The following items were deleted from the chart) 17:07 16:38 09/14/2018 16:38 Discharged to Home. Impression: Acute bronchitis. Condition is ph Stable. Forms are Medication Reconciliation Form, Thank You Letter, Antibiotic Education, Prescription Opioid Use. Follow up: Private Physician; When: 2 - 3 days; Reason: Re-evaluation by your physician. gs
--- NOTE | 2018-09-14 16:57 | EKG ---
Test Date: 2018-09-14 Test Time: 13:34:14 Fuel Attendant: CLAY MEASUREMENT RESULTS: Intervals: Rate: 77 IN: 188 QRSD: 76 QT: 386 QTc: 436 [place]: P: 84 IN: 188 QRS: 65 T: 57 INTERPRETIVE STATEMENTS: Sinus rhythm with occasional premature ventricular complexes Inferior infarct, age undetermined Abnormal ECG Compared to ECG 08/08/2018 15:34:00 Ventricular premature complex(es) now present Myocardial infarct finding still present Electronically Signed On 09-14-18 16:56:19 MAJOR ACCOUNT MANAGER by Sarbjit Fisher
[2018-09-14 17:16] VITALS: TEMP 98.1
[2018-09-14 17:20] VITALS: BP 158/108; O2SAT 100
== END 2018-09-14 17:07 | disposition home or self-care (01) ==
LOC: ER 12:19
DX: J20.9 Acute bronchitis, unspecified (principal); Z85.038 Personal history of other malignant neoplasm of large intestine; I10 Essential (primary) hypertension; I25.2 Old myocardial infarction; M10.9 Gout, unspecified
CPT/HCPCS: 36415; 71046; 80048; 83735; 84484; 85025; 85610; 87804; 93005; 99284

== ENCOUNTER 2019-03-20 09:32 | Emergency (ER) | payer MEDICARE ==
[2019-03-20 09:56] LABS: Absolute Lymphocytes (CBC) 1.7 K/uL (0.7-4.9); Hematocrit 47.2 % (39.6-49.0); Lymphocytes % 27.7 % (15.3-44.8); MPV 9.4 fL (7.6-11.3)
[2019-03-20 10:07] LABS: Protime INR 1.03
[2019-03-20 10:22] LABS: BUN Blood Urea Nitrogen 11 mg/dL (7-18); Bicarbonate 29 mmol/L (21-32); Glucose Level 91 mg/dL (74-106); Potassium 3.8 mmol/L (3.5-5.1); Sodium Level 144 mmol/L (136-145); Troponin (Emerg Dept Use Only) < 0.02 ng/mL (0.0-0.045)
--- NOTE | 2019-03-20 10:58 | ER ---
Nurse's Notes [facility] Name: Rudy Ramos Sr Age: 73 yrs Sex: Male : 1945 Arrival Date: 03/20/2019 Time: 09:33 Bed 5 Private MD: Parrish Turcios H Diagnosis: Chest pain, unspecified;Low back pain Presentation: 03/20 09:41 Presenting complaint: Patient states: low back pain x 1 weeks and numbness to bilateral ss feet x 2 days. Pt also reports he gets intermittent twinges in his chest since his CABG 10 months ago. Transition of care: patient was not received from another setting of care. Onset of symptoms is unknown. Risk Assessment: Do you want to hurt yourself or someone else? Patient reports no desire to harm self or others. Initial Sepsis Screen: Does the patient meet any 2 criteria? No. Patient's initial sepsis screen is negative. Does the patient have a suspected source of infection? No. Patient's initial sepsis screen is negative. Care prior to arrival: None. 09:41 Method Of Arrival: Ambulatory ss 09:41 Acuity: TY 3 ss Historical: - Allergies: 09:42 No Known Allergies; ss - PMHx: 09:42 colon cancer; Gout; Hypertension; Myocardial infarction; ss - PSHx: 09:42 CABG; ss - Immunization history:: Adult Immunizations up to date. - Social history:: Smoking status: Patient/guardian denies using tobacco, but has a distant history of tobacco abuse. - Ebola Screening: : Patient denies exposure to infectious person Patient denies travel to an Ebola-affected area in the 21 days before illness onset. Screenin:41 Abuse screen: Denies threats or abuse. Denies injuries from another. Nutritional sv screening: No deficits noted. Tuberculosis screening: No symptoms or risk factors identified. Fall Risk None identified. Assessment: 09:40 General: Appears in no apparent distress. comfortable, well developed, Behavior is sv calm, cooperative, appropriate for age. Pain: Complains of pain in low back area, chest, right leg and left leg Pain currently is 3 out of 10 on a pain scale. Neuro: Level of Consciousness is awake, alert, obeys commands, Oriented to person, place, time, situation, Moves all extremities. Full function Gait is steady, Speech is normal. Cardiovascular: Patient's skin is warm and dry. Rhythm is sinus rhythm. Respiratory: Airway is patent Respiratory effort is even, unlabored, Respiratory pattern is regular, symmetrical. Derm: Skin is pink, warm \T\ dry. Musculoskeletal: Range of motion: intact in all extremities, Reports numbness in right leg and left leg. 11:15 Reassessment: Patient appears in no apparent distress at this time. No changes from previously documented assessment. Patient and/or family updated on plan of care and expected duration. Pain level reassessed. Patient is alert, oriented x 3, equal unlabored respirations, skin warm/dry/pink. Vital Signs: 09:42 BP 172 / 102; Pulse 85; Resp 16; Temp 97.2(TE); Pulse Ox 98% on R/A; Weight 118.39 kg; ss Height 5 ft. 7 in. (170.18 cm); Pain 3/10; 10:01 BP 155 / 114; Pulse 77; Resp 15; Pulse Ox 97% ; sv 09:42 Body Mass Index 40.88 (118.39 kg, 170.18 cm) ss 10:01 Pt reports not taking his BP meds this morning. ED Course: 09:33 Patient arrived in ED. rg4 09:34 Parrish Turcios DO is Private Physician. rg4 09:36 Slava Mcdonnell MD is Attending Physician. gs 09:41 Xena Garcias, ROSE is Primary Nurse. sv 09:41 Arm band placed on Patient placed in an exam room, on a stretcher, on bus driver/monitor, sv on pulse oximetry. 09:41 Patient has correct armband on for positive identification. Placed in gown. Bed in low sv position. Call light in reach. Adult w/ patient. monitoring coordinator on. Pulse ox on. NIBP on. Door closed. Head of bed elevated. 09:42 Triage completed. ss 09:45 Initial lab(s) drawn, by me, sent to lab. Inserted saline lock: 22 gauge in right sv antecubital area, using aseptic technique. ,using aseptic technique. diffusics Blood collected. Flushed right antecubital with 5 ml normal saline. 09:50 EKG done, by ED staff, reviewed by Slava Mcdonnell MD. jb1 09:52 Awaiting lab results, Awaiting radiology results. sv 09:52 X-ray(s) taken. sv 10:08 XRAY Chest (1 view) In Process Unspecified. EDMS 11:15 No provider procedures requiring assistance completed. IV discontinued, intact, sv bleeding controlled, No redness/swelling at site. Pressure dressing applied. Administered Medications: No medications were administered Outcome: 10:57 Discharge ordered by . gs 11:15 Patient left the ED. 11:15 Discharge instructions given to patient, Instructed on discharge instructions, follow sv up and referral plans. no drinking with medication, no driving heavy equipment, medication usage, Demonstrated understanding of instructions, follow-up care, medications, Prescriptions given X 1. Signatures: Dispatcher [employer] EDMS Mika Young jb1 Xena Garcias RN RN Carmen Yadav RN RN Faith Hoffman RN RN Margareth Vann rg4 Slava Mcdonnell MD MD gs Corrections: (The following items were deleted from the chart) 17:34 17:33 Discharge instructions given to patient, Instructed on discharge instructions, sv follow up and referral plans. no drinking with medication, no driving heavy equipment, medication usage, Demonstrated understanding of instructions, follow-up care, medications, Prescriptions given X 1, sv
--- NOTE | 2019-03-20 10:59 | EDPHYS ---
Physician Documentation [facility] Name: Rudy Ramos Sr Age: 73 yrs Sex: Male : 1945 Arrival Date: 03/20/2019 Time: 09:33 Bed 5 Private MD: Parrish Turcios H ED Physician Slava Mcdonnell HPI: 03/20 10:43 This 73 yrs old Black Male presents to ER via Ambulatory with complaints of Chest gs Discomfort. 10:43 The patient or guardian reports chest pain that is located primarily in the anterior gs chest wall. Onset: 6 month(s) ago. The pain does not radiate. Associated signs and symptoms: Pertinent negatives: shortness of breath. The chest pain is described as dull, a heaviness. Duration: The patient or guardian reports multiple episodes, that are intermittent, that wax and wane, with no pattern, the episodes last approximately 2 minute(s). Modifying factors: The symptoms are alleviated by nothing. the symptoms are aggravated by nothing. Severity of pain: At its worst the pain was moderate in the emergency department the pain has resolved and did so just prior to arrival. The patient has experienced similar episodes in the past, chronically. The patient has not recently seen a physician. Historical: - Allergies: 09:42 No Known Allergies; ss - PMHx: 09:42 colon cancer; Gout; Hypertension; Myocardial infarction; ss - PSHx: 09:42 CABG; ss - Immunization history:: Adult Immunizations up to date. - Social history:: Smoking status: Patient/guardian denies using tobacco, but has a distant history of tobacco abuse. - Ebola Screening: : Patient denies exposure to infectious person Patient denies travel to an Ebola-affected area in the 21 days before illness onset. ROS: 10:43 Abdomen/GI: Negative for bowel incontinence. gs 10:43 Back: Positive for pain with movement, chronic says gets numbess in feet also intermittent, Negative for 10:43 : Negative for bladder incontinence. 10:43 All other systems are negative. Exam: 10:43 Head/Face: Normocephalic, atraumatic. Eyes: Pupils equal round and reactive to light, gs extra-ocular motions intact. Lids and lashes normal. Conjunctiva and sclera are non-icteric and not injected. Cornea within normal limits. Periorbital areas with no swelling, redness, or edema. ENT: Nares patent. No nasal discharge, no septal abnormalities noted. Tympanic membranes are normal and external auditory canals are clear. Oropharynx with no redness, swelling, or masses, exudates, or evidence of obstruction, uvula midline. Mucous membranes moist. Neck: Trachea midline, no thyromegaly or masses palpated, and no cervical lymphadenopathy. Supple, full range of motion without nuchal rigidity, or vertebral point tenderness. No Meningismus. Chest/axilla: Normal chest wall appearance and motion. Nontender with no deformity. No lesions are appreciated. Cardiovascular: Regular rate and rhythm with a normal S1 and S2. No gallops, murmurs, or rubs. Normal PMI, no JVD. No pulse deficits. Respiratory: Lungs have equal breath sounds bilaterally, clear to auscultation and percussion. No rales, rhonchi or wheezes noted. No increased work of breathing, no retractions or nasal flaring. Abdomen/GI: Soft, non-tender, with normal bowel sounds. No distension or tympany. No guarding or rebound. No evidence of tenderness throughout. Back: No spinal tenderness. No costovertebral tenderness. Full range of motion. Skin: Warm, dry with normal turgor. Normal color with no rashes, no lesions, and no evidence of cellulitis. MS/ Extremity: Pulses equal, no cyanosis. Neurovascular intact. Full, normal range of motion. Neuro: Awake and alert, GCS 15, oriented to person, place, time, and situation. Cranial nerves II-XII grossly intact. Motor strength 5/5 in all extremities. Sensory grossly intact. Cerebellar exam normal. Normal gait. 10:43 Constitutional: The patient appears alert, awake. 10:43 ECG was reviewed by the Attending Physician. Vital Signs: 09:42 BP 172 / 102; Pulse 85; Resp 16; Temp 97.2(TE); Pulse Ox 98% on R/A; Weight 118.39 kg; ss Height 5 ft. 7 in. (170.18 cm); Pain 3/10; 10:01 BP 155 / 114; Pulse 77; Resp 15; Pulse Ox 97% ; sv 09:42 Body Mass Index 40.88 (118.39 kg, 170.18 cm) 10:01 Pt reports not taking his BP meds this morning. sv MDM: 09:52 Patient medically screened. gs 10:43 Differential diagnosis: abnormal EKG, chest wall pain, unstable angina, lumbago. Data gs reviewed: vital signs, nurses notes, lab test result(s), EKG, radiologic studies. Counseling: I had a detailed discussion with the patient and/or guardian regarding: the historical points, exam findings, and any diagnostic results supporting the discharge/admit diagnosis. Response to treatment: the patient's symptoms have resolved after treatment, the patient's pain is gone. 03/20 09:39 Order name: Basic Metabolic Panel; Complete Time: 10:42 03/20 09:39 Order name: CBC with Diff; Complete Time: 10:42 03/20 09:39 Order name: PT-INR; Complete Time: 10:42 03/20 09:39 Order name: Troponin (emerg Dept Use Only); Complete Time: 10:42 03/20 09:39 Order name: XRAY Chest (1 view) 03/20 09:39 Order name: EKG; Complete Time: 09:40 03/20 09:39 Order name: Cardiac monitoring; Complete Time: 09:50 0818 09:39 Order name: EKG - Nurse/Tech; Complete Time: 09:50 03/20 09:39 Order name: IV Saline Lock; Complete Time: 09:50 0818 09:39 Order name: Labs collected and sent; Complete Time: 09:50 0818 09:39 Order name: O2 Per Protocol; Complete Time: 09:50 03/20 09:39 Order name: O2 Sat Monitoring; Complete Time: 09:50 EC:43 Rate is 80 beats/min. Rhythm is regular. [place] interval is prolonged. Q waves are Old. No gs ST changes noted. Clinical impression: Abnormal EKG without significant change. Interpreted by me. Administered Medications: No medications were administered Disposition: 03/20/19 10:57 Discharged to Home. Impression: Chest pain, unspecified, Low back pain. - Condition is Stable. - Discharge Instructions: Back Pain, Adult, Nonspecific Chest Pain. - Prescriptions for Tylenol- Codeine #3 300-30 mg Oral Tablet - take 1 tablet by ORAL route every 6 hours As needed; 10 tablet. - Medication Reconciliation Form, Thank You Letter, Antibiotic Education, Prescription Opioid Use form. - Follow up: Private Physician; When: 1 - 2 days; Reason: Re-evaluation by your physician. Signatures: Dispatcher [employer] Carmen Poe RN RN Faith Mcneal RN RN Slava Mcdonnell MD MD gs Corrections: (The following items were deleted from the chart) 10:55 10:43 All other systems are negative, [facility] 11:15 10:57 03/20/2019 10:57 Discharged to Home. Impression: Chest pain, unspecified; Low hb back pain. Condition is Stable. Forms are Medication Reconciliation Form, Thank You Letter, Antibiotic Education, Prescription Opioid Use. Follow up: Private Physician; When: 1 - 2 days; Reason: Re-evaluation by your physician. gs
[2019-03-20 11:22] VITALS: TEMP 97.2
[2019-03-20 11:23] VITALS: BP 155/114; O2SAT 97
--- NOTE | 2019-03-20 12:01 | RAD REPORT ---
EXAM DESCRIPTION: Jory Single View03/20/2019 10:07 am CLINICAL HISTORY: Chest pain COMPARISON: September 2018 FINDINGS: The lungs appear clear of acute infiltrate. The heart is mildly to moderately enlarged. Postsurgical changes involve the chest. Central venous line has its tip in the superior vena cava IMPRESSION: No acute abnormalities displayed
--- NOTE | 2019-03-21 07:54 | EKG ---
Test Date: 2019-03-20 Test Time: 09:46:08 Foot And Ankle Surgeon: CARLOS ENRIQUE MEASUREMENT RESULTS: Intervals: Rate: 80 TN: 216 QRSD: 86 QT: 398 QTc: 459 [place]: P: 72 TN: 216 QRS: 34 T: 74 INTERPRETIVE STATEMENTS: Sinus rhythm with 1st degree AV block Inferior infarct, age undetermined Abnormal ECG Compared to ECG 09/14/2018 13:34:14 First degree AV block now present Ventricular premature complex(es) no longer present Myocardial infarct finding still present Electronically Signed On 03-21-19 07:54:16 CDT by Sarbjit Fisher
== END 2019-03-20 11:15 | disposition home or self-care (01) ==
LOC: ER 09:32
DX: R07.9 Chest pain, unspecified (principal); M54.5 Low back pain; I10 Essential (primary) hypertension; I25.2 Old myocardial infarction; Z95.1 Presence of aortocoronary bypass graft; Z85.038 Personal history of other malignant neoplasm of large intestine
CPT/HCPCS: 36415; 71045; 80048; 84484; 85025; 85610; 93005; 99284

== ENCOUNTER 2019-04-20 00:35 | Observation (INO) | payer MEDICARE ==
[2019-04-20] MEDS ORDERED: FAMOTIDINE 20 MG/2 ML VIAL IV ONE (01:12)
[2019-04-20 01:28] LABS: Absolute Lymphocytes (CBC) 1.6 K/uL (0.7-4.9); Basophils % 0.9 % (0-1.3); Hematocrit 43.3 % (39.6-49.0); Lymphocytes % 28.6 % (15.3-44.8); MPV 9.4 fL (7.6-11.3); RBC Red Blood Cell Count 4.83 M/uL (4.33-5.43)
[2019-04-20 01:30] LABS: Protime INR 1.05
[2019-04-20 01:46] LABS: ALT/SGPT 19 U/L (12-78); AST/SGOT 13 U/L (15-37); Albumin 3.1 g/dL (3.4-5.0); Alkaline Phosphatase 113 U/L (45-117); BUN Blood Urea Nitrogen 10 mg/dL (7-18); Bicarbonate 33 mmol/L (21-32); Bilirubin Direct 0.2 mg/dL (0-0.2); Bilirubin Total 0.4 mg/dL (0.2-1.0); Glucose Level 99 mg/dL (74-106); NT PRO-BNP 574 pg/mL (<125); Potassium 3.5 mmol/L (3.5-5.1); Protein, Total 7.4 g/dL (6.4-8.2); Sodium Level 140 mmol/L (136-145); Troponin (Emerg Dept Use Only) < 0.02 ng/mL (0.0-0.045)
[2019-04-20] MEDS ORDERED: MAGNE/ALUM HYDROXD 30 ML UCUP ONE (02:13)
--- NOTE | 2019-04-20 02:52 | ER ---
Nurse's Notes [facility] Name: Rudy Ramos Sr Age: 73 yrs Sex: Male : 1945 Arrival Date: 04/20/2019 Time: 00:40 Bed 15 Private MD: Diagnosis: Chest pain, unspecified Presentation: 04/20 00:42 Presenting complaint: Patient states: he has had heartburn off and on for the past 24 aa1 hrs and wanted to have it checked out since he had a heart attack and CABG 11 months ago. Denies any other symptoms. Transition of care: patient was not received from another setting of care. Onset of symptoms was April 19, 2019. Risk Assessment: Do you want to hurt yourself or someone else? Patient reports no desire to harm self or others. Initial Sepsis Screen: Does the patient meet any 2 criteria? No. Patient's initial sepsis screen is negative. Does the patient have a suspected source of infection? No. Patient's initial sepsis screen is negative. Care prior to arrival: None. 00:42 Method Of Arrival: EMS: [facility] aa1 00:42 Acuity: TY 3 aa1 Historical: - Allergies: 00:48 No Known Allergies; aa1 - Home Meds: 00:48 Lisinopril Oral [Active]; Metoprolol Tartrate Oral [Active]; Plavix Oral [Active]; aa1 Lasix Oral [Active]; gabapentin oral oral [Active]; - PMHx: 00:48 colon cancer; Gout; Hypertension; Myocardial infarction; aa1 - PSHx: 00:48 CABG; Joint replacement; Knee surgery; aa1 - Immunization history:: Flu vaccine is not up to date. - Social history:: Smoking status: Patient/guardian denies using tobacco, the patient reports quitting approximately 38 years ago. - Ebola Screening: : No symptoms or risks identified at this time. Screenin:56 Abuse screen: Denies threats or abuse. Denies injuries from another. Abuse screen:. aa1 Nutritional screening: No deficits noted. Tuberculosis screening: No symptoms or risk factors identified. Fall Risk None identified. Assessment: 00:56 General: Appears in no apparent distress. comfortable, Behavior is calm, cooperative, aa1 appropriate for age. Pain: Complains of pain in mid-sternal area Quality of pain is described as burning, Pain began 1 day ago. Is intermittent. Neuro: Level of Consciousness is awake, alert, obeys commands, Oriented to person, place, time, situation, Moves all extremities. Speech is normal. Cardiovascular: Reports indigestion Denies chest pain, diaphoresis, fatigue, lightheadedness, nausea, palpitations, shortness of breath, syncope, vomiting, Heart tones S1 S2 present Capillary refill < 3 seconds Clubbing of nail beds is absent JVD is absent Patient's skin is warm and dry. Rhythm is regular. Respiratory: Airway is patent Respiratory effort is even, unlabored, Respiratory pattern is regular, symmetrical. GI: Abdomen is hernia noted Reports indigestion. : No signs and/or symptoms were reported regarding the genitourinary system. EENT: No signs and/or symptoms were reported regarding the EENT system. Derm: Skin is intact, is healthy with good turgor, Skin is pink, warm \T\ dry. Musculoskeletal: Circulation, motion, and sensation intact. Capillary refill < 3 seconds. 01:30 Reassessment: Patient appears in no apparent distress at this time. Patient and/or aa1 family updated on plan of care and expected duration. Pain level reassessed. Patient is alert, oriented x 3, equal unlabored respirations, skin warm/dry/pink. Awaiting lab results Patient denies pain at this time. 02:18 Reassessment: Patient appears in no apparent distress at this time. Patient and/or aa1 family updated on plan of care and expected duration. Pain level reassessed. Patient is alert, oriented x 3, equal unlabored respirations, skin warm/dry/pink. Awaiting provider reassessment. 03:30 Reassessment: Patient appears in no apparent distress at this time. Patient is alert, aa1 oriented x 3, equal unlabored respirations, skin warm/dry/pink. Report given to ROSE Arnett on 2nd floor Patient states feeling better. Vital Signs: 00:48 BP 155 / 100; Pulse 67; Resp 18; Temp 98.6; Pulse Ox 95% on R/A; Weight 117.93 kg; aa1 Height 5 ft. 7 in. (170.18 cm); Pain 3/10; 01:30 BP 152 / 96; Pulse 61; Resp 18; Pulse Ox 93% on R/A; aa1 02:18 BP 147 / 99; Pulse 73; Resp 20; Pulse Ox 95% on R/A; Pain 2/10; aa1 03:35 BP 146 / 97; Pulse 58; Resp 20; Temp 98.4; Pulse Ox 94% on R/A; Pain 0/10; aa1 00:48 Body Mass Index 40.72 (117.93 kg, 170.18 cm) aa1 ED Course: 00:40 Patient arrived in ED. aa1 00:42 Slava Mcdonnell MD is Attending Physician. gs 00:44 Triage completed. aa1 00:48 Arm band placed on right wrist. aa1 00:56 Patient has correct armband on for positive identification. Placed in gown. Bed in low aa1 position. Call light in reach. shelter monitor on. Pulse ox on. NIBP on. 01:05 Initial lab(s) drawn, by me, sent to lab. Inserted saline lock: 20 gauge in right aa1 antecubital area, using aseptic technique. Blood collected. 01:07 Trinity Genao RN is Primary Nurse. aa1 01:07 EKG done, by ED staff, reviewed by Slava Mcdonnell MD. aa1 01:30 XRAY Chest (1 view) In Process Unspecified. EDMS 02:50 Isaiah Escalante DO is Hospitalizing Provider. gs 03:33 No provider procedures requiring assistance completed. Patient admitted, IV remains in aa1 place. Administered Medications: 01:15 Drug: Pepcid 20 mg Route: IVP; Site: right antecubital; aa1 02:12 Follow up: Response: No adverse reaction; No adverse reaction; mild relief of aa1 indigesyion 02:12 Drug: Maalox Suspension (200 mg-200 mg-20 mg/5 mL) 30 ml Route: PO; aa1 Outcome: 02:51 Decision to Hospitalize by Provider. gs 03:30 Admitted to Tele accompanied by nurse, family with patient, via wheelchair, room 232, aa1 with chart, Report called to ROSE Arnett 03:30 Condition: good 03:30 Instructed on the need for admit, Demonstrated understanding of instructions. 03:45 Patient left the ED. aa1 Signatures: Dispatcher [employer] EDMS Trinity Genao RN RN aa1 Mcdonnell, Slava, MD MD gs
--- NOTE | 2019-04-20 02:53 | EDPHYS ---
Physician Documentation [facility] Name: Rudy Ramos Sr Age: 73 yrs Sex: Male : 1945 Arrival Date: 04/20/2019 Time: 00:40 Bed 15 Private MD: ED Physician Slava Mcdonnell HPI: 04/20 02:48 This 73 yrs old Black Male presents to ER via EMS with complaints of Indigestion. gs 02:48 The patient or guardian reports chest pain that is located primarily in the epigastric gs area. Onset: 2 day(s) ago, and became persistent. The pain does not radiate. Associated signs and symptoms: Pertinent positives: shortness of breath. The chest pain is described as burning. Duration: The patient or guardian reports multiple episodes, that are intermittent, that wax and wane, with no pattern, the episodes last approximately 5 minute(s). Modifying factors: The symptoms are alleviated by nothing. the symptoms are aggravated by nothing. Severity of pain: At its worst the pain was moderate in the emergency department the pain has improved moderately. The patient has experienced a previous episode, and the symptoms today are exactly the same, mi. Historical: - Allergies: 00:48 No Known Allergies; aa1 - Home Meds: 00:48 Lisinopril Oral [Active]; Metoprolol Tartrate Oral [Active]; Plavix Oral [Active]; aa1 Lasix Oral [Active]; gabapentin oral oral [Active]; - PMHx: 00:48 colon cancer; Gout; Hypertension; Myocardial infarction; aa1 - PSHx: 00:48 CABG; Joint replacement; Knee surgery; aa1 - Immunization history:: Flu vaccine is not up to date. - Social history:: Smoking status: Patient/guardian denies using tobacco, the patient reports quitting approximately 38 years ago. - Ebola Screening: : No symptoms or risks identified at this time. ROS: 02:48 All other systems are negative. gs Exam: 02:48 Head/Face: Normocephalic, atraumatic. Eyes: Pupils equal round and reactive to light, gs extra-ocular motions intact. Lids and lashes normal. Conjunctiva and sclera are non-icteric and not injected. Cornea within normal limits. Periorbital areas with no swelling, redness, or edema. ENT: Nares patent. No nasal discharge, no septal abnormalities noted. Tympanic membranes are normal and external auditory canals are clear. Oropharynx with no redness, swelling, or masses, exudates, or evidence of obstruction, uvula midline. Mucous membranes moist. Neck: Trachea midline, no thyromegaly or masses palpated, and no cervical lymphadenopathy. Supple, full range of motion without nuchal rigidity, or vertebral point tenderness. No Meningismus. Chest/axilla: Normal chest wall appearance and motion. Nontender with no deformity. No lesions are appreciated. Cardiovascular: Regular rate and rhythm with a normal S1 and S2. No gallops, murmurs, or rubs. Normal PMI, no JVD. No pulse deficits. Respiratory: Lungs have equal breath sounds bilaterally, clear to auscultation and percussion. No rales, rhonchi or wheezes noted. No increased work of breathing, no retractions or nasal flaring. Abdomen/GI: Soft, non-tender, with normal bowel sounds. No distension or tympany. No guarding or rebound. No evidence of tenderness throughout. Back: No spinal tenderness. No costovertebral tenderness. Full range of motion. Skin: Warm, dry with normal turgor. Normal color with no rashes, no lesions, and no evidence of cellulitis. MS/ Extremity: Pulses equal, no cyanosis. Neurovascular intact. Full, normal range of motion. Neuro: Awake and alert, GCS 15, oriented to person, place, time, and situation. Cranial nerves II-XII grossly intact. Motor strength 5/5 in all extremities. Sensory grossly intact. Cerebellar exam normal. Normal gait. 02:48 Constitutional: The patient appears alert, awake. 02:48 ECG was reviewed by the Attending Physician. Vital Signs: 00:48 BP 155 / 100; Pulse 67; Resp 18; Temp 98.6; Pulse Ox 95% on R/A; Weight 117.93 kg; aa1 Height 5 ft. 7 in. (170.18 cm); Pain 3/10; 01:30 BP 152 / 96; Pulse 61; Resp 18; Pulse Ox 93% on R/A; aa1 02:18 BP 147 / 99; Pulse 73; Resp 20; Pulse Ox 95% on R/A; Pain 2/10; aa1 03:35 BP 146 / 97; Pulse 58; Resp 20; Temp 98.4; Pulse Ox 94% on R/A; Pain 0/10; aa1 00:48 Body Mass Index 40.72 (117.93 kg, 170.18 cm) aa1 MDM: 01:09 Patient medically screened. gs 02:48 Differential diagnosis: acute myocardial infarction, coronary artery disease chest wall gs pain, congestive heart failure. HEART Score: History: Slightly Suspicious (0), ECG: Normal (0), Age: > or = 65 years (2), Risk Factors: 1 or 2 risk factors (1), [Hypercholesterolemia] [Hypertension] Troponin: < or = 1 x Normal Limit (0). Data reviewed: vital signs, nurses notes, old medical records, lab test result(s), EKG, radiologic studies. 04/20 00:44 Order name: Basic Metabolic Panel; Complete Time: 04/20 00:44 Order name: CBC with Diff; Complete Time: 04/20 00:44 Order name: LFT's; Complete Time: 04/20 00:44 Order name: Magnesium; Complete Time: 04/20 00:44 Order name: NT PRO-BNP; Complete Time: 04/20 00:44 Order name: PT-INR; Complete Time: 04/20 00:44 Order name: Troponin (emerg Dept Use Only); Complete Time: 04/20 00:44 Order name: XRAY Chest (1 view) 04/20 00:44 Order name: EKG; Complete Time: : 04/20 00:44 Order name: Cardiac monitoring; Complete Time: : 04/20 00:44 Order name: EKG - Nurse/Tech; Complete Time: : 04/20 00:44 Order name: IV Saline Lock; Complete Time: : 04/20 00:44 Order name: Labs collected and sent; Complete Time: : 04/20 00:44 Order name: O2 Per Protocol; Complete Time: : 04/20 00:44 Order name: O2 Sat Monitoring; Complete Time: 01:07 EC:48 Rate is 65 beats/min. Rhythm is regular. [place] interval is prolonged. QRS interval is gs normal. QT interval is normal. T waves are Inverted in lead V2. No ST changes noted. Clinical impression: NSR w/ Non-specific ST/T Changes. Interpreted by me. Administered Medications: 01:15 Drug: Pepcid 20 mg Route: IVP; Site: right antecubital; aa1 02:12 Follow up: Response: No adverse reaction; No adverse reaction; mild relief of aa1 indigesyion 02:12 Drug: Maalox Suspension (200 mg-200 mg-20 mg/5 mL) 30 ml Route: PO; aa1 Disposition: 04/20/19 02:51 Hospitalization ordered by Isaiah Escalante for Observation. Preliminary diagnosis is Chest pain, unspecified. - Bed requested for Telemetry/MedSurg (observation). - Status is Observation. aa1 - Condition is Stable. - Problem is new. - Symptoms are resolved. UTI on Admission? No Signatures: Dispatcher [employer] EDOR Claudia Mccoy RN RN Trinity Genao RN RN [facility] Slava Mcdonnell MD MD Corrections: (The following items were deleted from the chart) 01:30 01:24 Chest Single View [address]. [facility] EDOR 03:18 02:51 Hospitalization Ordered by Isaiah Escalante DO for Observation. Preliminary diagnosis is Chest pain, unspecified. Bed requested for Telemetry/MedSurg (observation). Status is Observation. Condition is Stable. Problem is new. Symptoms are resolved. UTI on Admission? No. 03:45 03:18 04/20/2019 02:51 Hospitalization Ordered by Isaiah Escalante DO for Observation. aa1 Preliminary diagnosis is Chest pain, unspecified. Bed requested for Telemetry/MedSurg (observation). Status is Observation. Condition is Stable. Problem is new. Symptoms are resolved. UTI on Admission? No. mw
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
[2019-04-20] MEDS ORDERED: NITROGLYCERIN 0.4 MG/TAB SL PRN (03:36)
[2019-04-20] MEDS ORDERED: MORPHINE 2 MG/ML SYR IV PRN (03:36)
[2019-04-20] MEDS ORDERED: ACETAMINOPHEN 500 MG TAB PO PRN (03:36)
[2019-04-20] MEDS ORDERED: ONDANSETRON 4 MG/2 ML VIAL IV PRN (03:36)
[2019-04-20] MEDS ORDERED: TRAMADOL HCL 50 MG TAB PO PRN (03:36)
[2019-04-20 03:59] VITALS: BMI 45.3
[2019-04-20 05:28] LABS: Urine Appearance CLEAR; Urine Bilirubin NEGATIVE (NEG); Urine Blood NEGATIVE (NEG); Urine Color YELLOW; Urine Glucose NEGATIVE (NEG); Urine Protein NEGATIVE (NEG); Urine Specific Gravity <=1.005 (1.005-1.030); Urine Urobilinogen 0.2 mg/dL (0.2-1.0); Urine pH 5.5 (5.0-7.0)
[2019-04-20 05:30] LABS: CKMB Creatine Kinase MB 1.9 ng/mL (0.3-3.6); Creatine Phosphokinase 162 U/L (39-308); HDL Cholesterol 56 mg/dL (40-60); LDL Cholesterol, Calculated 44 (<130); Troponin I < 0.02 ng/mL (0.0-0.045)
[2019-04-20 05:34] LABS: Urine Microscopic Reflex NO UMIC
[2019-04-20] MEDS ORDERED: METOPROLOL TAR 25 MG TAB PO SCH (06:00)
--- NOTE | 2019-04-20 07:26 | EKG ---
Test Date: 2019-04-20 Test Time: 01:07:07 [employer] Developer: CHERELLE MEASUREMENT RESULTS: Intervals: Rate: 65 [place]: 246 QRSD: 80 QT: 412 QTc: 428 [place]: P: 61 [place]: 246 QRS: 0 T: 78 INTERPRETIVE STATEMENTS: Sinus rhythm with 1st degree AV block Inferior infarct, age undetermined Abnormal ECG Compared to ECG 03/20/2019 09:46:08 No significant changes Electronically Signed On 04-20-19 07:25:03 CDT by Filemon Clark
--- NOTE | 2019-04-20 07:49 | RAD REPORT ---
EXAM DESCRIPTION: Jory Single View04/20/2019 1:30 am CLINICAL HISTORY: Chest pain COMPARISON: March 2019 FINDINGS: The lungs appear clear of acute infiltrate. The heart is moderately dly enlarged. Postsurgical changes involve the chest. Central venous line has its tip in the superior vena cava IMPRESSION: No acute abnormalities displayed
[2019-04-20] MEDS ORDERED: FUROSEMIDE 40 MG TABLET PO SCH (09:00)
[2019-04-20] MEDS ORDERED: CLOPIDOGREL 75 MG TABLET PO SCH (09:00)
[2019-04-20] MEDS ORDERED: ENOXAPARIN 40 MG/0.4 ML SQ SCH (09:00)
[2019-04-20] MEDS ORDERED: FAMOTIDINE 20 MG TAB PO SCH (09:00)
[2019-04-20] MEDS ORDERED: POTASSIUM CL SA 10 MEQ TAB PO ONE (09:00)
[2019-04-20] MEDS ORDERED: LISINOPRIL 20 MG TAB PO SCH (09:00)
[2019-04-20] MEDS ORDERED: ASPIRIN 81 MG CHEWABLE TABLET PO SCH (09:00)
[2019-04-20 09:17] VITALS: O2SAT 94
[2019-04-20 12:44] VITALS: BP 159/106; TEMP 97.8
[2019-04-20 15:20] LABS: Creatine Phosphokinase 151 U/L (39-308); Troponin I < 0.02 ng/mL (0.0-0.045)
[2019-04-20] MEDS ORDERED: ATORVASTATIN 40 MG TAB PO SCH (21:00)
--- NOTE | 2019-04-21 08:27 | ECHO ---
HEIGHT: 5 ft 6 in WEIGHT: 280 lb 12.8 oz DATE OF STUDY: 04/20/[address]: Isaiah Escalante DO 2-DIMENSIONAL: YES M.MODE: YES DOPPLER: YES COLOR FLOW: YES TDS: YES PORTABLE: NO DEFINITY: NO BUBBLE STUDY: NO DIAGNOSIS: CHEST PAIN, HISTORY OF CAD, CABG AND HYPERTENSION CARDIAC HISTORY: CATHERIZATION: YES SURGERY: YES PROSTHETIC VALVE: NO PACEMAKER: NO MEASUREMENTS (cm) DIASTOLIC (NORMALS) SYSTOLIC (NORMALS) IVSd 1.2 (0.6-1.2) LA Diam 3.4 (1.9-4.0) LVEF 50-55% LVIDd 4.5 (3.5-5.7) LVIDs 3.4 (2.0-3.5) %FS 23% LVPWd 1.3 (0.6-1.2) Ao Diam 3.3 (2.0-3.7) 2 DIMENSIONAL ASSESSMENT: RIGHT ATRIUM: NORMAL LEFT ATRIUM: NORMAL RIGHT VENTRICLE: NORMAL LEFT VENTRICLE: LEFT VENTRICULAR HYPERTROPHY TRICUSPID VALVE: NORMAL MITRAL VALVE: MITRAL ANNULAR CALCIFICATION PULMONIC VALVE: NORMAL AORTIC VALVE: NORMAL PERICARDIAL EFFUSION: NONE AORTIC ROOT: NORMAL LEFT VENTRICULAR WALL MOTION: DECREASED LEFT VENTRICULAR COMPLIANCE. DOPPLER/COLOR FLOW: MILD TRICUSPID REGURGITATION. COMMENTS: LEFT VENTRICULAR HYPERTROPHY. MILD TRICUSPID REGURGITATION. NORMAL RIGHT VENTRICULAR SYSTOLIC PRESSURE. DECREASED LEFT VENTRICULAR COMPLIANCE. NORMAL LEFT VENTRICULAR EJECTION FRACTION. MITRAL ANNULAR CALCIFICATION. TECHNOLOGIST: Nena ADHIKARI
--- NOTE | 2019-04-21 10:28 | CON ---
Date of Consultation: 04/20/[address] Pablo's service on 04/20/2019, I saw the patient on 04/20/2019. Reason For Consultation: Chest pain. History Of Present Illness: Mr. Ramos is a 73-year-old black male. He is a patient of Dr. Sarbjit cortes, my partner. He has a history of coronary artery disease. He is status post CABG about a year a go in [place]. Has a history of hypertension, gout, and colon cancer. Came in mostly with midepig astric pain, indigestion, and some sharp stabbing pain over the left chest that only last seconds. D enies PND, orthopnea, pedal edema. Denied any syncope. By the time I saw him, he has already ruled out for IL. Past Medical History: As stated above. Allergies: NONE. Review of Systems: Negative. Social History: Negative. Family History: Negative. Medications: Include lisinopril, metoprolol, Plavix, and Neurontin. Physical Examination: Vital Signs: He weighed 280 pounds. Blood pressure is 165/117. HEENT: Negative. Neck: Supple. No bruit, lymphadenopathy, JVD, or thyromegaly. Chest: Clear to auscultation and percussion. Cardiac: Exam revealed a regular rhythm and rate with S4 gallops. No murmurs or rubs. Abdomen: Obese, but benign. Extremities: Revealed no clubbing, cyanosis, or edema. Skin: Dry and intact. Pulses were present bilaterally distally in the lower extremities. Neurological: He was nonfocal. 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 BNP showed 574. Impression And Plan: 1.Atypical chest pain, most likely gastrointestinal. His left-sided chest pain that is sharp and st abbing that lasts seconds, maybe secondary to the DÍAZ bypass surgery. He has already ruled out for an IL. His blood pressure is poorly controlled and I would like him to increase his metoprolol dose. He will double it. Echocardiogram is pending. I will make arrangements for an outpatient stress t est and outpatient followup. I will check to see if he has had any carotid Doppler in the office, bu t if not, he will need 1 soon. If his echo was normal, he can go home. ENEDINA/ARRON Voice ID: [id number] Report ID: [id number]
== END 2019-04-20 16:15 | disposition home or self-care (01) ==
LOC: ER 00:35 → ERHOLD 03:24 → 2ND 03:37
PROVIDERS: ADMIT Family Medicine; ATTEND Family Medicine
DX: R07.89 Other chest pain (principal); I25.10 Atherosclerotic heart disease of native coronary artery without angina pectoris; I10 Essential (primary) hypertension; K21.9 Gastro-esophageal reflux disease without esophagitis; E78.5 Hyperlipidemia, unspecified; G89.29 Other chronic pain; M54.9 Dorsalgia, unspecified; M10.9 Gout, unspecified; Z87.891 Personal history of nicotine dependence; Z95.1 Presence of aortocoronary bypass graft
CPT/HCPCS: 36415; 71045; 80048; 80061; 80076; 81003; 82550; 82553; 83735; 83880; 84484; 85025; 85610; 93005; 93306; 96374; 99285; G0378; J1650

== ENCOUNTER 2020-09-15 05:46 | Emergency (ER) | payer MEDICARE, OTHER, SELFPAY ==
[2020-09-15 07:04] LABS: Urine Blood 3+ (NEG); Urine Glucose TRACE (NEG); Urine Protein 3+ (NEG)
[2020-09-15 07:10] LABS: Urine Bacteria <20 /HPF (NONE SEEN); Urine RBC >50 /HPF (NONE SEEN)
[2020-09-15 07:12] LABS: Urine Mucus MOD /HPF (NONE SEEN)
--- NOTE | 2020-09-15 07:17 | EDPHYS ---
Physician Documentation [facility] Name: Rudy Ramos Sr Age: 75 yrs Sex: Male : 1945 Arrival Date: 09/15/2020 Time: 05:47 Bed 8 Private MD: ED Physician Damián Poe HPI: 09/15 06:28 This 75 yrs old Black Male presents to ER via EMS with complaints of Urinary Problem. tw4 06:28 The patient presents with urinary symptoms, dribbling of urine, dysuria. Onset: The tw4 symptoms/episode began/occurred today. Modifying factors: The symptoms are alleviated by nothing, the symptoms are aggravated by nothing. The patient has not experienced similar symptoms in the past. Historical: - Allergies: 05:53 No Known Allergies; mg2 - Home Meds: 05:53 gabapentin Oral [Active]; Lasix Oral [Active]; mg2 - PMHx: 05:53 colon cancer; Gout; Hypertension; Myocardial infarction; mg2 - Immunization history:: Flu vaccine status is unknown. - Social history:: Smoking status: unknown. ROS: 06:28 Constitutional: Negative for fever, chills, and weight loss, Eyes: Negative for injury, tw4 pain, redness, and discharge, Cardiovascular: Negative for chest pain, palpitations, and edema, Respiratory: Negative for shortness of breath, cough, wheezing, and pleuritic chest pain, Abdomen/GI: Negative for abdominal pain, nausea, vomiting, diarrhea, and constipation, Skin: Negative for injury, rash, and discoloration. 06:28 : Positive for urinary symptoms, Negative for injury or acute deformity, small amounts, hematuria, pelvic pain, flank pain, burning with urination, difficulty urinating, penile pain, testicular pain Exam: 06:28 Constitutional: This is a well developed, well nourished patient who is awake, alert, tw4 and in no acute distress. Head/Face: Normocephalic, atraumatic. Chest/axilla: Normal chest wall appearance and motion. Nontender with no deformity. No lesions are appreciated. Cardiovascular: Regular rate and rhythm with a normal S1 and S2. No gallops, murmurs, or rubs. Normal PMI, no JVD. No pulse deficits. Respiratory: Lungs have equal breath sounds bilaterally, clear to auscultation and percussion. No rales, rhonchi or wheezes noted. No increased work of breathing, no retractions or nasal flaring. Abdomen/GI: Soft, non-tender, with normal bowel sounds. No distension or tympany. No guarding or rebound. No evidence of tenderness throughout. Back: No spinal tenderness. No costovertebral tenderness. Full range of motion. MS/ Extremity: Pulses equal, no cyanosis. Neurovascular intact. Full, normal range of motion. Neuro: Awake and alert, GCS 15, oriented to person, place, time, and situation. Cranial nerves II-XII grossly intact. Motor strength 5/5 in all extremities. Sensory grossly intact. Cerebellar exam normal. Normal gait. Vital Signs: 05:50 BP 170 / 100; Pulse 89; Resp 18; Temp 97.5; Pulse Ox 98% on R/A; Weight 122.47 kg; mg2 Height 5 ft. 7 in. (170.18 cm); 06:39 BP 158 / 106; Pulse 80; Resp 17; Pulse Ox 98% on R/A; mg2 07:17 BP 154 / 111; Pulse 77; Resp 18; Temp 97.5; Pulse Ox 98% on R/A; ph 05:50 Body Mass Index 42.29 (122.47 kg, 170.18 cm) mg2 MDM: 06:26 Patient medically screened. tw4 07:18 Data reviewed: vital signs, nurses notes. Counseling: I had a detailed discussion with [facility] the patient and/or guardian regarding: the historical points, exam findings, and any diagnostic results supporting the discharge/admit diagnosis. Special discussion: I discussed with the patient/guardian in detail that at this point there is no indication for admission to the hospital. It is understood, however, that if the symptoms persist or worsen the patient needs to return immediately for re-evaluation. 09/15 06:29 Order name: Urine Microscopic Only tw4 09/15 06:30 Order name: Urine Microscopic Only; Complete Time: 07:15 EDMS 09/15 06:03 Order name: Bladder Scanner; Complete Time: 06:03 mg2 09/15 06:12 Order name: Urine Dipstick-Ancillary (obtain specimen); Complete Time: 06:32 ea 09/15 06:51 Order name: Urine Dipstick--Ancillary (enter results) eb Administered Medications: No medications were administered Disposition: 09/15/20 07:16 Discharged to Home. Impression: Cystitis, unspecified. - Condition is Stable. - Discharge Instructions: Hematuria, Adult. - Prescriptions for Macrodantin 100 mg Oral Capsule - take 1 capsule by ORAL route every 6 hours for 10 days; 40 capsule. - Medication Reconciliation Form, Thank You Letter, Antibiotic Education, Prescription Opioid Use form. - Follow up: Private Physician; When: Upon discharge from the Emergency Department; Reason: Recheck today's complaints, Continuance of care, Re-evaluation by your physician. - Problem is new. - Symptoms have improved. Signatures: Dispatcher [employer] Xena Hagen RN RN sv Lisa Kyle RN RN Damián Urena MD MD tw4 Natalio Avalos RN RN mg2 Corrections: (The following items were deleted from the chart) 07:29 07:16 09/15/2020 07:16 Discharged to Home. Impression: Cystitis, unspecified. Condition sv is Stable. Forms are Medication Reconciliation Form, Thank You Letter, Antibiotic Education, Prescription Opioid Use. Follow up: Private Physician; When: Upon discharge from the Emergency Department; Reason: Recheck today's complaints, Continuance of care, Re-evaluation by your physician. Problem is new. Symptoms have improved. tw4
--- NOTE | 2020-09-15 07:17 | ER ---
Nurse's Notes [facility] Name: Rudy Ramos Sr Age: 75 yrs Sex: Male : 1945 Arrival Date: 09/15/2020 Time: 05:47 Bed 8 Private MD: Diagnosis: Cystitis, unspecified Presentation: 09/15 05:50 Chief complaint: EMS states: he's been having urinary incontinence today with mild mg2 abdominal discomfort. Coronavirus screen: Client denies travel out of the [place] in the last 14 days. At this time, the client does not indicate any symptoms associated with coronavirus-19. Ebola Screen: No symptoms or risks identified at this time. Initial Sepsis Screen: Does the patient meet any 2 criteria? No. Patient's initial sepsis screen is negative. Does the patient have a suspected source of infection? No. Patient's initial sepsis screen is negative. Risk Assessment: Do you want to hurt yourself or someone else?. Onset of symptoms was September 15, 2020. 05:50 Method Of Arrival: [place] [facility] [place] Acuity: TY 4 mg2 Triage Assessment: 05:53 General: Appears in no apparent distress. comfortable, Behavior is calm, cooperative. mg2 Pain: Complains of pain in abdomen. EENT: No signs and/or symptoms were reported regarding the EENT system. Neuro: Level of Consciousness is awake, alert, obeys commands, Oriented to person, place, time, situation. Cardiovascular: Capillary refill < 3 seconds Patient's skin is warm and dry. Respiratory: Airway is patent Respiratory effort is even, unlabored, Respiratory pattern is regular, symmetrical. GI: No signs and/or symptoms were reported involving the gastrointestinal system. : Reports incontinence, since today. Derm: Skin is intact, is healthy with good turgor, Skin is pink, warm \T\ dry. normal. Musculoskeletal: Circulation, motion, and sensation intact. Capillary refill < 3 seconds. Historical: - Allergies: 05:53 No Known Allergies; mg2 - Home Meds: 05:53 gabapentin Oral [Active]; Lasix Oral [Active]; mg2 - PMHx: 05:53 colon cancer; Gout; Hypertension; Myocardial infarction; mg2 - Immunization history:: Flu vaccine status is unknown. - Social history:: Smoking status: unknown. Screenin:53 Abuse screen: Denies threats or abuse. Nutritional screening: No deficits noted. ea Tuberculosis screening: No symptoms or risk factors identified. Fall Risk None identified. Assessment: 05:54 General: see triage note. mg2 05:54 Reassessment: see triage assessment. ea 07:16 Reassessment: Patient appears in no apparent distress at this time. Patient and/or ph family updated on plan of care and expected duration. Pain level reassessed. Pt resting quietly w/ eyes closed, respirations even and unlabored. 07:21 Reassessment: Dr Poe speaking with the pt regarding discharge. sv 07:28 Reassessment: Patient appears in no apparent distress at this time. Patient and/or sv family updated on plan of care and expected duration. Pain level reassessed. Patient is alert, oriented x 3, equal unlabored respirations, skin warm/dry/pink. Vital Signs: 05:50 BP 170 / 100; Pulse 89; Resp 18; Temp 97.5; Pulse Ox 98% on R/A; Weight 122.47 kg; mg2 Height 5 ft. 7 in. (170.18 cm); 06:39 BP 158 / 106; Pulse 80; Resp 17; Pulse Ox 98% on R/A; mg2 07:17 BP 154 / 111; Pulse 77; Resp 18; Temp 97.5; Pulse Ox 98% on R/A; ph 05:50 Body Mass Index 42.29 (122.47 kg, 170.18 cm) mg2 ED Course: 05:47 Patient arrived in ED. cl3 05:50 Natalio Avalos, RN is Primary Nurse. mg2 05:52 Triage completed. mg2 05:54 Arm band placed on right wrist. Patient placed in an exam room, on a stretcher, on ea pulse oximetry. 05:54 Patient has correct armband on for positive identification. Bed in low position. Call ea light in reach. Side rails up X2. 05:54 No provider procedures requiring assistance completed. Patient did not have IV access mg2 during this emergency room visit. 05:55 Bladder scan completed. 19 ml noted. mg2 06:26 Damián Poe MD is Attending Physician. tw4 07:06 Primary Nurse role handed off by Natalio Avalos, ROSE sv 07:06 Xena Garcias RN is Primary Nurse. sv 07:06 Urine Microscopic Only Sent. sv Administered Medications: No medications were administered Outcome: 07:16 Discharge ordered by . tw4 07:29 Discharged to home ambulatory. sv :29 Condition: stable 07:29 Discharge instructions given to patient, Instructed on discharge instructions, follow up and referral plans. medication usage, Demonstrated understanding of instructions, follow-up care, medications, Prescriptions given X 1. 07:29 Patient left the ED. sv Signatures: Xena Garcias RN Shanti Mendieta RN RN Lisa Kyle RN Damián Michael ea, MD MD tw4 Natalio Avalos, RN RN [facility] [place] Mendez cl3
[2020-09-15 07:33] VITALS: TEMP 97.5; O2SAT 98
[2020-09-15 07:35] VITALS: BP 154/111
== END 2020-09-15 07:29 | disposition home or self-care (01) ==
LOC: ER 05:46
DX: N30.90 Cystitis, unspecified without hematuria (principal); I10 Essential (primary) hypertension; I25.2 Old myocardial infarction; Z85.038 Personal history of other malignant neoplasm of large intestine
CPT/HCPCS: 81003; 81015; 99284

== ENCOUNTER 2020-09-20 13:59 | Inpatient (IN) | payer OTHER, SELFPAY ==
--- NOTE | 2020-09-20 18:16 | RAD REPORT ---
EXAM DESCRIPTION: RAD - Chest Single View - 09/20/2020 6:06 pm CLINICAL HISTORY: DYSPNEA Chest pain. COMPARISON: Chest Single View dated 04/20/2019; Chest Single View dated 03/20/2019; Chest Pa And Lat ( 2 Views) dated 09/14/2018; Chest Single View dated 03/02/2018 FINDINGS: Portable technique limits examination quality. Mild interstitial pulmonary edema. The heart is prominent in size with sternotomy wires present. No d isplaced fractures.Right-sided port catheter tip in the SVC. IMPRESSION: Mild CHF.
[2020-09-20 18:25] LABS: Absolute Lymphocytes (CBC) 1.1 K/uL (0.7-4.9); Basophils % 0.9 % (0-1.3); Hematocrit 51.4 % (39.6-49.0); Protime INR 1.23; RBC Red Blood Cell Count 4.97 M/uL (4.33-5.43)
[2020-09-20 18:48] LABS: Albumin 3.5 g/dL (3.4-5.0); Bilirubin Direct 0.9 mg/dL (0-0.2); Bilirubin Total 1.8 mg/dL (0.2-1.0); Magnesium 1.8 mg/dL (1.8-2.4); Potassium 3.3 mmol/L (3.5-5.1); Protein, Total 8.4 g/dL (6.4-8.2); Troponin (Emerg Dept Use Only) 0.06 ng/mL (0.0-0.045)
--- NOTE | 2020-09-20 19:17 | EDPHYS ---
Physician Documentation [facility] Name: Rudy Ramos Sr Age: 75 yrs Sex: Male : 1945 Arrival Date: 09/20/2020 Time: 14:02 Bed 24 Private MD: ED Physician Nimesh Reynolds HPI: 09/20 18:31 This 75 yrs old Black Male presents to ER via Wheelchair with complaints of Shortness jr8 Of Breath, Ankle Swelling. 18:31 The patient has shortness of breath at rest, with light activity. Onset: The jr8 symptoms/episode began/occurred gradually, 4 week(s) ago, and became worse and became persistent. Duration: The symptoms are continuous. The patient's shortness of breath is aggravated by light activity, walking. Associated signs and symptoms: Pertinent positives: lower extremity edema. Severity of symptoms: At their worst the symptoms were moderate in the emergency department the symptoms are unchanged. The patient has not experienced similar symptoms in the past. The patient has not recently seen a physician. Historical: - Allergies: 14:11 No Known Allergies; ll1 - PMHx: 14:11 colon cancer; Gout; Hypertension; Myocardial infarction; ll1 - PSHx: 14:11 triple bypass; knee sx; ll1 - Immunization history:: Flu vaccine is not up to date. - Social history:: Smoking status: Patient denies any tobacco usage or history of. ROS: 18:31 Eyes: Negative for injury, pain, redness, and discharge, ENT: Negative for injury, jr8 pain, and discharge, Neck: Negative for injury, pain, and swelling, Abdomen/GI: Negative for abdominal pain, nausea, vomiting, diarrhea, and constipation, Back: Negative for injury and pain, MS/Extremity: Negative for injury and deformity, Skin: Negative for injury, rash, and discoloration, Neuro: Negative for headache, weakness, numbness, tingling, and seizure. 18:31 Cardiovascular: Positive for edema, orthopnea. 18:31 Respiratory: Positive for dyspnea on exertion, orthopnea, shortness of breath. Exam: 18:31 Eyes: Pupils equal round and reactive to light, extra-ocular motions intact. Lids and jr8 lashes normal. Conjunctiva and sclera are non-icteric and not injected. Cornea within normal limits. Periorbital areas with no swelling, redness, or edema. ENT: Nares patent. No nasal discharge, no septal abnormalities noted. Tympanic membranes are normal and external auditory canals are clear. Oropharynx with no redness, swelling, or masses, exudates, or evidence of obstruction, uvula midline. Mucous membranes moist. Neck: Trachea midline, no thyromegaly or masses palpated, and no cervical lymphadenopathy. Supple, full range of motion without nuchal rigidity, or vertebral point tenderness. No Meningismus. Abdomen/GI: Obese, Soft, non-tender, with normal bowel sounds. No distension or tympany. No guarding or rebound. No evidence of tenderness throughout. Back: No spinal tenderness. No costovertebral tenderness. Full range of motion. Skin: Warm, dry with normal turgor. Normal color with no rashes, no lesions, and no evidence of cellulitis. MS/ Extremity: Pulses equal, no cyanosis. Neurovascular intact. Full, normal range of motion. Neuro: Awake and alert, GCS 15, oriented to person, place, time, and situation. Cranial nerves II-XII grossly intact. Motor strength 5/5 in all extremities. Sensory grossly intact. Cerebellar exam normal. Normal gait. 18:31 Respiratory: Lungs have equal breath sounds bilaterally, clear to auscultation and percussion. No rales, rhonchi or wheezes noted. No increased work of breathing, no retractions or nasal flaring. 18:31 Cardiovascular: Rate: normal, Rhythm: regular, Pulses: Pulses are 2+ in right radial artery and left radial artery. Heart sounds: normal, normal S1and S2, no S3 or S4, no murmur, no rub, no gallop, Edema: 2+ edema to level of left midcalf, left ankle, left foot, right midcalf, right ankle and right foot. Vital Signs: 14:08 BP 156 / 104; Pulse 63; Resp 18; Temp 98.3; Pulse Ox 97% on R/A; Weight 125.65 kg; ll1 Height 5 ft. 7 in. (170.18 cm); Pain 0/10; 17:24 BP 171 / 104; Pulse 92; Resp 20; Pulse Ox 100% on R/A; ph 20:00 BP 148 / 92; Pulse 84; Resp 18; Pulse Ox 97% on R/A; wh 22:00 BP 143 / 110; Pulse 93; Resp 20; Pulse Ox 96% ; 09/21 00:00 BP 136 / 75; Pulse 88; Resp 18; Pulse Ox 98% on R/A; 09/20 14:08 Body Mass Index 43.38 (125.65 kg, 170.18 cm) ll1 MDM: 09/20 17:01 Patient medically screened. [facility] 19:14 Data reviewed: vital signs, nurses notes, lab test result(s), EKG, radiologic studies, [facility] plain films. Data interpreted: Pulse oximetry: on room air is 97 %. Interpretation: acceptable. Counseling: I had a detailed discussion with the patient and/or guardian regarding: the historical points, exam findings, and any diagnostic results supporting the discharge/admit diagnosis, lab results, radiology results, the need for further work-up and treatment in the hospital. ED course: Patient denies HF history. New findings consistent with HF. Will admit, control BP, and diurese . 09/20 17:01 Order name: Basic Metabolic Panel; Complete Time: 18:50 [facility] 09/20 17:01 Order name: CBC with Diff; Complete Time: 18:33 [facility] 09/20 17:01 Order name: LFT's; Complete Time: 18:50 [facility] 09/20 17:01 Order name: Magnesium; Complete Time: 18:50 [facility] 09/20 17:01 Order name: NT PRO-BNP; Complete Time: 18:50 [facility] 09/20 17:01 Order name: PT-INR; Complete Time: 18:30 [facility] 09/20 17:01 Order name: Troponin (emerg Dept Use Only); Complete Time: 18:50 [facility] 09/21 00:30 Order name: Troponin I [facility] 09/21 02:08 Order name: SARS-COV-2 RT PCR EDVT 09/21 05:48 Order name: Urinalysis [facility] 09/21 05:51 Order name: CBC with Automated Diff EDVT 09/21 05:56 Order name: Basic Metabolic Panel [facility] 09/20 17:01 Order name: XRAY Chest (1 view); Complete Time: 18:18 [facility] 09/20 17:01 Order name: EKG; Complete Time: 17:03 [facility] 09/20 17:01 Order name: Cardiac monitoring; Complete Time: 18:01 [facility] 09/20 17:01 Order name: EKG - Nurse/Tech; Complete Time: 18:01 [facility] 09/20 17:01 Order name: IV Saline Lock; Complete Time: 18:14 [facility] 09/20 17:01 Order name: Labs collected and sent; Complete Time: 18:14 [facility] 09/20 17:01 Order name: O2 Per Protocol; Complete Time: 18:01 [facility] 09/20 17:01 Order name: O2 Sat Monitoring; Complete Time: 18: [facility] 09/20 18:33 Order name: US Extremity Venous W Compression Jacob [facility] 09/21 05:56 Order name: Magnesium EDMS 09/21 09:29 Order name: RAD EDMS Administered Medications: 19:20 Drug: Nitro-Bid Ointment 2 % 1 inches Route: Transdermal; Site: anterior chest wall; 09/21 05:05 Follow up: Response: No adverse reaction 09/20 19:21 Drug: Lasix 60 mg Route: IVP; Site: right antecubital; 09/21 05:05 Follow up: Response: No adverse reaction 09/20 19:23 Drug: Potassium Chloride 20 mEq Route: PO; 09/21 05:05 Follow up: Response: No adverse reaction 09/20 19:46 Drug: Lovenox 120 mg Route: Sub-Q; Site: abdomen; 09/21 05:05 Follow up: Response: No adverse reaction Disposition: 19:12 Co-signature as Attending Physician, Nimesh Reynolds MD I agree with the assessment and ander plan of care. Disposition: 09/20/20 19:16 Hospitalization ordered by Javier Pena for Observation. Preliminary diagnosis are Acute combined systolic (congestive) and diastolic (congestive) heart failure, Non-ST elevation (NSTEMI) myocardial infarction. - Bed requested for Telemetry/MedSurg (observation). - Status is Observation. iw - Condition is Stable. - Problem is new. - Symptoms are unchanged. Signatures: Dispatcher [employer] Nimesh Webb MD MD cha Williams, Irene, RN RN iw Aldo Mccord PA PA jr8 Selina Vann RN RN Michael Mendez RN RN [facility] Cesar Morris RN RN Petra Richards RN Corrections: (The following items were deleted from the chart) 09/20 19:18 19:16 Hospitalization Ordered by Javier Pena MD for Observation. Preliminary jr8 diagnosis is Acute combined systolic (congestive) and diastolic (congestive) heart failure. Bed requested for Telemetry/MedSurg (observation). Status is Observation. Condition is Stable. Problem is new. Symptoms are unchanged. jr8 09/21 02:50 18 19:18 09/20/2020 19:16 Hospitalization Ordered by Javier Pena MD for cg Observation. Preliminary diagnosis is Acute combined systolic (congestive) and diastolic (congestive) heart failure; Non-ST elevation (NSTEMI) myocardial infarction. Bed requested for Telemetry/MedSurg (observation). Status is Observation. Condition is Stable. Problem is new. Symptoms are unchanged. jr8 09/21 03:25 02:50 09/20/2020 19:16 Hospitalization Ordered by Javier Pena MD for Observation. cg Preliminary diagnosis is Acute combined systolic (congestive) and diastolic (congestive) heart failure; Non-ST elevation (NSTEMI) myocardial infarction. Bed requested for Telemetry/MedSurg (observation). Status is Observation. Condition is Stable. Problem is new. Symptoms are unchanged. 03:26 03:25 09/20/2020 19:16 Hospitalization Ordered by Javier Pena MD for Observation. cg Preliminary diagnosis is Acute combined systolic (congestive) and diastolic (congestive) heart failure; Non-ST elevation (NSTEMI) myocardial infarction. Bed requested for Telemetry/MedSurg (observation). Status is Observation. Condition is Stable. Problem is new. Symptoms are unchanged. 06:03 03:26 09/20/2020 19:16 Hospitalization Ordered by Javier Pena MD for Observation. cg Preliminary diagnosis is Acute combined systolic (congestive) and diastolic (congestive) heart failure; Non-ST elevation (NSTEMI) myocardial infarction. Bed requested for [facility] ER HOLD. Status is Observation. Condition is Stable. Problem is new. Symptoms are unchanged. 06:05 06:03 09/20/2020 19:16 Hospitalization Ordered by Javier Pena MD for Observation. cg Preliminary diagnosis is Acute combined systolic (congestive) and diastolic (congestive) heart failure; Non-ST elevation (NSTEMI) myocardial infarction. Bed requested for Telemetry/MedSurg (observation). Status is Observation. Condition is Stable. Problem is new. Symptoms are unchanged. cg 10:00 06:05 09/20/2020 19:16 Hospitalization Ordered by Javier Pena MD for Observation. iw Preliminary diagnosis is Acute combined systolic (congestive) and diastolic (congestive) heart failure; Non-ST elevation (NSTEMI) myocardial infarction. Bed requested for Telemetry/MedSurg (observation). Status is Observation. Condition is Stable. Problem is new. Symptoms are unchanged. cg
--- NOTE | 2020-09-20 19:17 | ER ---
Nurse's Notes [facility] Name: Rudy Ramos Sr Age: 75 yrs Sex: Male : 1945 Arrival Date: 09/20/2020 Time: 14:02 Bed 24 Private MD: Diagnosis: Acute combined systolic (congestive) and diastolic (congestive) heart failure;Non-ST elevation (NSTEMI) myocardial infarction Presentation: 09/20 14:08 Chief complaint: Patient states: SOB with exertion for 3-4 weeks intermittently. Slight ll1 cough, no fever. Coronavirus screen: Client denies travel out of the [place] in the last 14 days. cough unrelated to allergies, difficulty breathing, fatigue, Client presents with at least one sign or symptom that may indicate coronavirus-19. Standard/surgical mask placed on the client. Ebola Screen: Patient denies travel to an Ebola-affected area in the 21 days before illness onset. Initial Sepsis Screen: Does the patient meet any 2 criteria? No. Patient's initial sepsis screen is negative. Does the patient have a suspected source of infection? No. Patient's initial sepsis screen is negative. Risk Assessment: Do you want to hurt yourself or someone else? Patient reports no desire to harm self or others. Onset of symptoms was August 27, 2020. 14:08 Method Of Arrival: Wheelchair ll1 14:08 Acuity: TY 3 ll1 Triage Assessment: 09/21 01:30 Respiratory: Onset: The symptoms/episode began/occurred gradually, the patient has mild wh shortness of breath. Historical: - Allergies: 09/20 14:11 No Known Allergies; ll1 - PMHx: 14:11 colon cancer; Gout; Hypertension; Myocardial infarction; ll1 - PSHx: 14:11 triple bypass; knee sx; ll1 - Immunization history:: Flu vaccine is not up to date. - Social history:: Smoking status: Patient denies any tobacco usage or history of. Screenin:22 Abuse screen: Denies threats or abuse. Denies injuries from another. Nutritional ph screening: No deficits noted. Tuberculosis screening: No symptoms or risk factors identified. Fall Risk None identified. Assessment: 17:18 General: Appears in no apparent distress. comfortable, obese, well groomed, Behavior is ph calm, cooperative, appropriate for age, Denies fever, feeling ill. 17:19 Pain: Complains of pain in left lateral ankle. Neuro: Level of Consciousness is awake, ph alert, obeys commands, Oriented to person, place, time, situation. Cardiovascular: Reports fatigue, shortness of breath, Denies chest pain, nausea, vomiting, Capillary refill < 3 seconds in bilateral fingers Patient's skin is warm and dry. Edema is 2+ to right midcalf and right ankle is 3+ to left midcalf and left ankle Rhythm is sinus rhythm. Respiratory: Reports shortness of breath on exertion Airway is patent Respiratory effort is even, unlabored, Respiratory pattern is regular, symmetrical. GI: Abdomen is round Patient currently denies abdominal pain, nausea, vomiting. Derm: Skin is intact, Skin is pink, warm \T\ dry. Musculoskeletal: Circulation, motion, and sensation intact. Range of motion: intact in all extremities. 19:10 General: Appears in no apparent distress. comfortable, obese, Behavior is calm, sf cooperative, appropriate for age. Neuro: Level of Consciousness is awake, alert, obeys commands, Oriented to person, place, time, situation. Cardiovascular: Reports shortness of breath, Patient's skin is warm and dry. Edema is 2+ to left foot and right foot is 3+ to left midcalf, left ankle, right midcalf and right ankle Rhythm is sinus rhythm. Respiratory: Reports shortness of breath on exertion Airway is patent Respiratory effort is even, unlabored, Respiratory pattern is regular, symmetrical. GI: Abdomen is round obese. 20:30 Reassessment: Patient appears in no apparent distress at this time. Patient and/or wh family updated on plan of care and expected duration. Pain level reassessed. Patient is alert, oriented x 3, equal unlabored respirations, skin warm/dry/pink. Respiratory: Breath sounds with crackles bilaterally. 22:00 Reassessment: Patient appears in no apparent distress at this time. Patient and/or wh family updated on plan of care and expected duration. Pain level reassessed. Patient is alert, oriented x 3, equal unlabored respirations, skin warm/dry/pink. Explained POC need for admit and room situation currently. 09/21 00:00 Reassessment: Patient appears in no apparent distress at this time. Patient and/or wh family updated on plan of care and expected duration. Pain level reassessed. Patient is alert, oriented x 3, equal unlabored respirations, skin warm/dry/pink. Vital Signs: 09/20 14:08 BP 156 / 104; Pulse 63; Resp 18; Temp 98.3; Pulse Ox 97% on R/A; Weight 125.65 kg; ll1 Height 5 ft. 7 in. (170.18 cm); Pain 0/10; 17:24 BP 171 / 104; Pulse 92; Resp 20; Pulse Ox 100% on R/A; ph 20:00 BP 148 / 92; Pulse 84; Resp 18; Pulse Ox 97% on R/A; wh 22:00 BP 143 / 110; Pulse 93; Resp 20; Pulse Ox 96% ; wh 09/21 00:00 BP 136 / 75; Pulse 88; Resp 18; Pulse Ox 98% on R/A; wh 09/20 14:08 Body Mass Index 43.38 (125.65 kg, 170.18 cm) 1 ED Course: 09/20 14:02 Patient arrived in ED. ds1 14:10 Triage completed. ll1 14:11 Arm band placed on. ll1 17:01 Aldo Mccord PA is PHCP. jr8 17:01 Nimesh Reynolds MD is Attending Physician. jr8 17:18 Shanti Alva RN is Primary Nurse. ph 17:24 Patient has correct armband on for positive identification. Placed in gown. Bed in low ph position. Call light in reach. athletic monitor on. Pulse ox on. NIBP on. Door closed. Noise minimized. Warm blanket given. 18:05 XRAY Chest (1 view) In Process Unspecified. EDMS 18:13 Initial lab(s) drawn, by or, sent to lab. EKG done, by ED staff, reviewed by Nimesh Reynolds MD X-ray(s) taken. Inserted saline lock: 20 gauge in right antecubital area, using aseptic technique. Blood collected. Patient maintains SpO2 saturation greater than 95% on room air. 19:10 Primary Nurse role handed off by Shanti Alva, RN sf 19:10 Cesar Morris, ROSE is Primary Nurse. sf 19:15 Javier Pena MD is Hospitalizing Provider. jr8 19:50 Report given to ROSE Lambert. sf 20:40 US Extremity Venous W Compression Jacob In Process Unspecified. EDVT 09/21 01:00 No provider procedures requiring assistance completed. Patient admitted, IV remains in place. 07:22 Primary Nurse role handed off by Cesar Morris, ROSE eb Administered Medications: 09/20 19:20 Drug: Nitro-Bid Ointment 2 % 1 inches Route: Transdermal; Site: anterior chest wall; 09/21 05:05 Follow up: Response: No adverse reaction 09/20 19:21 Drug: Lasix 60 mg Route: IVP; Site: right antecubital; 09/21 05:05 Follow up: Response: No adverse reaction 09/20 19:23 Drug: Potassium Chloride 20 mEq Route: PO; 09/21 05:05 Follow up: Response: No adverse reaction 09/20 19:46 Drug: Lovenox 120 mg Route: Sub-Q; Site: abdomen; 09/21 05:05 Follow up: Response: No adverse reaction Outcome: 09/20 19:16 Decision to Hospitalize by Provider. 8 09/21 01:30 Admitted to ER Hold. Please see [facility] for further documentation. Condition: improved Instructed on the need for admit. 10:00 Patient left the ED. iw Signatures: Dispatcher [employer] EDVT Virgen Narayan ds1 Sindy Connor RN RN Aldo Mccord PA PA jr8 Shanti Alva RN RN Petra Richards RN RN Sanjana Chawla Jacob jp3 Michael Mendez RN RN 1 Cesar Morris RN RN sf Corrections: (The following items were deleted from the chart) 09/20 19:22 17:58 Cardiovascular: ph ph
[2020-09-20] MEDS ORDERED: POTASSIUM CL SA 10 MEQ TAB PO ONE (19:31)
[2020-09-20] MEDS ORDERED: NITROGLYCERIN 1 GM PKT TD ONE (19:31)
[2020-09-20] MEDS ORDERED: FUROSEMIDE 20 MG/ 2ML VIAL ONE (19:31)
[2020-09-20] MEDS ORDERED: FUROSEMIDE 40 MG/4 ML VIAL ONE (19:31)
[2020-09-20] MEDS ORDERED: ENOXAPARIN 60 MG/0.6 ML SQ ONE (19:57)
--- NOTE | 2020-09-20 20:38 | P.HP ---
Certification for Inpatient Patient admitted to: Observation With expected LOS: <2 Midnights Patient will require the following post-hospital care: None Practitioner: I am a practitioner with admitting privileges, knowledge of patient current condition, hospital course, and medical plan of care. Services: Services provided to patient in accordance with Admission requirements found in Title 42 Section 412.3 of the Code of Federal Regulations Patient History Date of Service: 09/20/20 Primary Care Provider: Dr. Clark Reason for admission: Pulmonary edema History of Present Illness: 75-year-old male with history of hypertension presents emergency department for shortness of breath, swelling of the lower extremities. Patient reports that he has had increasing shortness of breath and swelling over the course of the last few days to weeks. Patient reports at home he takes lisinopril, metoprolol, Lasix 40 mg daily, denies any history that he is aware of of heart failure. Labs in the emergency department remarkable for potassium 3.3 troponin 0.06. BNP 2635. Patient given 60 mg Lasix IV in the ER in addition to full-dose Lovenox. ED provider wishes to admit patient for further evaluation and management. Last echocardiogram 04/21 demonstrates ejection fraction between 50 and 55%. Allergies No Known Allergies Allergy (Verified 04/20/19 04:05) - Past Medical/Surgical History Diabetic: No -: HTN -: Hyperlipidemia -: Gout -: CAD/CABG x3 vessel -: Chronic back pain -: Former tobacco use -: History of colon cancer -: Right knee surgery -: Colectomy -: CABG x3 vessel Psychosocial/ Personal History: Patient is - Family History Brother -: Hypertension, Cancer Father -: Cancer - Social History Smoking Status: Former smoker Alcohol use: No CD- Drugs: No Caffeine use: No Place of Residence: Home Review of Systems 10-point ROS is otherwise unremarkable Respiratory: Shortness of Breath Cardiovascular: Orthopnea, Edema Physical Examination - Physical Exam General: Alert, In no apparent distress HEENT: Atraumatic, PERRLA, Mucous membr. moist/pink Neck: Supple, 2+ carotid pulse no bruit, No LAD Respiratory: Normal air movement, Crackles/rales (By basilar) Cardiovascular: Regular rate/rhythm, Normal S1 S2, Edema (3+ pitting edema bilateral lower extremities) Capillary refill: <2 Seconds Gastrointestinal: Normal bowel sounds, No tenderness Musculoskeletal: No tenderness Integumentary: No rashes Neurological: Normal speech, Normal strength at 5/5 x4 extr, Normal tone, Normal affect - Studies Laboratory Data (last 24 hrs) 09/20/20 18:10: PT 14.2 H, INR 1.23 09/20/20 18:10: WBC 7.00, Hgb 16.3, Hct 51.4 H, Plt Count 169 09/20/20 18:10: Sodium 141, Potassium 3.3 L, BUN 12, Creatinine 1.24, Glucose 73 L, Magnesium 1.8, Total Bilirubin 1.8 H, AST 23, ALT 18, Alkaline Phosphatase 93 Assessment and Plan - Plan Assessment Pulmonary edema, lower extremity edema suspect diastolic heart failure Hypertension CAD with previous CABG History of colon cancer Plan Pulmonary edema, lower extremity edema suspect diastolic heart failure: Continue with IV diuresis, Lasix, fluid restriction daily weights strict I&Os. Cardiology consult in place. Last echocardiogram April 2019 EF between 50 and 55%. DVT prophylaxis Lovenox 40 mg subcutaneous once daily. Patient given full dose Lovenox in the ER, will trend troponins, troponin 0.06 suspect demand ischemia. Hypertension: Obtain and continue home medications as appropriate. CAD with previous CABG: Continue daily aspirin, additional medications. History of colon cancer: Appears stable this time. Discharge Plan: Home Plan to discharge in: 24 Hours - Advance Directives Does patient have a Living Will: No Does patient have a Durable POA for Healthcare: No - Code Status/Comfort Care Code Status Assessed: Yes (Full code) Critical Care: No Time Spent Managing Pts Care (In Minutes): 55
--- NOTE | 2020-09-20 20:52 | RAD REPORT ---
EXAM DESCRIPTION: US - Extrem Venous W Compress Jacob - 09/20/2020 8:40 pm CLINICAL HISTORY: SWELLING Bilateral leg edema and swelling. COMPARISON: <Comparisons> TECHNIQUE: Real-time sonographic interrogation of the left and right lower extremity deep venous sys tems was performed. FINDINGS: Normal compressibility, flow augmentation, phasic flow and spontaneous flow is identified in both the left and right lower extremity deep venous systems. IMPRESSION: No sonographic evidence of left or right lower extremity deep venous thrombosis.
[2020-09-20] MEDS ORDERED: ONDANSETRON 4 MG/2 ML VIAL IV PRN (22:02)
[2020-09-21 05:41] LABS: Urine Appearance CLEAR; Urine Bilirubin NEGATIVE (NEG); Urine Blood NEGATIVE (NEG); Urine Color YELLOW; Urine Glucose NEGATIVE (NEG); Urine Protein NEGATIVE (NEG)
[2020-09-21 05:46] LABS: Basophils % 0.8 % (0-1.3); Hematocrit 47.7 % (39.6-49.0); Lymphocytes % 13.2 % (15.3-44.8); MPV 9.8 fL (7.6-11.3); RBC Red Blood Cell Count 4.67 M/uL (4.33-5.43)
[2020-09-21 05:48] LABS: Urine Microscopic Reflex NO UMIC
[2020-09-21 05:56] LABS: Magnesium 1.8 mg/dL (1.8-2.4)
--- NOTE | 2020-09-21 07:28 | P.DS ---
Admission Date: 09/20/20 Discharge Date: 09/21/20 Primary Care Provider: Dr. Turcios; Cardiology-Dr. Clark Disposition: ROUTINE DISCHARGE Discharge Condition: GOOD Reason for Admission: Pulmonary edema Consultations: Cardiology-Dr. Clark Procedures: COVID: Negative Follow up CXR: Medical Problem List: Dyspnea, lower extremity edema secondary to acute on chronic diastolic CHF Hypertension Hyperlipidemia CAD with previous CABG History of colon cancer Peripheral neuropathy Obesity, BMI 43.4 Brief History of Present Illness: 75-year-old male with history of hypertension, CAD, CHF presents emergency department for shortness of breath, swelling of the lower extremities. Patient reports that he has had increasing shortness of breath and swelling over the course of the last few days to weeks. Patient reports at home he takes lisinopril, metoprolol, Lasix 40 mg daily. Patient was evaluated in the emergency room. Chest x-ray showed mild CHF. Previous echocardiogram 04/2019 shows ejection fraction 50-55%. Patient was given IV diuretic therapy. Patient admitted for observation. Hospital Course: Patient presented with Dyspnea, lower extremity edema secondary to acute on chronic diastolic CHF. Prior ejection fraction around 50-55%. Patient required IV diuretic therapy. Fluid restriction in place. Patient has significantly improved. Vital signs stable. Edema to the lower extremities improved. Patient educated on CHF. Echocardiogram obtained. Repeat chest x-ray shows improvement. At discharge patient will continue with a 1500 cc per day fluid restriction and low-salt diet. Recommend to monitor his weight daily. If his weight increases by more than 5 lb he is to contact his PCP or cardiology for further recommendation. At discharge patient will continue with Lasix 40 mg 1 pill twice daily. Further adjustment in his medication may be required. This can be done with the help of his PCP or cardiology. Education on CHF will be provided. Recommend follow up with cardiology in 2-4 weeks to follow up this hospitalization. Recommend follow up with his PCP in 1 week to further address this care. Patient with hypertension. Blood pressure stable. At discharge patient will continue with his current medications of metoprolol and lisinopril. Recommend to maintain blood pressure less than 130/80. Further adjustment can be done by his PCP. Patient with hyperlipidemia. At discharge patient will continue with his current medication. Patient with CAD and previous CABG. Troponin slightly elevated likely from ischemic demand related to CHF. No intervention required. At discharge patient will continue with aspirin 81 mg daily. Recommend follow up with cardiology as directed. Patient with peripheral neuropathy. At discharge patient will continue with his current medication-Neurontin. Lifestyle modification education provided. Vital Signs/Physical Exam: Temp Pulse Resp BP Pulse Ox 97.8 F 66 18 146/95 H 97 09/21/20 04:00 09/21/20 04:00 09/21/20 04:00 09/21/20 04:00 09/21/20 04:00 General: Alert, In no apparent distress, Oriented x3, Cooperative HEENT: Atraumatic Neck: Supple Respiratory: Clear to auscultation bilaterally, Normal air movement Cardiovascular: Normal pulses, Regular rate/rhythm Gastrointestinal: Normal bowel sounds, Soft and benign, Non-distended, No tenderness, No masses, No rebound, No guarding Musculoskeletal: No erythema, No tenderness, No warmth Integumentary: No tenderness/swelling (No significant pitting edema to the lower extremities bilateral) Neurological: Normal speech, Normal strength at 5/5 x4 extr, Normal tone, Normal affect Laboratory Data at Discharge: WBC 7.50 K/uL (4.3-10.9) 09/21/20 05:25 Hgb 15.3 g/dL (13.6-17.9) 09/21/20 05:25 Hct 47.7 % (39.6-49.0) 09/21/20 05:25 Plt Count 156 K/uL (152-406) 09/21/20 05:25 PT 14.2 SECONDS (9.5-12.5) H 09/20/20 18:10 INR 1.23 09/20/20 18:10 Sodium 144 mmol/L (136-145) 09/21/20 05:25 Potassium 4.0 mmol/L (3.5-5.1) 09/21/20 05:25 BUN 10 mg/dL (7-18) 09/21/20 05:25 Creatinine 1.15 mg/dL (0.55-1.3) 09/21/20 05:25 Glucose 75 mg/dL (74-106) 09/21/20 05:25 Magnesium 1.8 mg/dL (1.8-2.4) 09/21/20 05:25 Total Bilirubin 1.8 mg/dL (0.2-1.0) H 09/20/20 18:10 AST 23 U/L (15-37) 09/20/20 18:10 ALT 18 U/L (12-78) 09/20/20 18:10 Alkaline Phosphatase 93 U/L (45-117) 09/20/20 18:10 Troponin I 0.06 ng/mL (0.0-0.045) H 09/20/20 23:40 Diet: AHA (1500 cc per day fluid restriction) Activity: Fall precautions Followup: Parrish Turcios DO, DO [Primary Care Provider] - Time spent managing pt's care (in minutes): 55
[2020-09-21] MEDS ORDERED: PNEUMOCOCCAL VACCINE 0.5 ML IMVAC ONE (08:00)
[2020-09-21] MEDS ORDERED: INFLUENZA VACCINE (for 3y+) 0.5 ML DOSE IMVAC ONE (08:00)
[2020-09-21] MEDS ORDERED: lisinopriL 10 MG TAB ONE (08:54)
[2020-09-21] MEDS: ENOXAPARIN 40 MG/0.4 ML SQ SCH (08:54)
[2020-09-21] MEDS: lisinopriL 10 MG TAB PO SCH (08:54)
[2020-09-21] MEDS ORDERED: FUROSEMIDE 40 MG/4 ML VIAL ONE (08:54)
[2020-09-21] MEDS: ASPIRIN EC 81 MG TAB PO SCH (08:54)
[2020-09-21] MEDS ORDERED: ASPIRIN EC 81 MG TAB PO ONE (08:54)
[2020-09-21] MEDS ORDERED: ENOXAPARIN 40 MG/0.4 ML SQ ONE (08:55)
[2020-09-21] MEDS ORDERED: FUROSEMIDE 40 MG/4 ML VIAL IV SCH (09:00)
--- NOTE | 2020-09-21 09:28 | RAD REPORT ---
EXAM DESCRIPTION: RAD - Chest Pa And Lat (2 Views) - 09/21/2020 8:08 am CLINICAL HISTORY: follow up CHF Chest pain. COMPARISON: Chest Single View dated 09/20/2020; Chest Single View dated 04/20/2019; Chest Single View dated 03/20/2019; Chest Pa And Lat (2 Views) dated 09/14/2018 FINDINGS: Mild interstitial pulmonary edema is seen, mildly improved since prior study. The heart is moderately enlarged with sternotomy wires present. Right-sided port catheter tip in the SVC. IMPRESSION: Mild improvement in CHF is seen since comparative study.
--- NOTE | 2020-09-21 12:30 | P.PN ---
Subjective Date of Service: 09/21/20 Primary Care Provider: Dr. Clark Chief Complaint: Pulmonary edema Subjective: Improving Physical Examination - Vital Signs Temperature: 98.2 F Blood Pressure: 147/76 Pulse: 88 Respirations: 22 Pulse Ox (%): 98 - Physical Exam General: Alert, In no apparent distress, Oriented x3, Cooperative HEENT: Atraumatic Neck: Supple Respiratory: Crackles/rales (Some crackles to the bases) Cardiovascular: Normal pulses, Regular rate/rhythm Gastrointestinal: Normal bowel sounds, No masses, No rebound, No guarding Integumentary: Other (Mild pitting edema to the lower extremities bilateral) Neurological: Normal speech, Normal strength at 5/5 x4 extr, Normal tone, Normal affect - Studies Laboratory Data (last 24 hrs) 09/20/20 18:10: PT 14.2 H, INR 1.23 09/20/20 18:10: WBC 7.00, Hgb 16.3, Hct 51.4 H, Plt Count 169 09/20/20 18:10: Sodium 141, Potassium 3.3 L, BUN 12, Creatinine 1.24, Glucose 73 L, Magnesium 1.8, Total Bilirubin 1.8 H, AST 23, ALT 18, Alkaline Phosphatase 93 Medications List Reviewed: Yes Assessment & Plan Discharge Plan: Home Plan to discharge in: 48 Hours Physician Review Additional Text: Physical exam: Patient alert, cooperative. No distress noted Heart: Regular rate rhythm Lungs: Crackles to the bases. Abdomen: soft nontender nondistended Extremities: Pitting edema to noted to the lower extremities bilateral. Impression: Dyspnea, lower extremity edema secondary to acute on chronic diastolic CHF Hypertension Hyperlipidemia CAD with previous CABG History of colon cancer Peripheral neuropathy Obesity, BMI 43.4 Plan: Dyspnea, lower extremity edema secondary to acute on chronic diastolic CHF: Continue with aggressive diuresis. Case discussed with cardiology. Cardiology recommends that the patient remained in the hospital for aggressive evaluation. Will increase Lasix to 40 mg IV 3 times a day. Will obtain echocardiogram. Monitor x-ray. Will trend troponin. Patient may require further intervention. Will reassess tomorrow with possible discharge. Await further recommendations from cardiology. Hypertension: Will obtain and restart home medication. Will monitor and adjust appropriately. Hyperlipidemia: Will obtain and restart home medication. CAD with previous CABG: Continue with medication History of colon cancer: Stable Peripheral neuropathy: Continue medication Obesity, BMI 43.4: Lifestyle modification education provided Time Spent Managing Pts Care (In Minutes): 55
[2020-09-21] MEDS: METOPROLOL TAR 25 MG TAB PO SCH ×2 (12:42→17:13)
[2020-09-21] MEDS: FUROSEMIDE 40 MG/4 ML VIAL IV SCH ×2 (13:58→20:55)
[2020-09-21] MEDS ORDERED: METOPROLOL TAR 25 MG TAB PO SCH (18:00)
[2020-09-22] MEDS: METOPROLOL TAR 25 MG TAB PO SCH ×2 (06:09→17:31)
[2020-09-22 07:32] LABS: Magnesium 1.5 mg/dL (1.8-2.4); Thyroid Stimulating Hormone 1.19 uIU/mL (0.360-3.740)
[2020-09-22] MEDS: ASPIRIN EC 81 MG TAB PO SCH (08:21)
[2020-09-22] MEDS: FUROSEMIDE 40 MG/4 ML VIAL IV SCH ×3 (08:21→20:41)
[2020-09-22] MEDS: ENOXAPARIN 40 MG/0.4 ML SQ SCH (08:21)
[2020-09-22] MEDS: lisinopriL 10 MG TAB PO SCH (08:21)
[2020-09-22] MEDS ORDERED: POTASSIUM CL SA 10 MEQ TAB PO ONE ×2 (09:00→17:00)
[2020-09-22] MEDS ORDERED: Magnesium Sulfate 2gm IVPB 2 G/50 ML BAG IV ONE (09:00)
--- NOTE | 2020-09-22 10:06 | P.PN ---
Subjective Date of Service: 09/22/20 Primary Care Provider: Dr. Clark Chief Complaint: Pulmonary edema Subjective: Improving, Doing well Physical Examination - Vital Signs Temperature: 97 F Blood Pressure: 143/91 Pulse: 61 Respirations: 18 Pulse Ox (%): 91 - Studies Medications List Reviewed: Yes Assessment & Plan Discharge Plan: Home Plan to discharge in: 24 Hours Physician Review Additional Text: Physical exam: Patient alert, cooperative. No distress noted. No oxygen required. Heart: Regular rate rhythm Lungs: Crackles to the bases. Abdomen: soft nontender nondistended Extremities: Pitting edema to noted to the lower extremities bilateral. Impression: Dyspnea, lower extremity edema secondary to acute on chronic diastolic CHF Hypertension Hyperlipidemia CAD with previous CABG History of colon cancer Peripheral neuropathy Obesity, BMI 43.4 Plan: Dyspnea, lower extremity edema secondary to acute on chronic diastolic CHF: Patient much improved with aggressive diuresis. Will discuss with cardiology on possible discharge as early as today. Continue to teach on 1500 cc per day fluid restriction, diuresis, CHF. Will reassess later and discuss with cardiology. Hypertension: Continue with medication Will monitor and adjust appropriately. Hyperlipidemia: Continue with medication CAD with previous CABG: Continue with medication History of colon cancer: Stable Peripheral neuropathy: Continue medication Obesity, BMI 43.4: Lifestyle modification education provided Time Spent Managing Pts Care (In Minutes): 55
--- NOTE | 2020-09-22 10:31 | RAD REPORT ---
EXAM DESCRIPTION: RAD - Chest Pa And Lat (2 Views) - 09/22/2020 10:20 am CLINICAL HISTORY: CHF, shortness of breath COMPARISON: Two view chest September 21 TECHNIQUE: PA and lateral views of the chest were obtained. FINDINGS: The lungs are normal volume. Cardiomegaly remains. Vascular engorgement and central inters titial thickening have improved but not fully resolved. Cardiac monitoring device overlies the lower chest and abdomen. Right-sided Port-A-Cath is in place. Lateral view is nondiagnostic due to techniq ue very large body habitus affect. Trachea is midline. No pleural effusion or pneumothorax seen. No acute bony finding noted. No aortic abnormality. IMPRESSION: Partial resolution of CHF/volume overload findings since September 21.
[2020-09-22 15:40] LABS: Magnesium 1.9 mg/dL (1.8-2.4); Potassium 3.3 mmol/L (3.5-5.1)
[2020-09-23] MEDS: METOPROLOL TAR 25 MG TAB PO SCH ×2 (06:28→17:03)
[2020-09-23 07:31] VITALS: BMI 43.9
[2020-09-23] MEDS: lisinopriL 10 MG TAB PO SCH (08:33)
[2020-09-23] MEDS: FUROSEMIDE 40 MG/4 ML VIAL IV SCH ×3 (08:33→20:59)
[2020-09-23] MEDS: ENOXAPARIN 40 MG/0.4 ML SQ SCH (08:33)
[2020-09-23] MEDS: ASPIRIN EC 81 MG TAB PO SCH (08:33)
[2020-09-23 09:42] LABS: Potassium 3.7 mmol/L (3.5-5.1)
--- NOTE | 2020-09-23 11:32 | P.PN ---
Subjective Date of Service: 09/23/20 Primary Care Provider: Dr. Clark Chief Complaint: Pulmonary edema Subjective: Improving, Doing well Physical Examination - Vital Signs Temperature: 97.2 F Blood Pressure: 133/91 Pulse: 64 Respirations: 18 Pulse Ox (%): 90 - Studies Medications List Reviewed: Yes Assessment & Plan Discharge Plan: Home Plan to discharge in: 24 Hours Physician Review Additional Text: Initial chief complaint: 75-year-old male presented with shortness of breast secondary to acute on chronic diastolic CHF with history of hypertension, hyperlipidemia, CAD. Physical exam: Patient alert, cooperative. No distress noted. No oxygen required. Heart: Regular rate rhythm Lungs: Crackles to the bases. Abdomen: soft nontender nondistended Extremities: Pitting edema to noted to the lower extremities bilateral. Impression: Dyspnea, lower extremity edema secondary to acute on chronic diastolic CHF Hypertension CAD with previous CABG History of colon cancer Peripheral neuropathy Obesity, BMI 43.4 Plan: Dyspnea, lower extremity edema secondary to acute on chronic diastolic CHF: Patient continues to improve with aggressive diuresis. Over 5 L removed. Continue IV Lasix 40 mg 3 times a day. Continue to teach on 1500 cc per day fluid restriction, CHF. Await echocardiogram. Discuss case in detail with cardiology. Will plan for cardiac stress test to further evaluate his CAD. If workup negative anticipate discharge tomorrow. I will turn the service over to the hospitalist team tomorrow. I will go plan of care with him. Hypertension: Continue with medication-lisinopril and metoprolol. Will monitor and adjust appropriately. CAD with previous CABG: Continue with medication-aspirin History of colon cancer: Stable Peripheral neuropathy: Gabapentin held due to side effect of increase edema. Patient doing well without medication at this time. Considered discontinuing medication or using lower dosage at discharge. Obesity, BMI 43.4: Lifestyle modification education provided Time Spent Managing Pts Care (In Minutes): 55
[2020-09-23] MEDS ORDERED: POTASSIUM CL SA 10 MEQ TAB PO ONE (12:00)
--- NOTE | 2020-09-23 12:53 | RAD REPORT ---
EXAM DESCRIPTION: RAD - Chest Pa And Lat (2 Views) - CLINICAL HISTORY: CHF, shortness of breath COMPARISON: Two view chest September 22, two view chest September 21 TECHNIQUE: Frontal and lateral views of the chest were obtained. FINDINGS: The lungs are normal volume. Cardiomegaly remains. Central vasculature perihilar intersti tial findings continue to improve. No progressive lung parenchymal process. Right-sided Port-A-Cath r emains in place. Sternotomy wires noted. No pleural effusion or pneumothorax seen. No acute bony fin ding noted. No aortic abnormality. IMPRESSION: Continued improvement in the CHF/volume overload pattern. Minimal
[2020-09-24 04:20] LABS: Magnesium 1.7 mg/dL (1.8-2.4); Potassium 3.6 mmol/L (3.5-5.1)
[2020-09-24] MEDS ORDERED: MAGNESIUM SULFATE 1 gm IVPB 1 GM/100 ML BAG IV ONE (04:32)
[2020-09-24] MEDS: METOPROLOL TAR 25 MG TAB PO SCH ×2 (05:52→06:25)
[2020-09-24] MEDS: ENOXAPARIN 40 MG/0.4 ML SQ SCH (08:00)
[2020-09-24] MEDS: FUROSEMIDE 40 MG/4 ML VIAL IV SCH ×2 (08:00→13:59)
[2020-09-24] MEDS: ASPIRIN EC 81 MG TAB PO SCH (08:00)
[2020-09-24] MEDS: lisinopriL 10 MG TAB PO SCH (08:00)
--- NOTE | 2020-09-24 08:59 | ECHO ---
HEIGHT: 5 ft 7 in WEIGHT: 280 lb 4.8 oz DATE OF STUDY: 09/21/[address]: Isaiah Escalante DO 2-DIMENSIONAL: YES M.MODE: YES DOPPLER: YES COLOR FLOW: YES TDS: NO PORTABLE: NO DEFINITY: NO BUBBLE STUDY: NO DIAGNOSIS: CONGESTIVE HEART FAILURE CARDIAC HISTORY: CATHERIZATION: SURGERY: YES PROSTHETIC VALVE: PACEMAKER: MEASUREMENTS (cm) DIASTOLIC (NORMALS) SYSTOLIC (NORMALS) IVSd 1.3 (0.6-1.2) LA Diam 3.4 (1.9-4.0) LVEF 47% LVIDd 4.3 (3.5-5.7) LVIDs 3.3 (2.0-3.5) %FS 24% LVPWd 1.1 (0.6-1.2) Ao Diam 3.0 (2.0-3.7) 2 DIMENSIONAL ASSESSMENT: RIGHT ATRIUM: NORMAL LEFT ATRIUM: NORMAL RIGHT VENTRICLE: NOT WELL SEEN LEFT VENTRICLE: MILDLY DEPRESSED TRICUSPID VALVE: MITRAL VALVE: NORMAL PULMONIC VALVE: NOT SEEN AORTIC VALVE: NORMAL PERICARDIAL EFFUSION: NONE AORTIC ROOT: NORMAL LEFT VENTRICULAR WALL MOTION: SEE BELOW. DOPPLER/COLOR FLOW: SEE BELOW. COMMENTS: VERY POOR WINDOWS. LEFT VENTRICULAR EJECTION FRACTION APPEARS MILD DEPRESSED, RECOMMEND CONTRAST STUDY TO FURTHER EVALUATE. TECHNOLOGIST: Mena FARNSWORTH
[2020-09-24] MEDS ORDERED: POTASSIUM 25 MEQ EFFERV TAB PO ONE (09:00)
--- NOTE | 2020-09-24 09:14 | P.DS ---
Admission Date: 09/21/20 Discharge Date: 09/24/20 Primary Care Provider: Dr. Turcios; Cardiology-Dr. Clark Disposition: ROUTINE DISCHARGE Discharge Condition: GOOD Reason for Admission: Pulmonary edema Consultations: Cardiology-Dr. Espinosa Procedures: COVID: Negative ECHO: EF 47% 2 DIMENSIONAL ASSESSMENT: RIGHT ATRIUM: NORMAL LEFT ATRIUM: NORMAL RIGHT VENTRICLE: NOT WELL SEEN LEFT VENTRICLE: MILDLY DEPRESSED TRICUSPID VALVE: MITRAL VALVE: NORMAL PULMONIC VALVE: NOT SEEN AORTIC VALVE: NORMAL PERICARDIAL EFFUSION: NONE AORTIC ROOT: NORMAL LEFT VENTRICULAR WALL MOTION: SEE BELOW. DOPPLER/COLOR FLOW: SEE BELOW. COMMENTS: VERY POOR WINDOWS. LEFT VENTRICULAR EJECTION FRACTION APPEARS MILD DEPRESSED Cardiac Stress Test: FINDINGS: Small area of diminished radiotracer uptake involves the inferolateral left ventricular myocardium on rest and stress images. The left ventricular ejection fraction equals 27% IMPRESSION: Small apparent fixed perfusion defect involving the inferolateral left ventricular myocardium probably an infarct No evidence of stress-induced ischemia Follow up CXR: COMPARISON: Two view chest September 22, two view chest September 21 TECHNIQUE: Frontal and lateral views of the chest were obtained. FINDINGS: The lungs are normal volume. Cardiomegaly remains. Central vasculature perihilar interstitial findings continue to improve. No progressive lung parenchymal process. Right-sided Port-A-Cath remains in place. Sternotomy wires noted. No pleural effusion or pneumothorax seen. No acute bony finding noted. No aortic abnormality. IMPRESSION: Continued improvement in the CHF/volume overload pattern. Medical Problem List: Dyspnea, lower extremity edema secondary to acute on chronic diastolic CHF, EF around 47%/Cardiac stress showing no stress induced ischemia Hypertension CAD with previous CABG History of colon cancer Peripheral neuropathy Obesity, BMI 43.4 Brief History of Present Illness: 75-year-old male presented with shortness of breath and edema to the lower extremities. Patient with acute on chronic diastolic CHF. Patient admitted for further evaluation and treatment. Hospital Course: Patient presented with Dyspnea, lower extremity edema secondary to acute on chronic diastolic CHF. Patient required aggressive diuresis. Patient was seen and evaluated by Cardiology. Patient continued to do well. Echocardiogram shows ejection fraction around 47%. Cardiology recommended cardiac stress test to further evaluate. No stress induced ischemia. No further intervention was required. At discharge patient will continue with a 1500 cc per day fluid restriction and low-salt diet. Education on CHF provided. At discharge Lasix has been increased to 80 mg 1 pill twice daily. He is to monitor his weight daily. If his weight increases by more than 5 lb he is to contact his PCP or cardiology for further recommendation. Follow up with cardiology in 1 week to follow up this hospitalization. Further adjustment in his medication may be required. This can be done with the help of cardiology or his PCP. Patient with hypertension. Medications have been adjusted. At discharge patient will continue with lisinopril 10 mg daily and metoprolol 25 mg 1 pill twice daily. Recommend to maintain blood pressure less than 130/80. Further adjustment can be done by his PCP. Patient with CAD with prior CABG. This has remained stable. Patient will continue with aspirin 81 mg daily. Patient with peripheral neuropathy. Patient previously on gabapentin. This was discontinued due to risk of increasing edema. Patient stable without medication at this time. Patient may take Tylenol as needed. Patient with obesity, BMI 43.4. Lifestyle modification education provided. Recommend evaluation for obstructive sleep apnea as an outpatient. This can be done with the help of pulmonology. Vital Signs/Physical Exam: Temp Pulse Resp BP Pulse Ox 97.9 F 72 24 H 127/84 94 09/24/20 08:00 09/24/20 08:00 09/24/20 08:00 09/24/20 08:00 09/24/20 08:00 General: Alert, In no apparent distress, Oriented x3, Cooperative HEENT: Atraumatic Neck: Supple Respiratory: Clear to auscultation bilaterally, Normal air movement Cardiovascular: Normal pulses, Regular rate/rhythm Gastrointestinal: Normal bowel sounds, Soft and benign, Non-distended, No tenderness, No masses, No rebound, No guarding Musculoskeletal: No erythema, No tenderness, No warmth Integumentary: No tenderness/swelling, Skin lesion Neurological: Normal speech, Normal strength at 5/5 x4 extr, Normal tone, Normal affect Laboratory Data at Discharge: WBC 7.50 K/uL (4.3-10.9) 09/21/20 05:25 Hgb 15.3 g/dL (13.6-17.9) 09/21/20 05:25 Hct 47.7 % (39.6-49.0) 09/21/20 05:25 Plt Count 156 K/uL (152-406) 09/21/20 05:25 PT 14.2 SECONDS (9.5-12.5) H 09/20/20 18:10 INR 1.23 09/20/20 18:10 Sodium 139 mmol/L (136-145) 09/24/20 03:15 Potassium 3.6 mmol/L (3.5-5.1) 09/24/20 03:15 BUN 21 mg/dL (7-18) H 09/24/20 03:15 Creatinine 1.01 mg/dL (0.55-1.3) 09/24/20 03:15 Glucose 78 mg/dL (74-106) 09/24/20 03:15 Magnesium 1.7 mg/dL (1.8-2.4) L 09/24/20 03:15 Total Bilirubin 1.8 mg/dL (0.2-1.0) H 09/20/20 18:10 AST 23 U/L (15-37) 09/20/20 18:10 ALT 18 U/L (12-78) 09/20/20 18:10 Alkaline Phosphatase 93 U/L (45-117) 09/20/20 18:10 Troponin I 0.04 ng/mL (0.0-0.045) 09/22/20 06:48 Triglycerides 68 mg/dL (<150) 09/22/20 06:48 Cholesterol 129 mg/dL (<200) 09/22/20 06:48 HDL Cholesterol 45 mg/dL (40-60) 09/22/20 06:48 Cholesterol/HDL Ratio 2.87 09/22/20 06:48 Home Medications: Aspirin 81 mg PO DAILY 09/21/20 Furosemide [Lasix] 80 mg PO BID #60 tablet 09/24/20 Metoprolol Tartrate [Lopressor*] 25 mg PO BID 6AM 6PM #60 tab 09/24/20 lisinopriL [Prinivil*] 10 mg PO DAILY #30 tab 09/24/20 New Medications: Furosemide [Lasix] 80 mg PO BID #60 tablet Metoprolol Tartrate [Lopressor*] 25 mg PO BID 6AM 6PM #60 tab lisinopriL [Prinivil*] 10 mg PO DAILY #30 tab Physician Discharge Instructions: Patient presented with Dyspnea, lower extremity edema secondary to acute on chronic diastolic CHF. Patient required aggressive diuresis. Patient was seen and evaluated by Cardiology. Patient continued to do well. Echocardiogram shows ejection fraction around 47%. Cardiology recommended cardiac stress test to further evaluate. No stressed induced ischemia. No further intervention was required. At discharge patient will continue with a 1500 cc per day fluid restriction and low-salt diet. Education on CHF provided. At discharge Lasix has been increased to 80 mg 1 pill twice daily. He is to monitor his weight daily. If his weight increases by more than 5 lb he is to contact his PCP or cardiology for further recommendation. Follow up with cardiology in 1 week to follow up this hospitalization. Further adjustment in his medication may be required. This can be done with the help of cardiology or his PCP. Patient with hypertension. Medications have been adjusted. At discharge patient will continue with lisinopril 10 mg daily and metoprolol 25 mg 1 pill twice daily. Recommend to maintain blood pressure less than 130/80. Further adjustment can be done by his PCP. Patient with CAD with prior CABG. This has remained stable. Patient will continue with aspirin 81 mg daily. Patient with peripheral neuropathy. Patient previously on gabapentin. This was discontinued due to risk of increasing edema. Patient stable without medication at this time. Patient may take Tylenol as needed. Patient with obesity, BMI 43.4. Lifestyle modification education provided. Recommend evaluation for obstructive sleep apnea as an outpatient. This can be done with the help of pulmonology. Diet: AHA Activity: Ad juni Followup: Karolina CAMARGO,Parrish Miles DO [Primary Care Provider] - Time spent managing pt's care (in minutes): 55
[2020-09-24] MEDS ORDERED: REGADENOSON 0.4 MG/5 ML SYR IV ONE (10:44)
--- NOTE | 2020-09-24 12:06 | PN ---
Date of Progress Note: 09/24/2020 The patient is being seen today on 09/24/2020. He had come in with congestive heart failure. He has had a history of hypertension, CAD, status post CABG, has obesity, colon cancer, dyslipidemia. He c lisa in with acute on chronic diastolic congestive heart failure. He has improved from that standpoin t. His O2 saturation is adequate. Lexiscan is pending for today. We will see what that shows befor e making further decisions. ENEDINA/ARRON Voice ID: [id number] Report ID: [id number]
--- NOTE | 2020-09-24 12:56 | RAD REPORT ---
EXAM DESCRIPTION: NM - Rest Stress Cardiac Imaging - 09/24/2020 12:40 pm CLINICAL HISTORY: Chest pain. COMPARISON: None. TECHNIQUE: The patient was administered 10.4 mCi of Tc 99m Sestamibi prior to resting SPECT imaging of the heart. The patient was then administered 32.2 mCi of Tc 99m Sestamibi following exercise or ph armacologic stress. Multiplanar SPECT images were reviewed. FINDINGS: Small area of diminished radiotracer uptake involves the inferolateral left ventricular my ocardium on rest and stress images. The left ventricular ejection fraction equals 27% IMPRESSION: Small apparent fixed perfusion defect involving the inferolateral left ventricular myoca rdium probably an infarct No evidence of stress-induced ischemia
[2020-09-24 16:04] VITALS: BP 111/74; TEMP 97.4
[2020-09-24 16:12] VITALS: O2SAT 95
--- NOTE | 2020-09-24 17:54 | CON ---
Date of Consultation: 09/21/2020 Reason For Consultation: Congestive heart failure. History Of Present Illness: This is a 75-year-old male with history of congestive heart failure, pre sented to the emergency room with significant shortness of breath, lower extremity edema. No orthopn ea. No chest pain. The patient is on diuretics and he claimed that he is compliant. He is known to have history of coronary artery disease status post 3-vessel CABG in the past. Past Medical History: Hypertension, dyslipidemia, coronary artery disease. Medications: Refer consultation sheet for detailed list. Past Surgical History: Coronary artery bypass surgery, 3 vessels; right knee surgery; colectomy. Allergies: NO KNOWN DRUG ALLERGIES. Family History: No premature coronary artery disease, cancer. Social History: Does not smoke or drink. Does not use any drugs. Review of Systems: All systems reviewed and they were negative except for mentioned in the HPI. Physical Examination: Vital Signs: Temperature is 97.4, pulse is 74, breathing at 24, the blood pressure is 167/124. General: Pleasant, elderly male, appears slightly short of breath. Head and Neck: Pupils are equal, reactive to light. Intact eye movements. Mild JVD. No cervical l ymphadenopathy. Neck: Supple. Thyroid is not enlarged. Lungs: Crackles in both bases with slight increased respiratory effort. Heart: Regular with S3. Abdomen: Soft, nontender. Bowel sounds positive. No organomegaly. No rigidity or rebound. Extremities: 3 to 4+ pitting edema bilaterally all the way to the midthigh. Neuro: Alert, awake, oriented x3. No acute focal deficit appreciated. Lymph Nodes: No cervical lymphadenopathy. Investigations: Creatinine is 1.1. Troponin 0.06. NT-proBNP is 2635. Chest x-ray is CHF. Venous Doppler of lower extremities, no DVT. Assessment And Plan: 1.Acute on chronic congestive heart failure. Echo suggestive of mild LV dysfunction. Recommend IV Lasix 40 mg q.8 hours throughout the week and monitor BUN, creatinine, electrolytes and in an output very closely with the low-sodium diet is recommended. 2.Mild depressed systolic heart function with a troponin leak suggestive of possible non ST elevatio n myocardial infarction versus demand ischemia. Recommend a Lexiscan nuclear stress test to further evaluate. 3.Coronary artery disease with mild troponin leak and mild drop in ejection fraction. Recommend a n uclear Lexiscan nuclear stress test to further evaluate. Thank you for the consult. /ARRON Voice ID: [id number] Report ID: [id number]
--- NOTE | 2020-09-25 09:18 | TREADPHA ---
DX: CHEST PAIN Date of Study: 09/24/2020 Ht: 5' 7 " Wt: 280 lb 4.8 oz Consulting Physician: CLEMENT MEDICATIONS: ASPIRIN, LOVENOX, PRINIVIL, LASIX, LOPRESSOR HISTORY: MYOCARDIAL INFARCTION, TRIPLE CORONARY ARTERY BYPASS GRAFT, HYPERTENSION AND CONGESTIVE HEART FAILURE. PHYSICIAL EXAMINATION: RESTING B.P.: 121/43 RESTING H.R.: 66 RESTING EKG: SINUS WITH T DECREASE IN ANTERIOR LEADS. PROTOCOL: LEXISCAN EXERCISE TIME: 3:30 B.P. AT PEAK STRESS: 77 IMPRESSION: NO ISCHEMIC CHANGES PER EKG.
== END 2020-09-24 16:55 | disposition home or self-care (01) | DRG 292 ==
LOC: ER 13:59 → ERHOLD 19:58 → 4TH 09-21 09:04 → OBSVTOIN 09-21 15:37
PROVIDERS: ADMIT Family Medicine; ATTEND Family Medicine
DX: I11.0 Hypertensive heart disease with heart failure (principal); Z68.41 Body mass index [BMI] 40.0-44.9, adult; I50.33 Acute on chronic diastolic (congestive) heart failure; E66.9 Obesity, unspecified; E78.5 Hyperlipidemia, unspecified; G62.9 Polyneuropathy, unspecified; I25.10 Atherosclerotic heart disease of native coronary artery without angina pectoris; Z95.0 Presence of cardiac pacemaker; Z90.49 Acquired absence of other specified parts of digestive tract; Z85.038 Personal history of other malignant neoplasm of large intestine; Z87.891 Personal history of nicotine dependence; Z79.82 Long term (current) use of aspirin; Z79.899 Other long term (current) drug therapy; Z20.822 Contact with and (suspected) exposure to COVID-19
CPT/HCPCS: 36415; 71045; 71046; 78452; 80048; 80061; 80076; 81003; 83735; 83880; 84132; 84439; 84443; 84484; 85025; 85610; 93017; 93306; 93970; 94010; 96372; 96374; 99285; A9500; G0378; J1650; J1940; J2785; J3475; U0003